=== PATIENT | female | born 2000 | race African-American/Black ===

== ENCOUNTER 2020-01-16 10:07 | Emergency (ER) | payer SELFPAY ==
[2020-01-16 10:12] VITALS: BP 104/64; PULSE 155; RESP 24; TEMP 38.8; O2SAT 99
--- NOTE | 2020-01-16 10:33 | ED.URI ---
HPI - URI/Sore Throat General Chief Complaint: Upper Respiratory Infection <Mirlande Kahn PA-C - Last Filed: 01/16/20 12:18> Stated Complaint: Fever, Lower back pain. <MOOSE Armstrong Last Filed: 01/16/20 12:18> Time Seen by Provider: 01/16/20 10:14 <MOOSE Armstrong Last Filed: 01/16/20 12:18> Source: patient <MOOSE Armstrong Last Filed: 01/16/20 12:18> Mode of arrival: ambulatory <MOOSE Armstrong Last Filed: 01/16/20 12:18> Limitations: no limitations <MOOSE Armstrong Last Filed: 01/16/20 12:18> History of Present Illness HPI Narrative: This is a 19 year old female that presents to the ER for cold symptoms x 3 days. Reports fever, rhinorrhea, and myalgias. Reports she has not felt like eating. She has been taking over the counter medications with little relief. She did not get her Flu vaccine this year. Denies sore throat, otalgia, chest pain or shortness of breath. <MOOSE Armstrong Last Filed: 01/16/20 12:18> Related Data Home Medications: Home Medications Medication Instructions Recorded Confirmed No Home Medications 01/16/20 01/16/20 <MOOSE Armstrong Last Filed: 01/16/20 12:18> Allergies/Adverse Reactions: Allergies Allergy/AdvReac Type Severity Reaction Status Date / Time No Known Allergies Allergy Unverified 01/16/20 10:16 <MOOSE Armstrong Last Filed: 01/16/20 12:18> Review of Systems Review of Systems: Narrative: CONSTITUTIONAL: Reports fever, chills ENT: Reports rhinorrhea. Denies congestion, sore throat, or otalgia. CARDIOVASCULAR: Denies chest pain RESPIRATORY: Denies cough or dyspnea. MUSCULOSKELETAL: Reports myalgia. <MOOSE Armstrong Last Filed: 01/16/20 12:18> All systems reviewed & are unremarkable except as noted in HPI and below <Mirlande Kahn PA-C - Last Filed: 01/16/20 12:18> [facility] Surgical History Surgical History: Surgical History (Updated 01/16/20 @ 10:38 by Mirlande Kahn PA-C) History of tonsillectomy <Mirlande Kahn PA-C - Last Filed: 01/16/20 12:18> Social History Social History: Social History (Updated 01/16/20 @ 10:38 by Mirlande Kahn PA-C) Smoking status: Never smoker Gender identity (if verbalized by the patient): Female <Mirlande Kahn PA-C - Last Filed: 01/16/20 12:18> Exam Narrative: Exam Narrative: GENERAL: Well-appearing, well-nourished, and in no acute distress. HEAD: Normocephalic, atraumatic. EYES: EOMI. ENT: Nares with rhinorrhea, no epistaxis. Mucous membranes moist. Oropharynx without tonsillar hypertrophy exudate or other lesions. Bilateral TMs pearly ballesteros non-bulging NECK: Supple. No adenopathy or masses. CHEST: Clear to auscultation. No respiratory distress. No wheezes rales or rhonchi HEART: Regular rate and rhythm. No murmur heard. Normal peripheral pulses. EXTREMITIES: Normal range of motion. No edema. SKIN: Warm, dry, no rash. NEURO: No focal deficits. Alert and oriented x3. PSYCH: Normal mood and affect <Mirlande Kahn PA-C - Last Filed: 01/16/20 12:18> Course Vital Signs Vital signs: Vital Signs Temperature 38.8 C H 01/16/20 10:12 Pulse Rate 155 H 01/16/20 10:12 Respiratory Rate 24 H 01/16/20 10:12 Blood Pressure 104/64 01/16/20 10:12 Pulse Oximetry 99 01/16/20 10:12 Temperature 37.2 C 01/16/20 12:47 Pulse Rate 100 01/16/20 12:47 Respiratory Rate 25 H 01/16/20 12:47 Blood Pressure 100/61 01/16/20 12:47 Pulse Oximetry 97 01/16/20 12:47 <Mirlande Kahn PA-C - Last Filed: 01/16/20 12:18> Vital Signs Temperature 38.8 C H 01/16/20 10:12 Pulse Rate 155 H 01/16/20 10:12 Respiratory Rate 24 H 01/16/20 10:12 Blood Pressure 104/64 01/16/20 10:12 Pulse Oximetry 99 01/16/20 10:12 Temperature 37.2 C 01/16/20 12:47 Pulse Rate 100 01/16/20 12:47 Respiratory Rate 25 H 01/16/20 12:47 Blood Pressure 100/61 03/0
[2020-01-16] MEDS: SODIUM CHLORIDE 0.9% IV 1,000 ML 999 ML IV CONT ×2 (10:43→11:23)
[2020-01-16 11:23] VITALS: BP 95/55; PULSE 114; RESP 22; TEMP 38.3; O2SAT 100
[2020-01-16 11:54] VITALS: TEMP 38.1
[2020-01-16] MEDS: KETOROLAC 30 MG/ML VIAL (*BKC) IV PUSH (12:14)
[2020-01-16 12:15] VITALS: BP 100/61; PULSE 105; RESP 22; O2SAT 100
[2020-01-16 12:47] VITALS: BP 100/61; PULSE 100; RESP 25; TEMP 37.2; O2SAT 97
== END 2020-01-16 12:49 | disposition home or self-care (01) ==
PROVIDERS: Emergency Provider Emergency Medicine
DX: B34.9 Viral infection, unspecified (principal)
CPT/HCPCS: 87804; 96365; 96375; 99284; J0131; J1885; J7030

== ENCOUNTER 2021-06-22 23:12 | Emergency (ER) | payer SELFPAY ==
[2021-06-22] MEDS: IBUPROFEN 600 MG TABLET PO (23:45)
[2021-06-22 23:56] VITALS: BP 119/80; PULSE 126; RESP 20; TEMP 39.1; O2SAT 100
[2021-06-23 00:26] VITALS: TEMP 38.1
--- NOTE | 2021-06-23 01:52 | ED.FEVER ---
HPI - Fever History of Present Illness HPI Narrative: 20 yo female presnts to the ED c/o fever. She has had a fever for the past 3 days. this is associated with nausea, body aches, urinary frequency. No dysuria, cough, congestion, SOb, sore throat. fever has been controlled with tylenol and motrin Related Data Home Medications Medication Instructions Recorded Confirmed No Home Medications 01/16/20 01/16/20 Allergies Allergy/AdvReac Type Severity Reaction Status Date / Time No Known Allergies Allergy Unverified 01/16/20 10:16 Review of Systems Review of Systems: All systems reviewed & are unremarkable except as noted in HPI and below Cardiovascular: Cardiovascular: Denies chest pain Respiratory: Respiratory: Denies cough and Denies dyspnea Gastrointestinal: Gastrointestinal: Denies abdominal pain, Denies diarrhea, Reports nausea and Denies vomiting Genitourinary: Genitourinary: Denies hematuria, Reports nocturia, Denies dysuria, Denies pelvic pain, Denies flank pain and Denies vaginal discharge Musculoskeletal: Musculoskeletal: Denies back pain and Reports myalgias [facility] Surgical History Surgical History History of tonsillectomy Social History Social History Smoking status: Never smoker Gender identity (if verbalized by the patient): Female Exam Const: General: healthy appearing, no acute distress and alert Orientation/consciousness: patient oriented x3 HENMT: Head: normal to inspection Throat: posterior oropharynx normal Neck: Neck: normal visual inspection and no lymphadenopathy Chest: Chest palpation & inspection: no tenderness Resp: Effort & Inspection: normal respiratory effort Auscultation: clear to auscultation bilaterally, no rales, no rhonchi and no wheezes Cardio: Jugular venous distension: no JVD Rate: tachycardic Rhythm: regular rhythm Heart sounds: no murmurs GI: Inspection: non-distended GI Palp: Yes Soft to palpation, Yes Tenderness to palpation present (GI) (suprpubic), No Guarding due to palpation present (GI) and No Rebound tenderness present Skin: General skin exam: normal color Neuro: General: patient oriented x3 and moves all extremities Speech: normal speech Extrem: General: no edema Psych: Appearance: well kempt Affect: normal affect Course Vital Signs Vital signs: Vital Signs Temperature 39.1 C H 06/22/21 23:56 Pulse Rate 126 H 06/22/21 23:56 Respiratory Rate 20 06/22/21 23:56 Blood Pressure 119/80 06/22/21 23:56 Pulse Oximetry 100 06/22/21 23:56 Temperature 38.1 C H 06/23/21 00:26 Pulse Rate 82 06/23/21 02:14 Respiratory Rate 18 06/23/21 02:14 Blood Pressure 137/74 06/23/21 02:14 Pulse Oximetry 99 06/23/21 02:14 MDM - Fever MDM Narrative Medical decision making narrative: UA consistent with infection. Medical Records Attestation: I reviewed the patient's medical records. Lab Data Attestation: I reviewed the patient's lab results. Labs: Lab Results 06/23/21 Range/Units 02:09 SARS-CoV-2 RNA (RT-PCR) Negative Influenza A Screen Negative Reference Range: Negative Influenza B Screen Negative Reference Range: Negative Strep Screen Presumptive Negative *(Reference Range: Negative)* Discharge Plan Discharge Clinical Impression: Suspected COVID-19 virus infection Patient Disposition: Home, Self-Care Condition: Stable Instructions: COVID-19 (Coronavirus Disease 2019) (ED) Prescriptions: No Action No Home Medications RF: 0 Follow-up/Referrals: UNKNOWN,DOCTOR [Non-Staff] - Sanrdo Ramos DO [Physician] - Stand Alone Forms: Work/School Release IP
[2021-06-23 02:14] VITALS: BP 137/74; PULSE 82; RESP 18; O2SAT 99
[2021-06-24 17:31] LABS: SARS-CoV-2 RNA PCR Negative
== END 2021-06-23 02:15 | disposition home or self-care (01) ==
PROVIDERS: Emergency Provider Emergency Medicine; PCP Emergency Medicine
DX: R50.9 Fever, unspecified (principal); Z20.822 Contact with and (suspected) exposure to COVID-19
CPT/HCPCS: 87081; 87804; 87880; 99283; A9270; C9803; U0003; U0005

== ENCOUNTER 2021-08-21 12:29 | Emergency (ER) | payer OTHER, SELFPAY ==
--- NOTE | ~2021-08-21 | XR_ITS ---
EXAMINATION: XR chest 1V portable DATE: 08/21/2021 14:33 INDICATION: Fever. TECHNIQUE: A single frontal view of the chest was obtained. COMPARISON: None. FINDINGS: The chest demonstrates clear lungs without pneumonia, pleural effusion, or pneumothorax. Th e heart size is normal. IMPRESSION: 1. No acute cardiopulmonary disease. Reviewed, dictated and finalized at location A.
[2021-08-21 12:55] VITALS: BP 122/67; PULSE 109; RESP 14; TEMP 37.6; O2SAT 99
[2021-08-21 14:31] LABS: Basophils Percent Auto 0.1 % (0.2-1.2); Eosinophils Percent Auto 0.1 % (0-4.4); Hematocrit 34.5 % (37.0-47.0); Hemoglobin 11.3 g/dL (12.0-15.0); Immature Granulocyte Absolute 0.03 K/mm3 (0.00-0.031); Immature Granulocyte Percent A 0.3 % (0-0.5); Lymphocytes Absolute Auto 1.53 K/mm3 (0.9-3.2); Lymphocytes Percent Auto 16.2 % (18.3-44.2); Mean Corpuscular HGB Conc 32.8 g/dl (32-36); Mean Corpuscular Hemoglobin 27.8 pg (26-34); Mean Corpuscular Volume 84.8 fl (80-100); Mean Platelet Volume 9.6 fl (7.4-10.4); Monocytes Percent Auto 10.1 % (2.6-8.5); Neutrophils Absolute Auto 6.9 K/mm3 (1.3-6.7); Neutrophils Percent Auto 73.2 % (45.5-73.1); Platelet Count Result 223 k/mm3 (150-375); Red Blood Count 4.07 M/mm3 (4.2-5.4); White Blood Count 9.4 K/mm3 (4.5-10.0)
--- NOTE | 2021-08-21 14:31 | PC.NURSE ---
Xray at bedside.
[2021-08-21 14:47] LABS: INR 1.1; Prothrombin Time 14.3 Seconds (11.1-14.7)
[2021-08-21 14:48] LABS: Partial Thromboplastin Time 24.7 SECONDS (22.3-36.8)
[2021-08-21 14:53] LABS: Alanine Aminotransferase 27 U/L (4-35); Albumin Level 4.1 g/dL (3.5-5.1); Alkaline Phosphatase 134 U/L (38-126); Anion Gap 10 mmol/L (8-16); Aspartate Amino Transferase 25 U/L (14-36); Bilirubin,Total 0.8 mg/dL (0.2-1.3); Blood Urea Nitrogen 13 mg/dL (7-17); CRP 8.6 mg/dL (<1.0); Calcium 8.8 mg/dL (8.4-10.2); Carbon Dioxide 24 mmol/L (22-30); Chloride 106 mmol/L (98-107); Estimated CRCL calculation 101 ml/min; Estimated Glomerular Filt Rate > 60; Glucose 88 mg/dL (65-110); Potassium 3.7 mmol/L (3.4-5.0); Sodium 140 mmol/L (137-145)
[2021-08-21] MEDS: SODIUM CHLORIDE 0.9% IV 1,000 ML 999 ML IV CONT (15:17)
[2021-08-21 15:18] LABS: Add Urine Microscopic? YES; Appearance Urine Cloudy (Clear); Bacteria Urine 1+ /hpf; Bilirubin Urine Negative (Negative); Blood Urine 3+ (Negative); Color Urine Red (Yellow); Glucose Urine UA Negative (Negative); Ketones Urine Negative (Negative); Leukocyte Esterase Ur 2+ LEU/UL (Negative); Mucus Urine Few /lpf; Nitrate Urine Positive (Negative); Protein Urine 3+ mg/dL (Negative); RBC Urine >75 /hpf (0-2); Specific Grav Ur 1.018 (1.001-1.035); WBC Urine >75 /hpf
[2021-08-21] MEDS: ONDANSETRON INJ 4 MG/2 ML VIAL IV PUSH (15:18)
--- NOTE | 2021-08-21 15:19 | ED.FEVER ---
HPI - Fever General Chief Complaint: Fever <Mirlande Kahn PA-C - Last Filed: 08/21/21 17:34> Stated Complaint: fever <Mirlande Kahn PA-C - Last Filed: 08/21/21 17:34> Time Seen by Provider: 08/21/21 14:25 <Mirlande Kahn PA-C - Last Filed: 08/21/21 17:34> Source: patient <Mirlande Kahn PA-C - Last Filed: 08/21/21 17:34> Mode of arrival: ambulatory <Mirlande Kahn PA-C - Last Filed: 08/21/21 17:34> Limitations: no limitations <Mirlande Kahn PA-C - Last Filed: 08/21/21 17:34> History of Present Illness HPI Narrative: This is a 21 year old female that presents to the ER for fever since yesterday. Associated with nausea and vomiting. Denies any other localizing symptoms. Denies cough, congestion, sore throat, abdominal pain, diarrhea, or dysuria. <Mirlande Kahn PA-C - Last Filed: 08/21/21 17:34> Related Data Allergies/Adverse Reactions: Allergies Allergy/AdvReac Type Severity Reaction Status Date / Time No Known Allergies Allergy Unverified 08/21/21 14:14 <Mirlande Kahn PA-C - Last Filed: 08/21/21 17:34> Review of Systems Review of Systems: CONSTITUTIONAL: Reports fever ENT: Denies rhinorrhea, congestion, sore throat RESPIRATORY: Denies cough GASTROINTESTINAL: Reports nausea and vomiting. Denies abdominal pain, or diarrhea. GENITOURINARY: Denies dysuria or hematuria. <Mirlande Kahn PA-C - Last Filed: 08/21/21 17:34> All systems reviewed & are unremarkable except as noted in HPI and below <Mirlande Kahn PA-C - Last Filed: 08/21/21 17:34> [facility] Past Medical History Medical History: Medical History (Updated 08/21/21 @ 17:33 by Mirlande Kahn PA-C) No active medical problems <Mirlande Kahn PA-C - Last Filed: 08/21/21 17:34> Surgical History Surgical History: Surgical History History of tonsillectomy <Mirlande Kahn PA-C - Last Filed: 08/21/21 17:34> Social History Social History: Social History Smoking status: Never smoker Gender identity (if verbalized by the patient): Female <Mirlande Kahn PA-C - Last Filed: 08/21/21 17:34> Exam Narrative: GENERAL: Well-appearing, well-nourished, and in no acute distress. HEAD: Normocephalic, atraumatic. EYES: EOMI. CHEST: Clear to auscultation. No respiratory distress. No wheezes rales or rhonchi HEART: Regular rate and rhythm. No murmur heard. Normal peripheral pulses. ABDOMEN: Soft, nontender, nondistended, normal active bowel sounds. No CVA tenderness EXTREMITIES: Normal range of motion. No edema. SKIN: Warm, dry, no rash. NEURO: No focal deficits. Alert and oriented x3. PSYCH: Normal mood and affect <Mirlande Kahn PA-C - Last Filed: 08/21/21 17:34> Course Vital Signs Vital signs: Vital Signs Temperature 99.7 F H 08/21/21 12:55 Pulse Rate 109 H 08/21/21 12:55 Respiratory Rate 14 08/21/21 12:55 Blood Pressure 122/67 08/21/21 12:55 Pulse Oximetry 99 08/21/21 12:55 Temperature 99.7 F H 08/21/21 12:55 Pulse Rate 109 H 08/21/21 12:55 Respiratory Rate 14 08/21/21 12:55 Blood Pressure 122/67 08/21/21 12:55 Pulse Oximetry 99 08/21/21 12:55 <Mirlande Kahn PA-C - Last Filed: 08/21/21 17:34> MDM - Fever MDM Narrative Medical decision making narrative: Patient presents to the emergency department for fever, nausea and vomiting. Afebrile in the ED and nontoxic-appearing. Her vitals are stable. CBC is without leukocytosis. Metabolic panel without concerning findings. Bedside test is negative. UA with evidence of likely urinary tract infection. Chest x-ray without acute cardiopulmonary abnormality. Patient started on IV antibiotics for urinary tract infection. Hydrated and given dose of antiemetic in the ED with relief. Will be started on oral antibiotics. She is to follow-up with
[2021-08-21 16:37] LABS: Lipase 45 U/L (23-300)
[2021-08-21 17:46] VITALS: BP 110/60; PULSE 100; RESP 16; O2SAT 100
== END 2021-08-21 17:48 | disposition home or self-care (01) ==
PROVIDERS: Physician Assistant; Emergency Provider General Practice
DX: N30.00 Acute cystitis without hematuria (principal)
CPT/HCPCS: 36415; 71045; 80053; 81001; 81025; 83605; 83690; 85025; 85610; 85730; 86140; 87077; 87086; 87088; 87186; 87804; 96365; 96367; 96375; 99284; J0131; J0696; J2405; J7030

== ENCOUNTER 2022-02-26 20:20 | Inpatient (IN) | payer OTHER, SELFPAY ==
[2022-02-26] VITALS (15 sets, daily range): BP systolic 70–101; BP diastolic 53–79; PULSE 101–149; RESP 16–35; TEMP 37.1–37.9; O2SAT 96–100
--- NOTE | ~2022-02-26 | US_ITS ---
EXAMINATION: US retroperitoneal comp DATE: 02/27/2022 14:10 INDICATION: Acute kidney injury. TECHNIQUE: Multiple ultrasound grayscale images of the kidneys were obtained. COMPARISON: None. FINDINGS: The right kidney measures 14.2 x 5.7 x 5.9 cm. The left kidney measures 13.1 x 5.9 x 6.2 cm. The kidn eys demonstrate normal parenchymal echogenicity. There is mild right hydronephrosis. There is a stone at right ureterovesicular junction. IMPRESSION: 1. Stone at right ureterovesicular junction with mild right hydronephrosis. Reviewed, dictated and finalized at location A.
--- NOTE | ~2022-02-26 | US_ITS ---
EXAMINATION: US renal BI DATE: 02/28/2022 08:13 INDICATION: Right hydronephrosis TECHNIQUE: Multiple grayscale and Doppler ultrasound images of the kidneys were obtained. COMPARISON: 02/27/2022 FINDINGS: The right kidney measures 13.5 x 6.3 x 6.7 cm. The left kidney measures 12.3 x 5.8 x 6.0 cm . The kidneys demonstrate normal parenchymal echogenicity. There is no definite persistent hydronephr osis. The bladder is normal. IMPRESSION: 1. No definite persistent hydronephrosis. Reviewed, dictated and finalized at location A.
[2022-02-26 22:04] LABS: Basophils Absolute Auto 0.1 K/mm3 (0.0-0.1); Basophils Percent Auto 0.5 % (0.2-1.2); Eosinophils Percent Auto 0.3 % (0-4.4); Hematocrit 33.1 % (37.0-47.0); Hemoglobin 9.7 g/dL (12.0-15.0); Immature Granulocyte Absolute 0.08 K/mm3 (0.00-0.031); Immature Granulocyte Percent A 0.7 % (0-0.5); Lymphocytes Absolute Auto 0.63 K/mm3 (0.9-3.2); Lymphocytes Percent Auto 5.5 % (18.3-44.2); Mean Corpuscular HGB Conc 29.3 g/dl (32-36); Mean Corpuscular Hemoglobin 26.6 pg (26-34); Mean Corpuscular Volume 90.9 fl (80-100); Mean Platelet Volume 10.4 fl (7.4-10.4); Monocytes Absolute Auto 1.4 K/mm3 (0.1-0.6); Monocytes Percent Auto 11.8 % (2.6-8.5); Neutrophils Absolute Auto 9.4 K/mm3 (1.3-6.7); Neutrophils Percent Auto 81.2 % (45.5-73.1); Platelet Count Result 168 k/mm3 (150-375); Red Blood Count 3.64 M/mm3 (4.2-5.4); Red Cell Distribution Width 14.9 % (11.5-14.5); White Blood Count 11.5 K/mm3 (4.5-10.0)
[2022-02-26 22:17] LABS: Alanine Aminotransferase 44 U/L (4-35); Albumin Level 3.6 g/dL (3.5-5.1); Alkaline Phosphatase 152 U/L (38-126); Anion Gap 11 mmol/L (8-16); Aspartate Amino Transferase 37 U/L (14-36); Bilirubin,Total 2.4 mg/dL (0.2-1.3); Blood Urea Nitrogen 17 mg/dL (7-17); Calcium 8.4 mg/dL (8.4-10.2); Carbon Dioxide 19 mmol/L (22-30); Chloride 109 mmol/L (98-107); Estimated Glomerular Filt Rate 38; Glucose 121 mg/dL (65-110); Hypochromasia 1+ (NORMAL); Lipase 27 U/L (23-300); Platelet Estimate Adequate (Adequate); Potassium 3.9 mmol/L (3.4-5.0); Sodium 139 mmol/L (137-145)
[2022-02-26] MEDS: SODIUM CHLORIDE 0.9% IV 1,000 ML 999 ML IV CONT ×2 (22:23→22:24)
[2022-02-26] MEDS: ONDANSETRON INJ 4 MG/2 ML VIAL 8 MG IV PUSH (22:24)
--- NOTE | 2022-02-26 22:30 | ED.NAVMDI ---
HPI - Nausea/Vomiting/Diarrhea General Chief complaint: Nausea/Vomiting/Diarrhea Stated complaint: vomiting, fever Time Seen by Provider: 02/26/22 21:56 Source: patient Mode of arrival: ambulatory Limitations: no limitations History of Present Illness HPI Narrative: Patient is 21 years old white female presented to the ED with nausea vomiting at least 7 times since last night. Associated with subjective fever. Patient denies any abdominal pain or diarrhea. Patient also denies any sick contact, respiratory symptoms, sore throat, ear aches, headache, coughing, chest pain or back pain. Last menstrual period 1 month ago, patient is sexually active. She denied any vaginal bleeding or discharge. Related Data Home Medications Medication Instructions Recorded Confirmed No Home Medications 02/26/22 02/26/22 Allergies Allergy/AdvReac Type Severity Reaction Status Date / Time No Known Allergies Allergy Unverified 08/21/21 14:14 [facility] Past Medical History Medical History (Updated 02/27/22 @ 00:05 by Ana Angela MD) No active medical problems Surgical History Surgical History History of tonsillectomy Social History Social History Smoking status: Never smoker Gender identity (if verbalized by the patient): Female Course Vital Signs Vital signs: Vital Signs Temperature 37.1 C 02/26/22 20:21 Pulse Rate 124 H 02/26/22 20:21 Respiratory Rate 16 02/26/22 20:21 Blood Pressure 85/53 L 02/26/22 20:21 Pulse Oximetry 97 02/26/22 20:21 Temperature 37.1 C 02/26/22 20:21 Pulse Rate 106 H 02/26/22 22:05 Respiratory Rate 18 02/26/22 22:05 Blood Pressure 70/59 L 02/26/22 22:05 Pulse Oximetry 98 02/26/22 22:05 MDM - Nausea/Vomiting/Diarrhea Lab Data Result diagrams: 02/26/22 21:59 02/26/22 21:59 Labs: Lab Results 02/26/22 02/26/22 Range/Units 21:59 21:59 WBC 11.5 H (4.5-10.0) K/mm3 RBC 3.64 L (4.2-5.4) M/mm3 Hgb 9.7 L (12.0-15.0) g/dL Hct 33.1 L (37.0-47.0) % MCV 90.9 (80-100) fl MCH 26.6 (26-34) pg MCHC 29.3 L (32-36) g/dl RDW 14.9 H (11.5-14.5) % Plt Count 168 (150-375) k/mm3 MPV 10.4 (7.4-10.4) fl Immature Gran % (Auto) 0.7 H (0-0.5) % Neut % (Auto) 81.2 H (45.5-73.1) % Lymph % (Auto) 5.5 L (18.3-44.2) % Fleming % (Auto) 11.8 H (2.6-8.5) % Eos % (Auto) 0.3 (0-4.4) % Baso % (Auto) 0.5 (0.2-1.2) % Lymph # (Auto) 0.63 L (0.9-3.2) K/mm3 Fleming # (Auto) 1.4 H (0.1-0.6) K/mm3 Eos # (Auto) 0.0 (0-0.3) K/mm3 Baso # (Auto) 0.1 (0.0-0.1) K/mm3 Abs Immat Gran (auto) 0.08 H (0.00-0.031) K/mm3 Absolute Neuts (auto) 9.4 H (1.3-6.7) K/mm3 Absolute Nucleated RBC 0.0 (0.0-0.012) K/mm3 Nucleated RBC % 0.0 (0.0-0.2) % Platelet Estimate Adequate (Adequate) Hypochromasia 1+ (NORMAL) Sodium 139 (137-145) mmol/L Potassium 3.9 (3.4-5.0) mmol/L Chloride 109 H (98-107) mmol/L Carbon Dioxide 19 L (22-30) mmol/L Anion Gap 11 (8-16) mmol/L BUN 17 (7-17) mg/dL Creatinine 2.00 H (0.7-1.0) mg/dL Estim Creat Clear Calc Not Reportable Estimated GFR 38 L (59 - ) Glucose 121 H (65-110) mg/dL Calcium 8.4 (8.4-10.2) mg/dL Total Bilirubin 2.4 H (0.2-1.3) mg/dL AST 37 H (14-36) U/L ALT 44 H (4-35) U/L Alkaline Phosphatase 152 H (38-126) U/L Total Protein 7.0 (6.3-8.2) g/dL Albumin 3.6 (3.5-5.1) g/dL Lipase 27 (23-300) U/L Discharge Plan Discharge Clinical Impression: , REYES (acute kidney injury) Additional Instructions: Patient care turned over to Dr. Lazaro at shift change, awaiting labs,, disposition. Patient been resting quietly in the emergency room without any issues or problems. Patient received 3 L of normal saline IV, 8 mg of Zofran IV, work-up showed that the kandis
[2022-02-27] VITALS (24 sets, daily range): BP systolic 84–156; BP diastolic 35–79; PULSE 99–143; RESP 16–32; TEMP 37–38.9; O2SAT 90–100; BMI 37.3
[2022-02-27 00:18] LABS: Appearance Urine Clear (Clear); Bilirubin Urine 1+ (Negative); Blood Urine 3+ (Negative); Color Urine Yellow (Yellow); Glucose Urine UA Negative (Negative); Ketones Urine Negative (Negative); Leukocyte Esterase Ur 3+ LEU/UL (Negative); Nitrate Urine Positive (Negative); Protein Urine 2+ mg/dL (Negative); Specific Grav Ur 1.015 (1.001-1.035); pH Urine >=9.0 (5.0-9.0)
[2022-02-27 00:19] LABS: Bacteria Urine 1+ /hpf; Mucus Urine Rare /lpf; RBC Urine 21-50 /hpf (0-2); Squamous Epithelial Cell Urine Moderate /hpf (Few); WBC Clumps Urine Present /HPF; WBC Urine >75 /hpf
[2022-02-27 00:20] LABS: Add Urine Microscopic? YES
[2022-02-27] MEDS: SODIUM CHLORIDE 0.9% IV 1,000 ML 999 ML IV CONT ×3 (00:26→07:10)
--- NOTE | 2022-02-27 00:59 | PC.NURSE ---
Patient very worried about being . Patient not aware that she could get on the weekends. Patient states, she stopped taking control because it made her gain weight and she was not aware that she could get without control.
[2022-02-27 01:16] LABS: Beta HCG Quantitative 198.87 mIU/ML
--- NOTE | 2022-02-27 01:25 | PM.IMHP ---
H&P: HPI History of Present Illness Date/Time: 02/27/22 01:25 Chief Complaint: Fever Narrative: This is a 21-year-old female with past medical history significant for morbid obesity, patient presents to the emergency room due to nausea vomiting an episode of fever patient has been in her usual state of health she denies any pain or burning with urination, no cough, no sputum production, no shortness of breath, no diarrhea no abdominal pain. Upon presentation to the emergency room patient was found to have a systolic blood pressure gyrus elated in the 80s to 90s a urinalysis was significant for numerous WBCs present. Patient received fluids in the emergency room with improvement of her blood pressure a received her 1st dose of IV antibiotics as well. Patient has been admitted for further evaluation, management and treatment. Review of Systems Review of Systems: Nausea, vomiting, fever. Constitutional: Constitutional: Denies fatigue, Reports fever(s), Denies lethargy, Denies malaise, Denies night sweats and Reports poor appetite Eyes: Eyes: Denies change in vision ENT: Denies dysphagia, Denies vertigo, Denies dizziness, Denies nasal congestion, Denies nasal discharge, Denies nasal obstruction and Denies odynophagia Cardiovascular: Cardiovascular: Denies chest pain, Denies pedal edema, Denies edema, Denies claudication, Denies leg edema, Denies lightheadedness, Denies palpitations, Denies dyspnea on exertion and Denies orthopnea Respiratory: Respiratory: Denies cough and Denies excessive phlegm production Gastrointestinal: Gastrointestinal: Denies abdominal pain, Denies dyspepsia, Denies heartburn, Denies diarrhea, Reports nausea and Reports vomiting Genitourinary: Genitourinary: Denies dysuria Musculoskeletal: Musculoskeletal: Denies arthralgias and Denies joint swelling Integumentary/Breasts: Skin/Breast: Denies rash Neurologic: Denies focal weakness and Denies Sensory deficit (Neuro) Psychiatric: Psychiatric: Reports no additional psychiatric complaints and Reports as per HPI Endocrine: Endocrine: Denies cold intolerance, Denies heat intolerance, Denies polydipsia and Denies palpitations Hematologic/Lymphatic: Hematologic/Lymphatic: Reports no additional hematologic/lymphatic complaints and Reports as per HPI Allergic/Immunologic: Allergic/Immunologic: Reports no additional allergic/immunologic complaints and Reports as per HPI [facility] Past Medical History Medical History (Updated 02/27/22 @ 04:51 by David Colon MD) No active medical problems Surgical History Surgical History History of tonsillectomy Family History Family History (Updated 02/27/22 @ 02:33 by Zaina Aggarwal RN) Father Diabetes mellitus Social History Social History Smoking status: Never smoker Alcohol intake: never Substance use: never Gender identity (if verbalized by the patient): Female Spiritual care concerns: No Meds Home Medications and Allergies Home Medications Medication Instructions Recorded Confirmed Type No Home Medications 02/26/22 02/27/22 History Allergies Allergy/AdvReac Type Severity Reaction Status Date / Time No Known Allergies Allergy Unverified 02/27/22 02:29 Vital Signs Vital Signs - 24 hr 02/26/22 20:21 02/26/22 22:05 02/26/22 22:13 Temperature 98.7 F Pulse Rate 124 H 106 H 118 H Respiratory Rate 16 18 24 H Blood Pressure 85/53 L 70/59 L Pulse Oximetry 97 98 02/26/22 22:15 02/26/22 22:16 02/26/22 22:17 Temperature Pulse Rate 113 H 111 H 113 H Respiratory Rate 28 H 22 H 26 H Blood Pressure 88/59 L 93/54 L Pulse Oximetry 99 100 100 02/26/22 22:30 02/26/22 22:32 02/26/22 22:45 Temperature Pulse Rate 104 H 103 H 101 H Respiratory Rate 21 H 19 21 H Blood Pressure 90/57 L Pulse Oximetry 97 96 98 02/26/22 22:47 02/26/22 23:00 02/14
--- NOTE | 2022-02-27 02:28 | ADMGEN ---
This patient, Hillary Merlos, was admitted to Medical Room 341-01. Patient/family oriented to hospital policies and general routines including ID bracelet, bed and alarms, visiting hours, pain management, procedures, bathroom and other care routines, personal items, smoking policy, room service/diet, and visiting hours. Information on how to activate the Rapid Response Team has been discussed. Patient/Family are encouraged to report perceived risks to care and to ask questions if they do not understand what they are told or what they should do.
[2022-02-27] MEDS: DEXTROSE 5%/0.45% SOD CHL 1,000 ML 85 ML IV CONT (04:12)
[2022-02-27] MEDS: ONDANSETRON INJ 4 MG/2 ML VIAL IV PUSH ×2 (06:14→14:14)
[2022-02-27 08:41] LABS: Basophils Percent Auto 0.3 % (0.2-1.2); Eosinophils Percent Auto 0.2 % (0-4.4); Hematocrit 25.3 % (37.0-47.0); Hemoglobin 7.7 g/dL (12.0-15.0); Immature Granulocyte Absolute 0.03 K/mm3 (0.00-0.031); Immature Granulocyte Percent A 0.5 % (0-0.5); Lymphocytes Absolute Auto 0.22 K/mm3 (0.9-3.2); Lymphocytes Percent Auto 3.5 % (18.3-44.2); Mean Corpuscular HGB Conc 30.4 g/dl (32-36); Mean Corpuscular Hemoglobin 26.4 pg (26-34); Mean Corpuscular Volume 86.6 fl (80-100); Mean Platelet Volume 10.6 fl (7.4-10.4); Monocytes Absolute Auto 0.2 K/mm3 (0.1-0.6); Monocytes Percent Auto 3.3 % (2.6-8.5); Neutrophils Absolute Auto 5.8 K/mm3 (1.3-6.7); Neutrophils Percent Auto 92.2 % (45.5-73.1); Platelet Count Result 144 k/mm3 (150-375); Red Blood Count 2.92 M/mm3 (4.2-5.4); Red Cell Distribution Width 14.9 % (11.5-14.5); White Blood Count 6.3 K/mm3 (4.5-10.0)
[2022-02-27 08:49] LABS: Alanine Aminotransferase 36 U/L (4-35); Albumin Level 2.8 g/dL (3.5-5.1); Alkaline Phosphatase 122 U/L (38-126); Anion Gap 7 mmol/L (8-16); Aspartate Amino Transferase 36 U/L (14-36); Bilirubin,Total 2.1 mg/dL (0.2-1.3); Blood Urea Nitrogen 15 mg/dL (7-17); Calcium 7.3 mg/dL (8.4-10.2); Carbon Dioxide 18 mmol/L (22-30); Chloride 114 mmol/L (98-107); Estimated CRCL calculation 53 ml/min; Estimated Glomerular Filt Rate 43; Glucose 107 mg/dL (65-110); Magnesium 1.5 mg/dL (1.6-2.3); Potassium 3.4 mmol/L (3.4-5.0); Sodium 139 mmol/L (137-145)
[2022-02-27] MEDS: MAGNESIUM SULF 4 GM/WATER100ML 4 GM/100 ML BAG IVPB (10:54)
[2022-02-27] MEDS: POTASSIUM CHLORIDE 20 MEQ PACKET (FOR LIQUID) 40 MEQ PO (10:55)
--- NOTE | 2022-02-27 14:05 | PCCCNOTE ---
On 02/27/22, the student, [Kay Garcia], provided care and completed [facility] documentation on this patient. I have reviewed the student's documentation and agree with the findings.
--- NOTE | 2022-02-27 16:26 | PM.IMPN ---
Progress Note: A&P Additional Plan 21-year-old female with past medical history significant for morbid obesity, patient presents to the emergency room due to nausea vomiting an episode of fever. Found to have REYES with UTI. She is also , with unknown gestational age. 1)REYES with UTI: c/w Ceftriaxone c/w IV Fluids Renal USG shows stone in right ureterovesicular junction with mild right hydronephrosis Will get urology consult supplement mag 2): Will start on vitamin, folic acid Will need outpatient OB follow up for care 3)DVT ppx: Hep SQ 4)Code:Full 5)Dispo:pending improvement Time Spent With Patient Time with patient: 15 - 25 minutes Subjective Date/time seen: 02/27/22 16:26 c/o nausea/vomiting Review of Systems Review of Systems: All systems reviewed & are unremarkable except as noted in HPI and below Constitutional: Constitutional: Reports fatigue and Reports weakness Eyes: Eyes: Reports no additional eye complaints ENT: Reports system reviewed and no additional complaints, except as documented Cardiovascular: Cardiovascular: Reports no additional cardiovascular complaints Respiratory: Respiratory: Reports no additional respiratory complaints Gastrointestinal: Gastrointestinal: Reports no additional gastrointestinal complaints Musculoskeletal: Musculoskeletal: Reports no additional musculoskeletal complaints Exam Const: General: comfortable and no acute distress HENMT: Mouth: Yes moist mucous membranes Eyes: Pupils: Equal, round and reactive pupils present Neck: Neck: supple Resp: Auscultation: clear to auscultation bilaterally Cardio: Rate: regular rate Rhythm: regular rhythm GI: GI Palp: Yes Soft to palpation Auscultation: normal bowel sounds Other: no flank tenderness Neuro: Cognition (Neuro): normal cognition Psych: Mental Status: mental status grossly normal Objective Data Vital Signs Vital Signs: Vital Signs - 24 hr 02/26/22 20:21 02/26/22 22:05 02/26/22 22:13 Temperature 98.7 F Pulse Rate 124 H 106 H 118 H Respiratory Rate 16 18 24 H Blood Pressure 85/53 L 70/59 L Pulse Oximetry 97 98 02/26/22 22:15 02/26/22 22:16 02/26/22 22:17 Temperature Pulse Rate 113 H 111 H 113 H Respiratory Rate 28 H 22 H 26 H Blood Pressure 88/59 L 93/54 L Pulse Oximetry 99 100 100 02/26/22 22:30 02/26/22 22:32 02/26/22 22:45 Temperature Pulse Rate 104 H 103 H 101 H Respiratory Rate 21 H 19 21 H Blood Pressure 90/57 L Pulse Oximetry 97 96 98 02/26/22 22:47 02/26/22 23:00 02/26/22 23:15 Temperature Pulse Rate 111 H 120 H 131 H Respiratory Rate 23 H 26 H 24 H Blood Pressure 95/70 L Pulse Oximetry 100 02/26/22 23:30 02/26/22 23:32 02/26/22 23:46 Temperature 100.2 F H Pulse Rate 129 H 126 H 149 H Respiratory Rate 35 H 21 H 26 H Blood Pressure 101/79 101/79 Pulse Oximetry 99 02/27/22 00:00 02/27/22 00:15 02/27/22 00:32 Temperature Pulse Rate 143 H 141 H 137 H Respiratory Rate 23 H 24 H 32 H Blood Pressure Pulse Oximetry 02/27/22 00:41 02/27/22 00:48 02/27/22 00:55 Temperature 99.2 F Pulse Rate 138 H 135 H Respiratory Rate 28 H 26 H Blood Pressure 101/79 Pulse Oximetry 02/27/22 01:03 02/27/22 01:28 02/27/22 01:30 Temperature Pulse Rate 129 H 132 H Respiratory Rate 25 H 30 H Blood Pressure Pulse Oximetry 98 96 98 02/27/22 01:32 02/27/22 01:45 02/27/22 01:47 Temperature Pulse Rate 128 H 129 H 131 H Respiratory Rate 27 H 28 H 29 H Blood Pressure 98/35 L 84/40 L Pulse Oximetry 90 96 96 02/27/22 02:19 02/27/22 02:27 02/27/22 04:46 Temperature 98.9 F 99.6 F 100.6 F H Pulse Rate 127 H 125 H Respiratory Rate 18 18 Blood Pressure 90/52 L 84/38 L Pulse Oximetry 97 95 02/27/22 06:15 02/27/22 07:07 02/27/22 14:00 Temperature 100.6 F H 98.7 F 102.1 F H Pulse Rate Respiratory Rate 20 Blood Pressure 156/69 H Pulse Oximetry 100
[2022-02-27] MEDS: DEXTROSE 5%/0.45% SOD CHL 1,000 ML 100 ML IV CONT (17:48)
--- NOTE | 2022-02-27 17:48 | WPDURCON ---
Assessment and Plan Assessment and plan (1) Hydronephrosis: Code(s): N13.30 - Unspecified hydronephrosis Status: Acute Assessment and Plan: Abd/pelvic u/s shows scant right hydronephrosis and suggest possible small stone at right UVJ. Given improvement in fever and leukocytosis since admission, and given absence in pain and possible , I will not immediately plan intervention. If we see regression in any of above will plan ureteroscopy, possible stone extraction and stent placement. Urology Consult Note HPI Date Seen: 02/27/22 Requesting Physician: David Colon MD Primary Care Provider: UNKNOWN,DOCTOR Consult Narrative Narrative: Hillary Merlos is a 21 year old female, without prior significant urological history and without history of urolithiasis, who presents to the emergency department late last night with persistent nausea and vomiting over the course of 24-36 hours. She also had subjective fever but did not document her temperature. At the time presentation patient was afebrile but did have a significant leukocytosis. Her urinalysis was markedly contaminated but did which suggest urinary tract infection. Addition to the above a serum test suggest a uncertain gestation. She was admitted for hydration and empirically started on ceftriaxone. Later this afternoon a retroperitoneal ultrasound revealed scant right hydronephrosis and suggested a small stone at her right ureterovesical junction. Throughout all this the patient denies significant flank or abdominal pain, irritable voiding or hematuria. She has been febrile throughout the day but that has diminished and a repeat serum white blood cell count subsequent to admission was dramatically improved. We were asked to see the patient late this afternoon after the ultrasounds showed scant right hydronephrosis Review of Systems Cardiovascular: Cardiovascular: Denies chest pain, Denies lightheadedness, Denies palpitations and Denies dyspnea Respiratory: Respiratory: Denies dyspnea Gastrointestinal: Gastrointestinal: Denies abdominal pain, Denies diarrhea, Reports nausea and Reports vomiting Genitourinary: Genitourinary: Denies hematuria and Denies dysuria Endocrine: Endocrine: Denies palpitations PMFSH Past Medical History Medical History No active medical problems Surgical History Surgical History History of tonsillectomy Family History Family History Father Diabetes mellitus Social History Social History Smoking status: Never smoker Alcohol intake: never Substance use: never Gender identity (if verbalized by the patient): Female Spiritual care concerns: No Meds Home Medications and Allergies Home Medications Medication Instructions Recorded Confirmed Type No Home Medications 02/26/22 02/27/22 History Allergies Allergy/AdvReac Type Severity Reaction Status Date / Time No Known Allergies Allergy Unverified 02/27/22 02:29 Vital Signs Vital Signs - 24 hr 02/26/22 20:21 02/26/22 22:05 02/26/22 22:13 Temperature 98.7 F Pulse Rate 124 H 106 H 118 H Respiratory Rate 16 18 24 H Blood Pressure 85/53 L 70/59 L Pulse Oximetry 97 98 02/26/22 22:15 02/26/22 22:16 02/26/22 22:17 Temperature Pulse Rate 113 H 111 H 113 H Respiratory Rate 28 H 22 H 26 H Blood Pressure 88/59 L 93/54 L Pulse Oximetry 99 100 100 02/26/22 22:30 02/26/22 22:32 02/26/22 22:45 Temperature Pulse Rate 104 H 103 H 101 H Respiratory Rate 21 H 19 21 H Blood Pressure 90/57 L Pulse Oximetry 97 96 98 02/26/22 22:47 02/26/22 23:00 02/26/22 23:15 Temperature Pulse Rate 111 H 120 H 131 H Respiratory Rate 23 H 26 H 24 H Blood Pressure 95/70 L Pulse Ox
[2022-02-27] MEDS: HEPARIN SODIUM 5,000 UNITS/ML VIAL 5000 UNITS SUB-Q (21:13)
[2022-02-28] VITALS (8 sets, daily range): BP systolic 81–105; BP diastolic 47–85; PULSE 101–124; RESP 16–20; TEMP 36.7–37.5; O2SAT 94–97
--- NOTE | 2022-02-28 | ECHO_ITS ---
Patient Info Name: Hillary Merlos Age: 21 years : 2000 Gender: Female Ht: 65 in Wt: 224 lbs BSA: 2.21 m2 HR: 124 bpm BP: 103 / 85 mmHg Heart Rhythm: Tachycardia, Sinus Rhythm Technical Quality: Fair Exam Date: 02/28/2022 11:08 AM Exam Location: [facility] Card Pulmonary Patient Status: Inpatient Admit Date: 02/28/2022 Staff Ordering Physician: Mallorie Smith MD Coater Helper: Hoa Spann RDCS Attending Provider: David Colon MD Exam Type: CA echo doppler color flow Study Info Indications - bacteremia Complete two-dimensional, color flow and Doppler transthoracic echocardiogram is performed. Summary 1. Complete two-dimensional, color flow and Doppler transthoracic echocardiogram is performed. 2. Left ventricular chamber dimension is normal. 3. Left ventricular systolic function is normal, estimated at 55-60%. 4. The left ventricular diastolic function is normal. 5. E/e' 9 is minimally elevated. 6. No pulmonary hypertension, estimated pulmonary arterial systolic pressure is 35 mmHg. 7. There is trace pulmonic regurgitation. Left Ventricle E/e' 9 is minimally elevated. Left ventricular chamber dimension is normal. Left ventricular systolic function is normal, estimated at 55-60%. The left ventricular diastolic function is normal. Right Ventricle Right ventricular systolic function is normal and with normal TAPSE 2.1 cm. Right ventricular chamber dimension is normal. Left Atria Left atrial chamber dimension is normal. Right Atria Right atrial chamber dimension is normal. Aortic Valve The aortic valve is probable trileaflet. There is no aortic valve stenosis. There is no aortic valve regurgitation. No aortic valve vegetation visualized. Pulmonic Valve There is trace pulmonic regurgitation. No pulmonic valve vegetation visualized. Mitral Valve There is no mitral valve stenosis. There is no mitral valve regurgitation. No mitral valve vegetation visualized. Tricuspid Valve There is no tricuspid valve regurgitation. No pulmonary hypertension, estimated pulmonary arterial systolic pressure is 35 mmHg. No tricuspid valve vegetation visualized. Pericardium/Pleural There is no pericardial effusion. Inferior Vena Cava Normal inferior vena cava with >50% collapse upon inspiration consistent with normal right atrial pressure, 5 mmHg. Aorta The aortic root size at the sinus of Valsalva is normal. Left Ventricular Outflow Tract Name Value Normal LVOT 2D LVOT Diameter 2.0 cm LVOT Doppler LVOT Peak Gradient 5 mmHg LVOT Mean Gradient 2 mmHg LVOT VTI 15 cm LVOT VTI/AV VTI Ratio 0.9 LVOT Stroke Volume 50 ml LVOT CO 5.3 l/min LVOT CI 2.5 l/min/m2 Pulmonic Valve Name Value Normal
[2022-02-28] MEDS: DEXTROSE 5%/0.45% SOD CHL 1,000 ML 100 ML IV CONT ×2 (02:16→11:41)
[2022-02-28 06:02] LABS: Basophils Percent Auto 0.1 % (0.2-1.2); Eosinophils Absolute Auto 0.1 K/mm3 (0-0.3); Eosinophils Percent Auto 1.1 % (0-4.4); Hemoglobin 8.4 g/dL (12.0-15.0); Immature Granulocyte Absolute 0.11 K/mm3 (0.00-0.031); Immature Granulocyte Percent A 1.1 % (0-0.5); Lymphocytes Absolute Auto 1.04 K/mm3 (0.9-3.2); Lymphocytes Percent Auto 10.7 % (18.3-44.2); Mean Corpuscular HGB Conc 32.3 g/dl (32-36); Mean Corpuscular Hemoglobin 26.5 pg (26-34); Mean Platelet Volume 10.8 fl (7.4-10.4); Monocytes Absolute Auto 0.6 K/mm3 (0.1-0.6); Monocytes Percent Auto 6.1 % (2.6-8.5); Neutrophils Absolute Auto 7.9 K/mm3 (1.3-6.7); Neutrophils Percent Auto 80.9 % (45.5-73.1); Platelet Count Result 150 k/mm3 (150-375); Red Blood Count 3.17 M/mm3 (4.2-5.4); Red Cell Distribution Width 15.4 % (11.5-14.5); White Blood Count 9.7 K/mm3 (4.5-10.0)
[2022-02-28 06:45] LABS: Iron < 10 ug/dL (37-170)
[2022-02-28 06:48] LABS: Anion Gap 5 mmol/L (8-16); Blood Urea Nitrogen 11 mg/dL (7-17); Calcium 7.8 mg/dL (8.4-10.2); Carbon Dioxide 22 mmol/L (22-30); Chloride 114 mmol/L (98-107); Estimated CRCL calculation 72 ml/min; Estimated Glomerular Filt Rate > 60; Glucose 105 mg/dL (65-110); Magnesium 2.8 mg/dL (1.6-2.3); Potassium 3.1 mmol/L (3.4-5.0); Sodium 141 mmol/L (137-145)
[2022-02-28 06:59] LABS: Percent Iron Saturation < 6 % (20-50)
--- NOTE | 2022-02-28 07:06 | WPDUROPN2 ---
Progress Note: A&P Assessment and Plan (1) Hydronephrosis: Code(s): N13.30 - Unspecified hydronephrosis Status: Acute Assessment and Plan: Repeat renal u/s today to check status of mild right hydronephrosis and possible right UVJ stone Subjective Subjective Date/Time Seen: 02/28/22 07:06 No abdominal pain, n/v overnight. BP stable and afebrile. c/o being hungry/thirsty Review of Systems Cardiovascular: Cardiovascular: Denies chest pain, Denies lightheadedness, Denies palpitations and Denies dyspnea Respiratory: Respiratory: Denies dyspnea Gastrointestinal: Gastrointestinal: Denies diarrhea, Denies nausea and Denies vomiting Genitourinary: Genitourinary: Denies hematuria and Denies dysuria Endocrine: Endocrine: Denies palpitations Exam Const: General: no acute distress Resp: Effort & Inspection: normal respiratory effort GI: Inspection: non-distended GI Palp: No abdominal tenderness and No Guarding due to palpation present (GI) Auscultation: normal bowel sounds Objective Data Vital Signs Vital Signs: Vital Signs - 24 hr 02/27/22 07:07 02/27/22 14:00 02/27/22 14:13 Temperature 98.7 F 102.1 F H 102 F H Pulse Rate Respiratory Rate 20 Blood Pressure 156/69 H Pulse Oximetry 100 02/27/22 15:15 02/27/22 15:16 02/27/22 15:19 Temperature 101.3 F H 101.3 F H 100.1 F H Pulse Rate 99 Respiratory Rate 18 Blood Pressure 93/47 L Pulse Oximetry 98 02/27/22 17:43 02/27/22 21:02 02/28/22 06:08 Temperature 99.1 F 98.6 F 98.0 F Pulse Rate 125 H 124 H Respiratory Rate 16 16 Blood Pressure 96/62 L 103/85 Pulse Oximetry 95 94 Intake/Output Intake/Output: Intake & Output 02/25/22 02/26/22 02/27/22 02/28/22 23:59 23:59 23:59 23:59 Intake Total 1999 4240 1000 Output Total 250 Balance 1999 3990 1000 Meds/Results Medications: Active Medications Generic Name Dose Route Start Last Admin Trade Name Freq PRN Reason Stop Dose Admin Heparin Sodium (Porcine) 5,000 units 02/27/22 21:00 02/27/22 21:13 Heparin Sodium 5,000 Units/Ml Vial SUB-Q 5,000 units Q12HR SHAKILA Administration Dextrose/Sodium Chloride 1,000 mls @ 100 mls/hr 02/27/22 04:00 02/28/22 02:16 Dextrose 5% Sodium Chloride 0.45% IV CONT 100 mls/hr .Q10H SHAKILA Administration Ceftriaxone Sodium/Dextrose 1 gm in 50 mls @ 100 mls/hr 02/27/22 21:00 02/27/22 21:43 Rocephin 1 Gm/D5w 50 Ml IVPB 03/05/22 21:29 Infused Q24H SHAKILA Infusion Ondansetron HCl 4 mg 02/27/22 01:08 02/27/22 14:14 Ondansetron Inj 4 Mg/2 Ml Vial IV PUSH 4 mg Q4H PRN Administration Nausea Perflutren Lipid Microsphere 0 ml 02/27/22 17:18 Perflutren Lipid Microspheres 1.5 Ml Vial Diluted To 10 Ml Total Volume IV PUSH ONCE PRN adequate visualization Protocol Vit/Calcium/Iron/Folic Ac 1 tab 02/28/22 09:00 Multivit/Min/Pren/Fol Ac/Iron Tablet PO DAILY [facility] Radiology Results: ITS Impressions Retroperitoneum Ultrasound 02/27/22 14:50 IMPRESSION: 1. Stone at right ureterovesicular junction with mild right hydronephrosis. Labs Labs: Laboratory Results - last 24 hr 02/27/22 02/27/22 02/28/22 01:31 01:31 05:14 WBC 6.3 9.7 RBC 2.92 L 3.17 L Hgb 7.7 L 8.4 L Hct 25.3 L 26.0 L MCV 86.6 82.0 D MCH 26.4 26.5 MCHC 30.4 L 32.3 RDW 14.9 H 15.4 H Plt Count 144 L 150 MPV 10.6 H 10.8 H Immature Gran % (Auto) 0.5 1.1 H Neut % (Auto) 92.2 H 80.9 H Lymph % (Auto) 3.5 L 10.7 L [place] % (Auto) 3.3 6.1 Eos % (Auto) 0.2 1.1 Baso % (Auto) 0.3 0.1 L Lymph # (Auto) 0.22 L 1.04 [place] # (Auto) 0.2 0.6 Eos # (Auto) 0.0 0.1 Baso # (Auto) 0.0 0.0 Abs Immat Gran (auto) 0.03 0.11 H Absolute Neuts (auto) 5.8 7.9 H Absolute Nucleated RBC 0.0 0.0 Nucleated RBC % 0.0 0.0 Sodium 139 Potassium 3.4 Chloride 114 H Carbon Dioxide 18 L Anion Gap 7 L BUN 15 Creatinin
[2022-02-28] MEDS: HEPARIN SODIUM 5,000 UNITS/ML VIAL 5000 UNITS SUB-Q ×2 (08:37→21:19)
[2022-02-28] MEDS: MULTIVIT/MIN/PREN/FOL AC/IRON TABLET 1 TAB PO (08:40)
--- NOTE | 2022-02-28 11:51 | PC.NURSE ---
pt refused K+ powder and pill form this morning. Educated pt on the importance of taking K+ due to K+ level being 3.1 this morning. Pt does not want to take it and stats pt is too tired.
[2022-02-28 12:35] LABS: IFOB Positive Control Positive; Immunochemical Fecal Occult Bl Negative (N)
--- NOTE | 2022-02-28 17:54 | PM.IMPN ---
Progress Note: A&P Assessment and Plan (1) Urinary tract infection: Code(s): N39.0 - Urinary tract infection, site not specified Status: Acute Assessment and Plan: Patient has been started on Rocephin Cultures in progress 02/28/2022 interval history: patient is a 21-year-old female presented with a UTI and was found to have hydronephrosis with left ureteral kidney stone patient had ultrasound seen by urologist it seems patient has passed the stone, patient with a UTI being treated with ceftriaxone, patient is also found to be possibly 8 week, very tired and fatigue most likely secondary to anemia her hemoglobin is 7.7 patient was given 1 unit of pack RBC patient also has iron deficiency anemia and was given Venofer, patient started on folic acid and vitamin, will continue to monitor and further recommendation to follow. (2) REYES (acute kidney injury): Code(s): N17.9 - Acute kidney failure, unspecified Status: Acute Assessment and Plan: Likely to be pre renal azotemia Receiving IV fluids Repeat BMP in a.m. Continue to monitor (3) Obesity (BMI 30-39.9): Code(s): E66.9 - Obesity, unspecified Status: Acute Assessment and Plan: Lifestyle and diet modification Carb consistent diet (4) : Qualifiers: Weeks of gestation: less than 8 weeks Qualified Code(s): Z3A.01 - Less than 8 weeks gestation of Code(s): Z34.90 - Encounter for supervision of normal , unspecified, unspecified trimester Status: Acute Assessment and Plan: Patient had a positive test Follow-up in outpatient setting. Additional Plan 21-year-old female with past medical history significant for morbid obesity, patient presents to the emergency room due to nausea vomiting an episode of fever. Found to have REYES with UTI. She is also , with unknown gestational age. 1)REYES with UTI: c/w Ceftriaxone c/w IV Fluids Renal USG shows stone in right ureterovesicular junction with mild right hydronephrosis Will get urology consult supplement mag 2): Will start on vitamin, folic acid Will need outpatient OB follow up for care 3)DVT ppx: Hep SQ 4)Code:Full 5)Dispo:pending improvement 02/28/2022 interval history: patient is a 21-year-old female presented with a UTI and was found to have hydronephrosis with left ureteral kidney stone patient had ultrasound seen by urologist it seems patient has passed the stone, patient with a UTI being treated with ceftriaxone, patient is also found to be possibly 8 week, very tired and fatigue most likely secondary to anemia her hemoglobin is 7.7 patient was given 1 unit of pack RBC patient also has iron deficiency anemia and was given Venofer, patient started on folic acid and vitamin, will continue to monitor and further recommendation to follow. Subjective Date/time seen: 02/28/22 17:54 HPI-Narrative: This is a 21-year-old female with past medical history significant for morbid obesity, patient presents to the emergency room due to nausea vomiting an episode of fever patient has been in her usual state of health she denies any pain or burning with urination, no cough, no sputum production, no shortness of breath, no diarrhea no abdominal pain. Upon presentation to the emergency room patient was found to have a systolic blood pressure gyrus elated in the 80s to 90s a urinalysis was significant for numerous WBCs present. Patient received fluids in the emergency room with improvement of her blood pressure a received her 1st dose of IV antibiotics as well. Patient has been admitted for further evaluation, management and treatment. 02/28/2022 interval history: patient is a 21-year-old female presented with a UTI and was found to have hydronephrosis with left ureteral kidney stone patient had ultrasound seen by urologist it seems patient has passed the stone, pa
[2022-02-28] MEDS: SODIUM CHLORIDE 0.9% IV 250 ML 30 ML IV CONT (20:00)
[2022-03-01] MEDS: DEXTROSE 5%/0.45% SOD CHL 1,000 ML 100 ML IV CONT (02:45)
[2022-03-01 05:35] LABS: Hematocrit 32.1 % (37.0-47.0); Hemoglobin 10.2 g/dL (12.0-15.0); Mean Corpuscular HGB Conc 31.8 g/dl (32-36); Mean Corpuscular Hemoglobin 26.6 pg (26-34); Mean Corpuscular Volume 83.6 fl (80-100); Mean Platelet Volume 10.3 fl (7.4-10.4); Platelet Count Result 186 k/mm3 (150-375); Red Blood Count 3.84 M/mm3 (4.2-5.4); Red Cell Distribution Width 15.6 % (11.5-14.5); White Blood Count 9.1 K/mm3 (4.5-10.0)
[2022-03-01 05:45] VITALS: BP 117/67; PULSE 93; RESP 18; TEMP 37; O2SAT 94
[2022-03-01 05:51] LABS: Anion Gap 9 mmol/L (8-16); Blood Urea Nitrogen 10 mg/dL (7-17); Carbon Dioxide 24 mmol/L (22-30); Chloride 108 mmol/L (98-107); Estimated CRCL calculation 92 ml/min; Estimated Glomerular Filt Rate > 60; Glucose 93 mg/dL (65-110); Potassium 2.8 mmol/L (3.4-5.0); Sodium 141 mmol/L (137-145)
[2022-03-01] MEDS: POTASSIUM CHLORIDE 20 MEQ PACKET (FOR LIQUID) 40 MEQ PO (06:03)
[2022-03-01 06:28] VITALS: BP 117/67; PULSE 93; RESP 18; TEMP 37; O2SAT 94
[2022-03-01 08:04] LABS: Magnesium 2.3 mg/dL (1.6-2.3)
[2022-03-01] MEDS: POTASSIUM CHLORIDE INJ 40 MEQ in SODIUM CHLORIDE 0.9% IV 500 ML 130 MEQ IVPB (08:50)
[2022-03-01] MEDS: MULTIVIT/MIN/PREN/FOL AC/IRON TABLET 1 TAB PO (08:51)
[2022-03-01] MEDS: HEPARIN SODIUM 5,000 UNITS/ML VIAL 5000 UNITS SUB-Q (08:51)
[2022-03-01] MEDS: FOLIC ACID 1 MG TABLET PO (13:59)
[2022-03-01 14:00] VITALS: BP 93/52; PULSE 91; RESP 28; TEMP 36.1; O2SAT 95
--- NOTE | 2022-03-01 15:01 | PM.DS ---
DS: Admitting Diagnosis Discharge Date 03/01/2022 Admitting Diagnosis Fever DS: Discharge Diagnosis Discharge Diagnosis (1) Urinary tract infection: Code(s): N39.0 - Urinary tract infection, site not specified Status: Acute Assessment and Plan: Patient has been started on Rocephin Cultures in progress 02/28/2022 interval history: patient is a 21-year-old female presented with a UTI and was found to have hydronephrosis with left ureteral kidney stone patient had ultrasound seen by urologist it seems patient has passed the stone, patient with a UTI being treated with ceftriaxone, patient is also found to be possibly 8 week, very tired and fatigue most likely secondary to anemia her hemoglobin is 7.7 patient was given 1 unit of pack RBC patient also has iron deficiency anemia and was given Venofer, patient started on folic acid and vitamin, will continue to monitor and further recommendation to follow. (2) REYES (acute kidney injury): Code(s): N17.9 - Acute kidney failure, unspecified Status: Acute Assessment and Plan: Likely to be pre renal azotemia Receiving IV fluids Repeat BMP in a.m. Continue to monitor (3) Obesity (BMI 30-39.9): Code(s): E66.9 - Obesity, unspecified Status: Acute Assessment and Plan: Lifestyle and diet modification Carb consistent diet (4) : Qualifiers: Weeks of gestation: less than 8 weeks Qualified Code(s): Z3A.01 - Less than 8 weeks gestation of Code(s): Z34.90 - Encounter for supervision of normal , unspecified, unspecified trimester Status: Acute Assessment and Plan: Patient had a positive test Follow-up in outpatient setting. DS: Summary Hospital Course Reason for hospitalization: Chief Complaint: Fever Narrative: This is a 21-year-old female with past medical history significant for morbid obesity, patient presents to the emergency room due to nausea vomiting an episode of fever patient has been in her usual state of health she denies any pain or burning with urination, no cough, no sputum production, no shortness of breath, no diarrhea no abdominal pain. Upon presentation to the emergency room patient was found to have a systolic blood pressure gyrus elated in the 80s to 90s a urinalysis was significant for numerous WBCs present. Patient received fluids in the emergency room with improvement of her blood pressure a received her 1st dose of IV antibiotics as well. Patient has been admitted for further evaluation, management and treatment. Hospital Course: 02/28/2022 interval history: patient is a 21-year-old female presented with a UTI and was found to have hydronephrosis with left ureteral kidney stone patient had ultrasound seen by urologist it seems patient has passed the stone, patient with a UTI being treated with ceftriaxone, patient is also found to be possibly 8 week, very tired and fatigue most likely secondary to anemia her hemoglobin is 7.7 patient was given 1 unit of pack RBC patient also has iron deficiency anemia and was given Venofer, patient started on folic acid and vitamin, will continue to monitor and further recommendation to follow. today patient is feeling much better urine and blood culture is growing Proteus mirabilis patient was treated with Rocephin, will discharge the patient on cefdinir, patient to follow-up with her primary care and OBGYN as soon as possible patient is instructed if any symptoms redeveloped go to nearest emergency department. Status at Discharge Functional status at discharge: independent ambulation Overall status at discharge: patient is back to baseline Time Spent with Patient Time attestation: Total time spent providing and/or coordinating discharge services: Patient was seen and examined at the time of the discharge Condition at discharge is stable Code status: Full code. Time spent preparing disch
[2022-03-01 15:52] LABS: Potassium 3.6 mmol/L (3.4-5.0)
== END 2022-03-01 16:42 | disposition home or self-care (01) | DRG 832 ==
LOC: ANHED 22:30 → ANH3MED 02-27 01:32
PROVIDERS: Emergency Medicine; Internal Medicine; Physician Assistant; Admitting Provider Internal Medicine; Emergency Provider Emergency Medicine; Visit Provider Family Medicine
DX: O23.01 Infections of kidney in pregnancy, first trimester (principal); N17.9 Acute kidney failure, unspecified; O26.831 Pregnancy related renal disease, first trimester; N13.6 Pyonephrosis; Z3A.01 Less than 8 weeks gestation of pregnancy; O99.211 Obesity complicating pregnancy, first trimester; E66.01 Morbid (severe) obesity due to excess calories
CPT/HCPCS: 36415; 36430; 76770; 76775; 80048; 80053; 81001; 81025; 82274; 82728; 83540; 83550; 83605; 83690; 83735; 84132; 84702; 85025; 85027; 86850; 86900; 86901; 86920; 87040; 87077; 87086; 87088; 87186; 93306; 96361; 96365; 96366; 96374; 96375; 96376; 99285; A9270; G0378; J0131; J0696; J1644; J1756; J2405; J3475; J3480; J7030; J7040; J7050; P9016

== ENCOUNTER 2022-05-08 20:32 | Emergency (ER) | payer OTHER, MEDICAID, SELFPAY ==
[2022-05-08 20:35] VITALS: BP 114/63; PULSE 132; RESP 16; TEMP 36.9; O2SAT 97
--- NOTE | 2022-05-08 21:13 | ED.FEVER ---
HPI - Fever General Chief Complaint: Fever Stated Complaint: fever Time Seen by Provider: 05/08/22 20:43 History of Present Illness HPI Narrative: Patient is a 21-year-old female who is currently 14 weeks here for evaluation of a subjective fever. Patient states that she has had congestion, rhinorrhea, and subjective chills for the past 2 days. Patient has been using Tylenol for her fever, last taken about 2 hours prior to arrival. Denies chest pain, abdominal pain, nausea, vomiting, diarrhea, constipation, weakness or cough. She has been vaccinated against COVID. Denies vaginal bleeding or sudden gush of fluids. She follows with Dr. Dela Cruz and has had two ultrasounds during her . Related Data Allergies Allergy/AdvReac Type Severity Reaction Status Date / Time No Known Allergies Allergy Verified 05/08/22 20:38 Review of Systems Review of Systems: Gen.: Reports chills Eyes: Denies eye pain or visual change ENT: Denies congestion Respiratory: Denies shortness of breath or cough CV: Denies chest pain or palpitations GI: Denies abdominal pain nausea, emesis or diarrhea denies burning, urgency, frequency or hematuria Musculoskeletal: Denies back pain or muscle pain Neuro: Denies numbness, tingling, weakness or focal weakness Skin: Denies rash Except as documented, all other systems reviewed and negative PMFSH Past Medical History Medical History No active medical problems Surgical History Surgical History History of tonsillectomy Family History Family History Father Diabetes mellitus Social History Social History Smoking status: Never smoker Alcohol intake: never Substance use: never Gender identity (if verbalized by the patient): Female Spiritual care concerns: No Exam Narrative: APPEARANCE: Well appearing, no pain in distress, well-nourished. Head: Normocephalic and atraumatic. EYES: PERRLA/EOMI, conjunctivae clear NOSE: No nasal drainage EARS: External ear normal in appearance THROAT: Oropharynx is clear. Mucous membranes are moist. NECK: Supple. No adenopathy, no masses. RESPIRATORY: Airway patent, respirations nonlabored. Clear to auscultation bilaterally, no rales, rhonchi, wheezing. CARDIOVASCULAR: Regular rate and rhythm without murmurs, rubs, or gallops. ABDOMINAL: heart tones detected at 159 bpm. Normoactive bowel sounds. Soft, nontender, nondistended. No rebound tenderness or guarding. MUSCULOSKELETAL: Extremities are warm and well-perfused. Moves all extremities well. No edema. NEURO: Normal speech. No focal neurologic deficits. SKIN: Skin is warm and dry. No rashes. PSYCHIATRIC: Normal affect/mood. Course Vital Signs Vital signs: Vital Signs Temperature 98.5 F 05/08/22 20:35 Pulse Rate 132 H 05/08/22 20:35 Respiratory Rate 16 05/08/22 20:35 Blood Pressure 114/63 05/08/22 20:35 Pulse Oximetry 97 05/08/22 20:35 Temperature 98.5 F 05/08/22 20:35 Pulse Rate 102 H 05/08/22 22:28 Respiratory Rate 16 05/08/22 20:35 Blood Pressure 106/62 05/08/22 22:28 Pulse Oximetry 98 05/08/22 22:28 MDM - Fever MDM Narrative Medical decision making narrative: 21-year-old female here for upper respiratory symptoms for the past 2 days with subjective fever. Patient afebrile in the ED, initially tachycardic which resolved throughout hospital stay, likely physiologic tachycardia in . Her COVID and flu test were negative, heart tones were detected at 159 bpm on Doppler. Patient reassured after heart tones were detected. Advised that this is likely an upper respiratory infection that we did not test for in the emergency department. Her lungs were clear to auscultation, very low suspicion
[2022-05-08 22:18] LABS: Influenza A QL RT-PCR Negative (Negative); Influenza B QL RT-PCR Negative (Negative); SARS-CoV-2 RNA PCR Negative
[2022-05-08 22:28] VITALS: BP 106/62; PULSE 102; O2SAT 98
== END 2022-05-08 22:34 | disposition home or self-care (01) ==
PROVIDERS: Physician Assistant; Emergency Provider Emergency Medicine; PCP Family Medicine
DX: O99.512 Diseases of the respiratory system complicating pregnancy, second trimester (principal); J06.9 Acute upper respiratory infection, unspecified; Z20.822 Contact with and (suspected) exposure to COVID-19; Z3A.14 14 weeks gestation of pregnancy
CPT/HCPCS: 87502; 99283; C9803; U0003; U0005

== ENCOUNTER 2022-05-24 06:38 | Inpatient (IN) | payer OTHER, MEDICAID, SELFPAY ==
[2022-05-24] VITALS (36 sets, daily range): BP systolic 77–125; BP diastolic 39–95; PULSE 107–146; RESP 16–31; TEMP 36.4–39.6; O2SAT 96–100
--- NOTE | ~2022-05-24 | US_ITS ---
EXAMINATION: US abdomen limited DATE: 05/24/2022 10:09 INDICATION: Neck, vomiting and elevated bilirubin TECHNIQUE: Multiple grayscale and Doppler ultrasound images of the abdomen were obtained. COMPARISON: None FINDINGS: The pancreatic head and body are normal in appearance. The pancreatic tail is not visualized. Liver has normal echogenicity and contour, with a smooth surface. No liver lesion identified. No intrahepat ic biliary duct dilation suspected. Portal venous flow was seen in the hepatopetal, normal direction and has normal Doppler waveform. The gallbladder is normal in appearance. There is some hypoechoic sl udge in the dependent fundus of the gallbladder. No shadowing cholelithiasis. The common bile duct me asures 4 mm, which is normal. The right kidney is partially visualized with hydronephrosis at the upp er pole. Visualized portion of the proximal aorta and inferior vena cava are normal. IMPRESSION: 1. Hydronephrosis at the upper pole of the partially visualized right kidney. Consider further evalua tion with CT to assess for potential obstructing stone/lesion. 2. Small amount of sludge in the dependent aspect of the normal-appearing gallbladder. No shadowing c holelithiasis or intra or extra hepatic biliary ductal dilation. Reviewed, dictated and finalized at location A. IMPRESSION: 1. Hydronephrosis at the upper pole of the partially visualized right kidney. C onsider further evaluation with CT to assess for potential obstructing stone/le eduardo. 2. Small amount of sludge in the dependent aspect of the normal-appearing gallb ladder. No shadowing cholelithiasis or intra or extra hepatic biliary ductal di lation.
--- NOTE | ~2022-05-24 | US_ITS ---
EXAMINATION: US OB follow up DATE: 05/25/2022 11:25 INDICATION: Urosepsis during early second trimester . TECHNIQUE: Real-time ultrasound of the pelvis was performed. The interpreting radiologist was not pre sent for the study. COMPARISON: None. FINDINGS: There is a single living fetus in vertex presentation. 11 x 7 x 7 mm anechoic venous taylor within the anterior placenta. heart rate is 137 beats per minute (bpm). The amniotic fluid volume is subj ectively normal. The following biometric data were obtained: BPD: 3.6 cm -> 17 weeks 1 days Head circumference: 13.8 cm -> 17 weeks 1 days Abdominal circumference: 10.6 cm -> 16 weeks 4 days Femur length: 2.4 cm -> 17 weeks 3 days . Head circumference to abdominal circumference ratio: 1.30 (normal range 1.07-1.29). Biometric measure ments are otherwise concordant. Estimated weight: 175 g (+/-) 26 g or 6 oz. (+/-) 1 oz. IMPRESSION: 1. Single living fetus in vertex presentation with heart rate of 137 bpm. 2. Gestational age by ultrasound of 17 weeks 1 day(s) +/- 1 week(s) 1 day(s) with ultrasound estimate d date of delivery (BENJAMIN) of 11/01/2022. Estimated weight is 69th percentile by Hadlock criteria when 11/05/2022 is used as the BENJAMIN. Please correlate with clinical information or earlier ultrasound s for most accurate BENJAMIN. 3. Head circumference to abdominal circumference ratio of 1.30 slightly above the upper range of norm al (normal range 1.07-1.29). 4. Small anechoic venous taylor within the otherwise normal anterior placenta. Reviewed, dictated and finalized at location A. IMPRESSION: 1. Single living fetus in vertex presentation with heart rate of 137 bpm. 2. Gestational age by ultrasound of 17 weeks 1 day(s) +/- 1 week(s) 1 day(s) wi th ultrasound estimated date of delivery (BENJAMIN) of 11/01/2022. Estimated w eight is 69th percentile by Hadlock criteria when 11/05/2022 is used as the BENJAMIN . Please correlate with clinical information or earlier ultrasounds for most ac curate BENJAMIN. 3. Head circumference to abdominal circumference ratio of 1.30 slightly above t he upper range of normal (normal range 1.07-1.29). 4. Small anechoic venous taylor within the otherwise normal anterior placenta.
--- NOTE | ~2022-05-24 | XR_ITS ---
EXAMINATION: XR retrograde pyelo w/stent RT DATE: 05/24/2022 15:08 INDICATION: Right internal ureteral stent placement TECHNIQUE: Fluoroscopic images from a right internal ureteral stent placement are submitted for jeff hollins 14 seconds of fluoroscopy time. 4 fluoroscopic images FINDINGS: There is a right double-J internal ureteral stent projecting in expected position, with proximal [place] loop at the level of the renal pelvis and distal loop not visualized. IMPRESSION: 1. Right internal ureteral stent placement. Please refer to real-time procedural findings for detai ls. Reviewed, dictated and finalized at location A. IMPRESSION: 1. Right internal ureteral stent placement. Please refer to real-time procedu ral findings for details.
--- NOTE | ~2022-05-24 | XR_ITS ---
EXAMINATION: XR chest 1V portable DATE: 05/24/2022 11:13 INDICATION: Tachycardia and leukocytosis during second trimester . TECHNIQUE: frontal view of the chest was obtained. COMPARISON: Chest radiograph dated 08/21/2021 FINDINGS: The lungs remain clear with no focal airspace opacities, pulmonary edema, pleural effusion or pneumot horax. The cardiomediastinal silhouette is normal. Visualized bones and soft tissues are unremarkable . IMPRESSION: 1. Normal chest radiograph. Reviewed, dictated and finalized at location A. IMPRESSION: 1. Normal chest radiograph.
--- NOTE | 2022-05-24 07:14 | PC.NURSE ---
Patient report received from Cat, RN. All questions answered and care of patient assumed.
--- NOTE | 2022-05-24 07:42 | ED.FEVER ---
HPI - Fever General Chief Complaint: Fever Stated Complaint: bodyaches, fever Time Seen by Provider: 05/24/22 07:07 History of Present Illness HPI Narrative: 21-year-old female presents emergency room states she has been having fever for the last couple days. She is got diffuse body aches as well as some mild cough and congestion. She is vaccinated for COVID. She is currently with a due date of November 06, 2022. She has been followed and seen by [facility]. She is ultrasound done during this showed intrauterine . She was in our emergency department 7 to 10 days ago for similar type presentation work-up evaluation at that time was negative including negative for COVID and influenza. She states that she been having vomiting is thrown up several times unable to keep anything down. No one else at home has been sick. Denies any urinary complaints. No vaginal discharge or bleeding. She has had no abdominal pain other than epigastric region associate with some nausea vomiting. She states that secondary to her nausea she has not had anything to eat for the last 2 to 3 days. She denies any chills or fevers. No urinary complaints. No back pain. Related Data Allergies Allergy/AdvReac Type Severity Reaction Status Date / Time No Known Allergies Allergy Verified 05/24/22 06:57 Review of Systems Review of Systems: CONSTITUTIONAL: Having fever and diffuse muscle aches EYES: Denies visual changes, redness, or discharge. ENT: Denies rhinorrhea, congestion, sore throat, or otalgia. CARDIOVASCULAR: Denies chest pain, palpitations, or edema. RESPIRATORY: Denies cough or dyspnea. GASTROINTESTINAL: Denies abdominal pain. Having nausea and vomiting but no diarrhea GENITOURINARY: Denies dysuria or hematuria. SKIN: Denies rash or itching. MUSCULOSKELETAL: Denies back pain, joint pain. NEUROLOGIC: Denies headache, numbness, or weakness. PSYCHIATRIC: Denies anxiety or depression. [facility] Past Medical History Medical History No active medical problems Surgical History Surgical History History of tonsillectomy Family History Family History Father Diabetes mellitus Social History Social History Smoking status: Never smoker Alcohol intake: never Substance use: never Gender identity (if verbalized by the patient): Female Spiritual care concerns: No Exam Narrative: APPEARANCE: Well appearing, no pain or distress, well-nourished. Head normocephalic and atraumatic. EYES: PERRLA/EOMI, conjunctivae very clear. NOSE: Normal with no drainage EARS:TMS clear Deven Lara, with good light reflex. THROAT: Pharynx clear, no exudate. Tongue is dry NECK: Supple. No adenopathy, no masses. RESPIRATORY: Airway patent, respirations nonlabored. Clear to auscultation bilaterally, no rales, rhonchi, wheezing. CARDIOVASCULAR: Regular rate and rhythm without murmurs, rubs, or gallops. Tachycardic ABDOMINAL: Soft, nontender, nondistended, no hepatosplenomegaly Musculoskeletal: Moves all extremities. Strength/ROM intact, No edema, No calf tenderness. NEURO: Alert. Cranial nerves II through XII intact. Normal gait. Good coordination. Nonfocal examination. SKIN:: Warm, dry. Normal Color PSYCHIATRIC: Normal affect/mood, normal interaction Psych: Other: Patient was given initial liter of fluids IV. Took quite some time to get those done and she does not have great IV access to hold put on a pressure bag. Despite this she remains tachycardic heart rate in the 140s. Ultrasound of her gallbladder was performed showing no significant pathology. She does have an elevation of her white blood cell count. A second and third liter of fluids were ordered and a sepsis protocol was initiated. Patient had a IV antibiotics initi
[2022-05-24] MEDS: SODIUM CHLORIDE 0.9% IV 1,000 ML 999 ML IV CONT ×3 (08:34→12:03)
[2022-05-24 08:35] LABS: Basophils Percent Auto 0.2 % (0.2-1.2); Hematocrit 28.9 % (37.0-47.0); Hemoglobin 9.4 g/dL (12.0-15.0); Immature Granulocyte Absolute 0.08 K/mm3 (0.00-0.031); Immature Granulocyte Percent A 0.4 % (0-0.5); Lymphocytes Absolute Auto 0.91 K/mm3 (0.9-3.2); Mean Corpuscular HGB Conc 32.5 g/dl (32-36); Mean Corpuscular Hemoglobin 27.6 pg (26-34); Mean Corpuscular Volume 84.8 fl (80-100); Mean Platelet Volume 9.3 fl (7.4-10.4); Monocytes Absolute Auto 1.2 K/mm3 (0.1-0.6); Monocytes Percent Auto 6.8 % (2.6-8.5); Neutrophils Absolute Auto 15.9 K/mm3 (1.3-6.7); Neutrophils Percent Auto 87.6 % (45.5-73.1); Platelet Count Result 243 k/mm3 (150-375); Red Blood Count 3.41 M/mm3 (4.2-5.4); Red Cell Distribution Width 15.2 % (11.5-14.5); White Blood Count 18.2 K/mm3 (4.5-10.0)
[2022-05-24 08:46] LABS: Alanine Aminotransferase 21 U/L (6-35); Albumin Level 3.5 g/dL (3.5-5.1); Alkaline Phosphatase 158 U/L (38-126); Anion Gap 7 mmol/L (8-16); Aspartate Amino Transferase 18 U/L (14-36); Bilirubin,Total 2.1 mg/dL (0.2-1.3); Blood Urea Nitrogen 10 mg/dL (7-17); Calcium 8.7 mg/dL (8.4-10.2); Carbon Dioxide 21 mmol/L (22-30); Chloride 106 mmol/L (98-107); Estimated Glomerular Filt Rate > 60; Glucose 109 mg/dL (65-110); Potassium 3.5 mmol/L (3.4-5.0); Sodium 134 mmol/L (137-145)
[2022-05-24 09:13] LABS: SARS-CoV-2 RNA PCR Negative
--- NOTE | 2022-05-24 09:48 | PC.NURSE ---
Patient off unit to US.
--- NOTE | 2022-05-24 11:21 | PC.NURSE ---
Patient report given to TANIA Saldivar. All questions answered and care of patient transferred.
[2022-05-24 12:22] LABS: D Dimer 0.99 ug/mL (<0.48)
[2022-05-24 12:39] LABS: Appearance Urine Cloudy (Clear); Bilirubin Urine 2+ (Negative); Blood Urine 3+ (Negative); Glucose Urine UA Trace mg/dL (Negative); Ketones Urine Trace mg/dL (Negative); Leukocyte Esterase Ur 3+ LEU/UL (Negative); Nitrate Urine Positive (Negative); Protein Urine 3+ mg/dL (Negative); Specific Grav Ur 1.015 (1.001-1.035); Urobilinogen Urine >=8.0 mg/dL (<2.0); pH Urine 8.5 (5.0-9.0)
[2022-05-24 12:41] LABS: Add Urine Microscopic? YES; Color Urine Dark Amber (Yellow)
[2022-05-24] MEDS: ACETAMINOPHEN 500 MG TABLET 1000 MG PO (12:46)
[2022-05-24 12:50] LABS: RBC Urine Noted /hpf (0-2)
[2022-05-24 12:51] LABS: Bacteria Urine Noted /hpf; Squamous Epithelial Cell Urine Few /hpf (Few); WBC Urine >75 /hpf (0-3)
--- NOTE | 2022-05-24 14:00 | PM.IMHP ---
H&P: HPI History of Present Illness Date/Time: 05/24/22 13:45 Chief Complaint: Fever and body aches. Narrative: This is a 21-year-old female with history of UTI and proteus mirabalis bacteremia in February 2022 who presented to the ED from home for evaluation of fever and body aches. She has not felt well for several days with symptoms to include body aches, decreased appetite, nausea with a couple of episodes of emesis and now dry heaves, and fever to 103? F. She was febrile, tachycardic, and tachypneic on arrival to the ER. Her urine was positive for 3+ blood, nitrates, leukocyte esterase, white blood cells, and bacteria and a subsequent abdominal ultrasound (performed as she is currently 17 weeks with her 2nd child) and she was found to have hydronephrosis at the upper pole of the partially visualized right kidney as well as a small amount of sludge in the dependent aspect of a normal appearing gallbladder. Due to her sepsis picture and concerns for possible obstructing stone, she was taken to the OR per Dr. Llamas for cystoscopy with right retrograde pyelogram ([id number] right proximal hydroureteronephrosis) and ureteral stent placement. Review of Systems Review of Systems: Twelve systems were reviewed. She has had a mild headache. No sinus congestion or sore throat. No cough. No sick contacts. No chest pain or shortness of breath. She denies hematemesis. No diarrhea. No significant dysuria or hematuria. No back or abdominal pain. Except as documented, all other systems were reviewed and are negative. [facility] Past Medical History Medical History (Updated 05/24/22 @ 22:21 by Alba Bautista PA-C) Anemia Bacterial infection due to Proteus mirabilis (02/2022) Surgical History Surgical History History of section History of tonsillectomy Family History Family History Father Diabetes mellitus Social History Social History Social History: Surrogate decision maker: Yohannes Merlos, mother. Code status: Full code. Smoking status: Never smoker Alcohol intake: never Substance use: never Substance use type: does not use Spiritual care concerns: No Meds Home Medications and Allergies Home Medications Medication Instructions Recorded Confirmed Type prenat.vits,carolynn,jys-hatz-spwtv 1 tablet PO DAILY #90 tabs 03/01/22 05/24/22 Rx (KPN tablet) Allergies Allergy/AdvReac Type Severity Reaction Status Date / Time No Known Allergies Allergy Verified 05/24/22 17:06 Vital Signs Vital Signs - 24 hr 05/24/22 06:54 05/24/22 06:59 05/24/22 07:00 Temperature 99.8 F H Pulse Rate 140 H 141 H 139 H Respiratory Rate 18 27 H 26 H Blood Pressure 104/70 Pulse Oximetry 96 97 97 Oxygen Delivery Room Air 05/24/22 07:15 05/24/22 07:30 05/24/22 07:45 Temperature Pulse Rate 131 H 135 H 134 H Respiratory Rate 31 H 30 H 25 H Blood Pressure Pulse Oximetry 97 99 97 Oxygen Delivery 05/24/22 08:00 05/24/22 08:15 05/24/22 08:35 Temperature Pulse Rate 132 H 135 H Respiratory Rate 22 H 23 H Blood Pressure Pulse Oximetry 98 97 97 Oxygen Delivery 05/24/22 08:45 05/24/22 09:00 05/24/22 09:15 Temperature Pulse Rate 134 H 138 H 133 H Respiratory Rate 24 H 26 H 27 H Blood Pressure Pulse Oximetry 98 98 98 Oxygen Delivery 05/24/22 09:30 05/24/22 10:40 05/24/22 10:42 Temperature Pulse Rate 137 H 141 H Respiratory Rate 27 H 22 H Blood Pressure 121/66 Pulse Oximetry 97 99 100 Oxygen Delivery 05/24/22 10:45 05/24/22 10:46 05/24/22 11:20 Temperature Pulse Rate 140 H 140 H 143 H Respiratory Rate 31 H 31 H 29 H Blood Pressure 111/58 L Pulse Oximetry 100 100 Oxygen Delivery 05/24/22 11:21 05/24/22 12:33 05/24/22 13:35 Temperature
--- NOTE | 2022-05-24 14:34 | WPDANESEPPF ---
Anes - Initial Pre Proc Eval Procedure: Operation Date: 05/24/22 14:30 Proposed Procedures p Cysto, RPG, Stone Ext, Stent Placement - Amanuel Llamas MD Date/Time: 05/24/22 14:34 Surgeon: Amanuel Llamas MD Pre Op Diagnosis: bodyaches, fever Patient Data Age: 21 Gender: F Height: Weight: Last Vital Signs Temp 38.2 C H 05/24/22 13:35 Pulse 133 H 05/24/22 14:01 Resp 27 H 05/24/22 14:01 BP 100/50 L 05/24/22 14:01 Pulse Ox 100 05/24/22 14:01 O2 Del Method Room Air 05/24/22 06:54 Allergies Allergy/AdvReac Type Severity Reaction Status Date / Time No Known Allergies Allergy Verified 05/24/22 06:57 Home Medications Medication Instructions Recorded Confirmed Type cefdinir 300 mg capsule 300 mg PO Q12H #14 caps 03/01/22 Rx ferrous sulfate, dried 159 mg (45 159 mg PO DAILY #30 tabs 03/01/22 Rx mg iron) tablet,extended release (iron ER) folic acid 1 mg tablet 1 mg PO DAILY #100 tabs 03/01/22 Rx prenat.vits,carolynn,dsl-[id number] 1 tablet PO DAILY #90 tabs 03/01/22 Rx (KPN tablet) Laboratory Tests 05/24/22 05/24/22 05/24/22 08:22 08:24 08:24 WBC 18.2 K/mm3 H K/mm3 (4.5-10.0) RBC 3.41 M/mm3 L M/mm3 (4.2-5.4) Hgb 9.4 g/dL L g/dL (12.0-15.0) Hct 28.9 % L % (37.0-47.0) MCV 84.8 fl fl (80-100) MCH 27.6 pg pg (26-34) MCHC 32.5 g/dl g/dl (32-36) RDW 15.2 % H % (11.5-14.5) Plt Count 243 k/mm3 k/mm3 (150-375) MPV 9.3 fl fl (7.4-10.4) Immature Gran % (Auto) 0.4 % % (0-0.5) Neut % (Auto) 87.6 % H % (45.5-73.1) Lymph % (Auto) 5.0 % L % (18.3-44.2) [place] % (Auto) 6.8 % % (2.6-8.5) Eos % (Auto) 0.0 % % (0-4.4) Baso % (Auto) 0.2 % % (0.2-1.2) Lymph # (Auto) 0.91 K/mm3 K/mm3 (0.9-3.2) [place] # (Auto) 1.2 K/mm3 H K/mm3 (0.1-0.6) Eos # (Auto) 0.0 K/mm3 K/mm3 (0-0.3) Baso # (Auto) 0.0 K/mm3 K/mm3 (0.0-0.1) Abs Immat Gran (auto) 0.08 K/mm3 H K/mm3 (0.00-0.031) Absolute Neuts (auto) 15.9 K/mm3 H K/mm3 (1.3-6.7) Absolute Nucleated RBC 0.0 K/mm3 K/mm3 (0.0-0.012) Nucleated RBC % 0.0 % % (0.0-0.2) D-Dimer Sodium Potassium Chloride Carbon Dioxide Anion Gap BUN Creatinine Estim Creat Clear Calc Estimated GFR Glucose Lactic Acid Calcium Total Bilirubin AST ALT Alkaline Phosphatase Total Protein Albumin Urine Color Dark [place] (Yellow) Urine Appearance Cloudy H (Clear) Urine pH 8.5 (5.0-9.0) Ur Specific [place] 1.015 (1.001-1.035) Urine Protein 3+ mg/dL H mg/dL (Negative) Urine Glucose (UA) Trace mg/dL H mg/dL (Negative) Urine Ketones Trace mg/dL mg/dL (Negative) Ur Blood (Man) 3+ H (Negative) Urine Nitrate Positive H (Negative) Urine Bilirubin 2+ H (Negative) Urine Urobilinogen >=8.0 mg/dL mg/dL (<2.0) Leukocyte Esterase Rfl 3+ VINCE/UL H VINCE/UL (Negative) Urine RBC Noted /hpf /hpf (0-2) Urine WBC >75 /hpf H /hpf (0-3) Ur Squamous Epith Cells Few /hpf /hpf (Few) Urine Bacteria Noted /hpf H /hpf SARS-CoV-2 RNA (RT-PCR) Negative 05/24/22 05/24/22 05/24/22 08:24 11:49 11:49 WBC RBC Hgb Hct MCV MCH MCHC RDW Plt Count MPV Immature Gran % (Auto) Neut % (Auto) Lymph % (Auto) [place] % (Auto) Eos
--- NOTE | 2022-05-24 14:36 | WPDURCON ---
Assessment and Plan Assessment and plan (1) Hydronephrosis: Code(s): N13.30 - Unspecified hydronephrosis Status: Acute Assessment and Plan: 21F at 17 weeks here septic, presumed diagnosis is obstructive pyelonephritis - urgent to OR for right ureteral stent; we discussed that this is a presumed diagnosis but without ability to get a CT we should drain that right side - discussed stents and and that this will need to be swapped out periodically after she recovers from her acute illness - all questions answered; this is a complex sick patient but she needs intervention urgently (2) Urinary tract infection: Code(s): N39.0 - Urinary tract infection, site not specified Status: Acute (3) Sepsis: Code(s): A41.9 - Sepsis, unspecified organism Status: Acute (4) : Code(s): Z34.90 - Encounter for supervision of normal , unspecified, unspecified trimester Status: Acute Urology Consult Note HPI Date Seen: 05/24/22 Requesting Physician: Amanuel Llamas MD Primary Care Provider: Tosha Wolff, Consult Narrative Narrative: Hillary Merlos is a 21 year old female at 17 weeks who presented for fever, aches, chills, right abd/flank pain. She is planning to deliver here at [place]. Renal US shows possible right hydronephrosis. Dawn sign also positive apparently. She had a right UVJ stone in February that was never documented to be out. WBC 19, UA obviously infected Vitals clearly septic; tachycardic, tachypneic, febrile, hypotensive Review of Systems Review of Systems: All systems reviewed & are unremarkable except as noted in HPI and below PMFSH Past Medical History Medical History Bacterial infection due to Proteus mirabilis (02/2022) Surgical History Surgical History History of section History of tonsillectomy Family History Family History Father Diabetes mellitus Social History Social History Social History: Surrogate decision maker: Yohannes Merlos, mother. Code status: Full code. Smoking status: Never smoker Alcohol intake: never Substance use: never Spiritual care concerns: No Meds Home Medications and Allergies Home Medications Medication Instructions Recorded Confirmed Type cefdinir 300 mg capsule 300 mg PO Q12H #14 caps 03/01/22 Rx ferrous sulfate, dried 159 mg (45 159 mg PO DAILY #30 tabs 03/01/22 Rx mg iron) tablet,extended release (iron ER) folic acid 1 mg tablet 1 mg PO DAILY #100 tabs 03/01/22 Rx prenat.vits,carolynn,[id number] 1 tablet PO DAILY #90 tabs 03/01/22 Rx (KPN tablet) Allergies Allergy/AdvReac Type Severity Reaction Status Date / Time No Known Allergies Allergy Verified 05/24/22 06:57 Vital Signs Vital Signs - 24 hr 05/24/22 06:54 05/24/22 06:59 05/24/22 07:00 Temperature 37.7 C H Pulse Rate 140 H 141 H 139 H Respiratory Rate 18 27 H 26 H Blood Pressure 104/70 Pulse Oximetry 96 97 97 Oxygen Delivery Room Air 05/24/22 07:15 05/24/22 07:30 05/24/22 07:45 Temperature Pulse Rate 131 H 135 H 134 H Respiratory Rate 31 H 30 H 25 H Blood Pressure Pulse Oximetry 97 99 97 Oxygen Delivery 05/24/22 08:00 05/24/22 08:15 05/24/22 08:35 Temperature Pulse Rate 132 H 135 H Respiratory Rate 22 H 23 H Blood Pressure Pulse Oximetry 98 97 97 Oxygen Delivery 05/24/22 08:45 05/24/22 09:00 05/24/22 09:15 Temperature Pulse Rate 134 H 138 H 133 H Respiratory Rate 24 H 26 H 27 H Blood Pressure Pulse Oximetry 98 98 98 Oxygen Delivery 05/24/22 09:30 05/24/22 10:40 05/24/22 10:42 Temperature Pulse Rate 137 H 141 H Respiratory Rat
[2022-05-24] MEDS: LACTATED RINGERS 1,000 ML 30 ML IV CONT (14:50)
[2022-05-24] MEDS: LIDOCAINE HCL 2% GEL UROJET 10 ML PKG MUCOUS MEM (15:06)
--- NOTE | 2022-05-24 15:33 | W.PM.PROC2 ---
Procedure Note - Detailed Date of Procedure 05/24/22 Pre-op Diagnosis Right hydronephrosis, concern for obstructive pyelonephrosis Post-op Diagnosis Same Procedure Performed Cystoscopy, right retrograde pyelogram, right ureteral stent placement Surgeon Amanuel Llamas MD Findings [id number] right proximal hydronephrosis, no clear purulence from the right collecting system, stent in appropriate position Description of Procedure There was brought back to the operating room. She was prepped, draped, padded per protocol. She was on therapeutic ceftriaxone. Time-out performed. Sedation was utilized. Her lower pelvis and left abdomen were covered with lead. Her bladder is entered with a rigid cystoscope. The bladder was clearly infected. The right ureteral orifice was identified. An open-ended ureteral catheter was advanced to about 5 cm. A gentle retrograde pyelogram was performed outlining the anatomy. There was mild to moderate right proximal hydroureteronephrosis. A Glidewire was advanced up into the renal pelvis under fluoroscopic guidance. Over this a 6 [place] variable length stent was advanced with a good curl noted in the renal pelvis and a good curl was visualized in the bladder. The bladder was drained and she was sent to recovery.
[2022-05-24] MEDS: ACETAMINOPHEN 325 MG TABLET 650 MG PO (16:33)
--- NOTE | 2022-05-24 16:49 | ADMGEN ---
This patient, Hillary Merlos, was admitted to Medical Room 258-. Patient/family oriented to hospital policies and general routines including ID bracelet, bed and alarms, visiting hours, pain management, procedures, bathroom and other care routines, personal items, smoking policy, room service/diet, and visiting hours. Information on how to activate the Rapid Response Team has been discussed. Patient/Family are encouraged to report perceived risks to care and to ask questions if they do not understand what they are told or what they should do.
[2022-05-24] MEDS: LACTATED RINGERS 1,000 ML 500 ML IV CONT ×2 (17:46→19:48)
[2022-05-24] MEDS: SODIUM CHLORIDE 0.9% IV 1,000 ML 100 ML IV CONT (23:10)
[2022-05-25] VITALS (12 sets, daily range): BP systolic 99–112; BP diastolic 53–65; PULSE 92–131; RESP 16–20; TEMP 35.9–37.1; O2SAT 99–100
[2022-05-25 05:49] LABS: Basophils Percent Auto 0.2 % (0.2-1.2); Eosinophils Percent Auto 0.2 % (0-4.4); Hematocrit 24.9 % (37.0-47.0); Hemoglobin 7.9 g/dL (12.0-15.0); Immature Granulocyte Absolute 0.09 K/mm3 (0.00-0.031); Immature Granulocyte Percent A 0.8 % (0-0.5); Lymphocytes Absolute Auto 1.11 K/mm3 (0.9-3.2); Lymphocytes Percent Auto 9.6 % (18.3-44.2); Mean Corpuscular HGB Conc 31.7 g/dl (32-36); Mean Corpuscular Hemoglobin 27.7 pg (26-34); Mean Corpuscular Volume 87.4 fl (80-100); Monocytes Absolute Auto 0.9 K/mm3 (0.1-0.6); Monocytes Percent Auto 7.8 % (2.6-8.5); Neutrophils Absolute Auto 9.5 K/mm3 (1.3-6.7); Neutrophils Percent Auto 81.4 % (45.5-73.1); Platelet Count Result 164 k/mm3 (150-375); Red Blood Count 2.85 M/mm3 (4.2-5.4); Red Cell Distribution Width 15.4 % (11.5-14.5); White Blood Count 11.6 K/mm3 (4.5-10.0)
[2022-05-25 06:00] LABS: Alanine Aminotransferase 15 U/L (6-35); Albumin Level 2.5 g/dL (3.5-5.1); Alkaline Phosphatase 112 U/L (38-126); Anion Gap 5 mmol/L (8-16); Aspartate Amino Transferase 21 U/L (14-36); Bilirubin,Total 1.2 mg/dL (0.2-1.3); Blood Urea Nitrogen 7 mg/dL (7-17); Carbon Dioxide 22 mmol/L (22-30); Chloride 112 mmol/L (98-107); Estimated Glomerular Filt Rate > 60; Glucose 88 mg/dL (65-110); Magnesium 1.7 mg/dL (1.6-2.3); Potassium 3.3 mmol/L (3.4-5.0); Sodium 139 mmol/L (137-145)
[2022-05-25] MEDS: MULTIVIT/MIN/PREN/FOL AC/IRON TABLET 1 TAB PO (09:04)
[2022-05-25] MEDS: POTASSIUM CHLORIDE 20 MEQ TABLET 40 MEQ PO (09:16)
--- NOTE | 2022-05-25 09:27 | WPDCN ---
Assessment and Plan Assessment and plan (1) Sepsis: Code(s): A41.9 - Sepsis, unspecified organism Status: Acute (2) Hydroureteronephrosis: Code(s): N13.30 - Unspecified hydronephrosis Status: Acute (3) : Code(s): Z34.90 - Encounter for supervision of normal , unspecified, unspecified trimester Status: Acute Assessment and Plan: This patient is a 21-year-old multiparous female at 16 weeks gestation with urosepsis and hydroureter that was relieved with stent placement. Her is stable. heart tones were measured yesterday. She denies any cramping or bleeding. To obtain ultrasound of the . To check heart tones later the day. To observe any impact on the . HPI Data of Consult Date/Time: 05/25/22 09:27 Requesting Physician: Amanuel Llamas MD Primary Care Provider: Tosha WolffMD Consult Narrative Narrative: Hillary Merlos is a 21 year old female 2 para 1001 at 16 weeks and 4 days gestation who presented to the emergency department for fever. She was evaluated emergency department found to have a hydroureter. She was septic. Urology was consulted and a stent was placed yesterday. She is much better today. She denies any fever. She denies any nausea vomiting. She is tolerating p.o. taking oral medications. She denies any cramping or vaginal bleeding. She denies any chest pain or shortness of breath. It is too early to feel movement. [facility] Past Medical History Medical History (Updated 05/24/22 @ 22:21 by Alba Bautista PA-C) Anemia Bacterial infection due to Proteus mirabilis (02/2022) Surgical History Surgical History History of section History of tonsillectomy Family History Family History Father Diabetes mellitus Social History Social History Social History: Surrogate decision maker: Yohannes Merlos, mother. Code status: Full code. Smoking status: Never smoker Alcohol intake: never Substance use: never Substance use type: does not use Spiritual care concerns: No Meds Home Medications and Allergies Home Medications Medication Instructions Recorded Confirmed Type prenat.vits,carolynn,[id number] 1 tablet PO DAILY #90 tabs 03/01/22 05/24/22 Rx (KPN tablet) Allergies Allergy/AdvReac Type Severity Reaction Status Date / Time No Known Allergies Allergy Verified 05/24/22 17:06 Vital Signs Vital Signs - 24 hr 05/24/22 09:30 05/24/22 10:40 05/24/22 10:42 Temperature Pulse Rate 137 H 141 H Respiratory Rate 27 H 22 H Blood Pressure 121/66 Pulse Oximetry 97 99 100 Oxygen Delivery 05/24/22 10:45 05/24/22 10:46 05/24/22 11:20 Temperature Pulse Rate 140 H 140 H 143 H Respiratory Rate 31 H 31 H 29 H Blood Pressure 111/58 L Pulse Oximetry 100 100 Oxygen Delivery 05/24/22 11:21 05/24/22 12:33 05/24/22 13:35 Temperature 103.2 F H 100.7 F H Pulse Rate 136 H 140 H Respiratory Rate 27 H 25 H Blood Pressure 94/39 L 107/58 L Pulse Oximetry 100 100 Oxygen Delivery 05/24/22 14:01 05/24/22 15:12 05/24/22 15:25 Temperature 97.6 F Pulse Rate 133 H 113 H 107 H Respiratory Rate 27 H 20 29 H Blood Pressure 100/50 L 89/43 L 102/46 L Pulse Oximetry 100 100 98 Oxygen Delivery Room Air Room Air 05/24/22 15:40 05/24/22 15:55 05/24/22 16:10 Temperature 99.7 F H Pulse Rate 109 H 128 H 136 H Respiratory Rate 26 H 24 H 23 H Blood Pressure 106/60 103/52 L 90/50 L Pulse Oximetry 98 99 100 Oxygen Delivery Room Air Room Air Room Air 05/24/22 16:25 05/24/22 16:55 05/24/22 16:50 Temperature 99.9 F H Pulse Rate 146 H 145 H 144 H Respiratory Rate 22 H 22 H Blood Pressure 125/95 H 108/44 L Pulse Oximetry
--- NOTE | 2022-05-25 10:23 | PM.IMPN ---
Progress Note: A&P Assessment and Plan (1) Sepsis: Code(s): A41.9 - Sepsis, unspecified organism Status: Acute Assessment and Plan: She was tachycardic, tachypneic, and febrile with leukocytosis. Lactic acid level was within normal limits. Blood pressures have been soft but are responsive to IV fluids. Still tachycardic but better overall. Urine culture pending. BCx NGTD. Will continue IV fluids for now. Continue Rocephin. Follow up on culture results. (2) Urinary tract infection: Code(s): N39.0 - Urinary tract infection, site not specified Status: Acute Assessment and Plan: As above. Follow up on results (3) Hydroureteronephrosis: Code(s): N13.30 - Unspecified hydronephrosis Status: Acute Assessment and Plan: [id number] right hydroureteronephrosis noted on cystoscopy/pyelogram now status post right ureteral stent placement 05/24/22. Strain all urine. Check Renal US in 1-2 days to ensure resolution of the hydronephrosis. (4) : Code(s): Z34.90 - Encounter for supervision of normal , unspecified, unspecified trimester Status: Acute Assessment and Plan: female who is [address] Dela Cruz consulted and his input is appreciated. (5) Anemia: Code(s): D64.9 - Anemia, unspecified Status: Acute Assessment and Plan: Hemoglobin has been low since February. She was only mildly anemic last year. Iron studies in February were not consistent with anemia from iron deficiency. She has had proteinuria since 2019 but these UAs have been associated with infection. Could be low TIBC from nephritis. Will repeat transferrin and other values Plan DVT prophylaxis: SCDs Code status: Full Subjective Date/time seen: 05/25/22 10:23 Interval history: 21yo female at 16wks with hx of kidney stone and UTI with bacteremia with proteus in February her for fevers. She was found to have UTI and right hydronephrosis prompting emergent ureteral stent placement. No purulence noted. Patient feels much better. No vaginal bleeding or spotting. Her dysuria has improved. No abdominal pain. Exam Narrative: Tm 103.2 96.7 99/55 110 18 100% ra Gen - NARD sitting up in bed Chest - CTA bilaterally, nml RR CV - tachycardic but regular. Tele showing sinus tachycardia. Abd - Soft, NT/ND, Positive BS Ext - No pedal edema Psych - Nml mood and affect Skin - Warm and dry Objective Data Vital Signs Vital Signs: Vital Signs - 24 hr 05/24/22 10:40 05/24/22 10:42 05/24/22 10:45 Temperature Pulse Rate 141 H 140 H Respiratory Rate 22 H 31 H Blood Pressure 121/66 Pulse Oximetry 99 100 100 Oxygen Delivery 05/24/22 10:46 05/24/22 11:20 05/24/22 11:21 Temperature Pulse Rate 140 H 143 H 136 H Respiratory Rate 31 H 29 H 27 H Blood Pressure 111/58 L 94/39 L Pulse Oximetry 100 100 Oxygen Delivery 05/24/22 12:33 05/24/22 13:35 05/24/22 14:01 Temperature 103.2 F H 100.7 F H Pulse Rate 140 H 133 H Respiratory Rate 25 H 27 H Blood Pressure 107/58 L 100/50 L Pulse Oximetry 100 100 Oxygen Delivery 05/24/22 15:12 05/24/22 15:25 05/24/22 15:40 Temperature 97.6 F Pulse Rate 113 H 107 H 109 H Respiratory Rate 20 29 H 26 H Blood Pressure 89/43 L 102/46 L 106/60 Pulse Oximetry 100 98 98 Oxygen Delivery Room Air Room Air Room Air 05/24/22 15:55 05/24/22 16:10 05/24/22 16:25 Temperature 99.7 F H Pulse Rate 128 H 136 H 146 H Respiratory Rate 24 H 23 H 22 H Blood Pressure 103/52 L 90/50 L 125/95 H Pulse Oximetry 99 100 100 Oxygen Delivery Room Air Room Air Room Air 05/24/22 16:55 05/24/22 16:50 05/24/22 17:21 Temperature 99.9 F H Pulse Rate 145 H 144 H Respiratory Rate 22 H Blood Pressure 108/44 L Pulse Oximetry 100 Oxygen Delivery Room Air 05/24/22 17:20 05/24/22 17:56 05/24/22 19:37 Temperature 102.3 F H 100.1 F H 98 F Pulse Rate 140 H 140 H 12
[2022-05-25] MEDS: SODIUM CHLORIDE 0.9% IV 1,000 ML 70 ML IV CONT (11:22)
--- NOTE | 2022-05-25 12:54 | PCCCNOTE ---
On 05/25/22, the student, [Kay Garcia ], provided care and completed [facility] documentation on this patient. I have reviewed the student's documentation and agree with the findings.
[2022-05-25 16:51] LABS: Potassium Urine Random 25.3 meq/L; Sodium Urine Random 79 meq/L
[2022-05-26] VITALS: BP 100/54; PULSE 103; PULSE 93; RESP 18; TEMP 36.4; O2SAT 98
[2022-05-26] MEDS: SODIUM CHLORIDE 0.9% IV 1,000 ML 70 ML IV CONT (02:32)
[2022-05-26 04:00] VITALS: PULSE 107
[2022-05-26 04:08] VITALS: BP 100/52; PULSE 103; RESP 17; TEMP 36.9; O2SAT 99
[2022-05-26 06:21] LABS: Alanine Aminotransferase 15 U/L (6-35); Albumin Level 2.5 g/dL (3.5-5.1); Alkaline Phosphatase 130 U/L (38-126); Anion Gap 5 mmol/L (8-16); Aspartate Amino Transferase 17 U/L (14-36); Bilirubin,Total 0.5 mg/dL (0.2-1.3); Blood Urea Nitrogen 5 mg/dL (7-17); Calcium 8.2 mg/dL (8.4-10.2); Carbon Dioxide 22 mmol/L (22-30); Chloride 111 mmol/L (98-107); Cholesterol 142 mg/dL (0-200); Estimated Glomerular Filt Rate > 60; Glucose 86 mg/dL (65-110); HDL Direct 22 mg/dL; Potassium 3.2 mmol/L (3.4-5.0); Sodium 138 mmol/L (137-145); Triglycerides 186 mg/dL (<150)
[2022-05-26 06:23] LABS: Basophils Percent Auto 0.1 % (0.2-1.2); Eosinophils Absolute Auto 0.1 K/mm3 (0-0.3); Eosinophils Percent Auto 1.2 % (0-4.4); Hematocrit 24.3 % (37.0-47.0); Hemoglobin 7.8 g/dL (12.0-15.0); Immature Granulocyte Absolute 0.06 K/mm3 (0.00-0.031); Immature Granulocyte Percent A 0.8 % (0-0.5); Lymphocytes Absolute Auto 1.18 K/mm3 (0.9-3.2); Lymphocytes Percent Auto 15.1 % (18.3-44.2); Mean Corpuscular HGB Conc 32.1 g/dl (32-36); Mean Corpuscular Hemoglobin 27.8 pg (26-34); Mean Corpuscular Volume 86.5 fl (80-100); Mean Platelet Volume 9.6 fl (7.4-10.4); Monocytes Absolute Auto 0.5 K/mm3 (0.1-0.6); Monocytes Percent Auto 6.5 % (2.6-8.5); Neutrophils Percent Auto 76.3 % (45.5-73.1); Platelet Count Result 221 k/mm3 (150-375); Red Blood Count 2.81 M/mm3 (4.2-5.4); Red Cell Distribution Width 15.4 % (11.5-14.5); White Blood Count 7.8 K/mm3 (4.5-10.0)
[2022-05-26 06:32] LABS: LDL Cholesterol Direct 65 mg/dL
[2022-05-26 06:59] LABS: Iron 30 ug/dL (37-170)
[2022-05-26 07:10] LABS: Percent Iron Saturation 17 % (20-50)
[2022-05-26 07:24] LABS: Folic Acid 19.5 ng/mL (2.76->20)
[2022-05-26 08:00] VITALS: PULSE 123
--- NOTE | 2022-05-26 08:23 | PM.OBPNVD ---
OB - PN: Subj Subjective Date/time seen: 05/26/22 08:23 no complaints, no cramping, no bleeding OB - PN: Obj Data Labs CBC & Chem 7: 05/26/22 05:59 05/26/22 05:59 Labs: Laboratory Results - last 24 hr 05/25/22 05/26/22 05/26/22 16:36 05:58 05:59 WBC 7.8 RBC 2.81 L Hgb 7.8 L Hct 24.3 L MCV 86.5 MCH 27.8 MCHC 32.1 RDW 15.4 H Plt Count 221 MPV 9.6 Immature Gran % (Auto) 0.8 H Neut % (Auto) 76.3 H Lymph % (Auto) 15.1 L Jerome % (Auto) 6.5 Eos % (Auto) 1.2 Baso % (Auto) 0.1 L Lymph # (Auto) 1.18 Jerome # (Auto) 0.5 Eos # (Auto) 0.1 Baso # (Auto) 0.0 Abs Immat Gran (auto) 0.06 H Absolute Neuts (auto) 6.0 Absolute Nucleated RBC 0.0 Nucleated RBC % 0.0 Sodium Potassium Chloride Carbon Dioxide Anion Gap BUN Creatinine Estim Creat Clear Calc Estimated GFR Glucose Calcium Iron 30 L TIBC 178 L Ferritin 374.00 H Total Bilirubin AST ALT Alkaline Phosphatase Total Protein Albumin Triglycerides Cholesterol LDL Cholesterol Direct HDL Direct Vitamin B12 Folate TSH (Reflex) 1.530 Ur Random Sodium 79 Ur Random Potassium 25.3 05/26/22 05:59 WBC RBC Hgb Hct MCV MCH MCHC RDW Plt Count MPV Immature Gran % (Auto) Neut % (Auto) Lymph % (Auto) Jerome % (Auto) Eos % (Auto) Baso % (Auto) Lymph # (Auto) Jerome # (Auto) Eos # (Auto) Baso # (Auto) Abs Immat Gran (auto) Absolute Neuts (auto) Absolute Nucleated RBC Nucleated RBC % Sodium 138 Potassium 3.2 L Chloride 111 H Carbon Dioxide 22 Anion Gap 5 L BUN 5 L Creatinine 0.60 L Estim Creat Clear Calc Not Reportable Estimated GFR > 60 Glucose 86 Calcium 8.2 L Iron TIBC Ferritin Total Bilirubin 0.5 AST 17 ALT 15 Alkaline Phosphatase 130 H Total Protein 6.0 L Albumin 2.5 L Triglycerides 186 H Cholesterol 142 LDL Cholesterol Direct 65 HDL Direct 22 Vitamin B12 352.0 Folate 19.5 TSH (Reflex) Ur Random Sodium Ur Random Potassium Imaging Radiologist's impression: Impressions Obstetrics Ultrasound 05/25/22 11:39 IMPRESSION: 1. Single living fetus in vertex presentation with heart rate of 137 bpm. 2. Gestational age by ultrasound of 17 weeks 1 day(s) +/- 1 week(s) 1 day(s) with ultrasound estimated date of delivery (BENJAMIN) of 11/01/2022. Estimated weight is 69th percentile by Hadlock criteria when 11/05/2022 is used as the BENJAMIN. Please correlate with clinical information or earlier ultrasounds for most accurate BENJAMIN. 3. Head circumference to abdominal circumference ratio of 1.30 slightly above the upper range of normal (normal range 1.07-1.29). 4. Small anechoic venous taylor within the otherwise normal anterior placenta. OB - PN A/P Assessment and Plan (1) Hydroureteronephrosis: Code(s): N13.30 - Unspecified hydronephrosis Status: Acute (2) Sepsis: Code(s): A41.9 - Sepsis, unspecified organism Status: Acute (3) : Code(s): Z34.90 - Encounter for supervision of normal , unspecified, unspecified trimester Status: Acute Assessment and Plan: Stable , normal ultrasound, patient is to follow-up in the office in the next 2 weeks. Time Spent With Patient Time: Total time spent is greater than 50% in coordination of care (as documented) at patient's floor/unit and/or counseling patient: Exam Const: General: cooperative, healthy appearing, comfortable and no acute distress Resp: Auscultation: no crackles, no rales, no rhonchi and no wheezes Cardio: Rhythm: regular rhythm Heart sounds: no click and no murmurs GI: Inspection: non-distended Auscultation: normal bowel sounds Other: Incisions - CDI Extrem: General: normal to inspection, no pedal edema and no calf tenderness
[2022-05-26] MEDS: MULTIVIT/MIN/PREN/FOL AC/IRON TABLET 1 TAB PO (08:26)
[2022-05-26] MEDS: POTASSIUM CHLORIDE 20 MEQ TABLET 40 MEQ PO (08:26)
[2022-05-26 08:42] VITALS: O2SAT 97
--- NOTE | 2022-05-26 09:15 | PM.IMPN ---
Progress Note: A&P Assessment and Plan (1) Sepsis: Code(s): A41.9 - Sepsis, unspecified organism Status: Acute Assessment and Plan: She was tachycardic, tachypneic, and febrile with leukocytosis. Lactic acid level was within normal limits. Blood pressures were soft but are responsive to IV fluids. Still tachycardic; see below. CXR clear. Urine culture negative. BCx NGTD. COVID negative. Currently on Rocephin. The right hydroureteronephrosis could have caused some of these symptoms but unclear of the cause of the fever. (2) Hydroureteronephrosis: Code(s): N13.30 - Unspecified hydronephrosis Status: Acute Assessment and Plan: [id number] right hydroureteronephrosis noted on cystoscopy/pyelogram now status post right ureteral stent placement 05/24/22. Strain all urine. Check Renal US today to ensure resolution of the hydronephrosis. (3) Urinary tract infection: Code(s): N39.0 - Urinary tract infection, site not specified Status: Acute Assessment and Plan: As above. UTI appears to have been riuled out. (4) Sinus tachycardia: Code(s): R00.0 - Tachycardia, unspecified Status: Acute Assessment and Plan: Patient with persistent tachycardia. Initially thought related to above but it is persistent and appears more chronic and noted for the past few years. Echo in February was normal with EF 55-60%.TSH normal. Check Doppler to exclude DVT. She is rehydrated so unlikely that she is dehydrated. Okay to stop IV fluids. Check EKG (5) : Code(s): Z34.90 - Encounter for supervision of normal , unspecified, unspecified trimester Status: Acute Assessment and Plan: female who is [address] Dela Cruz consulted and his input is appreciated. Ob US showing single living fetus at 17 weeks. (6) Anemia: Code(s): D64.9 - Anemia, unspecified Status: Acute Assessment and Plan: Hemoglobin has been low since February. She was only mildly anemic last year. Iron studies in February were not consistent with anemia from iron deficiency. She has had proteinuria since 2019 but these UAs have been associated with infection. Repeat iron studies consistent with Anemia of chronic disease. Check urine protein/Cr ratio. Repeat UA. Proceed with other workup including Hgb electrophoresis, copper, retic and SCAR. Plan DVT prophylaxis: SCDs Code status: Full Subjective Date/time seen: 05/26/22 09:15 Interval history: 21yo female at 17wks with hx of kidney stone and UTI with bacteremia with proteus in February her for fevers. She was found to have abnormal UA and right hydronephrosis prompting emergent ureteral stent placement. No purulence noted. No issues overnight. Patient requesting discharge. She denies abdominal pain or back pain. No chest pain or shortness of breath. She was not on antibiotics prior to admission. No family history of thalassemia or sickle cell that she is aware of. She does not know her father's history. Exam Narrative: AF 98.4 100/52 123 17 97% ra Gen - NARD sitting up in bed Chest - CTA bilaterally, nml RR CV - tachycardic but regular. Tele showing persistent sinus tachycardia. Abd - Soft, NT/ND, Positive BS Ext - No pedal edema Psych - Nml mood and affect Skin - Warm and dry Objective Data Vital Signs Vital Signs: Vital Signs - 24 hr 05/25/22 12:00 05/25/22 13:46 05/25/22 16:00 Temperature 98.3 F Pulse Rate 110 H 113 H 131 H Respiratory Rate 20 Blood Pressure 105/53 L Pulse Oximetry 100 Oxygen Delivery 05/25/22 17:00 05/25/22 19:46 05/25/22 22:27 Temperature 97.3 F L 98.8 F Pulse Rate 127 H 109 H Respiratory Rate 20 17 Blood Pressure 109/57 L 112/65 Pulse Oximetry 99 100 99 Oxygen Delivery Room Air 05/26/22 00:00 05/26/22 04:08 05/25/22 20:00 Temperature 97.5 F L 98.4 F Pulse Rate 103 H 103 H 106 H Respiratory Rate 18 17
--- NOTE | 2022-05-26 09:28 | ECG_ITS ---
Measurements Intervals [place] Rate: 99 P: 31 [place]: 134 QRS: 70 QRSD: 93 T: 13 QT: 321 QTc: 413 Interpretive Statements SINUS RHYTHM NONSPECIFIC T-WAVE ABNORMALITY- ANTERIOR LEADS BORDERLINE ECG Electronically Signed On 05-26-2022 14:28:52 CDT by Jovan York D.O.
--- NOTE | 2022-05-26 09:37 | WPDUROPN2 ---
Progress Note: A&P Assessment and Plan (1) Hydroureteronephrosis: Code(s): N13.30 - Unspecified hydronephrosis Status: Acute Assessment and Plan: Will plan to schedule her as an outpatient for a stent removal in the office. We will get a DELMAR prior to stent removal to ensure hydro has resolved. (2) Urinary tract infection: Code(s): N39.0 - Urinary tract infection, site not specified Status: Acute Assessment and Plan: Urine Culture was negative. Nitrofurantoin was sent as a precaution. (3) Sinus tachycardia: Code(s): R00.0 - Tachycardia, unspecified Status: Acute Assessment and Plan: Follow up with Dr. Dela Cruz to evaluate for other sources of infection as a urologic source doesn't appear to be the problem. Subjective Subjective Date/Time Seen: 05/26/22 09:37 Cystoscopy with right retrograde pyelogram and right stent placement. The patient's urine culture is negative. WBC has stabilized, creatinine is stable, she is afebrile and denies pain from her stent. Post Op day: 2 Review of Systems Respiratory: Respiratory: Reports no additional respiratory complaints Gastrointestinal: Gastrointestinal: Reports no additional gastrointestinal complaints, Denies abdominal pain, Denies nausea and Denies vomiting Genitourinary: Genitourinary: Denies nocturia, Denies dysuria, Denies flank pain, Denies urinary incontinence, Denies urinary hesitancy and Denies urinary urgency Exam Const: General: cooperative Cardio: Rate: tachycardic GI: GI Palp: Yes Soft to palpation and No Tenderness to palpation present (GI) : General: Yes no CVA tenderness Extrem: Right lower extremity: no edema Left lower extremity: no edema Objective Data Vital Signs Vital Signs: Vital Signs - 24 hr 05/25/22 12:00 05/25/22 13:46 05/25/22 16:00 Temperature 98.3 F Pulse Rate 110 H 113 H 131 H Respiratory Rate 20 Blood Pressure 105/53 L Pulse Oximetry 100 Oxygen Delivery 05/25/22 17:00 05/25/22 19:46 05/25/22 22:27 Temperature 97.3 F L 98.8 F Pulse Rate 127 H 109 H Respiratory Rate 20 17 Blood Pressure 109/57 L 112/65 Pulse Oximetry 99 100 99 Oxygen Delivery Room Air 05/26/22 00:00 05/26/22 04:08 05/25/22 20:00 Temperature 97.5 F L 98.4 F Pulse Rate 103 H 103 H 106 H Respiratory Rate 18 17 Blood Pressure 100/54 L 100/52 L Pulse Oximetry 98 99 Oxygen Delivery 05/26/22 00:00 05/26/22 04:00 05/26/22 08:00 Temperature Pulse Rate 93 107 H 123 H Respiratory Rate Blood Pressure Pulse Oximetry Oxygen Delivery 05/26/22 08:42 Temperature Pulse Rate Respiratory Rate Blood Pressure Pulse Oximetry 97 Oxygen Delivery Room Air Intake/Output Intake/Output: Intake & Output 05/23/22 05/24/22 05/25/22 05/26/22 23:59 23:59 23:59 23:59 Intake Total 5230 3110 1100 Output Total 300 1450 200 Balance 4930 1660 900 Meds/Results Medications: Active Medications Generic Name Dose Route Start Last Admin Trade Name Freq PRN Reason Stop Dose Admin Ceftriaxone Sodium/Dextrose 1 gm in 50 mls @ 100 mls/hr 05/25/22 12:00 05/25/22 12:21 Rocephin 1 Gm/D5w 50 Ml IVPB Infused Q24H SHAKILA Infusion Vit/Calcium/Iron/Folic Ac 1 tab 05/25/22 09:00 05/26/22 08:26 Multivit/Min/Pren/Fol Ac/Iron Tablet PO 1 tab DAILY SHAKILA Administration Radiology Results: ITS Impressions Abdomen Ultrasound 05/24/22 10:27 IMPRESSION: 1. Hydronephrosis at the upper pole of the partially visualized right kidney. Consider further evaluation with CT to assess for potential obstructing stone/lesion. 2. Small amount of sludge in the dependent aspect of the normal-appearing gallbladder. No shadowing cholelithiasis or intra or extra hepatic biliary ductal dilation. ADDENDUM: 05/24/22 1046 ADDENDUM: Of note the sonographic Dawn's was reported as positive by the associate programmer analyst. Chest X-Ray 05/24/22 11:15 JOSIEIO
[2022-05-26 10:05] LABS: Immature Reticulocyte Fraction 20.1 % (3.0-15.9); Reticulocyte Hemoglobin Conten 25.3 pg (28.2-35.7); Reticulocyte Percent 2.21 % (0.7-4.3); Reticulocytes Absolute 0.07 B/L (32.2-175.7)
[2022-05-26 10:21] VITALS: BP 101/55; PULSE 92; RESP 18; TEMP 36.1; O2SAT 100
[2022-05-26 10:26] LABS: Complement C3 147 mg/dL (88-165)
--- NOTE | 2022-05-26 10:31 | PC.NURSE ---
Patient refused to have venous dopplars
[2022-05-26 11:09] LABS: Appearance Urine Cloudy (Clear); Bilirubin Urine Negative (Negative); Blood Urine 2+ (Negative); Color Urine Yellow (Yellow); Glucose Urine UA Negative (Negative); Ketones Urine Trace mg/dL (Negative); Leukocyte Esterase Ur 3+ LEU/UL (Negative); Nitrate Urine Negative (Negative); Protein Urine 1+ mg/dL (Negative); Specific Grav Ur 1.015 (1.001-1.035); pH Urine 7.5 (5.0-9.0)
[2022-05-26 11:16] LABS: Creatinine Urine 42.6 mg/dL; Total Protein Urine Random 47 mg/dL
[2022-05-26 11:21] LABS: Bacteria Urine Trace /hpf; Mucus Urine Rare /lpf; RBC Urine >75 /hpf (0-2); Squamous Epithelial Cell Urine Many /hpf (Few); WBC Clumps Urine Present /HPF; WBC Urine >75 /hpf
[2022-05-26 11:48] LABS: Add Urine Microscopic? YES
--- NOTE | 2022-05-26 11:48 | PM.DS ---
DS: Admitting Diagnosis Discharge Date 05/26/22 Admitting Diagnosis Fever/Right Hydronephrosis, Tachycardia DS: Discharge Diagnosis Discharge Diagnosis Plan Hydronephrosis/Fever DS: Summary Hospital Course Hospital Course: The patient was initially evaluated in the ER on 05/24/22 for a fever that persisted for two days, she was found to be in sinus tachycardia, and have right hydronephrosis on an abdominal ultrasound. She is currently 17 weeks and is a patient of Dr. Dela Cruz's. Her UA appeared to have shown a UTI, however her urine culture from 05/24/22 was negative. She was admitted to Dr. Llamas over the weekend and had a Cystoscopy with stent placed and right retrograde pyelogram on 05/24/22. She was also started on Ceftriaxone. She did much better over the course of her stay, and her fever resolved on it's own. She will be discharged home today to f/u with Dr. Dela Cruz in 2 weeks for further evaluation. She will f/u with our office for a stent removal in a few weeks and a renal US will be completed prior to the stent removal. However, I suspect the hydro was not related to a stone and more likely extrinsic pressure from her enlarging uterus, and not from pyelonephritis as her culture was negative. It is uknown what caused her fever and tachycardia as her COVID test is also negative and she is vaccinated. She will resume home meds and start Nitrofurantoin as a precaution. She will resume activity without heavy lifting and resume a diet as tolerated. Time spent discussing smoking cessation with patient: more than 10 minutes Time Spent with Patient Time attestation: Total time spent providing and/or coordinating discharge services: Time spent: Less than 30 minutes Exam Const: General: comfortable Cardio: Rate: tachycardic GI: GI Palp: Yes Soft to palpation and No Tenderness to palpation present (GI) : General: Yes no CVA tenderness Back/Spine/Pelvis: Back: no CVA tenderness Extrem: Right lower extremity: no edema Left lower extremity: no edema DS: Data Data Completed and Pending Labs on day of discharge: Labs from last 24 hours 05/26/22 05/26/22 05/26/22 10:56 10:56 09:38 WBC RBC Hgb Hct MCV MCH MCHC RDW Plt Count MPV Immature Gran % (Auto) Neut % (Auto) Lymph % (Auto) [place] % (Auto) Eos % (Auto) Baso % (Auto) Lymph # (Auto) [place] # (Auto) Eos # (Auto) Baso # (Auto) Abs Immat Gran (auto) Absolute Neuts (auto) Absolute Nucleated RBC Nucleated RBC % Absolute Retic Percent Retic Immature Retic Fraction Retic Hgb Content Hemoglobin A % Hemoglobin A2 Quant Hemoglobin C % Hemoglobin E % Hemoglobin F Percent Hemoglobin S % Hemoglobinopathy Red Blood Count Hemoglobinopathy Hct Hemoglobinopathy Hgb Hemoglobinopathy MCV Hemoglobinopathy MCH Hemoglobinopathy RDW Hemoglobinopathy Interp Hemoglobin Other Hemoglobin Other 2 Sodium Potassium Chloride Carbon Dioxide Anion Gap BUN Creatinine Estim Creat Clear Calc Estimated GFR Glucose Calcium Copper Iron TIBC % Saturation Carmencita Transferrin Receptr Ferritin Total Bilirubin AST ALT Alkaline Phosphatase Total Protein Albumin Triglycerides Cholesterol LDL Cholesterol Direct HDL Direct Vitamin B12 Folate TSH (Reflex) Urine Color Yellow Urine Appearance Cloudy H Urine pH 7.5 Ur Specific [place] 1.015 Urine Protein 1+ H Urine Glucose (UA) Negative Urine Ketones Trace Ur Blood (Man) 2+ H Urine Nitrate Negative Urine Bilirubin Negative Urine Urobilinogen 1.0 Leukocyte Esterase Rfl 3+ H Urine RBC >75 H Urine WBC >75 H Urine WBC Clumps Present H Ur Squamous Epith Cells Many H Urine Bacteria Trace Urine Mucus Rare U Random Total Protein 47 Ur Random Sodium Ur Taft
--- NOTE | 2022-05-28 07:14 | PC.NURSE ---
Urine cx shows genital lefty. Dr. Ruddy fitzgerald.
[2022-05-29 12:57] LABS: Complement Total CH50 >60 U/mL (31-60)
[2022-05-30 15:10] LABS: Soluble Transferrin Receptor 0.83 mg/L (0.76-1.76)
[2022-06-01 17:54] LABS: Hematocrit 25.8 % (35.0-45.0); Hemoglobin 8.5 g/dL (11.7-15.5); MCH 27.3 pg (27.0-33.0); RDW 14.7 % (11.0-15.0); Red Blood Cell Count 3.11 Mill/uL (3.80-5.10)
--- NOTE | 2022-06-03 11:19 | PC.NURSE ---
C4, C3, CH50, Retic count, DNA, copper results all faxed to Dr. Wolff. Dr. Ruddy fitzgerald.
== END 2022-05-26 11:22 | disposition home or self-care (01) | DRG 818 ==
LOC: ANHED 07:44 → ANHSURGERY 13:52 → ANH2MED 17:12
PROVIDERS: Internal Medicine; Physician Assistant; Admitting Provider Urology; Emergency Provider Emergency Medicine; PCP Family Medicine; Visit Provider Nurse Practitioner Adult Health
PROC: 0T768DZ Dilation of Right Ureter with Intraluminal Device, Via Natural or Artificial Opening Endoscopic (ICD-10-PCS; CPT 52352; principal; 2022-05-24 14:30)
DX: O99.891 Other specified diseases and conditions complicating pregnancy (principal); N13.39 Other hydronephrosis; Z3A.17 17 weeks gestation of pregnancy; Z20.822 Contact with and (suspected) exposure to COVID-19; R50.9 Fever, unspecified; O99.012 Anemia complicating pregnancy, second trimester; D64.9 Anemia, unspecified; R00.0 Tachycardia, unspecified; Z87.442 Personal history of urinary calculi
CPT/HCPCS: 36415; 71045; 74420; 76705; 76816; 80053; 80061; 81001; 82525; 82570; 82607; 82728; 82746; 83021; 83540; 83550; 83605; 83735; 84133; 84156; 84238; 84300; 84443; 85025; 85046; 85380; 86038; 86160; 86162; 86225; 87040; 87086; 87088; 93005; 96361; 96365; 99285; A9270; C1758; C1769; C2617; C9803; G0378; J0131; J0696; J2250; J2704; J3010; J7030; J7120; Q9966; U0003; U0005

== ENCOUNTER 2022-06-15 18:59 | Emergency (ER) | payer OTHER, MEDICAID, SELFPAY ==
[2022-06-15 19:04] VITALS: BP 117/67; PULSE 145; RESP 16; TEMP 36.3; O2SAT 98
[2022-06-15 20:01] LABS: SARS-CoV-2 RNA PCR Negative
[2022-06-15 20:12] VITALS: BP 105/66; PULSE 127; RESP 27; TEMP 37.2; O2SAT 100
--- NOTE | 2022-06-15 20:25 | ED.FEVER ---
HPI - Fever General Chief Complaint: Fever Stated Complaint: bodyaches, fever Time Seen by Provider: 06/15/22 19:25 History of Present Illness HPI Narrative: 21-year-old female presents the emergency room for body aches and a subjective fever of 102.5. Patient states that with her mother and sister recently tested positive for COVID. Patient denies any other symptoms. Related Data Allergies Allergy/AdvReac Type Severity Reaction Status Date / Time No Known Allergies Allergy Verified 06/15/22 20:32 Review of Systems Review of Systems: CONSTITUTIONAL: Reports fever and chills EYES: Denies visual changes, redness, or discharge. ENT: Denies rhinorrhea, congestion, sore throat, or otalgia. CARDIOVASCULAR: Denies chest pain, palpitations, or edema. RESPIRATORY: Denies cough or dyspnea. GASTROINTESTINAL: Denies abdominal pain, nausea, vomiting, or diarrhea. GENITOURINARY: Denies dysuria or hematuria. SKIN: Denies rash or itching. MUSCULOSKELETAL: Denies back pain, joint pain, or myalgia. NEUROLOGIC: Denies headache, numbness, dizziness, or weakness. PSYCHIATRIC: Denies anxiety or depression. [facility] Past Medical History Medical History Anemia Bacterial infection due to Proteus mirabilis (02/2022) Surgical History Surgical History History of section History of tonsillectomy Family History Family History Father Diabetes mellitus Social History Social History Social History: Surrogate decision maker: Yohannes Merlos, mother. Code status: Full code. Smoking status: Never smoker Alcohol intake: never Substance use: never Substance use type: does not use Spiritual care concerns: No Exam Narrative: GENERAL: Well-appearing, well-nourished, no physical limitations, and in no acute distress. HEAD: Normocephalic, atraumatic. EYES: Conjunctivae normal, PERRLA and EOMI. ENT: External nose normal, Nares clear, no rhinorrhea or epistaxis. Mucous membranes moist. Oropharynx without tonsillar hypertrophy exudate or other lesions. External ears normal, bilateral TMs normal bilaterally NECK: Supple. No adenopathy or masses. CHEST: Clear to auscultation. No respiratory distress. No wheezes rales or rhonchi. No tenderness. HEART: Tachycardic and regular rhythm. No murmur heard. Normal peripheral pulses. BACK: No CVA tenderness; No cervical/thoracic/lumbar tenderness, step-offs, bony abnormality; FROM EXTREMITIES: Normal range of motion. No edema. No clubbing or cyanosis SKIN: Warm, dry, no rash. No noted wounds NEURO: No focal deficits. Alert and oriented x3. MAEW. CN's II-XI intact bilaterally, normal gait PSYCH: Cooperative. Normal mood and affect. Course Vital Signs Vital signs: Vital Signs Temperature 36.3 C L 06/15/22 19:04 Pulse Rate 145 H 06/15/22 19:04 Respiratory Rate 16 06/15/22 19:04 Blood Pressure 117/67 06/15/22 19:04 Pulse Oximetry 98 06/15/22 19:04 Oxygen Delivery Room Air 06/15/22 19:04 Temperature 37.2 C 06/15/22 20:12 Pulse Rate 127 H 06/15/22 20:12 Respiratory Rate 27 H 06/15/22 20:12 Blood Pressure 105/66 06/15/22 20:12 Pulse Oximetry 100 06/15/22 20:12 Oxygen Delivery Room Air 06/15/22 19:04 MDM - Fever Lab Data Result diagrams: 06/15/22 20:36 06/15/22 20:36 Labs: Lab Results 06/15/22 06/15/22 06/15/22 Range/Units 19:20 20:25 20:36 WBC 15.6 H (4.5-10.0) K/mm3 RBC 3.40 L (4.2-5.4) M/mm3 Hgb 9.5 L (12.0-15.0) g/dL Hct 30.2 L (37.0-47.0) % MCV 88.8 (80-100) fl MCH 27.9 (26-34) pg MCHC 31.5 L (32-36) g/dl RDW 16.4 H (11.5-14.5) % Plt Count 211 (150-375) k/mm3 MPV 9.6 (7.4-10.4) fl Immature Gran % (Auto) 0.6 H (0-0.5)
[2022-06-15] MEDS: SODIUM CHLORIDE 0.9% IV 1,000 ML 999 ML IV CONT (20:37)
[2022-06-15 20:38] LABS: Appearance Urine Cloudy (Clear); Bilirubin Urine Negative (Negative); Blood Urine 3+ (Negative); Color Urine Yellow (Yellow); Glucose Urine UA Negative (Negative); Ketones Urine Trace mg/dL (Negative); Leukocyte Esterase Ur 3+ LEU/UL (Negative); Nitrate Urine Positive (Negative); Protein Urine 2+ mg/dL (Negative); Specific Grav Ur 1.015 (1.001-1.035)
[2022-06-15 20:40] LABS: Add Urine Microscopic? YES; Bacteria Urine Trace /hpf; Mucus Urine Few /lpf; RBC Urine >75 /hpf (0-2); Squamous Epithelial Cell Urine Few /hpf (Few); WBC Clumps Urine Present /HPF; WBC Urine >75 /hpf
[2022-06-15 21:00] LABS: Basophils Percent Auto 0.2 % (0.2-1.2); Eosinophils Absolute Auto 0.1 K/mm3 (0-0.3); Eosinophils Percent Auto 0.6 % (0-4.4); Hematocrit 30.2 % (37.0-47.0); Hemoglobin 9.5 g/dL (12.0-15.0); Immature Granulocyte Percent A 0.6 % (0-0.5); Lymphocytes Percent Auto 12.2 % (18.3-44.2); Mean Corpuscular HGB Conc 31.5 g/dl (32-36); Mean Corpuscular Hemoglobin 27.9 pg (26-34); Mean Corpuscular Volume 88.8 fl (80-100); Mean Platelet Volume 9.6 fl (7.4-10.4); Monocytes Absolute Auto 1.5 K/mm3 (0.1-0.6); Monocytes Percent Auto 9.9 % (2.6-8.5); Neutrophils Absolute Auto 11.9 K/mm3 (1.3-6.7); Neutrophils Percent Auto 76.5 % (45.5-73.1); Platelet Count Result 211 k/mm3 (150-375); Red Cell Distribution Width 16.4 % (11.5-14.5); White Blood Count 15.6 K/mm3 (4.5-10.0)
[2022-06-15 21:14] LABS: Alanine Aminotransferase 15 U/L (6-35); Albumin Level 3.6 g/dL (3.5-5.1); Alkaline Phosphatase 120 U/L (38-126); Anion Gap 10 mmol/L (8-16); Aspartate Amino Transferase 20 U/L (14-36); Bilirubin,Total 0.9 mg/dL (0.2-1.3); Blood Urea Nitrogen 6 mg/dL (7-17); Calcium 8.9 mg/dL (8.4-10.2); Carbon Dioxide 20 mmol/L (22-30); Chloride 104 mmol/L (98-107); Estimated CRCL calculation 146 ml/min; Estimated Glomerular Filt Rate > 60; Glucose 101 mg/dL (65-110); Potassium 3.7 mmol/L (3.4-5.0); Sodium 134 mmol/L (137-145)
[2022-06-15 21:15] LABS: Lactic Acid Reflex 1.2 mmol/L (0.7-2.0)
[2022-06-15 21:41] VITALS: BP 103/68; PULSE 100; RESP 23; O2SAT 99
== END 2022-06-15 21:44 | disposition home or self-care (01) ==
PROVIDERS: Emergency Provider Nurse Practitioner Family; PCP Family Medicine
DX: O23.40 Unspecified infection of urinary tract in pregnancy, unspecified trimester (principal); Z20.822 Contact with and (suspected) exposure to COVID-19; O99.019 Anemia complicating pregnancy, unspecified trimester; D64.9 Anemia, unspecified; Z3A.00 Weeks of gestation of pregnancy not specified
CPT/HCPCS: 36415; 80053; 81001; 83605; 85025; 87077; 87086; 87186; 96361; 96365; 96375; 99284; C9803; J0131; J0696; J7030; U0003; U0005

== ENCOUNTER 2022-07-18 18:50 | Inpatient (IN) | payer OTHER, SELFPAY ==
[2022-07-18] VITALS (25 sets, daily range): BP systolic 87–104; BP diastolic 40–60; PULSE 120–139; RESP 11–38; TEMP 36.6–39.4; O2SAT 71–100
--- NOTE | ~2022-07-18 | US_ITS ---
EXAMINATION: US OB /maternal detail DATE: 07/19/2022 12:44 INDICATION: Absent care at the late second trimester of TECHNIQUE: Multiple obstetric sonographic images performed. FINDINGS: There is a single living fetus in breech presentation. The placenta is anterior. Normal amniotic flu id volume. Amniotic fluid volume appears subjectively normal. heart rate of 154 beats per minut e. Suboptimal imaging for the anatomy scan likely due to stage of development and patient theodore dy habitus. The following anatomy was identified as normal: Ventricles, choroid plexus, falx and cava septum pellucidum Cerebellum and cisterna magna Nuchal fold Spine Diaphragm Stomach Kidneys Bladder 3 vessel cord and cord insertion Bilateral upper and lower extremities including hands and feet Heart size is normal however visualization is suboptimal and insufficient to assess for cardiac anato my. Hypoechoic tract extending between the region of the nares and the mouth on the single provided nasal labial image potentially representing a cleft lip. The following biometric data were obtained: BPD: 6.3 cm -> 25 weeks 4 days Head circumference: 23.2 cm -> 25 weeks 2 days Abdominal circumference: 20.3 cm -> 25 weeks 0 days Femur length: 4.5 cm -> 25 weeks 0 days These measurements are concordant. Head circumference to abdominal circumference ratio: 1.14 (normal range 1.04-1.22). Estimated weight: 760 g (+/-) 114 g. or 1 lbs. 11 oz. (+/-) 4 oz. IMPRESSION: 1. Single living fetus with breech presentation with heart rate of 154 bpm. 2. Gestational age by ultrasound of 25 weeks 2 day(s) (+/-) 1 week 5 day(s) with ultrasound estimat ed date of delivery (BENJAMIN) of 10/30/2022. Estimated weight is 40th percentile by Hadlock criteri a when 01/02/2022 is used as the BENJAMIN. Please correlate with clinical information or earlier ultrasound s for most accurate BENJAMIN. 3. anatomy scan somewhat limited by stage of and patient body habitus. There is poor visualization of the normal sized heart which is insufficient to assess for cardiac anatomy. Possible cleft lip. Reviewed, dictated and finalized at location A. IMPRESSION: 1. Single living fetus with breech presentation with heart rate of 154 b pm. 2. Gestational age by ultrasound of 25 weeks 2 day(s) (+/-) 1 week 5 day(s) w ith ultrasound estimated date of delivery (BENJAMIN) of 10/30/2022. Estimated weight is 40th percentile by Hadlock criteria when 01/02/2022 is used as the BENJAMIN . Please correlate with clinical information or earlier ultrasounds for most ac curate BENJAMIN. 3. anatomy scan somewhat limited by stage of and patient body h abitus. There is poor visualization of the normal sized heart which is insuffic ient to assess for cardiac anatomy. Possible cleft lip.
--- NOTE | ~2022-07-18 | US_ITS ---
EXAMINATION: US renal BI DATE: 07/19/2022 09:13 INDICATION: right flank pain, UTI TECHNIQUE: Multiple grayscale and Doppler ultrasound images of the kidneys were obtained. COMPARISON: 05/24/2022, 02/28/2022 FINDINGS: The right kidney measures 13.0 x 6.9 x 6.8 cm. The left kidney measures 11.9 x 5.9 x 6.6 cm. The kidn eys demonstrate normal parenchymal echogenicity. Bilateral echogenic shadowing foci. There is mild ri ght upper and mid pole caliectasis. Mild left pelvicaliectasis. The bladder is normal. IMPRESSION: Bilateral nephrolithiasis. Bilateral mild hydronephrosis.. Reviewed, dictated and finalized at location K.
[2022-07-18 20:53] LABS: Appearance Urine Slightly Cloudy (Clear); Bilirubin Urine 1+ (Negative); Blood Urine 3+ (Negative); Color Urine Yellow (Yellow); Glucose Urine UA Negative (Negative); Ketones Urine 3+ mg/dL (Negative); Leukocyte Esterase Ur 3+ LEU/UL (Negative); Nitrate Urine Positive (Negative); Protein Urine 3+ mg/dL (Negative); pH Urine 8.5 (5.0-9.0)
[2022-07-18 20:56] LABS: Influenza A QL RT-PCR Negative (Negative); Influenza B QL RT-PCR Negative (Negative); SARS-CoV-2 RNA PCR Negative
[2022-07-18 21:14] LABS: Add Urine Microscopic? YES
[2022-07-18 21:17] LABS: WBC Urine >75 /hpf (0-3)
[2022-07-18 21:18] LABS: Bacteria Urine 4+ /hpf; Squamous Epithelial Cell Urine Few /hpf (Few)
[2022-07-18] MEDS: SODIUM CHLORIDE 0.9% IV 1,000 ML 999 ML IV CONT ×2 (21:44→23:52)
--- NOTE | 2022-07-18 21:54 | ED.FEVER ---
HPI - Fever General Chief Complaint: Fever Stated Complaint: weakness, fever Time Seen by Provider: 07/18/22 20:55 Source: patient Mode of arrival: ambulatory Limitations: no limitations History of Present Illness HPI Narrative: This is a 22 year old female that presents to the ER for fever over the last couple of days. Associated with feeling generally unwell and some right sided flank pain. Reports several UTIs this for which she has been hospitalized. Denies abdominal pain, vomiting, dysuria or hematuria. Related Data Allergies Allergy/AdvReac Type Severity Reaction Status Date / Time No Known Allergies Allergy Verified 07/18/22 19:19 Review of Systems Review of Systems: CONSTITUTIONAL: Reports fever GASTROINTESTINAL: Denies abdominal pain, nausea, vomiting GENITOURINARY: Denies dysuria or hematuria. All systems reviewed & are unremarkable except as noted in HPI and below PMFSH Past Medical History Medical History Anemia Bacterial infection due to Proteus mirabilis (02/2022) Surgical History Surgical History History of section History of tonsillectomy Family History Family History Father Diabetes mellitus Social History Social History Social History: Surrogate decision maker: Yohannes Merlos, mother. Code status: Full code. Smoking status: Never smoker Alcohol intake: never Substance use: never Substance use type: does not use Spiritual care concerns: No Exam Narrative: GENERAL: Well-appearing, well-nourished, and in no acute distress. HEAD: Normocephalic, atraumatic. EYES: EOMI. CHEST: Clear to auscultation. No respiratory distress. No wheezes rales or rhonchi HEART: Regular rate and rhythm. No murmur heard. Normal peripheral pulses. ABDOMEN: Gravid, nontender, nondistended, normal active bowel sounds. Right sided CVA tenderness EXTREMITIES: Normal range of motion. No edema. SKIN: Warm, dry, no rash. NEURO: No focal deficits. Alert and oriented x3. PSYCH: Normal mood and affect Course Consultations Consultation #1: Spoke with patient's OB about work-up. Patient hydrated in the ED and started on IV antibiotics. Will be admitted for further management. Date: 07/18/22 Vital Signs Vital signs: Vital Signs Temperature 97.8 F 07/18/22 19:15 Pulse Rate 134 H 07/18/22 19:15 Respiratory Rate 20 07/18/22 19:15 Blood Pressure 104/60 07/18/22 19:15 Pulse Oximetry 98 07/18/22 19:15 Oxygen Delivery Room Air 07/18/22 19:15 Temperature 102.9 F H 07/18/22 21:42 Pulse Rate 134 H 07/18/22 19:15 Respiratory Rate 20 07/18/22 19:15 Blood Pressure 104/60 07/18/22 19:15 Pulse Oximetry 98 07/18/22 19:15 Oxygen Delivery Room Air 07/18/22 19:15 MDM - Fever MDM Narrative Medical decision making narrative: Patient presents to the emergency department for fevers, flank pain, and feeling generally unwell. Patient is currently 25 weeks . has been complicated by several UTIs with hospital admissions. She is febrile and tachycardic in the ED. Her lactic acid is not elevated. CBC with leukocytosis to 17. Metabolic panel without concerning findings. UA with evidence of infection. Influenza and COVID screens are negative. Patient does not report report any related problems. She is feeling baby move. heart tones are noted in the 160s. Spoke with patient's OB about work-up. Patient hydrated in the ED and started on IV antibiotics. Will be admitted for further management. Lab Data Attestation: I reviewed the patient's lab results. Result diagrams: 07/18/22 22:10 07/18/22 21:36 Labs: Lab Results 07/18/22 07/18/22 07/18/22 Range/Units 20:13 20:41 21:36
[2022-07-18 21:55] LABS: Lactic Acid Reflex 1.8 mmol/L (0.7-2.0)
[2022-07-18 21:56] LABS: Alanine Aminotransferase 14 U/L (6-35); Albumin Level 3.7 g/dL (3.5-5.1); Alkaline Phosphatase 134 U/L (38-126); Anion Gap 15 mmol/L (8-16); Aspartate Amino Transferase 26 U/L (14-36); Bilirubin,Total 1.3 mg/dL (0.2-1.3); Blood Urea Nitrogen 7 mg/dL (7-17); Calcium 8.7 mg/dL (8.4-10.2); Carbon Dioxide 19 mmol/L (22-30); Chloride 102 mmol/L (98-107); Estimated CRCL calculation 113 ml/min; Estimated Glomerular Filt Rate > 60; Glucose 101 mg/dL (65-110); Potassium 3.7 mmol/L (3.4-5.0); Sodium 136 mmol/L (137-145)
[2022-07-18 22:17] LABS: Basophils Percent Auto 0.2 % (0.2-1.2); Hematocrit 35.4 % (37.0-47.0); Hemoglobin 10.5 g/dL (12.0-15.0); Immature Granulocyte Absolute 0.09 K/mm3 (0.00-0.031); Immature Granulocyte Percent A 0.5 % (0-0.5); Lymphocytes Absolute Auto 1.39 K/mm3 (0.9-3.2); Lymphocytes Percent Auto 8.2 % (18.3-44.2); Mean Corpuscular HGB Conc 29.7 g/dl (32-36); Mean Corpuscular Volume 94.4 fl (80-100); Mean Platelet Volume 9.5 fl (7.4-10.4); Monocytes Absolute Auto 1.5 K/mm3 (0.1-0.6); Monocytes Percent Auto 8.6 % (2.6-8.5); Neutrophils Percent Auto 82.5 % (45.5-73.1); Platelet Count Result 246 k/mm3 (150-375); Red Blood Count 3.75 M/mm3 (4.2-5.4); Red Cell Distribution Width 15.2 % (11.5-14.5)
[2022-07-19] VITALS (26 sets, daily range): BP systolic 93–107; BP diastolic 48–81; PULSE 103–148; RESP 14–33; TEMP 36.5–38.9; O2SAT 97–100; BMI 38.5
--- NOTE | 2022-07-19 | ECG_ITS ---
Measurements Intervals [place] Rate: 130 P: 39 IL: 132 QRS: 37 QRSD: 94 T: 7 QT: 288 QTc: 425 Interpretive Statements SINUS TACHYCARDIA BORDERLINE T WAVE ABNORMALITY- ANT/INF LEADS BASELINE ARTIFACT- I, III, AVL ABNORMAL ECG COMPARED TO ECG 05/26/2022 09:57:33 SINUS TACHYCARDIA NOW PRESENT Electronically Signed On 07-19-2022 7:28:17 CDT by Jovan York D.O.
--- NOTE | 2022-07-19 01:35 | ADMGEN ---
This patient, Hillary Merlos, was admitted to Medical Room 340-01. Patient/family oriented to hospital policies and general routines including ID bracelet, bed and alarms, visiting hours, pain management, procedures, bathroom and other care routines, personal items, smoking policy, room service/diet, and visiting hours. Information on how to activate the Rapid Response Team has been discussed. Patient/Family are encouraged to report perceived risks to care and to ask questions if they do not understand what they are told or what they should do.
--- NOTE | 2022-07-19 04:20 | PM.IMCN ---
Assessment and Plan Assessment and plan (1) Sepsis: Qualifiers: Sepsis acute organ dysfunction status: without acute organ dysfunction Sepsis type: sepsis due to unspecified organism Qualified Code(s): A41.9 - Sepsis, unspecified organism Code(s): A41.9 - Sepsis, unspecified organism Status: Acute (2) Pyelonephritis: Code(s): N12 - Tubulo-interstitial nephritis, not specified as acute or chronic Status: Acute (3) Hydroureteronephrosis: Code(s): N13.30 - Unspecified hydronephrosis Status: Acute (4) 25 weeks gestation of : Code(s): Z3A.25 - 25 weeks gestation of Status: Acute (5) Sinus tachycardia: Code(s): R00.0 - Tachycardia, unspecified Status: Acute (6) Hypokalemia: Code(s): E87.6 - Hypokalemia Status: Acute (7) Hypomagnesemia: Code(s): E83.42 - Hypomagnesemia Status: Acute Plan Given the patient's persistent evidence of sepsis will give an additional 1 L fluid bolus as patient is currently only received a 20 mL per kilos bolus. Will then continue with aggressive IV fluid hydration with normal saline at 150 mL an hour. Will increase the patient's Rocephin from 1 g IV daily to 2 g IV daily and will given additional 1 g dose now. Rocephin should cover for the patient's infection assuming her microbiology remains the same as prior. Will attempt to get the 2nd set of blood cultures once patient is adequately fluid hydrated. Urine cultures are pending. Will check repeat renal ultrasound. If patient has recurrence of hydronephrosis or evidence of stones urology consult will be needed for new ureteral stent placement. Patient has sinus tachycardia with likely multifactorial due to her sepsis and baseline iron deficiency anemia. She does have episodes of tachycardia throughout her but once her infections have resolved in the past her baseline heart rate is still around the 90s. Patient had a normal echocardiogram as outpatient the rules out any significant cardiac pathology contributing to sinus tachycardia. Her hemoglobin is comparable to prior values. I would recommend increasing the patient's oral iron supplementation. 80 mEq p.o. potassium has been ordered. Patient's magnesium was also 1.3 and 4 g magnesium sulfate rider has been ordered. DVT prophylaxis per primary service. HPI Data of Consult Consult date: 07/19/22 Requesting Physician: Muna Dela Cruz MD Primary Care Provider: Tosha Wolff, Consult Narrative Narrative: Hillary Merlos is a 22 year old female who is 25 weeks and has a past medical history of anemia, recurrent urinary tract infections, Proteus mirabilis bacteremia 02/2022, sepsis due to UTI 05/24/2022 with right-sided hydronephrosis requiring right ureteral stent placement who returned to the ER 07/18/2022 due to fever and feeling drowsy. On arrival to the ER the patient's temperature was a 102.9? with a heart rate of 134 and blood pressures of 89 were 40. The patient had received 2 L of IV fluids in the ER 1 g of IV Tylenol and 1 g of Rocephin. One set of blood cultures were drawn as the patient was a difficult stick and lab was unable to obtain the 2nd set. Urine culture was obtained. In the past patient has grown not Proteus mirabilis and E coli in her urine cultures that were pansensitive. When the patient arrived to the medical floor the patient's heart rate was in the 130s to 140s and she was febrile to just under 100?. Her blood pressure had improved to 102/50. Nursing staff notified Dr. Dela Cruz from OB about patient's heart rate in the is hospitalist service has been consulted. The patient reports that her right ureteral stent was removed a couple of weeks ago. She reports that she was feeling well until night when she began having decreased appetite. On Thursday she began having right-sided flank pain. She denied any dysuria or changes
[2022-07-19] MEDS: SODIUM CHLORIDE 0.9% IV 1,000 ML 999 ML IV CONT (04:29)
[2022-07-19 05:12] LABS: Basophils Percent Auto 0.1 % (0.2-1.2); Hematocrit 25.8 % (37.0-47.0); Hemoglobin 8.3 g/dL (12.0-15.0); Immature Granulocyte Absolute 0.08 K/mm3 (0.00-0.031); Immature Granulocyte Percent A 0.6 % (0-0.5); Lymphocytes Absolute Auto 0.87 K/mm3 (0.9-3.2); Lymphocytes Percent Auto 6.3 % (18.3-44.2); Mean Corpuscular HGB Conc 32.2 g/dl (32-36); Mean Corpuscular Hemoglobin 28.3 pg (26-34); Mean Corpuscular Volume 88.1 fl (80-100); Mean Platelet Volume 9.2 fl (7.4-10.4); Monocytes Absolute Auto 1.2 K/mm3 (0.1-0.6); Monocytes Percent Auto 8.7 % (2.6-8.5); Neutrophils Absolute Auto 11.7 K/mm3 (1.3-6.7); Neutrophils Percent Auto 84.3 % (45.5-73.1); Platelet Count Result 210 k/mm3 (150-375); Red Blood Count 2.93 M/mm3 (4.2-5.4); Red Cell Distribution Width 15.2 % (11.5-14.5); White Blood Count 13.9 K/mm3 (4.5-10.0)
[2022-07-19 05:36] LABS: Lactic Acid Reflex 0.7 mmol/L (0.7-2.0)
[2022-07-19] MEDS: SODIUM CHLORIDE 0.9% IV 1,000 ML 150 ML IV CONT ×3 (05:43→23:45)
[2022-07-19 05:46] LABS: Alanine Aminotransferase 9 U/L (6-35); Albumin Level 2.7 g/dL (3.5-5.1); Alkaline Phosphatase 97 U/L (38-126); Anion Gap 8 mmol/L (8-16); Aspartate Amino Transferase 17 U/L (14-36); Bilirubin,Total 1.1 mg/dL (0.2-1.3); Blood Urea Nitrogen 5 mg/dL (7-17); Calcium 7.7 mg/dL (8.4-10.2); Carbon Dioxide 16 mmol/L (22-30); Chloride 111 mmol/L (98-107); Estimated CRCL calculation 130 ml/min; Estimated Glomerular Filt Rate > 60; Glucose 102 mg/dL (65-110); Potassium 2.8 mmol/L (3.4-5.0); Sodium 135 mmol/L (137-145)
--- NOTE | 2022-07-19 05:59 | PC.NURSE ---
NOTIFIED MILES(LAB) OF NEW ORDER TO CHECK MAGNESIUM LEVEL WITH CURRENT BLOOD DRAW.
[2022-07-19 06:18] LABS: Magnesium 1.3 mg/dL (1.6-2.3)
[2022-07-19] MEDS: MAGNESIUM SULF 4 GM/WATER100ML 4 GM/100 ML BAG IVPB (06:39)
[2022-07-19] MEDS: POTASSIUM CHLORIDE 20 MEQ TABLET 80 MEQ PO (06:40)
--- NOTE | 2022-07-19 09:53 | PM.IMHP ---
H&P: HPI History of Present Illness Date/Time: 07/19/22 09:53 Pt admitted to [address] [place] [address] after being seen in the ED for fever and weakness. Chief Complaint: pt is at 25 weeks gestation. Ob course complicated by Obstructive hydroureter and had stent placed on 05/26/22 and has not been seen in OB office since 05/28/22. Pt had a 12 week scan and was positive for trichomonas and declined a test of cure. hx of previous section. plans for repeat section. hx of tonsillectomy. pt currently admitted for Sepsis acute organ dysfunction status:?without acute organ dysfunction??Sepsis type:?sepsis due to unspecified organism? Qualified Code(s):?A41.9 - Sepsis, unspecified organism. 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 She lives at home with her 3-year-old daughter. Her mother is helping her all she is in the hospital. Surrogate decision maker: Yohannes Merlos, mother. Code status: Full code. Smoking status: Never smoker Alcohol intake: never Substance use: never Substance use type: does not use Spiritual care concerns: No Meds Home Medications and Allergies Home Medications Medication Instructions Recorded Confirmed Type prenat.vits,carolynn,mtc-bqip-yylcr 1 tablet PO DAILY #90 tabs 03/01/22 07/19/22 Rx (KPN tablet) Allergies Allergy/AdvReac Type Severity Reaction Status Date / Time No Known Allergies Allergy Verified 07/19/22 01:39 Vital Signs Vital Signs - 24 hr 07/18/22 19:15 07/18/22 21:42 07/18/22 23:51 Temperature 36.6 C 39.4 C H 39.0 C H Pulse Rate 134 H Respiratory Rate 20 Blood Pressure 104/60 Pulse Oximetry 98 Oxygen Delivery Room Air 07/19/22 00:33 07/19/22 01:42 07/19/22 01:45 Temperature 37.7 C H 37.7 C H Pulse Rate 124 H Respiratory Rate 20 Blood Pressure 102/50 L Pulse Oximetry 97 Oxygen Delivery Room Air 07/18/22 20:22 07/18/22 20:23 07/18/22 20:30 Temperature Pulse Rate 133 H 135 H 125 H Respiratory Rate 23 H 27 H 18 Blood Pressure Pulse Oximetry 100 100 Oxygen Delivery 07/18/22 20:45 07/18/22 21:00 07/18/22 21:01 Temperature Pulse Rate 126 H 131 H 129 H Respiratory Rate 19 22 H 23 H Blood Pressure 89/40 L Pulse Oximetry Oxygen Delivery 07/18/22 21:15 07/18/22 21:30 07/18/22 21:45 Temperature Pulse Rate 132 H 134 H 137 H Respiratory Rate 31 H 38 H 11 L Blood Pressure Pulse Oximetry Oxygen Delivery 07/18/22 21:52 07/18/22 22:00 07/18/22 22:01 Temperature Pulse Rate 139 H 137 H 139 H Respiratory Rate 28 H 26 H 30 H Blood Pressure 100/51 L 87/57 L Pulse Oximetry 100 100 Oxygen Delivery 07/18/22 22:15 07/18/22 22:30 07/18/22 22:31 Temperature Pulse Rate 137 H 135 H 132 H Respiratory Rate 18 23 H 19 Blood Pressure 103/52 L Pulse Oximetry 99 97 99 Oxygen Delivery 07/18/22 22:45 07/18/22 23:00 07/18/22 23:01 Temperature P
--- NOTE | 2022-07-19 14:36 | PM.IMPN ---
Progress Note: A&P Assessment and Plan (1) Sepsis: Qualifiers: Sepsis type: sepsis due to unspecified organism Sepsis acute organ dysfunction status: without acute organ dysfunction Qualified Code(s): A41.9 - Sepsis, unspecified organism Code(s): A41.9 - Sepsis, unspecified organism Status: Acute (2) Pyelonephritis: Code(s): N12 - Tubulo-interstitial nephritis, not specified as acute or chronic Status: Acute (3) Hydroureteronephrosis: Code(s): N13.30 - Unspecified hydronephrosis Status: Acute (4) 25 weeks gestation of : Code(s): Z3A.25 - 25 weeks gestation of Status: Acute (5) Sinus tachycardia: Code(s): R00.0 - Tachycardia, unspecified Status: Acute (6) Hypokalemia: Code(s): E87.6 - Hypokalemia Status: Acute (7) Hypomagnesemia: Code(s): E83.42 - Hypomagnesemia Status: Acute Plan Patient presents with s/sx of sepsis felt to be from a urinary source. BCx and UCx pending. She received aggressive IV fluid hydration and now on normal saline at 150 mL an hour. Rocephin started and dose increased from 1 g IV daily to 2 g IV daily. Rocephin should cover for the patient's infection assuming her microbiology remains the same as prior. Renal ultrasound pending. If patient has recurrence of hydronephrosis or evidence of stones, urology consult will be needed for new ureteral stent placement. Patient has sinus tachycardia with likely multifactorial due to her sepsis, metabolic acidosis and baseline iron deficiency anemia. She does have episodes of tachycardia throughout her but baseline heart rate is still around the 90s. Patient had a normal echocardiogram as outpatient the rules out any significant cardiac pathology contributing to sinus tachycardia. Her hemoglobin is comparable to prior values. HR overall is improving. Metabolic acidosis with serum bicrab 19 and AG 15. Renal function normal. Related to ketosis but no lactic ordered. She is also hypokalemic and 80 mEq p.o. potassium was ordered. Patient's magnesium was also 1.3 and 4 g and this was also replaced. Will repeat BMP with Mag level and continue to replace elctrolytes. DVT prophylaxis: SCDs Subjective Date/time seen: 07/19/22 14:36 Interval history: 22yo female with hx of recurrent UTIs, anemia and currently IUP 25 weeks here for sepsis. She feels better now. She denies dysuria or hematuria. Still with fevers. No CP or abd pain. no back pain. No n/v but has poor appetite. Feels tired. Exam Narrative: Tm 102.1 100.1 105/48 113 16 97% Gen - NARD lying flat in bed Chest - lungs clear anteriorly. nm RR CV - tachycardiic, regular. Tele showing sinus tach Abd - Soft, NT, Ext - No pedal edema Neuro - Alert and oriented. Nonfocal exam. Psych - Nml mood and affect Skin - Warm and dry Objective Data Vital Signs Vital Signs: Vital Signs - 24 hr 07/18/22 19:15 07/18/22 21:42 07/18/22 23:51 Temperature 97.8 F 102.9 F H 102.2 F H Pulse Rate 134 H Respiratory Rate 20 Blood Pressure 104/60 Pulse Oximetry 98 Oxygen Delivery Room Air 07/19/22 00:33 07/19/22 01:42 07/19/22 01:45 Temperature 99.8 F H 99.8 F H Pulse Rate 124 H Respiratory Rate 20 Blood Pressure 102/50 L Pulse Oximetry 97 Oxygen Delivery Room Air 07/18/22 20:22 07/18/22 20:23 07/18/22 20:30 Temperature Pulse Rate 133 H 135 H 125 H Respiratory Rate 23 H 27 H 18 Blood Pressure Pulse Oximetry 100 100 Oxygen Delivery 07/18/22 20:45 07/18/22 21:00 07/18/22 21:01 Temperature Pulse Rate 126 H 131 H 129 H Respiratory Rate 19 22 H 23 H Blood Pressure 89/40 L Pulse Oximetry Oxygen Delivery 07/18/22 21:15 07/18/22 21:30 07/18/22 21:45 Temperature Pulse Rate 132 H 134 H 137 H Respiratory Rate 31 H 38 H 11 L Blood Pressure Pulse Oximetry Oxygen Delivery 07/18/22 21:52
[2022-07-19 15:22] LABS: Anion Gap 6 mmol/L (8-16); Blood Urea Nitrogen 5 mg/dL (7-17); Calcium 8.1 mg/dL (8.4-10.2); Carbon Dioxide 20 mmol/L (22-30); Chloride 110 mmol/L (98-107); Estimated CRCL calculation 149 ml/min; Estimated Glomerular Filt Rate > 60; Glucose 95 mg/dL (65-110); Magnesium 2.5 mg/dL (1.6-2.3); Potassium 3.6 mmol/L (3.4-5.0); Sodium 136 mmol/L (137-145)
[2022-07-19] MEDS: cefTRIAXone 2 GM in SODIUM CHLORIDE 0.9% IV 100 ML 200 ML IVPB (21:28)
[2022-07-20] VITALS (10 sets, daily range): BP systolic 103–104; BP diastolic 48–55; PULSE 96–116; RESP 16–18; TEMP 35.8–36.7; O2SAT 97–99
--- NOTE | 2022-07-20 00:38 | PC.NURSE ---
PT REQUESTING ICE WATER AT THIS TIME. OFFERED TEACHING REGARDING POSSIBLE COMPLICATIONS FROM EATING PRIOR TO SURGERY. PATIENT VERBALIZED UNDERSTANDING. ALL FOOD/WATER REMOVED FROM BEDSIDE.
--- NOTE | 2022-07-20 03:15 | PC.NURSE ---
RN at bedside to dopple FHT. FHT 140BPM.
[2022-07-20 05:24] LABS: Basophils Percent Auto 0.2 % (0.2-1.2); Eosinophils Percent Auto 0.3 % (0-4.4); Hematocrit 25.7 % (37.0-47.0); Hemoglobin 8.2 g/dL (12.0-15.0); Immature Granulocyte Absolute 0.07 K/mm3 (0.00-0.031); Immature Granulocyte Percent A 0.6 % (0-0.5); Lymphocytes Absolute Auto 1.48 K/mm3 (0.9-3.2); Lymphocytes Percent Auto 12.7 % (18.3-44.2); Mean Corpuscular HGB Conc 31.9 g/dl (32-36); Mean Corpuscular Hemoglobin 28.3 pg (26-34); Mean Corpuscular Volume 88.6 fl (80-100); Mean Platelet Volume 9.4 fl (7.4-10.4); Monocytes Percent Auto 8.6 % (2.6-8.5); Neutrophils Absolute Auto 9.1 K/mm3 (1.3-6.7); Neutrophils Percent Auto 77.6 % (45.5-73.1); Platelet Count Result 207 k/mm3 (150-375); Red Cell Distribution Width 15.5 % (11.5-14.5); White Blood Count 11.7 K/mm3 (4.5-10.0)
[2022-07-20 05:46] LABS: Alanine Aminotransferase 9 U/L (6-35); Albumin Level 2.6 g/dL (3.5-5.1); Alkaline Phosphatase 110 U/L (38-126); Anion Gap 12 mmol/L (8-16); Aspartate Amino Transferase 13 U/L (14-36); Bilirubin,Total 0.5 mg/dL (0.2-1.3); Blood Urea Nitrogen 4 mg/dL (7-17); Calcium 7.6 mg/dL (8.4-10.2); Carbon Dioxide 18 mmol/L (22-30); Chloride 110 mmol/L (98-107); Estimated CRCL calculation 149 ml/min; Estimated Glomerular Filt Rate > 60; Glucose 86 mg/dL (65-110); Phosphorus 2.3 mg/dL (2.5-4.5); Potassium 3.2 mmol/L (3.4-5.0); Sodium 140 mmol/L (137-145)
[2022-07-20] MEDS: SODIUM CHLORIDE 0.9% IV 1,000 ML 150 ML IV CONT ×2 (09:07→14:04)
--- NOTE | 2022-07-20 09:35 | PM.OBPNVD ---
OB - PN: Subj Subjective Date/time seen: 07/20/22 09:35 Interval history: 22yo female with hx of recurrent UTIs, anemia and currently IUP 25 weeks here for sepsis. She feels better now. She denies dysuria or hematuria. Still with fevers. No CP or abd pain. no back pain. No n/v but has poor appetite. Feels tired. discussed anatomy scan. possible cleft lip. OB - PN: Obj Data Labs CBC & Chem 7: 07/20/22 05:13 07/20/22 05:13 Labs: Laboratory Results - last 24 hr 07/19/22 07/19/22 07/19/22 10:58 15:03 15:03 WBC RBC Hgb Hct MCV MCH MCHC RDW Plt Count MPV Immature Gran % (Auto) Neut % (Auto) Lymph % (Auto) [place] % (Auto) Eos % (Auto) Baso % (Auto) Lymph # (Auto) [place] # (Auto) Eos # (Auto) Baso # (Auto) Abs Immat Gran (auto) Absolute Neuts (auto) Absolute Nucleated RBC Nucleated RBC % Sodium 136 L Potassium 3.6 Chloride 110 H Carbon Dioxide 20 L Anion Gap 6 L BUN 5 L Creatinine 0.60 L Estim Creat Clear Calc 149 Estimated GFR > 60 Glucose 95 Lactic Acid 1.0 Calcium 8.1 L Phosphorus Magnesium 2.5 H Total Bilirubin AST ALT Alkaline Phosphatase Total Protein Albumin Trichomonas Direct ID Cancelled 07/20/22 07/20/22 05:13 05:13 WBC 11.7 H RBC 2.90 L Hgb 8.2 L Hct 25.7 L MCV 88.6 MCH 28.3 MCHC 31.9 L RDW 15.5 H Plt Count 207 MPV 9.4 Immature Gran % (Auto) 0.6 H Neut % (Auto) 77.6 H Lymph % (Auto) 12.7 L [place] % (Auto) 8.6 H Eos % (Auto) 0.3 Baso % (Auto) 0.2 Lymph # (Auto) 1.48 [place] # (Auto) 1.0 H Eos # (Auto) 0.0 Baso # (Auto) 0.0 Abs Immat Gran (auto) 0.07 H Absolute Neuts (auto) 9.1 H Absolute Nucleated RBC 0.0 Nucleated RBC % 0.0 Sodium 140 Potassium 3.2 L Chloride 110 H Carbon Dioxide 18 L Anion Gap 12 BUN 4 L Creatinine 0.60 L Estim Creat Clear Calc 149 Estimated GFR > 60 Glucose 86 Lactic Acid Calcium 7.6 L Phosphorus 2.3 L Magnesium 2.0 Total Bilirubin 0.5 AST 13 L ALT 9 Alkaline Phosphatase 110 Total Protein 6.0 L Albumin 2.6 L Trichomonas Direct ID Imaging Radiologist's impression: Impressions Ultrasound 07/19/22 13:43 IMPRESSION: 1. Single living fetus with breech presentation with heart rate of 154 bpm. 2. Gestational age by ultrasound of 25 weeks 2 day(s) (+/-) 1 week 5 day(s) with ultrasound estimated date of delivery (BENJAMIN) of 10/30/2022. Estimated weight is 40th percentile by Hadlock criteria when 01/02/2022 is used as the BENJAMIN. Please correlate with clinical information or earlier ultrasounds for most accurate BENJAMIN. 3. anatomy scan somewhat limited by stage of and patient body habitus. There is poor visualization of the normal sized heart which is insufficient to assess for cardiac anatomy. Possible cleft lip. Renal Ultrasound 07/19/22 15:07 IMPRESSION: Bilateral nephrolithiasis. Bilateral mild hydronephrosis. OB - PN A/P Assessment and Plan (1) Hypokalemia: Code(s): E87.6 - Hypokalemia Status: Acute (2) 25 weeks gestation of : Code(s): Z3A.25 - 25 weeks gestation of Status: Acute (3) Sepsis: Qualifiers: Sepsis type: sepsis due to unspecified organism Sepsis acute organ dysfunction status: without acute organ dysfunction Qualified Code(s): A41.9 - Sepsis, unspecified organism Code(s): A41.9 - Sepsis, unspecified organism Status: Acute (4) Anemia: Code(s): D64.9 - Anemia, unspecified Status: Acute Plan at 25 weeks possible cleft lip incomplete anatomy f/u in office after discharge sepsis hypokalemia anemia obstetrically stable continue to monitor FHR Q shift dr alexis aware and consulted on this patient Time Spent With Patient Time: Total
--- NOTE | 2022-07-20 10:49 | WPDURCON ---
Assessment and Plan Assessment and plan (1) Sepsis: Qualifiers: Sepsis acute organ dysfunction status: without acute organ dysfunction Sepsis type: sepsis due to unspecified organism Qualified Code(s): A41.9 - Sepsis, unspecified organism Code(s): A41.9 - Sepsis, unspecified organism Status: Acute (2) Pyelonephritis: Code(s): N12 - Tubulo-interstitial nephritis, not specified as acute or chronic Status: Acute (3) Hydronephrosis: Code(s): N13.30 - Unspecified hydronephrosis Status: Acute (4) : Code(s): Z34.90 - Encounter for supervision of normal , unspecified, unspecified trimester Status: Acute (5) Urinary tract infection: Code(s): N39.0 - Urinary tract infection, site not specified Status: Acute Plan ASSESSMENT: Difficult situation, in that patient's history of prior events with mild hydronephrosis, fevers, and UTI have failed to demonstrate a true need for a ureteral stent (i.e. has never been definitively diagnosed with a ureteral stone). Hydronephrosis is common in , and should not require stenting in the absent of pathologic obstruction, like from a stone. Stenting this patient is high risk, particularly given that stents in need exchanged every 6 weeks typically, maybe even more frequently in a patient who has a lithogenic UTI history like this patient. Because she does not overtly have evidence of an obsrtructing stone meriting a stent -- coupled with her history of presenting like this without ureteral stones before -- this patient truly needs a stent due to pathologic obstruction, it will need to be based on a failure to improve with other clinical measures like IV fluids and antibiotics. PLAN: -No acute urologic intervention at this time -- clinical picture at this moment fits best with UTI/Pyelonephritis/Sepsis rather than septic stone, and appears to be responding to fluids and antibiotics -Continue to follow culture data -Continue Ceftriaxone -Discussed the nuances of this difficult case with Dr. Fox, and we have agreed to continue down this route of nonoperative management first given her prior history as well as the risks associated with placing stents if not truly needed -Discussed UTI prevention focusing on good hygiene and adequate hydration -Please reach back out to Urology if patient's clinical course starts to decline Urology Consult Note HPI Date Seen: 07/20/22 Requesting Physician: Muna Dela Cruz MD Primary Care Provider: Tosha Wolff, Consult Narrative Narrative: Hillary Merlos is a 22 year old female who is 25 weeks currently admitted with sepsis with concern for urinary etiology, for whom Urology is consulted for additional recommendations given her complex situation/history. On 02/27/22 Urology (Dr. James) consulted for Fevers with UA appearing infected (Nit +, LE +, + RBC), with a Leukocytosis of 11k; DELMAR showed mild right hydronephrosis with a possible right UVJ stone. No operative intervention performed, patient recovered, and was discharged, though she did have a Proteus and E coli UTI (with Proteus blood culture at that time). On 05/24/22 Urology (Dr. Llamas) consulted again for Fevers with UA appearing infected (Nit +, LE +, + RBC), with a Leukocytosis of 18k; DELMAR showed mild right hydronephrosis -- patient was taken to the OR, and a right ureteral stent was placed and retrograde pyelogram was performed both without any evidence of a stone. Urine and Blood cultures were negative, and patient recovered. 06/15/2022 Urine Culture - Proteus 07/08/2022 - Stent removal in office by Dr. Llamas Now, patient has presented with fevers and UA appearing infected (Nit +, LE +, + RBC), with a Leukocytosis of 17k; DELMAR showed mild bilateral hydronephrosis and nonobstructing stones on the left. Patient is getting IV fluids and is on Ceftriaxone. Admitted to hospitalist. CLEM
--- NOTE | 2022-07-20 13:59 | PC.NURSE ---
RN at bedside to dopple FHT. FHT 140.
--- NOTE | 2022-07-20 16:31 | PM.IMPN ---
Progress Note: A&P Assessment and Plan (1) Sepsis: Qualifiers: Sepsis type: sepsis due to unspecified organism Sepsis acute organ dysfunction status: without acute organ dysfunction Qualified Code(s): A41.9 - Sepsis, unspecified organism Code(s): A41.9 - Sepsis, unspecified organism Status: Acute (2) Pyelonephritis: Code(s): N12 - Tubulo-interstitial nephritis, not specified as acute or chronic Status: Acute (3) Hydroureteronephrosis: Code(s): N13.30 - Unspecified hydronephrosis Status: Acute (4) 25 weeks gestation of : Code(s): Z3A.25 - 25 weeks gestation of Status: Acute (5) Sinus tachycardia: Code(s): R00.0 - Tachycardia, unspecified Status: Acute (6) Hypokalemia: Code(s): E87.6 - Hypokalemia Status: Acute (7) Hypomagnesemia: Code(s): E83.42 - Hypomagnesemia Status: Acute Plan Patient presents with s/sx of sepsis felt to be from a urinary source. She received aggressive IV fluid hydration and now on normal saline at 150 mL an hour. Rocephin started at 2 g IV daily. Renal ultrasound bilateral nephrolithiasis. Results discussed with urology. Her sinus tachycardia related to sepsis, metabolic acidosis and baseline iron deficiency anemia. Patient had a normal echo as outpatient to rule out any significant cardiac pathology contributing to sinus tachycardia. Her hemoglobin is comparable to prior values. HR overall is improving. Metabolic acidosis with serum bicrab 19 and AG 15. Renal function normal. Related to ketosis (but no lactic ordered). lactic ordered the next day was normal. She is also hypokalemic with low magnesium and these were replaced. WBC trending down. BCx NGTD. UCx mixed genital lefty. Stop tele. Back off on IV fluid rate. Resume vitamin. DVT prophylaxis: SCDs Code status: Full Subjective Date/time seen: 07/20/22 16:31 Interval history: 22yo female with hx of recurrent UTIs, anemia and currently IUP 25 weeks here for sepsis. No complaints today. She denies any abdominal pain. No chest pain. No back pain. No dysuria. No hematuria. Eating okay. Exam Narrative: Tm 102.1 97.9 103/49 113 18 99% Gen - NARD lying flat in bed Chest - lungs clear anteriorly. nm RR CV - tachycardiic, regular. Tele showing sinus tach Abd - Soft, NT, Ext - No pedal edema Psych - Nml mood and affect Skin - Warm and dry Objective Data Vital Signs Vital Signs: Vital Signs - 24 hr 07/19/22 18:06 07/19/22 18:35 07/19/22 19:34 Temperature 101.1 F H 100.6 F H 98.5 F Pulse Rate 110 H Respiratory Rate 16 Blood Pressure 100/49 L Pulse Oximetry 98 Oxygen Delivery 07/19/22 20:00 07/19/22 20:00 07/20/22 00:00 Temperature Pulse Rate 103 H 96 Respiratory Rate Blood Pressure Pulse Oximetry Oxygen Delivery Room Air 07/20/22 01:45 07/20/22 04:19 07/20/22 04:00 Temperature 98.1 F 97.9 F Pulse Rate 107 H 102 H Respiratory Rate 18 Blood Pressure 103/49 L Pulse Oximetry 99 Oxygen Delivery 07/20/22 08:00 07/20/22 09:00 07/20/22 12:00 Temperature Pulse Rate 104 H 116 H 113 H Respiratory Rate Blood Pressure Pulse Oximetry Oxygen Delivery Room Air Intake/Output Intake/Output: Intake & Output 07/17/22 07/18/22 07/19/22 07/20/22 23:59 23:59 23:59 23:59 Intake Total 1050 6070 2480 Output Total 400 Balance 1050 5670 2480 Meds/Results Medications: Active Medications Generic Name Dose Route Start Last Admin Trade Name Gilbertq PRN Reason Stop Dose Admin Ceftriaxone Sodium 2 gm/ 100 mls @ 200 mls/hr 07/19/22 21:00 07/19/22 21:58 Sodium Chloride IVPB Infused Q24H SHAKILA Infusion Sodium Chloride 1,000 mls @ 150 mls/hr 07/19/22 04:05 07/20/22 14:04 Normal Saline Iv IV CONT 150 mls/hr .Q6H40M SHAKILA Administration Ondansetron HCl 4 mg 07/18/22 23:19 Ondansetron Inj 4 Mg/
[2022-07-20] MEDS: cefTRIAXone 2 GM in SODIUM CHLORIDE 0.9% IV 100 ML 200 ML IVPB (20:32)
[2022-07-21] MEDS: SODIUM CHLORIDE 0.9% IV 1,000 ML 70 ML IV CONT (00:12)
[2022-07-21 05:17] LABS: Basophils Percent Auto 0.3 % (0.2-1.2); Eosinophils Absolute Auto 0.1 K/mm3 (0-0.3); Eosinophils Percent Auto 1.7 % (0-4.4); Hematocrit 26.9 % (37.0-47.0); Hemoglobin 8.4 g/dL (12.0-15.0); Immature Granulocyte Absolute 0.05 K/mm3 (0.00-0.031); Immature Granulocyte Percent A 0.6 % (0-0.5); Lymphocytes Absolute Auto 1.54 K/mm3 (0.9-3.2); Lymphocytes Percent Auto 19.6 % (18.3-44.2); Mean Corpuscular HGB Conc 31.2 g/dl (32-36); Mean Corpuscular Hemoglobin 28.1 pg (26-34); Mean Platelet Volume 9.4 fl (7.4-10.4); Monocytes Absolute Auto 0.6 K/mm3 (0.1-0.6); Monocytes Percent Auto 7.8 % (2.6-8.5); Neutrophils Absolute Auto 5.5 K/mm3 (1.3-6.7); Platelet Count Result 214 k/mm3 (150-375); Red Blood Count 2.99 M/mm3 (4.2-5.4); Red Cell Distribution Width 15.4 % (11.5-14.5); White Blood Count 7.9 K/mm3 (4.5-10.0)
[2022-07-21 05:37] LABS: Alanine Aminotransferase 10 U/L (6-35); Albumin Level 2.6 g/dL (3.5-5.1); Alkaline Phosphatase 127 U/L (38-126); Anion Gap 7 mmol/L (8-16); Aspartate Amino Transferase 16 U/L (14-36); Bilirubin,Total 0.3 mg/dL (0.2-1.3); Blood Urea Nitrogen 5 mg/dL (7-17); Calcium 8.4 mg/dL (8.4-10.2); Carbon Dioxide 19 mmol/L (22-30); Chloride 112 mmol/L (98-107); Estimated CRCL calculation 149 ml/min; Estimated Glomerular Filt Rate > 60; Glucose 78 mg/dL (65-110); Magnesium 1.7 mg/dL (1.6-2.3); Sodium 138 mmol/L (137-145)
[2022-07-21 05:51] LABS: CRP 14.5 mg/dL (<1.0)
[2022-07-21 06:00] VITALS: BP 93/51; PULSE 95; RESP 18; TEMP 36.6; O2SAT 99
[2022-07-21] MEDS: MULTIVIT/MIN/PREN/FOL AC/IRON TABLET 1 TAB PO (08:05)
[2022-07-21] MEDS: POTASSIUM CHLORIDE 20 MEQ TABLET 40 MEQ PO (08:05)
--- NOTE | 2022-07-21 10:03 | PM.GYNPNOP ---
SECURITY OPERATIONS MANAGER - A/P Assessment and plan (1) 25 weeks gestation of : Code(s): Z3A.25 - 25 weeks gestation of Status: Acute (2) Sepsis: Qualifiers: Sepsis type: sepsis due to unspecified organism Sepsis acute organ dysfunction status: without acute organ dysfunction Qualified Code(s): A41.9 - Sepsis, unspecified organism Code(s): A41.9 - Sepsis, unspecified organism Status: Acute (3) Sinus tachycardia: Code(s): R00.0 - Tachycardia, unspecified Status: Acute (4) Anemia: Code(s): D64.9 - Anemia, unspecified Status: Acute (5) Urinary tract infection: Code(s): N39.0 - Urinary tract infection, site not specified Status: Acute (6) Hydronephrosis: Code(s): N13.30 - Unspecified hydronephrosis Status: Acute Plan tachycardia likely due to and moderate anemia. will do venofer x1 today prior to DC. pt states she has oral iron at home to restart has appt at our office tomorrow will complete anatomy US with us at office, pt aware of cleft lip, support given DC planning per hospitalist, appreciate their good care of this pt. Time Spent With Patient Time: Total time spent is greater than 50% in coordination of care (as documented) at patient's floor/unit and/or counseling patient: Time with patient: less than 15 minutes SECURITY OPERATIONS MANAGER- PN:Subj Post-Op Subjective Date/time seen: 07/21/22 10:03 Interval history: 22yo female with hx of recurrent UTIs, anemia and currently IUP 25 weeks here for sepsis. No complaints today. She denies any abdominal pain. No chest pain. No back pain. No dysuria. No hematuria. Eating okay. Reports she may go home today. Feels FM. Review of Systems Review of Systems: All systems reviewed & are unremarkable except as noted in HPI and below (HPI) Exam Const: General: comfortable and no acute distress Resp: Effort & Inspection: normal respiratory effort GI: GI Palp: Yes Soft to palpation Other: Fundus firm, nontender SECURITY OPERATIONS MANAGER - PN: Obj Data Vital Signs Vital Signs: Vital Signs - 24 hr 07/20/22 12:00 07/20/22 16:00 07/20/22 16:47 Temperature 96.5 F L Pulse Rate 113 H 103 H 99 Respiratory Rate 16 Blood Pressure 103/55 L Pulse Oximetry 97 07/20/22 19:29 07/21/22 06:00 Temperature 97.9 F 97.8 F Pulse Rate 102 H 95 Respiratory Rate 18 18 Blood Pressure 104/48 L 93/51 L Pulse Oximetry 99 99 Intake/Output Intake/Output: Intake & Output 07/18/22 07/19/22 07/20/22 07/21/22 23:59 23:59 23:59 23:59 Intake Total 1050 6070 2580 1000 Output Total 400 Balance 1050 5670 2580 1000 Meds/Results Medications: Active Medications Generic Name Dose Route Start Last Admin Trade Name Freq PRN Reason Stop Dose Admin Acetaminophen 650 mg 07/20/22 16:39 Acetaminophen 325 Mg Tablet PO Q6H PRN Mild Pain (1-3) or Fever Ceftriaxone Sodium 2 gm/ 100 mls @ 200 mls/hr 07/19/22 21:00 07/20/22 21:02 Sodium Chloride IVPB Infused Q24H SHAKILA Infusion Iron Sucrose 200 mg/ Sodium 60 mls @ 120 mls/hr 07/21/22 10:02 Chloride IVPB 07/21/22 10:03 ONCE ONE Ondansetron HCl 4 mg 07/18/22 23:19 Ondansetron Inj 4 Mg/2 Ml Vial IV PUSH Q4H PRN Nausea Vit/Calcium/Iron/Folic Ac 1 tab 07/21/22 09:00 07/21/22 08:05 Multivit/Min/Pren/Fol Ac/Iron Tablet PO 1 tab DAILY SHAKILA Administration Radiology Results: ITS Impressions Ultrasound 07/19/22 13:43 IMPRESSION: 1. Single living fetus with breech presentation with heart rate of 154 bpm. 2. Gestational age by ultrasound of 25 weeks 2 day(s) (+/-) 1 week 5 day(s) with ultrasound estimated date of delivery (BENJAMIN) of 10/30/2022. Estimated weight is 40th percentile by Hadlock criteria when 01/02/2022 is used as the BENJAMIN. Please correlate with clinical information or earlier ultrasounds for most accurate BENJAMIN. 3. anatomy scan somewhat limited by st
[2022-07-21] MEDS: IRON SUCROSE COMPLEX 200 MG in SODIUM CHLORIDE 0.9% IV 50 ML 120 MG IVPB (10:43)
--- NOTE | 2022-07-21 12:27 | PM.IMPN ---
Progress Note: A&P Assessment and Plan (1) Sepsis: Qualifiers: Sepsis type: sepsis due to unspecified organism Sepsis acute organ dysfunction status: without acute organ dysfunction Qualified Code(s): A41.9 - Sepsis, unspecified organism Code(s): A41.9 - Sepsis, unspecified organism Status: Acute (2) Pyelonephritis: Code(s): N12 - Tubulo-interstitial nephritis, not specified as acute or chronic Status: Acute (3) Hydroureteronephrosis: Code(s): N13.30 - Unspecified hydronephrosis Status: Acute (4) 25 weeks gestation of : Code(s): Z3A.25 - 25 weeks gestation of Status: Acute (5) Sinus tachycardia: Code(s): R00.0 - Tachycardia, unspecified Status: Acute (6) Hypokalemia: Code(s): E87.6 - Hypokalemia Status: Acute (7) Hypomagnesemia: Code(s): E83.42 - Hypomagnesemia Status: Acute Plan Patient presents with s/sx of sepsis felt to be from a urinary source. She received aggressive IV fluid hydration. Rocephin started at 2 g IV daily. Renal ultrasound showing bilateral nephrolithiasis and mild hydronephrosis Results discussed with urology. Her sinus tachycardia related to sepsis, metabolic acidosis, IUP and baseline iron deficiency anemia. Patient had a normal echo as outpatient to rule out any significant cardiac pathology contributing to sinus tachycardia. Her hemoglobin is comparable to prior values. HR overall is improving. Metabolic acidosis with serum bicrab 19 and AG 7. Renal function normal. Related to ketosis. Lactic was normal. She is also hypokalemic again and this was replaced. WBC normal now but CRP 14.5. BCx NGTD. UCx mixed genital lefty. Surprising that her cultures are negative. Still concern for infectious process and would continue treatment with abx to complete a course. Okay for discharge from a medical standpoint but would recommend home with oral abx and repeat RFP in 1 week. DVT prophylaxis: SCDs Code status: Full Subjective Date/time seen: 07/21/22 12:27 Interval history: 22yo female with hx of recurrent UTIs, anemia and currently IUP 25 weeks here for sepsis. Patient eating slightly better last night. No nausea or vomiting but just decreased appetite. She does feel full quickly. No abdominal pain. No chest pain. No back pain. Exam Narrative: AF 97.8 93/51 95 18 99% Gen - NARD lying flat in bed Chest -clear to auscultation bilaterally CV -repaired and rhythm. S1-S2. Abd - Soft, NT, Back -no CVA tenderness Ext - No pedal edema Psych - Nml mood and affect Skin - Warm and dry Objective Data Vital Signs Vital Signs: Vital Signs - 24 hr 07/20/22 16:00 07/20/22 16:47 07/20/22 19:29 Temperature 96.5 F L 97.9 F Pulse Rate 103 H 99 102 H Respiratory Rate 16 18 Blood Pressure 103/55 L 104/48 L Pulse Oximetry 97 99 07/21/22 06:00 Temperature 97.8 F Pulse Rate 95 Respiratory Rate 18 Blood Pressure 93/51 L Pulse Oximetry 99 Intake/Output Intake/Output: Intake & Output 07/18/22 07/19/22 07/20/22 07/21/22 23:59 23:59 23:59 23:59 Intake Total 1050 6070 2580 1170 Output Total 400 Balance 1050 5670 2580 1170 Meds/Results Medications: Active Medications Generic Name Dose Route Start Last Admin Trade Name Freq PRN Reason Stop Dose Admin Acetaminophen 650 mg 07/20/22 16:39 Acetaminophen 325 Mg Tablet PO Q6H PRN Mild Pain (1-3) or Fever Ceftriaxone Sodium 2 gm/ 100 mls @ 200 mls/hr 07/19/22 21:00 07/20/22 21:02 Sodium Chloride IVPB Infused Q24H SHAKILA Infusion Ondansetron HCl 4 mg 07/18/22 23:19 Ondansetron Inj 4 Mg/2 Ml Vial IV PUSH Q4H PRN Nausea Vit/Calcium/Iron/Folic Ac 1 tab 07/21/22 09:00 07/21/22 08:05 Multivit/Min/Pren/Fol Ac/Iron Tablet PO 1 tab DAILY SHAKILA Administration Radiology Results: ITS Impressions Ultrasound 07/19/22 13:43 IMPRESSIO
[2022-07-21 14:00] VITALS: BP 98/49; PULSE 90; RESP 12; TEMP 36.6; O2SAT 97
--- NOTE | 2022-07-21 15:12 | WPDUROPN2 ---
Progress Note: A&P Assessment and Plan (1) Hydroureteronephrosis: Code(s): N13.30 - Unspecified hydronephrosis Status: Acute Plan No acute urologic intervention indicated at this time, as patient improving without urologic intervention Urology will sign off at this time, patient cleared for discharge from urologic perspective Subjective Subjective Date/Time Seen: 07/21/22 15:12 Patient AFVSS with normalized WBC (7.9) without urologic intervention; Urine culture and Blood Cultures x2 negative Review of Systems Review of Systems: All systems reviewed & are unremarkable except as noted in HPI and below Exam Narrative: No acute distress Nonlabored breathing Normal Heartrate Objective Data Vital Signs Vital Signs: Vital Signs - 24 hr 07/20/22 16:00 07/20/22 16:47 07/20/22 19:29 Temperature 35.8 C L 36.6 C Pulse Rate 103 H 99 102 H Respiratory Rate 16 18 Blood Pressure 103/55 L 104/48 L Pulse Oximetry 97 99 07/21/22 06:00 07/21/22 14:00 Temperature 36.6 C 36.6 C Pulse Rate 95 90 Respiratory Rate 18 12 Blood Pressure 93/51 L 98/49 L Pulse Oximetry 99 97 Intake/Output Intake/Output: Intake & Output 07/18/22 07/19/22 07/20/22 07/21/22 23:59 23:59 23:59 23:59 Intake Total 1050 6070 2580 1390 Output Total 400 Balance 1050 5670 2580 1390 Meds/Results Medications: Active Medications Generic Name Dose Route Start Last Admin Trade Name Freq PRN Reason Stop Dose Admin Acetaminophen 650 mg 07/20/22 16:39 Acetaminophen 325 Mg Tablet PO Q6H PRN Mild Pain (1-3) or Fever Ceftriaxone Sodium 2 gm/ 100 mls @ 200 mls/hr 07/19/22 21:00 07/20/22 21:02 Sodium Chloride IVPB Infused Q24H SHAKILA Infusion Ondansetron HCl 4 mg 07/18/22 23:19 Ondansetron Inj 4 Mg/2 Ml Vial IV PUSH Q4H PRN Nausea Vit/Calcium/Iron/Folic Ac 1 tab 07/21/22 09:00 07/21/22 08:05 Multivit/Min/Pren/Fol Ac/Iron Tablet PO 1 tab DAILY SHAKILA Administration Radiology Results: ITS Impressions Ultrasound 07/19/22 13:43 IMPRESSION: 1. Single living fetus with breech presentation with heart rate of 154 bpm. 2. Gestational age by ultrasound of 25 weeks 2 day(s) (+/-) 1 week 5 day(s) with ultrasound estimated date of delivery (BENJAMIN) of 10/30/2022. Estimated weight is 40th percentile by Hadlock criteria when 01/02/2022 is used as the BENJAMIN. Please correlate with clinical information or earlier ultrasounds for most accurate BENJAMIN. 3. anatomy scan somewhat limited by stage of and patient body habitus. There is poor visualization of the normal sized heart which is insufficient to assess for cardiac anatomy. Possible cleft lip. Renal Ultrasound 07/19/22 15:07 IMPRESSION: Bilateral nephrolithiasis. Bilateral mild hydronephrosis.. Labs Labs: Laboratory Results - last 24 hr 07/21/22 07/21/22 05:04 05:04 WBC 7.9 RBC 2.99 L Hgb 8.4 L Hct 26.9 L MCV 90.0 MCH 28.1 MCHC 31.2 L RDW 15.4 H Plt Count 214 MPV 9.4 Immature Gran % (Auto) 0.6 H Neut % (Auto) 70.0 Lymph % (Auto) 19.6 [place] % (Auto) 7.8 Eos % (Auto) 1.7 Baso % (Auto) 0.3 Lymph # (Auto) 1.54 [place] # (Auto) 0.6 Eos # (Auto) 0.1 Baso # (Auto) 0.0 Abs Immat Gran (auto) 0.05 H Absolute Neuts (auto) 5.5 Absolute Nucleated RBC 0.0 Nucleated RBC % 0.0 Sodium 138 Potassium 3.0 L Chloride 112 H Carbon Dioxide 19 L Anion Gap 7 L BUN 5 L Creatinine 0.60 L Estim Creat Clear Calc 149 Estimated GFR > 60 Glucose 78 Calcium 8.4 Phosphorus 3.0 Magnesium 1.7 Total Bilirubin 0.3 AST 16 ALT 10 Alkaline Phosphatase 127 H C-Reactive Protein 14.5 H Total Protein 6.0 L Albumin 2.6 L
[2022-07-21] MEDS: cefTRIAXone 2 GM in SODIUM CHLORIDE 0.9% IV 100 ML 200 ML IVPB (20:05)
[2022-07-21 21:37] VITALS: BP 101/44; PULSE 98; RESP 16; TEMP 36.6; O2SAT 100
[2022-07-22 06:00] VITALS: BP 101/51; PULSE 86; RESP 16; TEMP 36.9; O2SAT 97
[2022-07-22 06:23] LABS: Albumin Level 2.8 g/dL (3.5-5.1); Anion Gap 8 mmol/L (8-16); Blood Urea Nitrogen 7 mg/dL (7-17); Calcium 8.7 mg/dL (8.4-10.2); Carbon Dioxide 17 mmol/L (22-30); Chloride 112 mmol/L (98-107); Estimated CRCL calculation 176 ml/min; Estimated Glomerular Filt Rate > 60; Glucose 80 mg/dL (65-110); Phosphorus 4.1 mg/dL (2.5-4.5); Potassium 3.6 mmol/L (3.4-5.0); Sodium 137 mmol/L (137-145)
[2022-07-22 07:37] LABS: Basophils Percent Auto 0.3 % (0.2-1.2); Eosinophils Absolute Auto 0.1 K/mm3 (0-0.3); Eosinophils Percent Auto 1.3 % (0-4.4); Hemoglobin 8.9 g/dL (12.0-15.0); Immature Granulocyte Absolute 0.04 K/mm3 (0.00-0.031); Immature Granulocyte Percent A 0.5 % (0-0.5); Lymphocytes Absolute Auto 1.75 K/mm3 (0.9-3.2); Lymphocytes Percent Auto 23.5 % (18.3-44.2); Mean Corpuscular HGB Conc 31.8 g/dl (32-36); Mean Corpuscular Volume 88.1 fl (80-100); Mean Platelet Volume 9.6 fl (7.4-10.4); Monocytes Absolute Auto 0.5 K/mm3 (0.1-0.6); Monocytes Percent Auto 7.3 % (2.6-8.5); Neutrophils Percent Auto 67.1 % (45.5-73.1); Platelet Count Result 237 k/mm3 (150-375); Red Blood Count 3.18 M/mm3 (4.2-5.4); White Blood Count 7.4 K/mm3 (4.5-10.0)
[2022-07-22] MEDS: MULTIVIT/MIN/PREN/FOL AC/IRON TABLET 1 TAB PO (08:24)
--- NOTE | 2022-07-22 08:39 | PM.IMPN ---
Progress Note: A&P Assessment and Plan (1) Sepsis: Qualifiers: Sepsis acute organ dysfunction status: without acute organ dysfunction Sepsis type: sepsis due to unspecified organism Qualified Code(s): A41.9 - Sepsis, unspecified organism Code(s): A41.9 - Sepsis, unspecified organism Status: Acute (2) Pyelonephritis: Code(s): N12 - Tubulo-interstitial nephritis, not specified as acute or chronic Status: Acute (3) Hydroureteronephrosis: Code(s): N13.30 - Unspecified hydronephrosis Status: Acute (4) 25 weeks gestation of : Code(s): Z3A.25 - 25 weeks gestation of Status: Acute (5) Sinus tachycardia: Code(s): R00.0 - Tachycardia, unspecified Status: Acute (6) Hypokalemia: Code(s): E87.6 - Hypokalemia Status: Acute (7) Hypomagnesemia: Code(s): E83.42 - Hypomagnesemia Status: Acute (8) Metabolic acidosis: Code(s): E87.2 - Acidosis Status: Acute Plan Patient presents with s/sx of sepsis felt to be from a urinary source. She received aggressive IV fluid hydration. Rocephin started at 2 g IV daily. Renal ultrasound showing bilateral nephrolithiasis and mild hydronephrosis. Results discussed with urology. Her sinus tachycardia related to sepsis, metabolic acidosis, IUP and baseline iron deficiency anemia. Patient had a normal echo as outpatient to rule out any significant cardiac pathology contributing to sinus tachycardia. Her hemoglobin is comparable to prior values. HR overall is improving. Metabolic nongap acidosis probably related to recent sepsis and ketosis but consider also related to her . Lactic was normal. WBC normal and CRP trending down. BCx NGTD. UCx mixed genital lefty. Surprising that her cultures are negative. Still concern for infectious process and would continue treatment with abx to complete a course. Okay for discharge from a medical standpoint but would recommend home with oral abx and repeat RFP in 1 week. DVT prophylaxis: SCDs Code status: Full Subjective Date/time seen: 07/22/22 08:39 Interval history: 22yo female with hx of recurrent UTIs, anemia and currently IUP 25 weeks here for sepsis. Patient feels well. She does feel tired although she is sleeping okay. She has been out of bed walking in the room. No shortness of breath. No chest pain. No dysuria or hematuria. No nausea or vomiting. She is eating better. Exam Narrative: AF 98.4 101/51 86 16 97% Gen - NARD lying flat in bed Chest -clear to auscultation bilaterally CV - RRR. S1-S2. Abd - Soft, NT, Ext - No pedal edema Psych - Nml mood and affect Skin - Warm and dry Objective Data Vital Signs Vital Signs: Vital Signs - 24 hr 07/21/22 14:00 07/21/22 21:37 07/22/22 06:00 Temperature 97.8 F 97.9 F 98.4 F Pulse Rate 90 98 86 Respiratory Rate 12 16 16 Blood Pressure 98/49 L 101/44 L 101/51 L Pulse Oximetry 97 100 97 Intake/Output Intake/Output: Intake & Output 07/19/22 07/20/22 07/21/22 07/22/22 23:59 23:59 23:59 23:59 Intake Total 6070 2580 2260 Output Total 400 Balance 5670 2580 2260 Meds/Results Medications: Active Medications Generic Name Dose Route Start Last Admin Trade Name Freq PRN Reason Stop Dose Admin Acetaminophen 650 mg 07/20/22 16:39 Acetaminophen 325 Mg Tablet PO Q6H PRN Mild Pain (1-3) or Fever Ceftriaxone Sodium 2 gm/ 100 mls @ 200 mls/hr 07/19/22 21:00 07/21/22 20:35 Sodium Chloride IVPB Infused Q24H SHAKILA Infusion Ondansetron HCl 4 mg 07/18/22 23:19 Ondansetron Inj 4 Mg/2 Ml Vial IV PUSH Q4H PRN Nausea Vit/Calcium/Iron/Folic Ac 1 tab 07/21/22 09:00 07/22/22 08:24 Multivit/Min/Pren/Fol Ac/Iron Tablet PO 1 tab DAILY SHAKILA Administration Radiology Results: ITS Impressions Ultrasound 07/19/22 13:43 IMPRESSION: 1. Single living fetus with breech
[2022-07-22 09:51] LABS: Vitamin D 25 Hydroxy 17.2 ng/mL
[2022-07-22 10:25] LABS: Potassium Urine Random 13.9 meq/L; Sodium Urine Random 160 meq/L
--- NOTE | 2022-07-22 10:43 | PM.OBPNVD ---
OB - PN: Subj Subjective Date/time seen: 07/22/22 10:43 No complaints today, denies fever , chills, no cramping, no bleeding. eager to leave. Interval history: 22yo female with hx of recurrent UTIs, anemia and currently IUP 25 weeks here for sepsis. Patient feels well. She does feel tired although she is sleeping okay. She has been out of bed walking in the room. No shortness of breath. No chest pain. No dysuria or hematuria. No nausea or vomiting. She is eating better. OB - PN: Obj Data Labs CBC & Chem 7: 07/22/22 07:27 07/22/22 05:18 Labs: Laboratory Results - last 24 hr 07/22/22 07/22/22 07/22/22 05:18 05:18 07:27 WBC 7.4 RBC 3.18 L Hgb 8.9 L Hct 28.0 L MCV 88.1 MCH 28.0 MCHC 31.8 L RDW 15.0 H Plt Count 237 MPV 9.6 Immature Gran % (Auto) 0.5 Neut % (Auto) 67.1 Lymph % (Auto) 23.5 [place] % (Auto) 7.3 Eos % (Auto) 1.3 Baso % (Auto) 0.3 Lymph # (Auto) 1.75 [place] # (Auto) 0.5 Eos # (Auto) 0.1 Baso # (Auto) 0.0 Abs Immat Gran (auto) 0.04 H Absolute Neuts (auto) 5.0 Absolute Nucleated RBC 0.0 Nucleated RBC % 0.0 Sodium 137 Potassium 3.6 Chloride 112 H Carbon Dioxide 17 L Anion Gap 8 BUN 7 Creatinine 0.50 L Estim Creat Clear Calc 176 Estimated GFR > 60 Glucose 80 Uric Acid 4.0 Calcium 8.7 Phosphorus 4.1 Magnesium 2.0 C-Reactive Protein 5.0 H Albumin 2.8 L Vitamin D 25-Hydroxy Ur Random Sodium Ur Random Potassium 07/22/22 07/22/22 07:27 09:37 WBC RBC Hgb Hct MCV MCH MCHC RDW Plt Count MPV Immature Gran % (Auto) Neut % (Auto) Lymph % (Auto) [place] % (Auto) Eos % (Auto) Baso % (Auto) Lymph # (Auto) [place] # (Auto) Eos # (Auto) Baso # (Auto) Abs Immat Gran (auto) Absolute Neuts (auto) Absolute Nucleated RBC Nucleated RBC % Sodium Potassium Chloride Carbon Dioxide Anion Gap BUN Creatinine Estim Creat Clear Calc Estimated GFR Glucose Uric Acid Calcium Phosphorus Magnesium C-Reactive Protein Albumin Vitamin D 25-Hydroxy 17.2 Ur Random Sodium 160 Ur Random Potassium 13.9 OB - PN A/P Assessment and Plan (1) Pyelonephritis: Code(s): N12 - Tubulo-interstitial nephritis, not specified as acute or chronic Status: Acute Assessment and Plan: Resolution of tachycardia, afebrile for more than 48 hours, no pain, patient eager to leave, to continue on oral antibiotics cephalexin b.i.d. for Min 10 days. Then the continue on suppressive therapy has follow-up today in the office. Time Spent With Patient Time: Total time spent is greater than 50% in coordination of care (as documented) at patient's floor/unit and/or counseling patient: Exam Const: General: cooperative, healthy appearing, comfortable and no acute distress; No confusion Orientation/consciousness: oriented to person, oriented to place, oriented to time and No confusion HENMT: Head: normal to inspection Ears: external ears normal General nose exam: Normal external nose present Face and sinus: normal facial exam Eyes: General: appearance normal, both eyes and all related structures Neck: Neck: normal visual inspection, trachea midline and supple Resp: Auscultation: clear to auscultation bilaterally, no crackles, no rales, no rhonchi and no wheezes Cardio: Rate: regular rate Rhythm: regular rhythm Heart sounds: no click, no murmurs and no rubs GI: GI Palp: No abdominal tenderness, No Soft to palpation, No Tenderness to palpation present (GI) and No Palpable mass present Auscultation: normal bowel sounds Skin: General skin exam: normal color and no rashes or lesions noted Neuro: General: oriented to person, oriented to place, oriented to time and No confusion Speech: No Abnormal speech present Extrem: General: normal to inspection, no joint enla
--- NOTE | 2022-07-22 10:51 | PM.DS ---
DS: Admitting Diagnosis Discharge Date July 22, 2022 Admitting Diagnosis pyelonephritis, sepsis, tachycardia DS: Discharge Diagnosis Discharge Diagnosis (1) Pyelonephritis: Code(s): N12 - Tubulo-interstitial nephritis, not specified as acute or chronic Status: Acute (2) Sinus tachycardia: Code(s): R00.0 - Tachycardia, unspecified Status: Acute (3) Sepsis: Qualifiers: Sepsis type: sepsis due to unspecified organism Sepsis acute organ dysfunction status: without acute organ dysfunction Qualified Code(s): A41.9 - Sepsis, unspecified organism Code(s): A41.9 - Sepsis, unspecified organism Status: Acute DS: Summary Hospital Course Hospital Course: this patient is a 22-year-old female who presents emergency department with pyelonephritis. She has history of eye ureteral stents and a stone earlier in this . She is 20+ weeks gestation. She is a multiparous. She was treated with IV antibiotics. She quickly got better. She is febrile on her 1st 24 hours but afebrile thereafter. Her heart rate came down about 24 hours ago and she has been afebrile for more than 48 hours. She had a ultrasound of the fetus and there appears to be cleft lip. She will follow-up with us shortly. Time Spent with Patient Time attestation: Total time spent providing and/or coordinating discharge services: DS: Data Data Completed and Pending Labs on day of discharge: Labs from last 24 hours 07/22/22 07/22/22 07/22/22 09:37 09:37 07:27 WBC RBC Hgb Hct MCV MCH MCHC RDW Plt Count MPV Immature Gran % (Auto) Neut % (Auto) Lymph % (Auto) [place] % (Auto) Eos % (Auto) Baso % (Auto) Lymph # (Auto) [place] # (Auto) Eos # (Auto) Baso # (Auto) Abs Immat Gran (auto) Absolute Neuts (auto) Absolute Nucleated RBC Nucleated RBC % Sodium Potassium Chloride Carbon Dioxide Anion Gap BUN Creatinine Estim Creat Clear Calc Estimated GFR Glucose Uric Acid Calcium Phosphorus Magnesium C-Reactive Protein Albumin Vitamin D 25-Hydroxy 17.2 Ur Random Creatinine Pending Ur Random Sodium 160 Ur Random Potassium 13.9 Ur Random Chloride Pending U Random Chloride/Creat Pending 07/22/22 07/22/22 07/22/22 07:27 05:18 05:18 WBC 7.4 RBC 3.18 L Hgb 8.9 L Hct 28.0 L MCV 88.1 MCH 28.0 MCHC 31.8 L RDW 15.0 H Plt Count 237 MPV 9.6 Immature Gran % (Auto) 0.5 Neut % (Auto) 67.1 Lymph % (Auto) 23.5 [place] % (Auto) 7.3 Eos % (Auto) 1.3 Baso % (Auto) 0.3 Lymph # (Auto) 1.75 [place] # (Auto) 0.5 Eos # (Auto) 0.1 Baso # (Auto) 0.0 Abs Immat Gran (auto) 0.04 H Absolute Neuts (auto) 5.0 Absolute Nucleated RBC 0.0 Nucleated RBC % 0.0 Sodium 137 Potassium 3.6 Chloride 112 H Carbon Dioxide 17 L Anion Gap 8 BUN 7 Creatinine 0.50 L Estim Creat Clear Calc 176 Estimated GFR > 60 Glucose 80 Uric Acid 4.0 Calcium 8.7 Phosphorus 4.1 Magnesium 2.0 C-Reactive Protein 5.0 H Albumin 2.8 L Vitamin D 25-Hydroxy Ur Random Creatinine Ur Random Sodium Ur Random Potassium Ur Random Chloride U Random Chloride/Creat Preliminary micro results at discharge 07/19/22 05:03 Blood Culture - Preliminary Blood 07/18/22 21:36 Blood Culture - Preliminary Blood Discharge Plan Discharge Attending physician on discharge: Muna Dela Cruz Consulting providers: Karyn Banerjee ; Jonnie Arteaga ; Mirlande Kahn Discharging Clinician: Muna Dela Cruz Patient Disposition: Home, Self-Care Activity: pelvic rest Diet: regular Patient Instructions: Antibiotic Form Stand Alone Forms: General Discharge Information Follow-up/Referrals: Muna Dela Cruz MD [Physician] - Discharge Medications: New cephalexin 5
--- NOTE | 2022-07-24 07:23 | PC.NURSE ---
Uric acid-4 Vit D 17.[address] is negative[address] Fox aware
[2022-07-25 17:33] LABS: Chloride Rand Ur 176 mmol/L (32-290); Chloride/Creatinine Rand Ur 303 (38-318); Creatinine Random Urine 58 mg/dL (20-275)
== END 2022-07-22 13:00 | disposition home or self-care (01) | DRG 566 ==
LOC: ANHED 23:27 → ANH3MED 23:30
PROVIDERS: Advanced Practice Midwife; Emergency Medicine; Internal Medicine; Physician Assistant; Admitting Provider Obstetrics & Gynecology; Emergency Provider Emergency Medicine; PCP Family Medicine; Visit Provider Obstetrics & Gynecology
DX: O98.812 Other maternal infectious and parasitic diseases complicating pregnancy, second trimester (principal); A41.9 Sepsis, unspecified organism; N13.6 Pyonephrosis; O23.02 Infections of kidney in pregnancy, second trimester; E83.42 Hypomagnesemia; E87.2 Acidosis; O99.891 Other specified diseases and conditions complicating pregnancy; R00.0 Tachycardia, unspecified; O99.282 Endocrine, nutritional and metabolic diseases complicating pregnancy, second trimester; E87.6 Hypokalemia; Z3A.25 25 weeks gestation of pregnancy; O99.012 Anemia complicating pregnancy, second trimester; D50.9 Iron deficiency anemia, unspecified; Z20.822 Contact with and (suspected) exposure to COVID-19
CPT/HCPCS: 36415; 76775; 76805; 80048; 80053; 80069; 81001; 82306; 82436; 82570; 83605; 83735; 84100; 84133; 84300; 84550; 85025; 86140; 87040; 87086; 87088; 87502; 87661; 93005; 96361; 96365; 96366; 96367; 96375; 99285; A9270; C9803; G0378; G0379; J0131; J0696; J1756; J3475; J7030; U0003; U0005

== ENCOUNTER 2022-08-15 08:59 | Outpatient (RCR) | payer OTHER, SELFPAY ==
[2022-08-14 11:11] LABS: Hematocrit 33.1 % (37.0-47.0); Hemoglobin 10.6 g/dL (12.0-15.0)
[2022-08-14 11:23] LABS: Glucose 1 Hour PP 50gm Dose 134 mg/dL
[2022-08-14 12:03] LABS: HIV 1/2 Ab P24 Ag Result Negative (Negative)
[2022-08-15] MEDS: RHO(D) IMMUNE GLOBULIN 300 MCG/2 ML SYRINGE IM (10:37)
== END 2022-08-15 09:00 | disposition home or self-care (01) ==
LOC: ANHLAB 08:59
PROVIDERS: PCP Family Medicine; Visit Provider Obstetrics & Gynecology
DX: Z11.4 Encounter for screening for human immunodeficiency virus [HIV] (principal); Z29.13 Encounter for prophylactic Rho(D) immune globulin; O36.0190 Maternal care for anti-D [Rh] antibodies, unspecified trimester, not applicable or unspecified; Z3A.00 Weeks of gestation of pregnancy not specified
CPT/HCPCS: 36415; 82947; 85014; 85018; 85461; 86703; 90384; 96372; G0432; J2790

== ENCOUNTER 2022-10-01 07:33 | Observation (INO) | payer OTHER, SELFPAY ==
--- NOTE | ~2022-10-01 | US_ITS ---
EXAMINATION: US renal BI DATE: 10/01/2022 10:50 INDICATION: Right-sided abdominal pain TECHNIQUE: Multiple ultrasound grayscale images of the kidneys were obtained. COMPARISON: 07/19/2022 FINDINGS: The right kidney measures 13.9 x 7.2 x 7.3 cm. The left kidney measures 11.8 x 6.4 x 5.9 cm. The kidn eys demonstrate normal echogenicity. There is moderate right and mild left hydronephrosis. Multiple s hadowing gallstones are seen in the bilateral kidneys. There is mass effect upon the dome of the blad deepa from the incompletely visualized gravid uterus which is not diagnostically evaluated. A single le ft-sided ureteral jet is visualized on color Doppler. Per discussion with the advertising sales consultant this was th e only ureteral jet identified during 5 minutes of observation. IMPRESSION: 1. Bilateral nephrolithiasis with unchanged mild left and increasing moderate right hydronephrosis w ith no right-sided ureteral jets visualized over 5 minutes of imaging. Reviewed, dictated and finalized at location B. [employer] IMPRESSION: 1. Bilateral nephrolithiasis with unchanged mild left and increasing moderate right hydronephrosis with no right-sided ureteral jets visualized over 5 minute s of imaging.
[2022-10-01] MEDS: FAMOTIDINE 20 MG/2 ML VIAL IV PUSH (08:15)
[2022-10-01] MEDS: DEXTROSE 5%/0.45% SOD CHL 1,000 ML 150 ML IV CONT ×2 (08:15→13:30)
[2022-10-01] MEDS: ONDANSETRON INJ 4 MG/2 ML VIAL IV PUSH (08:15)
[2022-10-01 08:29] LABS: Basophils Percent Auto 0.2 % (0.2-1.2); Eosinophils Percent Auto 0.3 % (0-4.4); Hematocrit 29.6 % (37.0-47.0); Hemoglobin 9.3 g/dL (12.0-15.0); Immature Granulocyte Absolute 0.07 K/mm3 (0.00-0.031); Immature Granulocyte Percent A 0.7 % (0-0.5); Lymphocytes Absolute Auto 1.05 K/mm3 (0.9-3.2); Lymphocytes Percent Auto 10.4 % (18.3-44.2); Mean Corpuscular HGB Conc 31.4 g/dl (32-36); Mean Corpuscular Hemoglobin 26.8 pg (26-34); Mean Corpuscular Volume 85.3 fl (80-100); Mean Platelet Volume 8.4 fl (7.4-10.4); Monocytes Absolute Auto 0.6 K/mm3 (0.1-0.6); Monocytes Percent Auto 6.1 % (2.6-8.5); Neutrophils Absolute Auto 8.3 K/mm3 (1.3-6.7); Neutrophils Percent Auto 82.3 % (45.5-73.1); Platelet Count Result 331 k/mm3 (150-375); Red Blood Count 3.47 M/mm3 (4.2-5.4); Red Cell Distribution Width 14.4 % (11.5-14.5); White Blood Count 10.1 K/mm3 (4.5-10.0)
[2022-10-01 08:31] VITALS: BP 101/54; PULSE 104
[2022-10-01 08:40] LABS: Alanine Aminotransferase 26 U/L (6-35); Albumin Level 3.1 g/dL (3.5-5.1); Alkaline Phosphatase 352 U/L (38-126); Anion Gap 12 mmol/L (8-16); Aspartate Amino Transferase 28 U/L (14-36); Bilirubin,Total 1.2 mg/dL (0.2-1.3); Blood Urea Nitrogen 7 mg/dL (7-17); Calcium 8.7 mg/dL (8.4-10.2); Carbon Dioxide 18 mmol/L (22-30); Chloride 106 mmol/L (98-107); Estimated Glomerular Filt Rate > 60; Glucose 82 mg/dL (65-110); Potassium 3.3 mmol/L (3.4-5.0); Sodium 136 mmol/L (137-145)
[2022-10-01 08:45] VITALS: BP 111/60; PULSE 111; RESP 18; TEMP 36.9
--- NOTE | 2022-10-01 08:52 | OBADM ---
This patient, Hillary Merlos, admitted to the OB room [facility] Post [facility] for observation. Patient/family oriented to hospital policies and general routines including ID bracelet, bed and alarms, visiting hours, pain management, procedures, bathroom and other care routines, personal items, smoking policy, room service/diet, and visiting hours. Patient/Family are encouraged to report perceived risks to care and to ask questions if they do not understand what they are told or what they should do.
[2022-10-01 10:03] LABS: Bacteria Urine Trace /hpf; Mucus Urine Rare /lpf; RBC Urine 21-50 /hpf (0-2); Squamous Epithelial Cell Urine Few /hpf (Few); WBC Clumps Urine Present /HPF; WBC Urine >75 /hpf
[2022-10-01 10:06] LABS: Add Urine Microscopic? YES; Appearance Urine Cloudy (Clear); Bilirubin Urine 2+ (Negative); Blood Urine 3+ (Negative); Color Urine Yellow (Yellow); Glucose Urine UA Negative (Negative); Ketones Urine 4+ mg/dL (Negative); Leukocyte Esterase Ur 2+ LEU/UL (Negative); Nitrate Urine Negative (Negative); Protein Urine 2+ mg/dL (Negative); Urobilinogen Urine >=8.0 mg/dL (<2.0)
--- NOTE | 2022-10-01 10:15 | PC.NURSE ---
0753- Spoke with Ulysses Carranza CNM, orders for CBC, CMP, UA. IV access to be placed, D51/2 NS, 500 cc bolus and 150/hr after.
--- NOTE | 2022-10-01 10:16 | PC.NURSE ---
1008- Spoke with Ulysses Carranza CNM, labs reviewed. Orders for renal US, 2 gm IV Rocephin and 1 gm IV tylenol.
[2022-10-01] MEDS: cefTRIAXone 2 GM in SODIUM CHLORIDE 0.9% IV 100 ML 200 ML IVPB (11:12)
[2022-10-01 12:06] VITALS: BP 113/62; PULSE 98; RESP 20; TEMP 36.9
--- NOTE | 2022-10-01 15:33 | WPDURCON ---
Assessment and Plan Assessment and plan (1) Hydroureteronephrosis: Code(s): N13.30 - Unspecified hydronephrosis Status: Acute Assessment and Plan: Right >Left I offered to set her up for a Cystoscopy right stent placement, right retrograde pyelogram today to help relieve her pain although, we discussed that the pain may be d/t extrinsic pressure from the uterus and not an obstructing stone, but without a CT scan it is hard to know. Her creatinine is normal. I also offered to keep her overnight on pain medications and fluids and repeat a DELMAR tomorrow to see if she has improvement and the other option is to go home with pain medications and antibiotics and do a CT scan after delievery to further evaluate her hydronephrosis and flank pain to see if it is from obstructing stones or . She elects to talk with Dr. Dela Cruz and go home today with pain medications to f/u after delivery with a CT scan to further evaluate. She states her previous stent didn't help her pain. Urine Culture is pending, continue antibiotics. (2) Urinary tract infection: Code(s): N39.0 - Urinary tract infection, site not specified Status: Acute (3) Bilateral renal stones: Code(s): N20.0 - Calculus of kidney Status: Acute Assessment and Plan: Will address after delivery as they are not obstructive at this time or causing any emergent problems. Urology Consult Note HPI Date Seen: 10/01/22 Time Seen: 12:00 Requesting Physician: Muna Dela Cruz MD Primary Care Provider: Tosha Wolff, Consult Narrative Reason for consult: Bilateral stones and hydronephrosis. Narrative: Hillary Merlos is a 22 year old female who was admitted by Dr. Dela Cruz to OB for evaluation of severe right flank pain that radiates to the right lower quadrant. This started one week ago and has worsened. She has had nausea and vomiting. She has refrained from eating and drinking for several days. She denies dysuria, hematuria, frequency or urgency. She had a DELMAR on 10/01/22 which shows bilateral nephrolithiasis with unchanged mild left and increasing moderate right hydronephrosis without right sided ureteral jets visualized over 5 minutes. She has a normal creatinine of 1.00, WBC of 10.1 and her UA is suggestive of a possible UTI. She was seen in the hospital for right flank pain on 07/19/22 and had a DELMAR then which showed bilateral stones and bilateral mild hydronephrosis. Dr. Arteaga saw her and discussed options at this time of controlling her pain and sending her home to have a CT scan after she delivers to evaluate further or placing another stent which isn't advised. She had a stent placed prior to this at an outside hospital which was removed in our office by Dr. Llamas on 07/08/22. She is currently 35 weeks . 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
[2022-10-01] MEDS: HYDROcodone/acetaminophen (*CRX) 5-325 MG TABLET 1 TAB PO (15:36)
--- NOTE | 2022-10-01 17:38 | PC.NURSE ---
Mendy Carranza at bedside discussing plan of care with patient. Patient to go home with antibiotics and pain medication and follow up with Dr. Dela Cruz on Thursday, patient to go home on bedrest, no work.
--- NOTE | 2022-10-01 18:19 | PM.IMHP ---
H&P: HPI History of Present Illness Date/Time: 10/01/22 18:19 Chief Complaint: abdominal and back pain pt is a at 35 weeks gestation. Ob course complicated by?Obstructive hydroureter and had stent placed on 05/26/22.? hx of? previous section. plans for repeat section. hx of tonsillectomy. Pt admitted 07/19/22 with sepsis, sinus tachycardia, hypokalemia, anemia and hypomagnesmia Today on admission complaints of abdominal and back pain x 1 week, pt has not eaten or had much to drink in the last 7 days per her report. Currently rates the pain a 10 and has not had any otc pain medication. orders placed and urology consulted, dr. 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 She lives at home with her 3-year-old daughter. Her mother is helping her all she is in the hospital. Surrogate decision maker: Yohannes Merlos, mother. Code status: Full code. Smoking status: Never smoker Alcohol intake: never Substance use: never Substance use type: does not use Spiritual care concerns: No Meds Home Medications and Allergies Home Medications Medication Instructions Recorded Confirmed Type prenat.vits,carolynn,per-fjpo-vnrqi 1 tablet PO DAILY #90 tabs 03/01/22 07/19/22 Rx ([facility]PN tablet) cephalexin 500 mg capsule 500 mg PO Q12H 7 days #14 caps 10/01/22 Rx Allergies Allergy/AdvReac Type Severity Reaction Status Date / Time No Known Allergies Allergy Verified 07/19/22 01:39 Vital Signs Vital Signs - 24 hr 10/01/22 08:31 10/01/22 08:45 10/01/22 12:06 Temperature Pulse Rate 104 H 111 H 98 Respiratory Rate Blood Pressure 101/54 L 111/60 113/62 10/01/22 08:45 10/01/22 12:06 Temperature 36.9 C 36.9 C Pulse Rate Respiratory Rate 18 20 Blood Pressure Exam Const: General: cooperative, healthy appearing and no acute distress Resp: Effort & Inspection: normal respiratory effort and able to speak in complete sentences GI: Other: gravid Skin: General skin exam: normal color Neuro: General: patient oriented x3 Psych: Appearance: grossly normal H&P: Results Labs Labs: Short CBC 10/01/22 Range/Units 07:57 WBC 10.1 H (4.5-10.0) K/mm3 Hgb 9.3 L (12.0-15.0) g/dL Hct 29.6 L (37.0-47.0) % Plt Count 331 (150-375) k/mm3 BMP 10/01/22 07:57 Sodium 136 L Potassium 3.3 L Chloride 106 Carbon Dioxide 18 L BUN 7 Creatinine 1.00 Glucose 82 Calcium 8.7 Liver Function 10/01/22 Range/Units 07:57 Total Bilirubin 1.2 (0.2-1.3) mg/dL AST 28 (14-36) U/L ALT 26 (6-35) U/L Alkaline Phosphatase 352 H (38-126) U/L Albumin 3.1 L (3.5-5.1) g/dL Urine 10/01/22 Range/Units 07:57 Urine Color Yellow (Yellow) Urine Appearance Cloudy H (Clear) Urine pH 7.0 (5.0-9.0) Ur Specific [place] 1.020 (1.001-1.035) Urine Protein 2+ H (Negative) mg/dL Urine Glucose (UA) Negative (Negative) mg/dL Assessment and Plan Assessment and plan (1) Bilateral renal stones: Code(s): N20.0 - Calculus of kid
--- NOTE | 2022-10-03 07:25 | PM.OBTRLD ---
OB - Triage/Final Diagnosis Visit Information Date of evaluation: 10/01/22 Reason for evaluation: other (abdominal pain) Comments/Additional reasons for admission: I have assessed the risk for this patient, Hillary Merlos, and determined that she would benefit from observation care. Evaluation Laboratory results: Laboratory Tests 10/01/22 10/01/22 10/01/22 07:57 07:57 07:57 WBC 10.1 H RBC 3.47 L Hgb 9.3 L Hct 29.6 L MCV 85.3 MCH 26.8 MCHC 31.4 L RDW 14.4 Plt Count 331 MPV 8.4 Immature Gran % (Auto) 0.7 H Neut % (Auto) 82.3 H Lymph % (Auto) 10.4 L [place] % (Auto) 6.1 Eos % (Auto) 0.3 Baso % (Auto) 0.2 Lymph # (Auto) 1.05 [place] # (Auto) 0.6 Eos # (Auto) 0.0 Baso # (Auto) 0.0 Abs Immat Gran (auto) 0.07 H Absolute Neuts (auto) 8.3 H Absolute Nucleated RBC 0.0 Nucleated RBC % 0.0 Sodium 136 L Potassium 3.3 L Chloride 106 Carbon Dioxide 18 L Anion Gap 12 BUN 7 Creatinine 1.00 Estim Creat Clear Calc Not Reportable Estimated GFR > 60 Glucose 82 Calcium 8.7 Total Bilirubin 1.2 AST 28 ALT 26 Alkaline Phosphatase 352 H Total Protein 7.0 Albumin 3.1 L Urine Color Yellow Urine Appearance Cloudy H Urine pH 7.0 Ur Specific [place] 1.020 Urine Protein 2+ H Urine Glucose (UA) Negative Urine Ketones 4+ H Ur Blood (Man) 3+ H Urine Nitrate Negative Urine Bilirubin 2+ H Urine Urobilinogen >=8.0 Leukocyte Esterase Rfl 2+ H Urine RBC 21-50 H Urine WBC >75 H Urine WBC Clumps Present H Ur Squamous Epith Cells Few Urine Bacteria Trace Urine Mucus Rare
== END 2022-10-01 17:40 | disposition home or self-care (01) ==
PROVIDERS: Advanced Practice Midwife; Admitting Provider Obstetrics & Gynecology; PCP Family Medicine; Visit Provider Obstetrics & Gynecology
DX: O26.833 Pregnancy related renal disease, third trimester (principal); N20.0 Calculus of kidney; N13.30 Unspecified hydronephrosis; O23.43 Unspecified infection of urinary tract in pregnancy, third trimester; N39.0 Urinary tract infection, site not specified; Z3A.35 35 weeks gestation of pregnancy
CPT/HCPCS: 36415; 59025; 76775; 80053; 81001; 85025; 87077; 87086; 87088; 87186; 96361; 96365; 96375; A9270; G0378; G0379; J0131; J0696; J2405

== ENCOUNTER 2022-10-03 19:52 | Observation (INO) | payer OTHER, SELFPAY ==
[2022-10-03 20:16] VITALS: BMI 38.9
[2022-10-03 20:19] VITALS: RESP 15; TEMP 36.8
--- NOTE | 2022-10-03 20:39 | PC.NURSE ---
Notified Dr. Dela Cruz of patient arrival to OB unit with complaint of back pain. Patient reports she has been evaluated for back pain on Thursday of this week and was prescribed pain medications. Patient states she has only taken prescribed pain medications once because it only worked for an hour and the pain starts to come back. Patient states pain is not worse since she was first evaluated on Thursday. Patient reports she is still taking her antibiotics. Order to educated patient on non pharmacological pain management and to encourage patient to continue to take antibiotic and pain medications. Patient can be discharged to home and instructed to follow up with Dr. Dela Cruz as scheduled.
--- NOTE | 2022-10-26 19:07 | PM.OBTRLD ---
OB - Triage/Final Diagnosis Visit Information Comments/Additional reasons for admission: I have assessed the risk for this patient, Hillary Merlos, and determined that she would benefit from observation care. Final Diagnosis (1) Back pain affecting : Code(s): O99.891 - Other specified diseases and conditions complicating ; M54.9 - Dorsalgia, unspecified Status: Acute
== END 2022-10-03 21:32 | disposition home or self-care (01) ==
PROVIDERS: Admitting Provider Obstetrics & Gynecology; PCP Family Medicine; Visit Provider Obstetrics & Gynecology
DX: O26.893 Other specified pregnancy related conditions, third trimester (principal); M54.9 Dorsalgia, unspecified; Z3A.35 35 weeks gestation of pregnancy
CPT/HCPCS: 59025; G0378; G0379

== ENCOUNTER 2022-10-28 09:08 | Outpatient (CLI) | payer OTHER, SELFPAY ==
[2022-10-28 10:22] LABS: Hematocrit 28.1 % (37.0-47.0); Hemoglobin 8.8 g/dL (12.0-15.0); Mean Corpuscular HGB Conc 31.3 g/dl (32-36); Mean Corpuscular Hemoglobin 25.7 pg (26-34); Mean Corpuscular Volume 82.2 fl (80-100); Mean Platelet Volume 8.4 fl (7.4-10.4); Platelet Count Result 393 k/mm3 (150-375); Red Blood Count 3.42 M/mm3 (4.2-5.4); Red Cell Distribution Width 15.4 % (11.5-14.5); White Blood Count 13.3 K/mm3 (4.5-10.0)
[2022-10-28 16:00] LABS: Rapid Plasma Reagin Non-Reactive (NonReactive)
== END 2022-10-28 09:09 | disposition home or self-care (01) ==
LOC: ANHLAB 09:10
PROVIDERS: PCP Family Medicine; Visit Provider Obstetrics & Gynecology
DX: O34.219 Maternal care for unspecified type scar from previous cesarean delivery (principal)
CPT/HCPCS: 36415; 85027; 86592; 86850; 86900; 86901

== ENCOUNTER 2022-10-29 05:23 | Inpatient (IN) | payer OTHER, SELFPAY ==
[2022-10-29] VITALS (64 sets, daily range): BP systolic 70–124; BP diastolic 37–109; PULSE 69–128; RESP 16–18; TEMP 36.1–37.5; O2SAT 82–100; BMI 35.2
--- NOTE | 2022-10-29 06:21 | LDADM ---
This patient, Hillary Merlos, was admitted to Labor/Delivery/Recovery 120 on 10/29/22 at 05:23. Plans for labor, pain management and were discussed with patient. Patient/family oriented to hospital policies and general routines including ID bracelet, bed and alarms, visiting hours, pain management, procedures, bathroom and other care routines, personal items, smoking policy, room service/diet and guest tray routines, infant security routines, and visiting hours. Patient/Family are encouraged to report perceived risks to care and to ask questions if they do not understand what they are told or what they should do. See OBIX for further documentation.
[2022-10-29] MEDS: LACTATED RINGERS 1,000 ML 125 ML IV CONT (06:47)
--- NOTE | 2022-10-29 07:06 | WPDANESEPPF ---
Anes - Initial Pre Proc Eval Procedure: Operation Date: 10/29/22 07:30 Proposed Procedures p Repeat Section - Muna Dela Cruz MD Date/Time: 10/29/22 07:06 Surgeon: Muna Dela Cruz MD Pre Op Diagnosis: repeat c/s Patient Data Age: 22 Gender: F Height: 1.65 m Weight: 96 kg Last Vital Signs Pulse 111 H 10/29/22 05:49 BP 107/69 10/29/22 05:49 O2 Del Method Room Air 10/29/22 06:19 Allergies Allergy/AdvReac Type Severity Reaction Status Date / Time No Known Allergies Allergy Verified 07/19/22 01:39 Home Medications Medication Instructions Recorded Confirmed Type prenat.vits,carolynn,[id number] 1 tablet PO DAILY #90 tabs 03/01/22 10/29/22 Rx (KPN tablet) prenat.vits,carolynn,[id number]-[id number] 1 tablet PO DAILY 10/02/22 10/02/22 History Patient hx anesthesia problems: none Family hx anesthesia problems: none Results Review: All pre-operative results and documents have been reviewed as part of the pre-operative evaluation. 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 She lives at home with her 3-year-old daughter. Her mother is helping her all she is in the hospital. Surrogate decision maker: Yohannesdennis Merlos, mother. Code status: Full code. Smoking status: Never smoker Alcohol intake: never Substance use: never Substance use type: does not use Lack of Transportation: No Lack of Food: Never True Current Housing: I Have Housing Concerned About Future Housing: No Difficulty Paying Gas/Electric Bills: No Difficulty Paying for Meds: No Currently Unemployed: No Education: High School Diploma/GED Difficulty w/ Childcare or Family Care: No Spiritual care concerns: No Anes - Eval Final PreProcedure Day of Procedure 10/29/22 07:06 Patient weight: obese Heart: regular rate and rhythm Lungs: clear to auscultation Airway: Mallampati scale class II Neurological: alert and oriented Last oral intake: >/= 8 hours ASA classification: III Emergent: no Anesthetic plan: proceed Anesthesia type and monitoring: regional spinal and standard monitoring Results Review: All pre-operative results and documents have been reviewed as part of the pre-operative evaluation. Informed Consent: The patient's anesthetic plan and its attendant risks and benefits were discussed with the patient/family/POA. Questions were solicited and answers provided to the satisfaction of the patient/family/POA.
--- NOTE | 2022-10-29 07:17 | WPDHPUPDATE1 ---
History and Physical Update Update Date/Time: 10/29/22 07:17 History and Physical has been reviewed, including an updated exam of the patient. There are NO changes in the patient's condition. Risks, benefits, and alternatives have been discussed and questions answered. Patient agrees to proceed with procedure.
--- NOTE | 2022-10-29 07:17 | PM.IMHP ---
H&P: HPI History of Present Illness Date/Time: 10/29/22 07:17 Chief Complaint: Term Narrative: this patient is a 22-year-old multiparous female at 39 weeks gestation and history of delivery. We have agreed to perform repeat delivery. She understands that there is risk. She understands injuries can occur that result in hospitalization, more surgery, and severe illness. She understands there is risk of hemorrhage and infection. Review of Systems Review of Systems: All systems reviewed & are unremarkable except as noted in HPI and below Constitutional: Constitutional: Denies chills, Denies fatigue, Denies fever(s) and Denies weakness Eyes: Eyes: Denies blurry vision, Denies change in vision, Denies loss of peripheral vision, Denies loss of vision, Denies other visual disturbances and Denies eye pain ENT: Denies vertigo, Denies dizziness, Denies hearing loss, Denies mouth pain, Denies nasal obstruction, Denies neck mass and Denies neck pain Cardiovascular: Cardiovascular: Denies chest pain, Denies diaphoresis, Denies syncope, Denies leg edema and Denies dyspnea Respiratory: Respiratory: Denies chest congestion, Denies cough, Denies hemoptysis, Denies dyspnea and Denies wheezing Gastrointestinal: Gastrointestinal: Denies abdominal pain, Denies constipation, Denies diarrhea, Denies nausea and Denies vomiting Genitourinary: Genitourinary: Denies hematuria, Denies change in libido, Denies nocturia, Denies genital lesions, Denies flank pain and Denies urinary urgency Musculoskeletal: Musculoskeletal: Denies abnormal gait, Denies back pain, Denies myalgias, Denies arthralgias, Denies joint swelling, Denies muscle weakness and Denies neck pain Integumentary/Breasts: Skin/Breast: Denies swelling, Denies breast pain, Denies breast mass, Denies dry skin, Denies nipple discharge, Denies unusual bruising and Denies jaundice Neurologic: Denies Neuro-related abnormal movements, Denies Abnormal speech present, Denies abnormal gait, Denies behavioral changes, Denies confusion, Denies vertigo, Denies dizziness, Denies syncope, Denies loss of vision, Denies memory loss, Denies convulsions and Denies weakness Psychiatric: Psychiatric: Denies abnormal sleep pattern, Denies behavioral changes, Denies change in libido, Denies confusion, Denies depression, Denies anhedonia and Denies memory loss Endocrine: Endocrine: Reports no additional endocrine complaints, Denies change in libido and Denies fatigue Hematologic/Lymphatic: Hematologic/Lymphatic: Reports no additional hematologic/lymphatic complaints Allergic/Immunologic: Allergic/Immunologic: Reports no additional allergic/immunologic complaints and Denies wheezing PMFSH Past Medical History Medical History Anemia Bacterial infection due to Proteus mirabilis (02/2022) Normal echocardiogram (02/2022) Performed due to bacteremia 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 She lives at home with her 3-year-old daughter. Her mother is helping her all she is in the hospital. Surrogate decision maker: Yohannes Merlos, mother. Code status: Full code. Smoking status: Never smoker Alcohol intake: never Substance use: never Substance use type: does not use Lack of Transportation: No Lack of
[2022-10-29] MEDS: LACTATED RINGERS 250 ML 999 ML IVPB (07:22)
[2022-10-29] MEDS: ceFAZolin 2 GM/D5W 50 ML 2 GM/50 ML BAG IVPB (07:26)
[2022-10-29] MEDS: KETOROLAC 30 MG/ML VIAL (*BKC) IV PUSH (08:05)
--- NOTE | 2022-10-29 08:41 | W.PM.PROC2 ---
Procedure Note - Detailed Date of Procedure 10/29/22 Pre-op Diagnosis repeat c/s Post-op Diagnosis Same Procedure Performed Low-transverse section Surgeon Muna Dela Cruz MD Anesthesia Spinal Findings Normal gestational maternal anatomy, average size infant, normal Apgars. Description of Procedure The patient was taken the operating room. She was prepped and draped in dorsal supine position with a leftward tilt. This was done after spinal anesthetic was applied. A low-transverse skin incision was made and carried down till of the fascia with the knife. The fascial incision was made with the knife. The fascial incision was extended laterally with Castillo scissors. The fascia was tented upward superiorly and inferiorly the rectus muscles were dissected off bluntly. The rectus muscles were the midline. The preperitoneal fat and peritoneum were dissected open bluntly at the superior aspect of the rectus muscles. The peritoneal incision was extended superior and inferior with good position of bladder. The uterine incision was made with a scalpel down to the level of the amniotic cavity. The amniotic cavity was entered bluntly. The was delivered. The cord was clamped and cut and the infant was handed off to waiting pediatric staff. Cord bloods were obtained. The placenta was removed manually. The uterus was exteriorized. The uterus was cleared of all clots, debris and membranes. The uterus was closed in 0 Vicryl running lock fashion. An imbricating over a was placed along the incision line as well. The uterus was returned to the abdomen. The gutters were cleared of all clots and debris. The fascia was closed with 0 Vicryl running fashion. The subcutaneous tissue was irrigated pinpoint bleeders were cauterized. The skin was closed with subcuticular absorbable per. The skin incision line was covered with glue. The patient tolerated the procedure well. She has taken recovery room in stable condition. Sponge lap and needle counts were correct x2. Pathology Yes Complications No immediate complications Condition Stable Disposition PACU
[2022-10-29] MEDS: miSOPROStol 200 MCG TABLET 1000 MCG RECTAL (09:25)
[2022-10-29] MEDS: METHYLERGONOVINE MALEATE 0.2 MG/ML VIAL IM (09:25)
--- NOTE | 2022-10-29 10:58 | OBPPTRN ---
Patient transferred to post room #285 via stretcher. Support person present. Oriented to unit, room, information board, rooming in, admission packet and security measures. Patient verbalizes understanding.
[2022-10-29 12:09] LABS: Hematocrit 23.8 % (37.0-47.0); Hemoglobin 7.6 g/dL (12.0-15.0)
[2022-10-29] MEDS: TUBING, BLOOD PLUM PUMP TUBING 1 EACH XX ×2 (13:05→17:08)
[2022-10-29] MEDS: SODIUM CHLORIDE 0.9% IV 250 ML 30 ML IV CONT (13:05)
--- NOTE | 2022-10-29 15:53 | PC.NURSE ---
[id number] Introductions were made, then consulted with patient to assess needs related to . Mother led the conversation with her?plans to breastfeed her and has no history of successful . Resources provided for inpatient and outpatient services using a resource guide and mom/baby guide. Mother voiced understanding of information and requests assistance. RN assisted with unwrapping, moving 's position, checking the diaper, demonstrating massage touch after mother verbalized she would receive tips and techniques for waking her . Encouraged understanding of the benefits of skin to skin (unwrapping and placing vertically on her chest), responsive feeding and how to watch for early feeding signs, frequency of feeding on demand about every 8-12 times in 24 hours (every 2-3 hours), milk production, duration of feeding, signs of adequate intake/output and how to record on the feeding sheet. Infant is sleepy and reluctant. Mother states baby breastfed great downstairs for 30 minutes . Reviewed it can take sometimes 20 minutes to stimulate for waking infant to breastfeed. Mother cried because her infant cried. Mother states I don't want to hear my baby cry . Discussed infants cry for various reasons and they have limited vocabulary reminding mother to be assertive and encouraging to wake and breastfeed for adequate intake/output, practice, and for a good milk production. Infant was sleeping and reluctant and was placed skin to skin on mother. Mother demonstrated stimulating infant. [id number] Purposefully rounded to assist with . Mother voiced acceptance of assistance and learning the skill of hand expression. Large drops of colostrum were expressed and spoon-fed to infant. became slightly more assertive with feeding cues. Reviewed positioning and ear, shoulder, hip alignment, supporting the breast, asymmetrical latch (off-center), and leading with the chin with a big, open, wide gape. Infant latched optimally to the right breast in football position. Education given to mother of how to visualize suck/swallow ratios and drinking at the breast. Infant was able to maintain latch without discomfort to mother for 4 minutes, then self detached. Infant was stimulated at the breast to encourage drinking. Nipple care reviewed with optimal latch and good positioning. Infant was placed skin to skin. Reviewed good handwashing when or touching the breast/nipples to prevent infection. [id number] remained skin to skin and mother was touching infant. After stimulating infant and feeding cues visualized Mother was assisted with latching infant to the left breast with mother supporting breast with sandwich hold in the football position. was stimulated and encouraged to effectively breastfeed. Infant is reluctant to stay latched. For 8 minutes infant practiced with more non-nutritive sucking than nutritive sucking. Swallowing was rare even though thick drops of colostrum were successfully hand expressed out earlier. Discussed the risks and benefits of pumping to improve stimulation as it relates to infant's efforts and mother's medical history, R C/S and blood loss. [id number] RN entered the room and mother states you will be mad at me because I gave my baby a pacifier . Reviewed risks and benefits of pacifiers so mother can make an informed decision. Breast pump provided due to mother's requests related to that is the way I fed my other baby . Instructions given on cleaning, care, usage, that there should be no pain, pumping schedule for milk production, collection, and storage of human milk. Mother is encouraged to record pumping schedule on the feeding sheet. Mother decided she did not want to initiate pumping at this time. Mother was instructed to call for her Primary nurse when she is ready to pump. Reviewed milk production and pumping every 3 hours (8 -12 times in 24 hours
[2022-10-29] MEDS: HYDROcodone/acetaminophen (*CRX) 5-325 MG TABLET 1 TAB PO ×2 (16:59→19:58)
[2022-10-29] MEDS: MULTIVIT/MIN/PREN/FOL AC/IRON TABLET 1 TAB PO (16:59)
[2022-10-29] MEDS: DOCUSATE SODIUM 100 MG CAPSULE PO (16:59)
[2022-10-29] MEDS: POLYSACCHARIDE IRON COMPLEX 150 MG CAPSULE PO (16:59)
[2022-10-29] MEDS: SODIUM CHLORIDE 0.9% IV 250 ML 30 ML (17:08)
[2022-10-29] MEDS: IBUPROFEN 600 MG TABLET PO (19:58)
[2022-10-29] MEDS: DEXTROSE 5%/0.45% SOD CHL 1,000 ML 125 ML IV CONT (20:20)
[2022-10-30 03:05] VITALS: BP 107/68; PULSE 91; RESP 16; TEMP 36.1
[2022-10-30] MEDS: HYDROcodone/acetaminophen (*CRX) 5-325 MG TABLET 1 TAB PO ×3 (04:45→22:00)
[2022-10-30] MEDS: IBUPROFEN 600 MG TABLET PO ×3 (04:45→22:00)
[2022-10-30 08:02] LABS: Basophils Percent Auto 0.2 % (0.2-1.2); Eosinophils Absolute Auto 0.1 K/mm3 (0-0.3); Eosinophils Percent Auto 0.4 % (0-4.4); Hematocrit 29.5 % (37.0-47.0); Hemoglobin 9.6 g/dL (12.0-15.0); Immature Granulocyte Absolute 0.17 K/mm3 (0.00-0.031); Immature Granulocyte Percent A 1.4 % (0-0.5); Lymphocytes Absolute Auto 1.47 K/mm3 (0.9-3.2); Lymphocytes Percent Auto 11.9 % (18.3-44.2); Mean Corpuscular HGB Conc 32.5 g/dl (32-36); Mean Corpuscular Hemoglobin 27.2 pg (26-34); Mean Corpuscular Volume 83.6 fl (80-100); Mean Platelet Volume 8.3 fl (7.4-10.4); Monocytes Absolute Auto 0.6 K/mm3 (0.1-0.6); Monocytes Percent Auto 4.9 % (2.6-8.5); Neutrophils Percent Auto 81.2 % (45.5-73.1); Platelet Count Result 318 k/mm3 (150-375); Red Blood Count 3.53 M/mm3 (4.2-5.4); Red Cell Distribution Width 15.6 % (11.5-14.5); White Blood Count 12.4 K/mm3 (4.5-10.0)
--- NOTE | 2022-10-30 08:33 | PM.OBPNVD ---
OB - PN: Subj Subjective Date/time seen: 10/30/22 08:33 Patient comments: no complaints, pain well controlled, incisional pain, tolerating diet and flatus present OB - PN: Obj Data Labs 10/30/22 03:57 Labs: Laboratory Results - last 24 hr 10/28/22 10/29/22 10/30/22 09:54 11:57 03:57 WBC 12.4 H RBC 3.53 L Hgb 7.6 L 9.6 L Hct 23.8 L 29.5 L MCV 83.6 MCH 27.2 D MCHC 32.5 RDW 15.6 H Plt Count 318 MPV 8.3 Immature Gran % (Auto) 1.4 H Neut % (Auto) 81.2 H Lymph % (Auto) 11.9 L [place] % (Auto) 4.9 Eos % (Auto) 0.4 Baso % (Auto) 0.2 Lymph # (Auto) 1.47 [place] # (Auto) 0.6 Eos # (Auto) 0.1 Baso # (Auto) 0.0 Abs Immat Gran (auto) 0.17 H Absolute Neuts (auto) 10.0 H Absolute Nucleated RBC 0.0 Nucleated RBC % 0.0 Crossmatch See Detail OB - PN A/P Plan day: 2 Plan: routine care Comments: POD#2 LTCS - no problems, Time Spent With Patient Time: Total time spent is greater than 50% in coordination of care (as documented) at patient's floor/unit and/or counseling patient: Exam Const: General: comfortable, no acute distress and alert Resp: Effort & Inspection: normal respiratory effort Auscultation: no crackles, no rales and no rhonchi Cardio: Rate: regular rate Heart sounds: no click, no murmurs and no rubs GI: Inspection: non-distended GI Palp: No Tenderness to palpation present (GI) Auscultation: normal bowel sounds Other: Incision - CDI Extrem: General: normal to inspection, no pedal edema and no calf tenderness
[2022-10-30 08:35] VITALS: BP 105/64; PULSE 97; RESP 16; TEMP 37.1; O2SAT 99
[2022-10-30] MEDS: DOCUSATE SODIUM 100 MG CAPSULE PO ×2 (09:08→16:00)
[2022-10-30] MEDS: POLYSACCHARIDE IRON COMPLEX 150 MG CAPSULE PO ×2 (09:08→15:59)
[2022-10-30] MEDS: MULTIVIT/MIN/PREN/FOL AC/IRON TABLET 1 TAB PO (09:08)
--- NOTE | 2022-10-30 10:26 | WPDANLDPN2 ---
Anes-Prog Note L&D Date/Time: 10/30/22 10:26 Comfortable throughout: section Neuraxial method: spinal Epidural/Spinal procedure site: clean & non-tender Neuro status: Neuro function grossly intact. Cardiovascular status: normal Respiratory status: normal Airway patency: baseline Mental status: baseline Post-Op hydration status: normal Vital Signs: Last Vital Signs Temp 37.1 C 10/30/22 08:35 Pulse 97 10/30/22 08:35 Resp 16 10/30/22 08:35 BP 105/64 10/30/22 08:35 Pulse Ox 99 10/30/22 08:35 O2 Del Method Room Air 10/29/22 15:20 Pain score (VAS): 2/10 I/O: Intake & Output 10/29/22 10/30/22 10/30/22 23:59 07:59 15:59 Intake Total 830 1000 Output Total 1450 1200 350 Balance -620 -200 -350 Post-procedural complaints: none Patient feedback: Patient satisfied with anesthetic care.
--- NOTE | 2022-10-30 10:26 | WPDANLDNPN2 ---
Anes-Prog Note L&D-Neuraxial Date/Time: 10/30/22 10:26 Neuraxial medications: intrathecal PF morphine Opiod-related complaints: none Patient feedback: Patient satisfied with post-operative pain management.
[2022-10-30] MEDS: RHO(D) IMMUNE GLOBULIN 300 MCG/2 ML SYRINGE IM (14:43)
[2022-10-30 14:50] VITALS: BP 120/84; PULSE 108; RESP 18; TEMP 36.7; O2SAT 98
[2022-10-30 19:00] VITALS: BP 103/64; PULSE 99; RESP 16; TEMP 36.6
[2022-10-30] MEDS: SIMETHICONE 80 MG TAB.CHEW PO ×2 (19:00→22:00)
--- NOTE | 2022-10-31 07:45 | P.DS_ITS ---
DS: Admitting Diagnosis Discharge Date 10/31/22 Admitting Diagnosis term , prev. LTCS OB - DS: Summary OB Procedures : None OB Procedures Intrapartum: OB Procedures: : None Peripartum Data Procedures: Procedures Operation Date: 10/29/22 07:30 Actual Procedure Side Surgeon p Repeat Section Not Applicable Muna Dela Cruz MD Time Spent with Patient Time attestation: Total time spent providing and/or coordinating discharge services: DS: Data Data Completed and Pending Labs on day of discharge: Labs from last 24 hours 10/30/22 10/30/22 03:57 03:57 WBC 12.4 H RBC 3.53 L Hgb 9.6 L Hct 29.5 L MCV 83.6 MCH 27.2 D MCHC 32.5 RDW 15.6 H Plt Count 318 MPV 8.3 Immature Gran % (Auto) 1.4 H Neut % (Auto) 81.2 H Lymph % (Auto) 11.9 L [place] % (Auto) 4.9 Eos % (Auto) 0.4 Baso % (Auto) 0.2 Lymph # (Auto) 1.47 [place] # (Auto) 0.6 Eos # (Auto) 0.1 Baso # (Auto) 0.0 Abs Immat Gran (auto) 0.17 H Absolute Neuts (auto) 10.0 H Absolute Nucleated RBC 0.0 Nucleated RBC % 0.0 Blood Type B Negative Antibody Screen Negative Screen Negative Baby's Blood Type O pos Baby's YANELI Negative Doses of RhIg Required 1 Discharge Plan Discharge Discharging Clinician: Muna Dela Cruz Patient Disposition: Home, Self-Care Activity: pelvic rest Diet: regular Patient Instructions: Antibiotic Form Stand Alone Forms: General Discharge Information Follow-up/Referrals: Muna Dela Cruz MD [Physician] - Discharge Medications: New hydrocodone-acetaminophen 5-325 mg tablet 1 tablet PO Q4H PRN (Reason: pain) Qty: 25 0RF Continued KPN Tablet 1 tablet PO DAILY Qty: 90 0RF prenat.vits,carolynn,ryp-lojp-grmyl Tablet 1 tablet PO DAILY Date of admission: 10/29/22 05:23 Primary Care Provider: [facility] Admitting Provider: Muna Dela Cruz Attending physician on admission: Muna Dela Cruz Condition: Stable
--- NOTE | 2022-10-31 07:45 | PM.OBPNVD ---
OB - PN: Subj Subjective Date/time seen: 10/31/22 07:45 Patient comments: no complaints, pain well controlled, incisional pain, tolerating diet and flatus present OB - PN: Obj Data Labs 10/30/22 03:57 Labs: Laboratory Results - last 24 hr 10/30/22 10/30/22 03:57 03:57 WBC 12.4 H RBC 3.53 L Hgb 9.6 L Hct 29.5 L MCV 83.6 MCH 27.2 D MCHC 32.5 RDW 15.6 H Plt Count 318 MPV 8.3 Immature Gran % (Auto) 1.4 H Neut % (Auto) 81.2 H Lymph % (Auto) 11.9 L [place] % (Auto) 4.9 Eos % (Auto) 0.4 Baso % (Auto) 0.2 Lymph # (Auto) 1.47 [place] # (Auto) 0.6 Eos # (Auto) 0.1 Baso # (Auto) 0.0 Abs Immat Gran (auto) 0.17 H Absolute Neuts (auto) 10.0 H Absolute Nucleated RBC 0.0 Nucleated RBC % 0.0 Blood Type B Negative Antibody Screen Negative Screen Negative Baby's Blood Type O pos Baby's YANELI Negative Doses of RhIg Required 1 OB - PN A/P Plan day: 2 Plan: routine care Comments: POD#2 LTCS - no problems, Time Spent With Patient Time: Total time spent is greater than 50% in coordination of care (as documented) at patient's floor/unit and/or counseling patient: Exam Const: General: comfortable, no acute distress and alert Resp: Effort & Inspection: normal respiratory effort Auscultation: no crackles, no rales and no rhonchi Cardio: Rate: regular rate Heart sounds: no click, no murmurs and no rubs GI: Inspection: non-distended GI Palp: No Tenderness to palpation present (GI) Auscultation: normal bowel sounds Other: Incision - CDI Extrem: General: normal to inspection, no pedal edema and no calf tenderness
[2022-10-31] MEDS: IBUPROFEN 600 MG TABLET PO (08:22)
[2022-10-31] MEDS: HYDROcodone/acetaminophen (*CRX) 5-325 MG TABLET 1 TAB PO (08:23)
[2022-10-31] MEDS: SIMETHICONE 80 MG TAB.CHEW PO (08:24)
[2022-10-31] MEDS: POLYSACCHARIDE IRON COMPLEX 150 MG CAPSULE PO (08:24)
[2022-10-31] MEDS: MULTIVIT/MIN/PREN/FOL AC/IRON TABLET 1 TAB PO (08:24)
[2022-10-31] MEDS: DOCUSATE SODIUM 100 MG CAPSULE PO (08:24)
[2022-10-31 08:45] VITALS: BP 112/73; PULSE 92; RESP 18; TEMP 36.3; O2SAT 98
--- NOTE | 2022-10-31 13:16 | PC.NURSE ---
dressing removed, pt tolerated well. Incision dry and intact
--- NOTE | 2022-10-31 13:53 | PC.NURSE ---
[id number] Mother led the conversation with her experience and plan to feed her so far and her ability to pump and supplement to feed . Reminded parents to use good handwashing technique to prevent infection. Mother is feeding appropriately for growth of infant and understands stimulating to eat if needed. Infant has had appropriate bottle feedings in the last 24 hours meets the outcomes for weight, output and jaundice at this time. Mother is requesting a pump through insurance to take home since she is pumping and feeding only. Mother is unsure if she received a pump with her last child (3 years old) and reviewed that insurance would cover a pump if she did not receive a pump in the last 5 year and that by signing the [facility] medical form she states understanding that she may receive a bill if she has. Mother states she is confident to continue feeding her infant at home or when to call for assistance and denies any additional assistance or education at this time. Reinforced understanding of milk production, transition of milk, signs of adequate intake, prevention/relief of engorgement, responsive after visualizing feeding cues, community resources, medication information reviewed per [facility] and when to call a provider using the resource of the mom and baby guide. Mother voiced understanding of the education shared.
[2022-11-03 13:21] VITALS: BP 107/60; PULSE 101; RESP 20; TEMP 37.1; O2SAT 99
== END 2022-10-31 14:23 | disposition home or self-care (01) | DRG 540 ==
LOC: ANHLDR 05:35 → ANHOB2 11:01
PROVIDERS: Admitting Provider Obstetrics & Gynecology; PCP Family Medicine; Visit Provider Obstetrics & Gynecology
PROC: 10D00Z1 Extraction of Products of Conception, Low, Open Approach (ICD-10-PCS; CPT 59514; principal; 2022-10-29 07:30)
DX: O34.211 Maternal care for low transverse scar from previous cesarean delivery (principal); D64.9 Anemia, unspecified; Z37.0 Single live birth; O69.81X0 Labor and delivery complicated by cord around neck, without compression, not applicable or unspecified; Z3A.39 39 weeks gestation of pregnancy; O99.02 Anemia complicating childbirth
CPT/HCPCS: 36415; 36430; 85014; 85018; 85025; 85461; 86850; 86900; 86901; 86923; 90384; A9270; J0131; J0690; J1885; J2210; J2274; J2370; J2405; J2590; J2790; J7050; J7120; P9016

== ENCOUNTER 2022-11-16 12:26 | Emergency (ER) | payer OTHER, SELFPAY ==
[2022-11-16 12:29] VITALS: BP 119/67; PULSE 129; RESP 22; TEMP 36.8; O2SAT 98
[2022-11-16 13:06] LABS: Basophils Percent Auto 0.3 % (0.2-1.2); Eosinophils Percent Auto 0.1 % (0-4.4); Hematocrit 29.9 % (37.0-47.0); Hemoglobin 9.3 g/dL (12.0-15.0); Immature Granulocyte Absolute 0.09 K/mm3 (0.00-0.031); Immature Granulocyte Percent A 0.7 % (0-0.5); Lymphocytes Absolute Auto 1.09 K/mm3 (0.9-3.2); Lymphocytes Percent Auto 8.1 % (18.3-44.2); Mean Corpuscular HGB Conc 31.1 g/dl (32-36); Mean Corpuscular Hemoglobin 25.8 pg (26-34); Mean Corpuscular Volume 82.8 fl (80-100); Mean Platelet Volume 9.2 fl (7.4-10.4); Monocytes Absolute Auto 0.8 K/mm3 (0.1-0.6); Monocytes Percent Auto 5.7 % (2.6-8.5); Neutrophils Absolute Auto 11.4 K/mm3 (1.3-6.7); Neutrophils Percent Auto 85.1 % (45.5-73.1); Platelet Count Result 373 k/mm3 (150-375); Red Blood Count 3.61 M/mm3 (4.2-5.4); Red Cell Distribution Width 15.2 % (11.5-14.5); White Blood Count 13.4 K/mm3 (4.5-10.0)
--- NOTE | 2022-11-16 13:28 | ED.NAVMDI ---
HPI - Nausea/Vomiting/Diarrhea General Chief complaint: Nausea/Vomiting/Diarrhea Stated complaint: body weakness, nausea/vomiting Time Seen by Provider: 11/16/22 13:15 History of Present Illness HPI Narrative: 22-year-old female presents to the emergency room for evaluation of gradual onset of nausea vomiting and diarrhea for 1 week. States has been experiencing nonbilious nonbloody emesis similar intermittently. Patient denies any abdominal pain or back pain. Denies fevers. Denies dysuria. Related Data Home Medications Medication Instructions Recorded Confirmed prenat.vits,carolynn,[id number] 1 tablet PO DAILY 10/02/22 10/02/22 Allergies Allergy/AdvReac Type Severity Reaction Status Date / Time No Known Allergies Allergy Verified 07/19/22 01:39 Review of Systems Review of Systems: CONSTITUTIONAL: Denies fever, chills, or sweats. EYES: Denies visual changes, redness, or discharge. ENT: Denies rhinorrhea, congestion, sore throat, or otalgia. CARDIOVASCULAR: Denies chest pain, palpitations, or edema. RESPIRATORY: Denies cough or dyspnea. GASTROINTESTINAL: Reports nausea, vomiting, and diarrhea. GENITOURINARY: Denies dysuria or hematuria. SKIN: Denies rash or itching. MUSCULOSKELETAL: Denies back pain, joint pain, or myalgia. NEUROLOGIC: Denies headache, numbness, dizziness, or weakness. PSYCHIATRIC: Denies anxiety or depression. 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 She lives at home with her 3-year-old daughter. Her mother is helping her all she is in the hospital. Surrogate decision maker: Yohannes Merlos, mother. Code status: Full code. Smoking status: Never smoker Alcohol intake: never Substance use: never Substance use type: does not use Lack of Transportation: No Lack of Food: Never True Current Housing: I Have Housing Concerned About Future Housing: No Difficulty Paying Gas/Electric Bills: No Difficulty Paying for Meds: No Currently Unemployed: No Education: High School Diploma/GED Difficulty w/ Childcare or Family Care: No Spiritual care concerns: No Exam Narrative: GENERAL: ill-appearing, well-nourished, no physical limitations, and in no acute distress. HEAD: Normocephalic, atraumatic. EYES: Conjunctivae normal, PERRLA and EOMI. CHEST: Clear to auscultation. No respiratory distress. No wheezes rales or rhonchi. HEART: Regular rate and rhythm. No murmur heard. Normal peripheral pulses. ABDOMEN: Soft, nontender, nondistended, normal active bowel sounds. BACK: No CVA tenderness EXTREMITIES: Normal range of motion. No edema. No clubbing or cyanosis SKIN: Warm, dry, no rash. No noted wounds NEURO: No focal deficits. Alert and oriented x3. MAEW. CN's II-XI intact bilaterally, normal gait PSYCH: Cooperative. Normal mood and affect. Course Vital Signs Vital signs: Vital Signs Temperature 36.8 C 11/16/22 12:29 Pulse Rate 129 H 11/16/22 12:29 Respiratory Rate 22 H 11/16/22 12:29 Blood Pressure 119/67 11/16/22 12:29 Pulse Oximetry 98 11/16/22 12:29 Oxygen Delivery Room Air 11/16/22 12:29 Temperature 36
[2022-11-16 13:43] LABS: Alanine Aminotransferase 17 U/L (6-35); Albumin Level 3.7 g/dL (3.5-5.1); Alkaline Phosphatase 260 U/L (38-126); Anion Gap 10 mmol/L (8-16); Aspartate Amino Transferase 26 U/L (14-36); Bilirubin,Total 1.2 mg/dL (0.2-1.3); Blood Urea Nitrogen 15 mg/dL (7-17); Calcium 8.6 mg/dL (8.4-10.2); Carbon Dioxide 21 mmol/L (22-30); Chloride 102 mmol/L (98-107); Estimated CRCL calculation 60 ml/min; Estimated Glomerular Filt Rate 52; Glucose 100 mg/dL (65-110); Lipase 60 U/L (23-300); Potassium 3.6 mmol/L (3.4-5.0); Sodium 133 mmol/L (137-145)
[2022-11-16] MEDS: SODIUM CHLORIDE 0.9% IV 1,000 ML 999 ML IV CONT ×2 (13:47→16:11)
[2022-11-16] MEDS: ONDANSETRON INJ 4 MG/2 ML VIAL IV PUSH (13:47)
[2022-11-16 15:31] LABS: Add Urine Microscopic? YES; Appearance Urine Cloudy (Clear); Bilirubin Urine 1+ (Negative); Blood Urine 2+ (Negative); Color Urine Yellow (Yellow); Glucose Urine UA Negative (Negative); Ketones Urine Negative (Negative); Leukocyte Esterase Ur 3+ LEU/UL (Negative); Nitrate Urine Positive (Negative); Protein Urine 2+ mg/dL (Negative); Specific Grav Ur <= 1.005 (1.001-1.035); pH Urine 8.5 (5.0-9.0)
[2022-11-16 15:48] LABS: Bacteria Urine 1+ /hpf; Calcium Phosphate Crystals Ur Present /hpf; Mucus Urine Rare /lpf; Squamous Epithelial Cell Urine Many /hpf (Few); WBC Clumps Urine Present /HPF; WBC Urine >75 /hpf
[2022-11-16 16:38] LABS: Lactic Acid Reflex 1.2 mmol/L (0.7-2.0)
== END 2022-11-16 15:27 | disposition home or self-care (01) ==
PROVIDERS: Emergency Medicine; Emergency Provider Nurse Practitioner Family; PCP Family Medicine
DX: N39.0 Urinary tract infection, site not specified (principal); K52.9 Noninfective gastroenteritis and colitis, unspecified; Z87.440 Personal history of urinary (tract) infections; D64.9 Anemia, unspecified
CPT/HCPCS: 36415; 80053; 81001; 81025; 83605; 83690; 85025; 87077; 87086; 87186; 96361; 96365; 96375; 99284; J0696; J2405; J7030

== ENCOUNTER 2022-11-25 13:21 | Emergency (ER) | payer OTHER, SELFPAY ==
[2022-11-25] VITALS (41 sets, daily range): BP systolic 88–113; BP diastolic 50–69; PULSE 89–116; RESP 13–31; TEMP 36.4–37.6; O2SAT 91–100
--- NOTE | ~2022-11-25 | CT_ITS ---
EXAMINATION: CT abdomen pelvis wo con DATE: 11/25/2022 16:22 INDICATION: Flank pain TECHNIQUE: Computed tomography (CT) of the abdomen and pelvis was performed without intravenous contr ast. Automated exposure control and iterative reconstruction technique were employed. The dose-length product was 831.42 mGy-cm. COMPARISON: None FINDINGS: Lung bases are clear. Heart size is normal. No pericardial or pleural effusion. Liver, spleen, pancre as and bilateral adrenal glands are normal. Small hyperdense likely contracted sludge-filled gallblad deepa at the gallbladder fossa. There are multiple bilateral staghorn calculi. Severe right hydronephro sis with enlargement of the kidney which is in place is difficult to distinguish from a heterogeneous complex perinephric fluid collection. There appears be a potential communication between the dilated calyces at the lower pole of the right kidney and the surrounding fluid collection. There is adjacen t retroperitoneal fat stranding between the kidney and the right psoas muscle with loss of the interv ening fat plane between the renal pelvis and posterior medial aspect of the upper pole of the right k idney and the inferior vena cava and anterior margin of the right psoas muscle. 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 Adjacent likely reactive aortocaval and para-aortic retroperitoneal lymphadenopathy. Bowels including the appendix are unremarkable. Ant everted uterus, bilateral adnexa and bladder are unremarkable. There is a small amount of ascites in the cul-de-sac. Mild spondylosis and a few Schmorl's nodes in the lumbar and lower thoracic spine. IMPRESSION: 1. Prominent bilateral staghorn calculi with likely secondary severe primarily calyceal hydroureteron ephrosis and xanthogranulomatous pyelonephritis of the right kidney. Recommend urologic consultation. 2. Likely reactive abdominal retroperitoneal lymphadenopathy. 3. Small amount of ascites in the cul-de-sac. Reviewed, dictated and finalized at location A. CASTING MACHINE OPERATOR IMPRESSION: 1. Prominent bilateral staghorn calculi with likely secondary severe primarily calyceal hydroureteronephrosis and xanthogranulomatous pyelonephritis of the ri ght kidney. Recommend urologic consultation. 2. Likely reactive abdominal retroperitoneal lymphadenopathy. 3. Small amount of ascites in the cul-de-sac.
--- NOTE | 2022-11-25 14:35 | PC.NURSE ---
Patient states she has been having back pain and weakness since her spinal in October when she had her baby.
--- NOTE | 2022-11-25 14:59 | ED.GENADULT ---
HPI - General Adult General Chief complaint: Back Pain/Injury Stated complaint: fatigue Time Seen by Provider: 11/25/22 13:30 History of Present Illness HPI narrative: 22-year-old female presents the emergency room for evaluation of right lower back pain. States pain has been experiencing intermittent pain since her epidural on October 29 following childbirth. Denies any alleviating or aggravating factors. Denies any changes to her bowel or bladder habits. Denies any urinary or bowel incontinence. Denies fevers. Patient was seen here 10 days ago for urinary tract infection. Patient is also complaining of increased generalized weakness. On chart review, patient has an extensive history of urinary tract infections. Also states that while she was she required renal stent. Patient most recently had a renal ultrasound in September showing bilateral nephrolithiasis with moderate hydronephrosis. Patient states she has been noncompliant with urology follow-up. Related Data Home Medications Medication Instructions Recorded Confirmed prenat.vits,carolynn,[id number] 1 tablet PO DAILY 10/02/22 10/02/22 Allergies Allergy/AdvReac Type Severity Reaction Status Date / Time No Known Allergies Allergy Verified 11/25/22 16:53 Review of Systems Review of Systems: CONSTITUTIONAL: Denies fever, chills, or sweats. EYES: Denies visual changes, redness, or discharge. ENT: Denies rhinorrhea, congestion, sore throat, or otalgia. CARDIOVASCULAR: Denies chest pain, palpitations, or edema. RESPIRATORY: Denies cough or dyspnea. GASTROINTESTINAL: Denies abdominal pain, nausea, vomiting, or diarrhea. GENITOURINARY: Denies dysuria or hematuria. SKIN: Denies rash or itching. MUSCULOSKELETAL: Reports lower back pain NEUROLOGIC: Denies headache, numbness, dizziness, or weakness. PSYCHIATRIC: Denies anxiety or depression. 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 She lives at home with her 3-year-old daughter. Her mother is helping her all she is in the hospital. Surrogate decision maker: Yohannes Merlos, mother. Code status: Full code. Smoking status: Never smoker Alcohol intake: never Substance use: never Substance use type: does not use Lack of Transportation: No Lack of Food: Never True Current Housing: I Have Housing Concerned About Future Housing: No Difficulty Paying Gas/Electric Bills: No Difficulty Paying for Meds: No Currently Unemployed: No Education: High School Diploma/GED Difficulty w/ Childcare or Family Care: No Spiritual care concerns: No Exam Narrative: GENERAL: Ill-appearing, well-nourished, no physical limitations, and in no acute distress. HEAD: Normocephalic, atraumatic. EYES: Conjunctivae normal, PERRLA and EOMI. CHEST: Clear to auscultation. No respiratory distress. No wheezes rales or rhonchi. HEART: Regular rate and rhythm. No murmur heard. Normal peripheral pulses. ABDOMEN: Soft, nontender, nondistended, normal active bowel sounds. BACK: No midline cervical/thoracic/lumbar tenderness, step-offs, bony abnormality; FROM. Mild tenderness t
[2022-11-25 15:25] LABS: Hematocrit 22.4 % (37.0-47.0); Mean Corpuscular HGB Conc 29.5 g/dl (32-36); Mean Corpuscular Volume 84.8 fl (80-100); Mean Platelet Volume 8.9 fl (7.4-10.4); Platelet Count Result 486 k/mm3 (150-375); Red Blood Count 2.64 M/mm3 (4.2-5.4); Red Cell Distribution Width 16.8 % (11.5-14.5); White Blood Count 18.2 K/mm3 (4.5-10.0)
[2022-11-25 15:59] LABS: Bacteria Urine 1+ /hpf; RBC Urine 21-50 /hpf (0-2); Squamous Epithelial Cell Urine Many /hpf (Few); WBC Urine >75 /hpf
[2022-11-25 16:00] LABS: Appearance Urine Cloudy (Clear); Color Urine Yellow (Yellow)
[2022-11-25 16:01] LABS: pH Urine 6.5 (5.0-9.0)
[2022-11-25 16:02] LABS: Blood Urine 3+ (Negative); Glucose Urine UA Negative (Negative); Ketones Urine Negative (Negative); Protein Urine 2+ mg/dL (Negative); Specific Grav Ur 1.015 (1.001-1.035)
[2022-11-25 16:03] LABS: Add Urine Microscopic? YES; Bilirubin Urine 1+ (Negative); Leukocyte Esterase Ur 3+ LEU/UL (Negative); Nitrate Urine Negative (Negative)
[2022-11-25 16:09] LABS: Hemoglobin 6.6 g/dL (12.0-15.0)
[2022-11-25 16:12] LABS: Band Neutrophils Percent 1 % (0-6); Eosinophils Absolute Manual 0.18 K/mm3 (0.02-0.5); Eosinophils Percent Manual 1 % (0-4); Lymphocytes Absolute Manual 3.27 K/mm3 (1.1-4.5); Monocytes Absolute Manual 0.54 K/mm3 (0.1-0.90); Monocytes Percent Manual 3 % (3-9); Neutrophils Absolute Manual 14.19 K/mm3 (1.7-7.2); Neutrophils Percent Manual 77 % (46-73); Platelet Estimate Increased (Adequate); Schistocytes None Seen (NORMAL); Total Cells Counted 100
[2022-11-25 16:13] LABS: Anisocytosis 2+ (NORMAL); Hypochromasia 1+ (NORMAL)
[2022-11-25 17:01] LABS: Alanine Aminotransferase 67 U/L (6-35); Albumin Level 3.3 g/dL (3.5-5.1); Alkaline Phosphatase 661 U/L (38-126); Anion Gap 5 mmol/L (8-16); Aspartate Amino Transferase 90 U/L (14-36); Bilirubin,Total 0.7 mg/dL (0.2-1.3); Blood Urea Nitrogen 9 mg/dL (7-17); Calcium 8.7 mg/dL (8.4-10.2); Carbon Dioxide 25 mmol/L (22-30); Chloride 104 mmol/L (98-107); Estimated CRCL calculation 100 ml/min; Estimated Glomerular Filt Rate > 60; Glucose 82 mg/dL (65-110); Sodium 134 mmol/L (137-145)
[2022-11-25 17:06] LABS: Potassium 3.7 mmol/L (3.4-5.0)
[2022-11-25 17:22] LABS: Influenza A QL RT-PCR Negative (Negative); Influenza B QL RT-PCR Negative (Negative); SARS-CoV-2 RNA PCR Negative
[2022-11-25 17:49] LABS: Lactic Acid Reflex 0.7 mmol/L (0.7-2.0)
[2022-11-25 18:24] LABS: Iron 22 ug/dL (37-170)
[2022-11-25 18:33] LABS: Percent Iron Saturation 13 % (20-50)
[2022-11-25] MEDS: SODIUM CHLORIDE 0.9% IV 250 ML 30 ML IV CONT (19:35)
[2022-11-25] MEDS: TUBING, BLOOD PLUM PUMP TUBING 1 EACH XX (19:36)
--- NOTE | 2022-11-25 21:27 | PC.NURSE ---
attempted to give report to Maia at [facility] states call back in thirty minutes.
[2022-11-26 00:35] VITALS: BP 89/53; PULSE 98; RESP 23; TEMP 37.6; O2SAT 98
== END 2022-11-26 00:39 | disposition short-term general hospital (02) ==
PROVIDERS: Emergency Provider Nurse Practitioner Family; PCP Family Medicine
DX: O86.21 Infection of kidney following delivery (principal); N13.6 Pyonephrosis; N20.0 Calculus of kidney; O99.03 Anemia complicating the puerperium; D64.9 Anemia, unspecified; Z87.442 Personal history of urinary calculi; Z20.822 Contact with and (suspected) exposure to COVID-19
CPT/HCPCS: 36415; 36430; 74176; 80053; 81001; 82728; 83540; 83550; 83605; 85025; 86644; 86850; 86900; 86901; 86923; 87040; 87086; 87636; 96361; 96365; 96367; 99285; J3370; J7050; P9016

== ENCOUNTER 2023-09-10 12:16 | Emergency (ER) | payer OTHER, SELFPAY ==
[2023-09-10 12:17] VITALS: PULSE 113; RESP 16; TEMP 36.4; O2SAT 97
[2023-09-10 12:47] VITALS: BP 105/81; PULSE 108; RESP 19; O2SAT 96
[2023-09-10 13:01] VITALS: BP 111/83; PULSE 97; RESP 22; O2SAT 98
[2023-09-10 14:06] LABS: Basophils Percent Auto 0.1 % (0.2-1.2); Eosinophils Percent Auto 0.4 % (0-4.4); Hematocrit 43.6 % (37.0-47.0); Immature Granulocyte Absolute 0.02 K/mm3 (0.00-0.031); Immature Granulocyte Percent A 0.3 % (0-0.5); Lymphocytes Percent Auto 11.4 % (18.3-44.2); Mean Corpuscular HGB Conc 32.1 g/dl (32-36); Mean Corpuscular Hemoglobin 27.5 pg (26-34); Mean Corpuscular Volume 85.5 fl (80-100); Mean Platelet Volume 10.4 fl (7.4-10.4); Monocytes Absolute Auto 0.4 K/mm3 (0.1-0.6); Monocytes Percent Auto 4.8 % (2.6-8.5); Neutrophils Absolute Auto 6.6 K/mm3 (1.3-6.7); Platelet Count Result 224 k/mm3 (150-375); Red Cell Distribution Width 12.7 % (11.5-14.5); White Blood Count 7.9 K/mm3 (4.5-10.0)
[2023-09-10 14:10] LABS: Appearance Urine Turbid (Clear); Bacteria Urine 2+ /hpf; Bilirubin Urine Negative (Negative); Blood Urine 3+ (Negative); Color Urine Yellow (Yellow); Glucose Urine UA Negative (Negative); Ketones Urine Negative (Negative); Leukocyte Esterase Ur 3+ LEU/UL (Negative); Nitrate Urine Negative (Negative); Non Pathogenic Casts 0-2; Protein Urine 1+ mg/dL (Negative); Specific Grav Ur 1.023 (1.001-1.035); Squamous Epithelial Cell Urine Many /hpf (Few); Urobilinogen Urine 0.2 mg/dL (<2.0); WBC Urine >100 /hpf
[2023-09-10 14:12] LABS: Add Urine Microscopic? YES
[2023-09-10 14:17] LABS: Alanine Aminotransferase 39 U/L (6-35); Albumin Level 4.5 g/dL (3.5-5.1); Alkaline Phosphatase 145 U/L (38-126); Anion Gap 9 mmol/L (8-16); Aspartate Amino Transferase 28 U/L (14-36); Bilirubin,Total 0.8 mg/dL (0.2-1.3); Blood Urea Nitrogen 20 mg/dL (7-17); Calcium 9.1 mg/dL (8.4-10.2); Carbon Dioxide 22 mmol/L (22-30); Chloride 105 mmol/L (98-107); Estimated CRCL calculation 101 ml/min; Estimated Glomerular Filt Rate > 60; Glucose 98 mg/dL (65-110); Lipase 51 U/L (23-300); Potassium 3.9 mmol/L (3.4-5.0); Sodium 136 mmol/L (137-145)
--- NOTE | 2023-09-10 14:23 | ED.GENADULT ---
HPI - General Adult General Chief complaint: Nausea/Vomiting/Diarrhea Stated complaint: n/v/d Time Seen by Provider: 09/10/23 12:22 History of Present Illness HPI narrative: 23-year-old female present emergency department for evaluation of nausea vomiting and diarrhea that started last night. Patient denies any associate abdominal pain. Patient last attempted p.o. this morning with water and had emesis. Patient denies any vaginal bleeding but no discharge. Patient denies any pain with urination. Patient denies any recent fevers. 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 She lives at home with her 3-year-old daughter. Her mother is helping her all she is in the hospital. Surrogate decision maker: Yohannes Merlos, mother. Code status: Full code. Smoking status: Never smoker Alcohol intake: never Substance use: never Substance use type: does not use Lack of Transportation: No Lack of Food: Never True Current Housing: I Have Housing Concerned About Future Housing: No Difficulty Paying Gas/Electric Bills: No Difficulty Paying for Meds: No Currently Unemployed: No Education: High School Diploma/GED Difficulty w/ Childcare or Family Care: No Spiritual care concerns: No Exam Narrative: APPEARANCE: Well appearing, no pain, no distress, well-nourished. HEAD: normocephalic, atraumatic. EYES: PERRLA/EOMI, conjunctivae clear. NOSE: Normal no drainage NECK: Supple. No adenopathy, no masses. RESPIRATORY: Airway patent, respirations nonlabored. Clear to auscultation bilaterally, no rales, rhonchi, wheezing. CARDIOVASCULAR: Regular rate and rhythm without murmurs rubs or gallops. ABDOMINAL: Soft, nontender, nondistended, normal bowel sounds MUSCULOSKELETAL: Moves all extremities. Strength/ROM intact, No edema, No calf tenderness. NEURO: Alert. Cranial nerves II through XII intact. Grossly intact SKIN: Warm, dry. Normal Color Course Course Emergency Course: 23-year-old female presented ED for evaluation of nausea and vomiting. Patient was treated with IV fluids and IV Zofran in the emergency department. Patient is afebrile with no leukocytosis and hemoglobin of 14. Normal CMP. UA is concerning for an infection. Urine culture was ordered and patient was started on IV Rocephin in the ED. patient states she does feel improved. Patient denies any abdominal pain with this. Patient is afebrile and has no leukocytosis and a stable hemoglobin. Patient's creatinine is at his baseline. UA did show some hematuria but had significant high white blood cells. Patient was updated with results of the work-up. Patient was comfortable to plan for discharge and close follow-up. Vital Signs Vital si
[2023-09-10] MEDS: SODIUM CHLORIDE 0.9% IV 1,000 ML 999 ML IV CONT (14:49)
[2023-09-10] MEDS: ONDANSETRON INJ 4 MG/2 ML VIAL IV PUSH (14:49)
[2023-09-10 15:16] VITALS: BP 105/62; PULSE 92; RESP 17; O2SAT 100
[2023-09-10 16:05] VITALS: BP 103/61; PULSE 90; RESP 22; O2SAT 100
[2023-09-10 16:50] VITALS: BP 111/83; PULSE 96; RESP 16; O2SAT 96
== END 2023-09-10 16:50 | disposition home or self-care (01) ==
PROVIDERS: Emergency Provider Emergency Medicine; PCP Family Medicine
DX: N39.0 Urinary tract infection, site not specified (principal); R11.2 Nausea with vomiting, unspecified
CPT/HCPCS: 36415; 80053; 81001; 81025; 83690; 85025; 87086; 87088; 96365; 96375; 99284; J0696; J2405; J7030

== ENCOUNTER 2025-03-28 10:42 | Emergency (ER) | payer OTHER, SELFPAY ==
--- OUTSIDE RECORDS SUMMARY | 2025-03-28 10:59 | XMS_ITS | Encounter Summary ---
Author Organization [facility] Address [address] [place] [address] Care Team Providers Care Salesperson Driver Name Role Phone Tosha Wolff MD Primary Care Provider [phone] Encounter Details Date Type Department Care Team (Late st Contact Info) Description 09/28/2024 Telephone [facility] - Urology [address] [place] [phone] Woody Donald MD [address] [place] [address] Social History Tobacco Use Types Packs/Day Years Used Date Smoking Tobacco: Never Alcohol Use Standard Drinks/Week Comments No 0 (1 standard drink = 0.6 oz pur e alcohol) AUDIT-C Answer Date Recorded Q1: How often do you have a drink containing alcohol? Never 08/08/2024 Q2: How many drinks containi ng alcohol do you have on a typical day when you are drinking? Patient does not drink Q3: How often do you have si x or more drinks on one occasion? Never 08/08/2024 Overall Financial Resource Strain (CARDIA) Answe r Date Recorded How hard is it for you to pa y for the very basics like food, housing, medical care, and heating? Not very hard 11/26/2022 [facility] [place] of Occupat ional Health - Occupational Stress Questionnaire Answer Date Recorded Do you feel stress - tense, restless, nervous, or anxious, or unable to sleep at night because your mind is troubled all the time - these days? Only a little 11/26/2022 Hunger Vital Sign Answer Date Recorded Within the past 12 months, y ou worried that your food would run out before you got the money to buy more. Never true 11/26/19 23 Within the past 12 months, t he food you bought just didn't last and you didn't have money to get more. Never true 11/26/2022 PRAPARE - Transportation Answer Date Re corded In the past 12 months, has l ack of transportation kept you from medical appointments or from getting medications? No 11/16 In the past 12 months, has l ack of transportation kept you from meetings, work, or from getting things needed for daily living? No 11/26/2022 Housing Stability Vital Sign Answer Brian e Recorded In the last 12 months, was t here a time when you were not able to pay the mortgage or rent on time? No 11/26/2022 In the last 12 months, how many places have you lived? 1 11/26/2022 In the last 12 months, was t here a time when you did not have a steady place to sleep or slept in a group home (including now)? No 11/26/2022 Comments No Sex and Gender Information Value Date Recorded Sex Assigned at Female 12/23/2023 10:10 AM FAMILY READINESS SUPPORT ASSISTANT Legal Sex Female 5:39 AM FAMILY READINESS SUPPORT ASSISTANT Gender Identity Female 12/23/2023 10:10 AM FAMILY READINESS SUPPORT ASSISTANT Sexual Orientation Not on file documented as of this encounter Functional Status * Is person deaf or have serious hearing difficulty? Answer Date of Assessment Author No 04/25/2024 11:45 AM Keren Dean RN * Is person blind or have serious difficulty seeing? Answer Date of Assessment Author No 04/25/2024 11:45 AM Keren Dean RN * Does person have serious difficulty walking/climbing stairs? Answer Date of Assessment Author No 04/25/2024 11:45 AM Keren Dean RN * Does person have difficulty dressing/bathing? Answer Date of Assessment Author No 04/25/2024 11:45 AM Keren Dean RN * Does person have difficulty doing errands alone? Answer Date of Assessment Author No 04/25/2024 11:45 AM Keren Dean RN documented as of this encounter Mental Status * Does person have difficulty concentrating/remembering/making decisions? Answer Entry Date Author No 04/25/2024 11:45 AM Keren Dean RN documented in this encounter Plan of Treatment Upcoming Encounters Date Type Department Care Team (Late st Contact Info) Description 12/06/2025 3:30 PM FAMILY READINESS SUPPORT ASSISTANT Office Visit [facility] - Urology [address] [place] [address] Woody Donald MD [address] [place] [phone] documented as of this encounter Visit Diagnoses Not on filedocumented in this encounter Care Teams Salesperson Driver Relationship Specialty Start Date End Date Tosha Wolff MD [address] [place] [address] [place] [phone] PCP - General Family Medicine 12/24/22 10/26/24 documented as of this encounter
--- OUTSIDE RECORDS SUMMARY | 2025-03-28 10:59 | XMS_ITS | Encounter Summary ---
Author Organization [facility] Address [address] [place] [address] Care Team Providers Care Mail Sorting Supervisor Name Role Phone Tosha Wolff MD Primary Care Provider [phone] Encounter Details Date Type Department Care Team (Late st Contact Info) Description 09/28/2024 Telephone [facility] - Urology [address] [place] [phone] Woody Donald MD [address] [place] [address] Social History Tobacco Use Types [...] care, and heating? Not very hard 11/26/2022 [facility] [place] of Occupat ional Health - Occupational Stress [...] place to sleep or slept in a intermediate (including now)? No 11/26/2022 Comments No Sex and Gender Information Value Date Recorded Sex Assigned at Female 12/23/2023 10:10 AM COLLAR BASTER Legal Sex Female 5:39 AM COLLAR BASTER Gender Identity Female 12/23/2023 10:10 AM COLLAR BASTER Sexual Orientation Not on file documented as [...] st Contact Info) Description 12/06/2025 3:30 PM COLLAR BASTER Office Visit [facility] - Urology [address] [place] [address] Woody Donald MD [address] [place] [phone] documented as of this encounter Visit Diagnoses Not on filedocumented in this encounter Care Teams Mail Sorting Supervisor Relationship Specialty Start Date End Date Tosha Wolff MD [address] [place] [address] [place] [address] PCP - General Family Medicine 12/24/22 10/26/24 documented as of this encounter
--- OUTSIDE RECORDS SUMMARY | 2025-03-28 10:59 | XMS_ITS | Encounter Summary ---
Author Organization [facility] Address [address] [facility] [place] [address] Care Team Providers Care Swatch Cutter Name Role Phone Tosha Wolff MD Primary Care Provider [phone] Encounter Details Date Type Department Care Team (Late st Contact Info) Description 09/28/2024 Telephone [facility] - Urology [address] [place] [phone] Woody Donald MD [address] [place] [address] Social History Tobacco Use Types [...] care, and heating? Not very hard 11/26/2022 [facility] [place] of Occupat ional Health - Occupational Stress [...] Sex Assigned at Female 12/23/2023 10:10 AM SEARCH ADVERTISING STRATEGIST Legal Sex Female 5:39 AM SEARCH ADVERTISING STRATEGIST Gender Identity Female 12/23/2023 10:10 AM SEARCH ADVERTISING STRATEGIST Sexual Orientation Not on file documented as [...] Assessment Author No 04/25/2024 11:45 AM Keren Dean, RN documented as of this encounter Mental Status * Does person have difficulty concentrating/remembering/making decisions? Answer Entry Date Author No 04/25/2024 11:45 AM Keren Dean RN documented in this encounter Miscellaneous Notes * Telephone Encounter - Kristina Heller - 09/28/2024 1:44 PM CST Current Provider: Dr Donald Reason for Call: Called pt to get her scheduled per Yaima for 10/19 At 2 pm with Odilon at [facility], forpost op Patient Call Back Number: [phone] CH ADVERTISING STRATEGIST documented in this encounter Plan of Treatment Upcoming Encounters Date Type Department Care Team (Late st Contact Info) Description 12/06/2025 3:30 PM SEARCH ADVERTISING STRATEGIST Office Visit [facility] - Urology [address] [place] [address] Woody Donald MD [address] [place] [phone] documented as of this encounter Visit Diagnoses Not on filedocumented in this encounter Care Teams Swatch Cutter Relationship Specialty Start Date End Date Tosha Wolff MD [address] [place] [address] [place] [address] PCP - General Family Medicine 12/24/22 10/26/24 documented as of this encounter
--- OUTSIDE RECORDS SUMMARY | 2025-03-28 10:59 | XMS_ITS | Clinical Summary ---
Author Organization [facility] Address [address] [place] [address] Care Team Providers Care Service Sprinkler Helper Name Role Phone Unavailable Primary Care Provider Unavailabl e Source Comments [facility],non-owned Affiliates and Associated Physician Practices is amultiple site organization consisting of ambulatory clinics and hospital sitesin [place], [place] and [place]. This disclosure is being madepursuant to the Care Everywhere program and may not contain all information available regarding this patient. Last updated 18.[facility] Allergies No known active allergies Medications * Be aware that medications may not be up to date on this document. Alwaysverify current medications with the patient. 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 (FLUCELVAX TRIVALENT; 6MO+), 0.5 ML (CCIIV3) 09/16/2013,10/08/2012 INFLUENZA VACCINE, QUADR. (F LUZONE; FLULAVAL; FLUARIX; AFLURIA QUADRIVALENT; 6MO+), 0.5 ML (IIV4) 01/05/2015 MENINGOCOCCAL ACWY (MCV4P) VAC IM 04/23/2016 MENINGOCOCCAL ACWY MENVEO 11/29/2010 MMR 09/21/2003 MMR/VARICELLA 07/31/2000 Pneumococcal Pcv13 Conj 02/12/2001,11/27/2000 TDAP (7yrs+) 03/25/2019,11/19/2010 VARICELLA 12/24/2006 Family History Medical History Relation Name Comments Diabetes; unknown type Father Relation Name Status Comments Father Social History Tobacco Use Types Packs/Day Years Used Date Smoking Tobacco: Never Alcohol Use Standard Drinks/Week Comments No 0 (1 standard drink = 0.6 oz pur e alcohol) AUDIT-C Answer Date Recorded Q1: How often do you have a drink containing alcohol? Never 11/03/2024 Q2: How many drinks containi ng alcohol do you have on a typical day when you are drinking? Patient does not drink Q3: How often do you have si x or more drinks on one occasion? Never 11/03/2024 Overall Financial Resource Strain (CARDIA) Answe r Date Recorded How hard is it for you to pa y for the very basics like food, housing, medical care, and heating? Not very hard 11/26/2022 [facility] Occupat ional Health - Occupational Stress [...] place to sleep or slept in a long-term (including now)? No 11/26/2022 Comments No Sex and Gender Information Value Date Recorded Sex Assigned at Female 12/23/2023 10:10 AM QUALITY ASSURANCE ENGINEER Legal Sex Female 5:39 AM QUALITY ASSURANCE ENGINEER Gender Identity Female 12/23/2023 10:10 AM QUALITY ASSURANCE ENGINEER Sexual Orientation Not on file Last Filed Vital Signs Vital Sign Reading Time Taken Comments Blood Pressure 104/70 12/02/2024 11:44 AM QUALITY ASSURANCE ENGINEER Pulse 86 12/02/2024 11:44 AM QUALITY ASSURANCE ENGINEER Temperature 36.8 C (98.2 F) 12/02/2024 11:44 AM QUALITY ASSURANCE ENGINEER Respiratory Rate 16 11/04/2024 8:31 AM QUALITY ASSURANCE ENGINEER Oxygen Saturation 97% 12/02/2024 11: 44 AM QUALITY ASSURANCE ENGINEER Inhaled Oxygen Concentration - - Weight 116.4 kg (256 lb 9.6 oz) 025 11:44 AM QUALITY ASSURANCE ENGINEER Height 165.1 cm (5' 5 ) 12/02/2024 11:4 4 AM QUALITY ASSURANCE ENGINEER Body Mass Index 42.7 12/02/2024 11:44 AM QUALITY ASSURANCE ENGINEER Plan of Treatment Upcoming Encounters Date Type Department Care Team (Late st Contact Info) Description 12/06/2025 3:30 PM QUALITY ASSURANCE ENGINEER Office Visit [facility] - Urology [address] [place] [address] Woody Donald MD [address] [place] [address] Health Maintenance Due Date Last Done Comments PAP SMEAR 1999 COVID-19 VACCINE (1 - 2024-25 season) 2024 DEPRESSION SCREENING 11/16/2024 INFLUENZA VACCINE (Season Ended) 2025 01/05/2015, 09/16/2013, 10/08/2012 CHLAMYDIA/GONORRHEA SCREENING 10/05/2025 10/05/2024, 10/13/2022 DTAP/TDAP/TD VACCINES (8 - Td or Tdap) 03/25/2029 03/25/2019, 11/19/2010, 09/21/2003, Additional history exists ZOSTER VACCINE (1 of 2) 2049 HEPATITIS B VACCINE Completed 04/16/2000, 1999, 1999, Additional history exists HIB VACCINE Completed 11/27/2000, 04/2000, 1999, Additional history exists PNEUMOCOCCAL VACCINE Completed 02/12/2001, 11/27/19 HPV VACCINE Completed 05/20/2011, 02/2011, 11/29/2010 MENINGOCOCCAL GROUPS A/C/Y/W VACCINE Completed 04/23/2016, 11/29/2010 HEPATITIS C SCREENING Completed 11/27/2022 HIV SCREENING Completed 10/05/2024, 11/27/2022 MENINGOCOCCAL (Group B) VACCINE SHARED DECISION-MAKING Aged Out No longer eligible based on patient's age to complete this topic Medical Devices Implanted Type Area Black Pickler Device Identifier Shelf Expiration Date Model / Serial / Lot Stent Uret 6fr 24cm Sft Tria Implanted:Qty: 1 on 08/08/2024 by Woody Donald MD at [facility] Left: [employer] [employer] 10/28/2026 [id number] / / [id number] Explanted Type Area Black Pickler Device Identifier Shelf Expiration Date Model / Serial / Lot Stent Uret 6fr 24cm Sft Tria Implanted:Qty: 1 on 04/25/2024 by Woody Donald MD at [facility] Explanted:Qty: 1 on 08/08/2024 at [facility] Left: [employer] [place] [employer] [id number] 12/01/2026 [id number] 20 / / [id number] Procedures Procedure Name Priority Date/Time Associated Diagnosis Comments HEPATITIS SCREEN ACUTE AM Draw 11/27/2022 4:08 AM QUALITY ASSURANCE ENGINEER HIV-1 HIV-2 ANTIBODY + HIV P24 AG PANEL AM Draw 11/27/2022 4:08 AM QUALITY ASSURANCE ENGINEER from Last 3 Months or Most Recently Relevant to Health Maintenance Results * HIV-1 HIV-2 ANTIBODY + HIV P24 AG PANEL (11/27/2022 4:08 AM QUALITY ASSURANCE ENGINEER) HIV1/2 Ab + P24 Ag Non Reactive Non Reactive 11/27/2022 5:53 AM QUALITY ASSURANCE ENGINEER [facility] Blood BLOOD SPECIMEN / Unknown Lab Venipuncture / Unknown 11/27/2022 4:08 AM QUALITY ASSURANCE ENGINEER 11/27/2022 4:57 AM QUALITY ASSURANCE ENGINEER Narrative [facility] - 11/27/2022 5:53 AM QUALITY ASSURANCE ENGINEER No Laboratory evidence of HIV infection. Ronnie Inman DO LAB - CHEMISTRY ORDERABLES Fi nal Result Performing Organization Address [facility] de Phone Number [facility] [address] [place], [place] [id number] * HEPATITIS SCREEN ACUTE (11/27/2022 4:08 AM QUALITY ASSURANCE ENGINEER) HAV Antibody IgM Non Reactive Non Reactive 11/27/2022 5:57 AM QUALITY ASSURANCE ENGINEER [facility] HBsAg Non Reactive Non Reactive 11/27/2022 5:57 AM QUALITY ASSURANCE ENGINEER [facility] HBc Antibody IgM Non Reactive Non Reactive 11/27/2022 5:57 AM QUALITY ASSURANCE ENGINEER [facility] HCV Antibody Screen Non Reactive Non Reactive 11/27/2022 5:57 AM QUALITY ASSURANCE ENGINEER [facility] Blood BLOOD SPECIMEN / Unknown Lab Venipuncture / Unknown 11/27/2022 4:08 AM QUALITY ASSURANCE ENGINEER 11/27/2022 4:57 AM QUALITY ASSURANCE ENGINEER Narrative [facility] - 11/27/2022 5:57 AM QUALITY ASSURANCE ENGINEER Non Reactive - Antibodies to Hepatitis C virus (HCV) were not detected, result does not exclude early acute HCV infection. Ronnie Inman DO LAB - CHEMISTRY ORDERABLES Fi nal Result Performing Organization Address [facility] de Phone Number [facility] [address] [place] [phone] from Last 3 Months or Most Recently Relevant to Health Maintenance Insurance [facility] [employer] Advance Directives * Full Code (Latest Code Status on File) Date Activated Date Inactivated Comments 11/03/2024 2:11 PM 11/04/2024 2:35 PM * Full Code Date Activated Date Inactivated Comments 11/26/2022 3:26 AM 12/04/2022 3:41 PM
[2025-03-28 11:09] VITALS: BP 131/92; PULSE 91; RESP 20; TEMP 36.4; O2SAT 98
[2025-03-28] MEDS: ONDANSETRON HCL ODT 4 MG TABLET PO (12:26)
--- NOTE | 2025-03-28 12:33 | ED_ITS ---
HPI - Nausea/Vomiting/Diarrhea General Chief complaint: Nausea/Vomiting/Diarrhea Stated complaint: nausea, fatigue couple day Time Seen by Provider: 03/28/25 12:00 History of Present Illness HPI Narrative: Patient is a 24-year-old female who presents ER with nausea vomiting. Ongoing for 2 days. No urinary symptoms. No diarrhea. Does have a family member who was recently sick with GI illness but does not think she was around her. Patient is 5 days late on her menstrual cycle. Negative test at home. No chest pain or shortness of breath. No syncope. Related Data Home Medications ?Medication ?Instructions ?Recorded ?Confirmed ?Last Taken ?Type prenat.vits,carolynn,kme-frqp-tglkr 1 tablet PO DAILY 10/02/22 10/02/22 10/28/22 08:00 History Allergies Allergy/AdvReac Type Severity Reaction Status Date / Time No Known Allergies Allergy Verified 03/28/25 11:11 Review of Systems 2 Review of Systems: All systems reviewed & are unremarkable except as noted in HPI and below Constitutional: Constitutional: Reports no additional constitutional complaints ENT: Reports system reviewed and no additional complaints, except as documented Cardiovascular: Cardiovascular: Reports no additional cardiovascular complaints Respiratory: Respiratory: Reports no additional respiratory complaints Gastrointestinal: Gastrointestinal: Reports no additional gastrointestinal complaints PMFSH Past Medical History Medical History (Updated 03/28/25 @ 13:46 by Julio Cesar Michael MD) 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 02/2022, 05/2022 and 07/2022 Normal echocardiogram (02/2022) Performed due to bacteremia Anemia Bacterial infection due to Proteus mirabilis (02/2022) Surgical History Surgical History (Updated 03/28/25 @ 12:35 by Julio Cesar Michael MD) History of nephrectomy S/P cystoscopy with ureteral stent placement (05/24/22) History of section History of tonsillectomy Family History Family History Father Diabetes mellitus Social History Social History Social History: She used to work at [employer] but has not been able to hold down a job given her multiple hospitalizations for sepsis and UTI since the start of this . She lives at home with her 3-year-old daughter. Her mother is helping her all she is in the hospital. Surrogate decision maker: Yohannes Merlos, mother. Code status: Full code. Smoking status: Never smoker Alcohol intake: never Substance use: never Substance use type: does not use Lack of Transportation: No Lack of Food: Never True Current Housing: I Have Housing Concerned About Future Housing: No Difficulty Paying Gas/Electric Bills: No Difficulty Paying for Meds: No Currently Unemployed: No Education: High School Diploma/GED Difficulty w/ Childcare or Family Care: No Spiritual care concerns: No Exam 2 Narrative: GENERAL: Well-appearing, obese, and in no acute distress. HEAD: Normocephalic, atraumatic. ENT: Mucous membranes moist. CHEST: Clear to auscultation. No respiratory distress. HEART: Regular rate and rhythm. Normal peripheral pulses. ABDOMEN: Soft, nontender, nondistended. EXTREMITIES: Normal range of motion. No edema. SKIN: Warm, dry, no rash. NEURO: Alert and oriented x3. PSYCH: Normal mood and affect. Course Course Emergency Course: Resting comfortably. Informed of results. Nausea improved. Discharged. Vital Signs Vital signs: Vital Signs Temperature 97.5 F L 03/28/25 11:09 Pulse Rate 91 03/28/25 11:09 Respiratory Rate 20 03/28/25 11:09 Blood Pressure 131/92 H 03/28/25 11:09 Pulse Oximetry 98 03/28/25 11:09 Oxygen Delivery Room Air 03/28/25 11:09 Temperature 97.5 F L 03/28/25 11:09 Pulse Rate 91 03/28/25 11:09 Respiratory Rate 20 03/28/25 11:09 Blood Pressure 131/92 H 03/28/25 11:09 Pulse Oximetry 98 03/28/25 11:09 Oxygen Delivery Room Air 03/28/25 11:09 MDM - Nausea/Vomiting/Diarrhea Lab Data 03/28/25 12:47 03/28/25 12:47 Labs: Lab Results 03/28/25 03/28/25 03/28/25 Range/Units 12:39 12:47 12:48 WBC 7.3 (4.5-10.0) K/mm3 RBC 4.95 (4.2-5.4) M/mm3 Hgb 12.9 (12.0-15.0) g/dL Hct 41.9 (37.0-47.0) % MCV 84.6 (80-100) fl MCH 26.1 (26-34) pg MCHC 30.8 L (32-36) g/dl RDW 14.5 (11.5-14.5) % Plt Count 231 (150-375) k/mm3 MPV 10.4 (7.4-10.4) fl Immature Gran % (Auto) 0.3 (0-0.5) % Neut % (Auto) 59.3 (45.5-73.1) % Lymph % (Auto) 33.4 (18.3-44.2) % [place] % (Auto) 4.9 (2.6-8.5) % Eos % (Auto) 1.8 (0-4.4) % Baso % (Auto) 0.3 (0.2-1.2) % Lymph # (Auto) 2.45 (0.9-3.2) K/mm3 [place] # (Auto) 0.4 (0.1-0.6) K/mm3 Eos # (Auto) 0.1 (0-0.3) K/mm3 Baso # (Auto) 0.0 (0.0-0.1) K/mm3 Abs Immat Gran (auto) 0.02 (0.00-0.031) K/mm3 Absolute Neuts (auto) 4.4 (1.3-6.7) K/mm3 Absolute Nucleated RBC 0.000 (0.0-0.012) K/mm3 Nucleated RBC % 0.0 (0.0-0.2) % Sodium 141 (137-145) mmol/L Potassium 4.4 (3.4-5.0) mmol/L Chloride 109 H (98-107) mmol/L Carbon Dioxide 21 L (22-30) mmol/L Anion Gap 11 (4-12) mmol/L BUN 27 H (7-17) mg/dL Creatinine 1.02 H (0.7-1.0) mg/dL Estim Creat Clear Calc 93 ml/min Estimated GFR > 60 (59 - ) Glucose 93 (65-110) mg/dL Calcium 10.2 (8.4-10.2) mg/dL Total Bilirubin 0.3 (0.2-1.3) mg/dL AST 26 (14-36) U/L ALT 23 (6-35) U/L Alkaline Phosphatase 111 (38-126) U/L Total Protein 8.0 (6.3-8.2) g/dL Albumin 4.7 (3.5-5.1) g/dL Lipase 206 (23-300) U/L Urine Color Yellow (Yellow) Urine Appearance Clear (Clear) Urine pH 6.5 (5.0-9.0) Ur Specific [place] 1.012 (1.001-1.035) Urine Protein Negative (Negative) mg/dL Urine Glucose (UA) Negative (Negative) mg/dL Urine Ketones Negative (Negative) mg/dL Ur Blood (Man) 1+ H (Negative) Urine Nitrate Negative (Negative) Urine Bilirubin Negative (Negative) Urine Urobilinogen 0.2 (<2.0) mg/dL Leukocyte Esterase Rfl 1+ H (Negative) VINCE/UL Urine RBC 3-5 H (0-2) /hpf Urine WBC 11-20 H (0-3) /hpf Ur Squamous Epith Cells Few (Few) /hpf Urine Bacteria 2+ H /hpf Urine Casts 0-2 POC Urine HCG, Qual Negative (Negative) Discharge Plan Discharge Clinical Impression: UTI (urinary tract infection), Nausea Patient Disposition: Home Condition: Stable Instructions: Urinary Tract Infection in Women (ED), Acute Nausea and Vomiting (ED) Additional Instructions: You should return to the emergency department if you develop severe nausea and vomiting and are unable to keep liquids down, if you develop severe back/flank or stomach pain, or if your symptoms are not clearly improving at home. Patient Language: Polish Prescriptions: New ondansetron 4 mg tablet,disintegrating 4 mg PO Q6H PRN (Reason: nausea and vomiting) Qty: 10 0RF cephalexin 500 mg capsule 500 mg PO Q12H Qty: 10 0RF No Action KPN Tablet 1 tablet PO DAILY Qty: 90 0RF cephalexin 500 mg capsule 500 mg PO Q8H 7 Days Qty: 21 0RF ondansetron 4 mg tablet,disintegrating 4 mg PO Q8H PRN (Reason: nausea and vomiting) Qty: 20 0RF prenat.vits,carolynn,[id number] Tablet 1 tablet PO DAILY hydrocodone-acetaminophen 5-325 mg tablet 1 tablet PO Q4H PRN (Reason: pain) Qty: 25 0RF ondansetron 4 mg tablet,disintegrating 4 mg PO Q8H Qty: 14 0RF cephalexin 500 mg tablet 500 mg PO Q8H 7 Days Qty: 21 0RF Follow-up/Referrals: New,Tosha Galindo MD [Non-Staff] - 1 Week
[2025-03-28 12:41] LABS: BEDSIDEPREGUCG Negative (Negative)
[2025-03-28 12:53] LABS: Basophils Percent Auto 0.3 % (0.2-1.2); Eosinophils Absolute Auto 0.1 K/mm3 (0-0.3); Eosinophils Percent Auto 1.8 % (0-4.4); Hematocrit 41.9 % (37.0-47.0); Hemoglobin 12.9 g/dL (12.0-15.0); Immature Granulocyte Absolute 0.02 K/mm3 (0.00-0.031); Immature Granulocyte Percent A 0.3 % (0-0.5); Lymphocytes Absolute Auto 2.45 K/mm3 (0.9-3.2); Lymphocytes Percent Auto 33.4 % (18.3-44.2); Mean Corpuscular HGB Conc 30.8 g/dl (32-36); Mean Corpuscular Hemoglobin 26.1 pg (26-34); Mean Corpuscular Volume 84.6 fl (80-100); Mean Platelet Volume 10.4 fl (7.4-10.4); Monocytes Absolute Auto 0.4 K/mm3 (0.1-0.6); Monocytes Percent Auto 4.9 % (2.6-8.5); Neutrophils Absolute Auto 4.4 K/mm3 (1.3-6.7); Neutrophils Percent Auto 59.3 % (45.5-73.1); Platelet Count Result 231 k/mm3 (150-375); Red Blood Count 4.95 M/mm3 (4.2-5.4); Red Cell Distribution Width 14.5 % (11.5-14.5); White Blood Count 7.3 K/mm3 (4.5-10.0)
[2025-03-28 13:02] LABS: Alanine Aminotransferase 23 U/L (6-35); Albumin Level 4.7 g/dL (3.5-5.1); Alkaline Phosphatase 111 U/L (38-126); Anion Gap 11 mmol/L (4-12); Aspartate Amino Transferase 26 U/L (14-36); Bilirubin,Total 0.3 mg/dL (0.2-1.3); Blood Urea Nitrogen 27 mg/dL (7-17); Calcium 10.2 mg/dL (8.4-10.2); Carbon Dioxide 21 mmol/L (22-30); Chloride 109 mmol/L (98-107); Estimated CRCL calculation 93 ml/min; Estimated Glomerular Filt Rate > 60; Glucose 93 mg/dL (65-110); Lipase 206 U/L (23-300); Potassium 4.4 mmol/L (3.4-5.0); Sodium 141 mmol/L (137-145)
[2025-03-28 13:07] LABS: Add Urine Microscopic? YES; Appearance Urine Clear (Clear); Bacteria Urine 2+ /hpf; Bilirubin Urine Negative (Negative); Blood Urine 1+ (Negative); Color Urine Yellow (Yellow); Glucose Urine UA Negative (Negative); Ketones Urine Negative (Negative); Leukocyte Esterase Ur 1+ LEU/UL (Negative); Nitrate Urine Negative (Negative); Non Pathogenic Casts 0-2; Protein Urine Negative (Negative); Specific Grav Ur 1.012 (1.001-1.035); Squamous Epithelial Cell Urine Few /hpf (Few); Urobilinogen Urine 0.2 mg/dL (<2.0); pH Urine 6.5 (5.0-9.0)
--- OUTSIDE RECORDS SUMMARY | 2025-03-28 13:28 | XMS_ITS | Data Portability ---
Author Organization [facility] Address [address] [place] [address] Assessment Encounter Date Assessment Date Assessment LastModified by Organization Details LastModified Time 07/07/2023 07/07/2023 Annual gynecological exam performed. Patient will come back in a year unless there are new symptoms. [email or web address] Not available 07/07/2023 17:01:15 10/05/2024 10/05/2024 Annual gynecological exam performed. Patient will come back in a year unless there are new symptoms. [email or web address] Not available 10/05/2024 16:55:11 Plan of Treatment Reminders Order Date Submit Date Provider Last Modified By Organization Details Last Modified Time Details Appointments None recorded. Lab hbcab (hepatitis B core Ab) igm, serum 2023 [facility] (Lab), [address] [place], [address], 4 15:49:12 HBsAg (hepatitis B surface Ag), serum 2023 [facility] (Lab), [address] [place], [address], 4 15:49:11 hepatitis C virus Ab, serum 2023 [facility] (Lab), [address] [place], [address], 4 15:49:11 HIV 1+2 AB + HIV 1 p24 Ag, qualitative immunoassay , serum 2023 024 [facility] (Lab), [address], [place], [address], 4 15:49:11 RPR (rapid plasma reagin), serum 2023 024 [facility] (Lab), [address], [place], [address], 4 15:49:12 Referral None recorded. Procedures None recorded. Surgeries None recorded. Imaging non-stress test 2021 022 [facility], [address], [address], [place], [address], 3 14:29:00 Medication Orders None recorded. Patient TargetsNo targets recorded. Patient InstructionsNo instructions recorded. Reason for Referral None Reported. Results Created Date Observation Date Name Description Value Unit Range Abnormal Flag Note LastModifiedBy Organization Detail LastModifiedTime 10/13/20 22 10/13/2022 CULTU RE: GROUP B STREP SCREE N, REFLE X SUSCE PTIBI LITY result report SEE RESULT S BELOW Test: Cultu re: Group B Strep , Refle x Susce ptibi lity ([facility] ) Speci men Sourc e: Vagin a/Rec cristobal Speci men Type: Vagin al/Re ctal Speci men Date: 10/13 2:05 PM Resul t Date: 2021 9:15 PM Resul t Statu s: Edite d Resul t - FINAL Abnor mal: No Resul ting Lab: [facility] [address] [address] Tel: CULTU RE ----- ----- ----- --- No Group B strep isola tommy at 2 days (randy ctive broth enhan cemen t) Not Available [facility] (Lab) [address], [place], [address], 10/16/2022 22:18:25 10/05/20 24 10/05/2024 CT/GC AND TRICH OMONA S VAGIN OPAL (RRNA ), URINE chlamydia trachomatis, PCR Negati ve negati ve Not Available [facility] (Lab) [address], [place], [address], 10/06/2024 15:26:19 10/05/20 24 10/05/2024 CT/GC AND TRICH OMONA S VAGIN OPAL (RRNA ), URINE neisseria gonorrhoeae, PCR Negati ve negati ve Not Available [facility] (Lab) [address] [facility], [place], [address], 10/06/2024 15:26:19 10/05/20 24 10/05/2024 CT/GC AND TRICH OMONA S VAGIN OPAL (RRNA ), URINE trichomonas vaginalis ribosomal RNA (rrna) Positi ve negati ve abnormal Not Available [facility] (Lab) [address], [place], [address], 10/06/2024 15:26:19 10/05/20 24 10/05/2024 HEPAT ITIS C ANTIB ANTHONY SCREE N, REFLE X TO CONFI RMATI ON hepatitis C antibody Non-re active non-re active Antib odies to HCV Not Detec tommy, does not exclu de the possi bilit y of expos ure to HCV. Not Available [facility] (Lab) [address], [place], [address], 10/06/2024 15:49:11 10/05/20 24 10/05/2024 HEPAT ITIS B SURFA CE ANTIG EN hepatitis B surface antigen Non-re active non-re active This assay was perfo rmed using [employer] ratio n reage nts and test kits. Value s obtai mel with other assay metho ds or kits canno t be used inter hanks eably . Not Available [facility] (Lab) [address], [place], [address], 10/06/2024 15:49:11 10/05/20 24 10/05/2024 HIV 1/2 ANTIG EN/AN TIBOD Y, REFLE X CONFI RMATI ON HIV antigen/anti body Nonrea ctive nonrea ctive HIV-1 antig en and HIV-1 /HIV- 2 antib odies were not detec tommy. No labor atory evide nce of HIV infec tion. Not Available [facility] (Lab) [address], [place], [address], 10/06/2024 15:49:11 10/05/20 24 10/05/2024 HEPAT ITIS B CORE, IGM hepatitis B core IgM antibody Non-re active non-re active IgM anti- HBc not detec tommy. Does not exclu de the possi bilit y of expos ure to or infec tion with HBV. Not Available [facility] (Lab) [address], [place], [address], 10/06/2024 15:49:12 10/05/20 24 10/05/2024 RPR SCREE N, REFLE X TITER /CONF IRMAT ION RPR screen Nonrea ctive nonrea ctive Not Available [facility] (Lab) [address], [place], [address], 10/06/2024 15:49:12 12/12/19 25 12/12/2024 CT/GC AND TRICH OMONA S VAGIN OPAL (RRNA ), URINE chlamydia trachomatis, PCR Negati ve negati ve Not Available [facility] (Lab) [address], [place], [address], 12/13/2024 14:47:04 12/12/19 25 12/12/2024 CT/GC AND TRICH OMONA S VAGIN OPAL (RRNA ), URINE neisseria gonorrhoeae, PCR Negati ve negati ve Not Available [facility] (Lab) [address], [place], [address], 12/13/2024 14:47:04 12/12/19 25 12/12/2024 CT/GC AND TRICH OMONA S VAGIN OPAL (RRNA ), URINE trichomonas vaginalis ribosomal RNA (rrna) Negati ve negati ve Not Available [facility] (Lab) [address], [place], [address], 12/13/2024 14:47:04 10/01/20 22 10/01/2022 US, kidne y No observ ation record ed. [email or web address] [facility] [address], [place], [address], 10/02/2022 11:54:07 10/01/20 22 10/01/2022 US, obste tric, follo w-up No observ ation record ed. [email or web address] [facility] [address], [place], [address], 10/02/2022 10:37:18 10/07/20 22 10/07/2022 US, obste tric, follo w-up No observ ation record ed. [email or web address] [facility] [address], [place], [address], 10/07/2022 13:54:08 10/07/20 22 10/07/2022 US, obste tric, follo w-up No observ ation record ed. [email or web address] [facility] [address], [place], [address], 10/07/2022 21:27:29 10/13/20 22 10/13/2022 non-s tress test No observ ation record ed. [email or web address] [facility] [address], [place], [address], 10/13/2022 12:35:43 10/20/20 22 10/20/2022 non-s tress test No observ ation record ed. [email or web address] [facility] [address], [place], [address], 10/20/2022 11:01:28 10/20/20 22 10/20/2022 US, obste tric, bioph ysica l profi le + non-s tress test No observ ation record ed. [email or web address] [facility] [address], [place], [address], 10/20/2022 13:17:49 10/20/20 22 10/20/2022 US, obste tric, bioph ysica l profi le + non-s tress test No observ ation record ed. [email or web address] [address] [address], [place], [address], 10/20/2022 20:30:39 10/27/20 22 10/27/2022 US, obste tric, follo w-up No observ ation record ed. [email or web address] [address], [place], [address], 10/28/2022 10:01:10 10/27/20 22 03/26/2023 non-s tress test No observ ation record ed. [email or web address] [facility] [address], [place], [address], 03/26/2023 14:29:00 10/27/20 22 10/27/2022 US, obste tric, bioph ysica l profi le No observ ation record ed. [email or web address] [facility] [address], [place], [address], 10/27/2022 21:05:47 Result Notes None recorded. Problems Name Problem SNOMED Code Status Onset Date Resolution Date Notes Provider Name and Address Organization Details Recorded Time Pregnanc y 80093909 Completed 202103/02/2023 Ela begum [facility] 3 17:01:57 delivery - delivere d 658011999 Completed To repeat [facility] Ela begum [facility] 3 17:01:[address] 777940496 Completed Sepsis, Admitted , Stent 05/25 [facility] 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 at [facility] - to repeat here on 07/22 Israel Dela Cruz MD [address], [place], [address], [place] [facility] 2 17:51:37 Pyelonep hritis 05487780 Completed suppress charlene therapy Rxed, hospital ized, severely ill [facility] 3 17:01:53 RhD negative 069095904 Completed Rhogam given 08/15/22 [facility] 3 17:01:53 Problem Notes None recorded. Procedures Surgical History Date Name Laterality Status Provider Name and Address Organization Details Recorded Time 4 procedure on kidney completed CRISTINO Tanner [facility] 12/12/2024 15:57:50 3 Date of Last Pap Smear completed Awa Scott [facility] 07/07/2023 17:02:28 2 SECTION (SURG) completed Chandni Figueroa [facility] 10/29/2022 10:55:41 9 section completed Awa Scott [facility] 04/02/2022 18:18:35 2 tonsilectomy/a denoids completed Awa Scott [facility] 04/02/2022 18:18:20 Imaging Results Imaging Date Name Status LastModified by [facility] Details LastModified Time 10/01/2022 US, kidney completed [email or web address], [place], [address], 10/02/2022 11:54:07 10/01/2022 US, obstetric, follow-up completed [email or web address] [facility] [address], [place], [address], 10/02/2022 10:37:18 10/07/2022 US, obstetric, follow-up completed [email or web address] [facility] [address], [place], [address], 10/07/2022 13:54:08 10/07/2022 US, obstetric, follow-up completed [email or web address] [address] [address], [place], [address], 10/07/2022 21:27:29 10/13/2022 non-stress test completed [email or web address] [place] [address], [place], [address], 10/13/2022 12:35:43 10/20/2022 non-stress test completed [email or web address] [address], [place], [address], 10/20/2022 11:01:28 10/20/2022 US, obstetric, biophysical profile + non-stress test completed [email or web address] [facility] [address], [place], [address], 10/20/2022 13:17:49 10/20/2022 US, obstetric, biophysical profile + non-stress test completed [email or web address] [address], [place], [address], 10/20/2022 20:30:39 10/27/2022 US, obstetric, follow-up completed [email or web address] [address], [place], [address], 10/28/2022 10:01:10 03/26/2023 [email or web address] [place] [address] [address], [place], [address], 03/26/2023 14:29:00 10/27/2022 US, obstetric, biophysical profile completed [email or web address] [facility] [address], [place], [address], 10/27/2022 21:05:47 Procedure Notes None recorded. Medical Equipment None Reported. Allergies No known drug allergies Medications Name Sig Start Date Stop Date Status Note LastModified by Organization Details LastModified Time slow fe 45mg tablets TAKE 1 TABLET BY MOUTH DAILY 07/07 completed Not Available Not Available Not Available amoxicillin 500 mg capsule TAKE 1 CAPSULE BY MOUTH TWICE DAILY FOR 7 DAYS 10/05 completed Not Available Not Available Not Available oxybutynin chloride ER 10 mg tablet,exte nded release 24 hr TAKE 1 TABLET BY MOUTH DAILY NEEDED FOR BLADDER SPASMS 10/05 completed Not Available Not Available Not Available sulfamethox azole 400 mg-trimetho prim 80 mg tablet TAKE 1 TABLET BY MOUTH EVERY 12 HOURS FOR 3 DAYS 10/05 completed Not Available Not Available Not Available hydrocodone 5 mg-acetamin ophen 325 mg tablet TAKE 1 TABLET BY MOUTH EVERY 4 HOURS NEEDED 07/07 completed Not Available Not Available Not Available metronidazo le 500 mg tablet Take 1 tablet twice a day by oral route as directed for 7 days. 12/12 completed Not Available Not Available Not Available ciprofloxac in 500 mg tablet TAKE 1 TABLET BY MOUTH TWICE DAILY 07/07 completed Not Available Not Available Not Available amoxicillin 875 mg tablet TAKE 1 TABLET BY MOUTH EVERY 12 HOURS FOR 10 DAYS 10/05 completed Not Available Not Available Not Available tamsulosin 0.4 mg capsule TAKE 1 CAPSULE BY MOUTH EVERY DAY NEEDED FOR STENT RELATED PAIN AT THE SAME TIME EVERY DAY AFTER A MEAL 10/05 completed Not Available Not Available Not Available cephalexin 500 mg capsule TAKE 1 CAPSULE BY MOUTH EVERY 8 HOURS FOR 7 DAYS 07/07 completed Not Available Not Available Not Available folic acid 1 mg tablet TAKE 1 TABLET BY MOUTH DAILY 04/02 completed Not Available Not Available Not Available ondansetron 4 mg disintegrat ing tablet DISSOLVE 1 TABLET ON THE TONGUE EVERY 8 HOURS 07/07 completed Not Available Not Available Not Available cefdinir 300 mg capsule TAKE 1 CAPSULE BY MOUTH EVERY 12 HOURS 04/02 completed Not Available Not Available Not Available amoxicillin 875 mg-potassiu m clavulanate 125 mg tablet TAKE 1 TABLET BY MOUTH ONCE FOR 1 DOSE 07/07 completed Not Available Not Available Not Available oxycodone 5 mg tablet TAKE 1 TABLET BY MOUTH EVERY 6 HOURS NEEDED FOR PAIN 10/05 completed Not Available Not Available Not Available nitrofurant oin monohydrate /macrocryst als 100 mg capsule Take 1 capsule every day by oral route. 07/07 completed Not Available Not Available Not Available 07/07 completed Not Available Not Available Not Available Slow Fe 142 mg (45 mg iron) tablet,exte nded release Take 1 tablet by oral route. 07/07 completed Not Available Not Available Not Available Vitals Date Recorded Body height Body mass index (BMI) Systolic blood pressure Diastolic blood pressure Provider Name and Address Organization Details Last Updated DateTime 10/27/2022 167.64 cm 34.4 kg/m2 115 mm[Hg] 76 mm[Hg] Carolyne Poly [facility] 10/27/2022 11:37:26 Date Recorded Body weight Provider Name an d Address Organization Details Last Updated DateTime 10/27/2022 80484.01719 g Israel Dela Cruz MD [address], [place], [address], [facility] 10/27/2022 12:15:55 Date Recorded Body height Body mass index (BMI) Body weight Systolic blood pressure Diastolic blood pressure Provider Name and Address Organization Details Last Updated DateTime 07/07/2023 167.64 cm 37 kg/m2 860577.6 5 g 118 mm[Hg] 78 mm[Hg] Awa Scott [facility] 17:01:34 Date Recorded Body height Body mass index (BMI) Body weight Systolic blood pressure Diastolic blood pressure Provider Name and Address Organization Details Last Updated DateTime 10/05/2024 167.64 cm 41.3 kg/m2 348136.6 5 g 116 mm[Hg] 77 mm[Hg] Shaye Mascorro [facility] 4 16:57:05 Date Recorded Body height Body mass index (BMI) Body weight Systolic blood pressure Diastolic blood pressure Provider Name and Address Organization Details Last Updated DateTime 12/12/2024 167.64 cm 42 kg/m2 810094.0 2 g 113 mm[Hg] 80 mm[Hg] CRISTINO Tanner [facility] 5 15:52:33 Social History Question Answer Notes LastModified by Organizat ion Details LastModified Time Tobacco Smoking Status Never Smoker Dayna Palmer kel, [facility] 04/24/2022 10:32:10 Do You Have An Advance Directive? No [email or web address] Information n ot available 04/02/2022 If You Are , What Was Your Level Of Alcohol Consumption Prior To ? Occasional [email or web address] Information not available 04/24/2022 Are You Blind Or Do You Have Difficulty Seeing? No [email or web address] Information n ot available 04/02/2022 What Is Your Level Of Caffeine Consumption? Moderate [email or web address] Information not available 04/02/2022 How Much Tobacco Do You Chew? None Information not available 04/02/2022 In The 14 Days Before Symptom Onset, Have You Had Close Contact With A Laboratory-confirm ed COVID-19 While That Case Was Ill? No [email or web address] Information n ot available 04/02/2022 In The 14 Days Before Symptom Onset, Have You Had Close Contact With A Person Who Is Under Investigation For COVID-19 While That Person Was Ill? No [email or web address] Information not available 04/02/2022 Have You Been To An Area Known To Be High Risk For COVID-19? No [email or web address] Information not available 04/02/2022 Are You Deaf Or Do You Have Serious Difficulty Hearing? No [email or web address] Information not available 04/02/2022 What Type Of Diet Are You Following? REGULAR [email or web address] Information n ot available 04/02/2022 What Is The Highest Grade Or Level Of School You Have Completed Or The Highest Degree You Have Received? [id number] [email or web address] Information not available 04/02/2022 Are There Any Guns Present In Your Home? No [email or web address] Information not available 04/02/2022 Have You Ever Been Counseled For Unhealthy Alcohol Use? No [email or web address] Information not available 04/24/2022 Do You Use Protection During Sex? No [email or web address] Information not available 04/02/2022 Do You Use Your Seat Belt Or Car Seat Routinely? Yes Information not available 04/02/2022 Do You Have Smoke And Carbon Monoxide Detectors In Your Home? Yes [email or web address] Information not available 04/02/2022 How Much Tobacco Do You Smoke? No [email or web address] Information not available 04/02/2022 Do You Use Sunscreen Routinely? No [email or web address] Information not available 04/02/2022 Has Tobacco Cessation Counseling Been Provided? No [email or web address] Information not available 04/24/2022 Have You Used IV Drugs? No Information not available 04/02/2022 Sex: Unknown Functional Status Question Answer Note LastModified by Organizat ion Details LastModified Time Do you use any illicit or recreational drugs? No [email or web address] Information not available 04/02/2022 Do you or have you ever used any other forms of tobacco or nicotine? No [email or web address] Information not available 04/24/2022 What is your level of alcohol consumption? None [email or web address] Information not available 04/24/2022 Do you have difficulty walking or climbing stairs? No [email or web address] Information not available 04/24/2022 Are you able to walk? [email or web address] Information not available 04/02/2022 Are you able to care for yourself? Yes [email or web address] Information not available 04/24/2022 What is your occupation? [employer] [email or web address] Information not available 04/02/2022 Do you have difficulty dressing or bathing? No [email or web address] Information not available 04/24/2022 What is your exercise level? Occasional [email or web address] Information not available 04/02/2022 Mental Status Question Answer Note LastModified by Organization D etails LastModified Time Do you feel stressed (tense, restless, nervous, or anxious, or unable to sleep at night)? [id number] [email or web address] Information not available 04/02/2022 Family History Relationship Description Onset Age of this Age Resolved Age Notes LastModified by Organization Details LastModified Time Father Diabetes mellitus Not available 04/02 18:18:57 Medical History Condition Response Allergies (Food, seasonal, environmental ) N Other N Breast Cancer N Drug/Latex Allergies/Reactions N Blood Transfusion N Dermatologic Disorders N Lung Disease N Defects or Inherited Disease N Breast Problem N Gestational Diabetes N Hematologic disorders N Anesthesia Complications N History of STI N Deep Vein Thrombosis N Polycystic ovary syndrome N Anxiety Disorder N Autoimmune disease N Arthritis N Infertility N Polyps N Acid Reflux (GERD) N History of abnormal pap N Cancer N Stroke N Varicosities N Neurologic/Epilepsy N Endometriosis N High Cholesterol N Headaches N Fibromyalgia N Kidney Disease N Heart Problems N Kidney or Bladder Problems N Thyroid Problems N GI Problems N Eating Disorder N Anemia N Art (IVF or FET) N Psychiatric Illness N Ovarian Cancer N Diabetes N Pulmonary (TB, Asthma) N Hepatitis/Liver Disease N No Past Medical History Y Eczema N Urinary Tract Infection N Abuse/Domestic Violence N Asthma N Trauma/Violence N Depression/ depression N Heart Disease N Pre-Eclampsia N Hypertension N Osteoporosis N Thrombophilias N Gynecological History Statement/Question Response Flow Moderate Date of Last Mammogram Date of LMP 11/24/2024 N On BCP's at Conception? N STIs/STDs N Was last menstrual period normal Y HPV Vaccine N Duration of Flow (days) 5 Current Control Method Abstinence Age at First Child 19 Are cycles usually normal Y Frequency of Cycle (Q days) 27 Sexually Active? Y Menses Monthly Y Date of DEXA bone scan Age of first menstrual cycle 11 Date of Last Pap Smear 07/07/2023 Sexual Problems? N LMP Definite Desired Control Method Condoms N Obstetrics History GPAL:G 2 P 2 0 0 2 Type Value Full Term 2 Living 2 Total 2 Past Encounters Encounter ID Performer Location Encounter Start Date Encounter Closed Date Diagnosis/Indication Diagnosis SNOMED-CT Code Diagnosis ICD10 Code Diagnosis Note [id number] Israel Dela Cruz MD [facility] [address] [address] 04/02/2022 17:00:55 04/02/2022 17:28:28 [id number] Frances Carranza CNM [facility] [address],[place] [address] 04/02/2022 17:01:35 04/02/2022 18:35:40 Gynecologic examination 65777552 Z01.419 Amenorrhea 83359885 N91. 2 [id number] MD Chantal Greer [address],[place] [address] 04/24/2022 10:31:42 04/24/2022 11:09:53 screening 251910887 Z36.82 [id number] MD Chantal Greer [address],[place] [address] 04/24/2022 10:32:00 04/24/2022 12:04:04 Routine care 734247499 Z34.81 [id number] Israel Dela Cruz MD [facility] [address],[place] [address] 05/22/2022 11:18:21 05/22/2022 12:21:04 Routine care 886112580 Z34.81 [id number] Israel Dela Curz MD [facility] [address],[place] [address] 05/28/2022 14:43:35 05/28/2022 16:02:09 Routine care 620692540 Z34.81 Pyelonephritis 10634706 N12 [id number] Israel Dela Cruz MD [facility] [address],[place] [address] 07/22/2022 14:25:56 07/22/2022 15:39:14 screening 670217428 Z36.2 [id number] Israel Dela Cruz MD [facility] [address],[place] [address] 07/25/2022 09:58:13 07/25/2022 11:05:46 Pyelonephritis 32490079 N12 [id number] Israel Dela Cruz MD [facility] [address],[place] [address] 08/14/2022 15:16:01 08/14/2022 16:42:52 screening 695911081 Z36.2 [id number] MD Chantal Greer [address],[place] [address] 08/14/2022 15:16:26 08/15/2022 14:48:03 Anemia 059165136 D64.9 Routine an tenatal care 453101535 Z34.81 [id number] MD Chantal Greer [address],[place] [address] 08/27/2022 17:27:48 08/27/2022 18:07:35 section following previous section 238263801 O34.219 [id number] MD Chantal Greer [address],[place] [address] 09/11/2022 14:49:42 09/11/2022 16:11:10 Maternal obesity complicating , childbirth and the puerperium, antepartum 0071804924 07 O99.213 Z3A.32 [id number] MD Chantal Greer [address],[place] [address] 09/11/2022 14:50:01 09/11/2022 16:13:21 Routine care 539984144 Z34.81 [id number] MD Chantal Greer [address],[place] [address] 09/25/2022 14:59:32 09/25/2022 15:57:38 Routine care 919131767 Z34.81 [id number] MD Chantal Greer [address],[place] [address] 10/07/2022 09:27:00 10/07/2022 10:24:07 Abdominal pain in 458705667 O99.891 Z3A.35 [id number] MD Chantal Greer [address],[place] [address] 10/07/2022 09:27:33 10/07/2022 11:25:15 Routine care 630482896 Z34.81 Pain in pelvis 32796287 R10.2 [id number] MD Chantal Greer [address],[place] [address] 10/13/2022 11:04:59 10/13/2022 12:58:39 Routine care 649314744 Z34.81 [id number] MD Chantal Greer [address],[place] [address] 10/13/2022 12:06:59 10/13/2022 14:02:30 Reduced movement 230697728 O36.8199 [id number] MD Chantal Greer [address],[place] [address] 10/20/2022 10:22:31 10/20/2022 14:15:22 Maternal obesity complicating , childbirth and the puerperium, antepartum 6391665945 07 O99.213 Z3A.32 [id number] MD Chantal Greer [address],[place] [address] 10/20/2022 10:22:47 10/20/2022 14:14:24 Maternal obesity complicating , childbirth and the puerperium, antepartum 5489235701 07 O99.213 Z3A.37 [id number] MD Chantal Greer [address],[place] [address] 10/20/2022 10:23:48 10/21/2022 14:47:51 Routine care [id number] Z34.81 [id number] MD Chantal Greer [address],[place] [address] 10/27/2022 10:03:06 10/27/2022 11:34:53 Maternal obesity complicating , childbirth and the puerperium, antepartum [id number] 07 O99.213 Z3A.37 [id number] MD Chantal Greer [address],[place] [address] 10/27/2022 10:03:22 10/27/2022 11:34:40 Maternal obesity complicating , childbirth and the puerperium, antepartum [id number] 07 O99.213 Z3A.37 [id number] Israel Dela Cruz MD [facility] [address],[place] [address] 10/27/2022 10:03:41 10/27/2022 12:24:24 Routine care [id number] Z34.81 [id number] Israel Dela Cruz MD [place] [address],[place] [address] 10/29/2022 10:54:00 10/29/2022 10:54:56 [id number] FRANCISCO Bedoya [place] [address],[place] [address] 07/07/2023 16:44:56 07/07/2023 17:22:30 Gynecologic examination [id number] Z01.419 Take Calcium with Vitamin D daily if not receiving in daily diet. It is strongly advised to have an annual flu shot and up can obtain at most pharmacies . If you have not had a TDap shot in the last 10 years you should obtain one as well. Discussed with patient & provided with informatio n regarding Gardisil vaccine to prevent the 4 strains for HPV that cause cervical cancer if under age 26. Encourage safe sexual practices, to use condoms and limit partners if not already in a monogamous relationsh ip. Do monthly self breast exams. Have mammogram yearly or every other year depending on family history. BRCA testing is now available for patients with strong genetic history of female cancer. If interested contact the office. Engage in daily exercise of low impact aerobic exercise 45-60 minutes 4-5 times weekly. Avoid tobacco and illicit drugs as well as using moderation with alcohol intake less than 1-2 8 oz beverages daily. This lifestyle behavior pattern will lead to less health conditions and longer life span. If BMI greater than 25 weight watchers or dietary consult advised. Patient received above instructio ns, and questions have been answered. If you have any questions please call or respond to this email. Patient was made aware of the patient portal and may obtain a paper copy of today's plan if desired. WWEBC - condomsall BC options reviewed. r/b/a discussed. interested in OCP vs Mirena IUD - she will let us know what she decides. If desires Mirena IUD, she is aware she needs to call the office when her next period starts for insertion. no hx of abnormal papslast pap 03/2022 - nilmnext pap due 2024gc/ct/ trich urine testing sentencour aged annual exam with PCPnext WWE due in 1 year Patient to update office if she desires OCP rx sent or Mirena IUD insertion (counseled on both methods) Discussed all control options in great detail. Pt would like to start ocp. She is aware of the risks and benefits. She does not have any medical condition that is contraindi cated with the use of estrogen containing control. She is aware it is not effective for control the first month. She is also aware of the importance of taking at the same time every day. Encouraged use of condoms as the pill does not protect against STD's. She has been counseled on all of the r/b/a of placement of an intrauteri ne device that include but are not limited to uterine perforatio n, injury to cervix, vagina, bladder, and bowel.Risk s of bleeding due to injury or increased irregular bleeding due to progestin effect of the device. Risks of infection would be increased within the first 21 days of placement with concommita nt cervicitis . She understand s that the device will need to be removed in this instance due to increased risk of Pelvic inflammato ry disease. Patient is aware she is at higher risk for STD and if contracted she could lose her fertility. Pt is aware that if occurs that she should contact office immediatel y to rule out ectopic which could be life threatenin g. IUD will also need to be removed and this could cause miscarriag e. Patient also informed that in the event her strings are absent or embedded at the time of removal she may need to have the IUD surgically removed. Contracept ion care management [id number] Z30.9 Venereal d isease screening 976024268 Z11.3 [id number] FRANCISCO Bedoya [place] [address],[place] [address] 10/05/2024 16:41:29 10/06/2024 12:23:12 Gynecologic examination 05510761 Z01.419 WWEBC - condomspap due 2024gc/ct/ trich urine testing sentHIV/He p B&C/Syphil is testing ordered per pt requestRTC in 1 yr or sooner if needed It is strongly advised to have an annual flu shot and up can obtain at most pharmacies . If you have not had a TDap shot in the last 10 years you should obtain one as well. Discussed with patient & provided with informatio n regarding the HPV vaccine if applicable . Encourage safe sexual practices, to use condoms and limit partners if not already in a monogamous relationsh ip. Do monthly self breast exams. BRCA testing is now available for patients with strong genetic history of female cancer. If interested contact the office. Engage in regular exercise. Avoid tobacco and illicit drugs. This lifestyle behavior pattern will lead to less health conditions and longer life span. If BMI greater than 25 dietary consult advised. Patient received above instructio ns, and questions have been answered. Venereal d isease screening 421294278 Z11.3 Sexually t ransmitted infectious disease 6337910 A64 [id number] FRANCISCO Bedoya [place] [address],[place] [address] 12/12/2024 15:45:12 12/12/2024 16:10:05 Infection by Trichomonas [id number] A59.9 FRANK urine sentsafe sexual practices discussedq uestions answeredRT C for WWE or sooner if needed Time spent in visit is a total of 15 mins with at least 50% of visit consisting of counseling and review of plan of care. Venereal d isease screening 435834956 Z11.3 Health Concerns Section Related Observation LastModified by Organization Detai ls LastModified Time None Recorded Concern Status LastModified by Organization Details LastModified Time None Recorded Advance Directives Directive N: Payers Encounter Date Sequence Insurance Name Policy Number Policy Sylvester Covered Member ID Sylvester Member ID Guarantor Name 10/27/2022 1 [facility] (MEDICAID HMO) [id number] Samira Llamas Merlos [id number] [facility] 10/29/2022 1 [facility] (MEDICAID HMO) [id number] 0003 Samira Morelosman [id number] Hillary Merlos 07/07/2023 1 [facility] (MEDICAID HMO) [id number] 0003 Samira Merlos [id number] Hillary Merlos 10/05/2024 1 [facility] [id number] 1 Hillary Merlos [id number] Hillary Merlos 12/12/2024 1 [facility] [id number] 1 Hillary Merlos [id number] Hillary Merlos Notes Date Note Type Note Provider Name and Address Organization Details Recorded Time 07/07/2023 text/html Annual GYNReport ed bypatient.Menstrua l cycle:Normal menses Urinary symptoms:No hematuria; No incontinence Vulva:No genital lesion Vagina:Normal vaginal discharge Breast:No breast pain; No breast lump; No nipple discharge Current Contraception:Cond oms Sexual complaints:No sexual complaints; No pain during intercourse; Normal libido Menopausal Symptoms:No menopausal symptoms; Normal vaginal lubrication Psychological symptoms:No depression; No anxiety; No PMDD Preventive measures:Encourage self breast examination; Encourage regular exercise; Encourage no tobacco use; Encourage regular mammograms starting age 40 FRANCISCO Bedoya [address], [place], [address], [facility] 07/07/2023 17:20:54 10/05/2024 text/html Annual GYNReport ed bypatient.Menstrua l cycle:Normal menses Urinary symptoms:No hematuria; No incontinence Vulva:No genital lesion Vagina:Normal vaginal discharge Breast:No breast pain; No breast lump; No nipple discharge Current Contraception:Sati sfied with current contraception; Condoms Sexual complaints:No sexual complaints; No pain during intercourse; Normal libido Menopausal Symptoms:No menopausal symptoms; Normal vaginal lubrication Psychological symptoms:No depression; No anxiety; No PMDD Preventive measures:Encourage self breast examination; Encourage regular exercise; Encourage no tobacco use; Encourage regular mammograms starting age 40Notes:24yo wwelast pap 03/2022 : nilmno h/o abnormal papswould like STI testing today, no sx's FRANCISCO Bedoya [address], [place], [address], [facility] 10/06/2024 09:20:27 12/12/2024 text/html 24yopresents for FRANK(+) trichomonas 4complete d medication, no symptomsno longer with partner FRANCISCO Bedoya [address], [place], [address], [facility] 12/12/2024 16:05:44 OBGyn Episode Ob Episode Information Episode Created Date Number of Fetuses Patient Bloodtype Patient rh Status Prepregnancy Weight lbs Domestic Partner Domestic Partner Phone Father Name Assembler Handbags Status 04/24/20 1 B Negative 222 CLOSED Fetus Data First Name Last Name Admitted to NICU Weight (g) Sex Living Outcome Pediatric Complications Fetus ID Race Codes Race Delivery Type 2579.80 45 M true Full Term [id number] Repeat Problems Problem Notes Problem Name Start Date End Date Resolution Snomed Code Not e delivery - delivered [id number] To repeat LTCS RhD negative 153280145 Rhogam given 08/15/22 Pyelonephritis [id number] suppr essive therapy Rxed, hospitalized, severely ill Obstructive hydroureter 346088 004 Sepsis, Admitted, Stent 05/25 Giuseppe Calculation Initial Giuseppe Date Initial Exam Date Initial Exam Provider Initial Ultrasound Date Last Menstrual Period Date Ultra Sound Weeks Gestation 11/05/2022 04/24/2022 04/02/2022 9 Eighteen To Twenty Week Giuseppe Update Ultra Sound Date Fundal Height At Umbil Quickening Date Ultra Sound Latest Weeks Gestation Final Giuseppe Confirmed By Final Giuseppe Confirmed Date Final Giuseppe Date Ultra Sound Latest Days Gestation 0 [email or web address] 04/24/2022 11/05/20 22 0 Pre- Flowsheet Flowsheet Date 04/24/2022 Emerson Score Blood Edema Fundus Height Fundus Units Glucose Ketones Leukocytes Nitrite Labor Signs Protein Cervic Dilation Cervic Effacement Cervic Station 12 Type Weight in lbs Pre/Post Dialysis Refused Weight 225.678948033383 BP Diastolic BP Location Tested BP Systolic BP Type 85 R arm 125 sitting Fetus Heart Rate Present A 159 Fetus Movement Comments This patient is a 21-year-ol d 2 para 1001 at 12 weeks gestation who presents for care. She had a delivery in her previous . She would like to repeat . We have agreed to do it 1 week before her due date. Otherwise her previous was uncomplicated. She is unvaccinated For COVID. She was given recommendations on flu vaccines a Tdap. She has no complaints today. We will begin routine care. Flowsheet Date 05/22/2022 Emerson Score Blood Edema Fundus Height Fundus Units Glucose Ketones Leukocytes Nitrite Labor Signs Protein Cervic Dilation Cervic Effacement Cervic Station 16 Type Weight in lbs Pre/Post Dialysis Refused Weight 220.848470601212 BP Diastolic BP Location Tested BP Systolic BP Type 73 R arm 107 sitting Fetus Heart Rate Present A 145 Fetus Movement Comments no complaints, no problems, Flowsheet Date 05/28/2022 Emerson Score Blood Edema Fundus Height Fundus Units Glucose Ketones Leukocytes Nitrite Labor Signs Protein Cervic Dilation Cervic Effacement Cervic Station 17 Type Weight in lbs Pre/Post Dialysis Refused Weight 220.043195800185 BP Diastolic BP Location Tested BP Systolic BP Type 72 R arm 107 sitting Fetus Heart Rate Present A 145 Fetus Movement Comments no complaints today, had hipolito lo with obstruction, had stent placed, looks good today Flowsheet Date 07/22/2022 Emerson Score Blood Edema Fundus Height Fundus Units Glucose Ketones Leukocytes Nitrite Labor Signs Protein Cervic Dilation Cervic Effacement Cervic Station Type Weight in lbs Pre/Post Dialysis Refused BP Diastolic BP Location Tested BP Systolic BP Type Fetus Heart Rate Present Fetus Movement Comments Flowsheet Date 07/25/2022 Emerson Score Blood Edema Fundus Height Fundus Units Glucose Ketones Leukocytes Nitrite Labor Signs Protein Cervic Dilation Cervic Effacement Cervic Station 25 Type Weight in lbs Pre/Post Dialysis Refused Weight 228.174774880504 BP Diastolic BP Location Tested BP Systolic BP Type 68 R arm 102 sitting Fetus Heart Rate Present A 145 Fetus Movement Comments Flowsheet Date 08/14/2022 Emerson Score Blood Edema Fundus Height Fundus Units Glucose Ketones Leukocytes Nitrite Labor Signs Protein Cervic Dilation Cervic Effacement Cervic Station Type Weight in lbs Pre/Post Dialysis Refused BP Diastolic BP Location Tested BP Systolic BP Type Fetus Heart Rate Present Fetus Movement Comments Flowsheet Date 08/14/2022 Emerson Score Blood Edema Fundus Height Fundus Units Glucose Ketones Leukocytes Nitrite Labor Signs Protein Cervic Dilation Cervic Effacement Cervic Station 28 Type Weight in lbs Pre/Post Dialysis Refused Weight 235.881432111927 BP Diastolic BP Location Tested BP Systolic BP Type 80 R arm 130 sitting Fetus Heart Rate Present A 144 Fetus Movement Comments pt. c/o bilateral ankle home a, discussed Rh status and labs Flowsheet Date 08/27/2022 Emerosn Score Blood Edema Fundus Height Fundus Units Glucose Ketones Leukocytes Nitrite Labor Signs Protein Cervic Dilation Cervic Effacement Cervic Station 32 Type Weight in lbs Pre/Post Dialysis Refused Weight 232.66839191450 BP Diastolic BP Location Tested BP Systolic BP Type 79 R arm 101 sitting Fetus Heart Rate Present A 145 Fetus Movement A Yes Comments no complaints, discussed carolina lynn, to schedule surgery, she will growth ultrasounds, starting Flowsheet Date 09/11/2022 Emerson Score Blood Edema Fundus Height Fundus Units Glucose Ketones Leukocytes Nitrite Labor Signs Protein Cervic Dilation Cervic Effacement Cervic Station Type Weight in lbs Pre/Post Dialysis Refused BP Diastolic BP Location Tested BP Systolic BP Type Fetus Heart Rate Present Fetus Movement Comments Flowsheet Date 09/11/2022 Emerson Score Blood Edema Fundus Height Fundus Units Glucose Ketones Leukocytes Nitrite Labor Signs Protein Cervic Dilation Cervic Effacement Cervic Station 32 Type Weight in lbs Pre/Post Dialysis Refused Weight 236.703176519642 BP Diastolic BP Location Tested BP Systolic BP Type 71 R arm 115 sitting Fetus Heart Rate Present A 145 Fetus Movement Comments normal growth ultrasound tod ay, good movement, no contractions, no vaginal bleeding. Flowsheet Date 09/25/2022 Emerson Score Blood Edema Fundus Height Fundus Units Glucose Ketones Leukocytes Nitrite Labor Signs Protein Cervic Dilation Cervic Effacement Cervic Station 34 Type Weight in lbs Pre/Post Dialysis Refused Weight 228.768391822661 BP Diastolic BP Location Tested BP Systolic BP Type 77 R arm 116 sitting Fetus Heart Rate Present A 134 Fetus Movement Comments normal growth and normal mov ement Flowsheet Date 10/07/2022 Emerson Score Blood Edema Fundus Height Fundus Units Glucose Ketones Leukocytes Nitrite Labor Signs Protein Cervic Dilation Cervic Effacement Cervic Station Type Weight in lbs Pre/Post Dialysis Refused BP Diastolic BP Location Tested BP Systolic BP Type Fetus Heart Rate Present Fetus Movement Comments Flowsheet Date 10/07/2022 Emerson Score Blood Edema Fundus Height Fundus Units Glucose Ketones Leukocytes Nitrite Labor Signs Protein Cervic Dilation Cervic Effacement Cervic Station none 35 none trace Type Weight in lbs Pre/Post Dialysis Refused Weight 224.522725014912 BP Diastolic BP Location Tested BP Systolic BP Type 63 101 Fetus Heart Rate Present A 145 Fetus Movement A Yes Comments pelvic pain - severe - narcs Flowsheet Date 10/13/2022 Emerson Score Blood Edema Fundus Height Fundus Units Glucose Ketones Leukocytes Nitrite Labor Signs Protein Cervic Dilation Cervic Effacement Cervic Station 36 Type Weight in lbs Pre/Post Dialysis Refused Weight 217.614471562673 BP Diastolic BP Location Tested BP Systolic BP Type 72 R arm 109 sitting Fetus Heart Rate Present A 145 Fetus Movement A Yes Comments decreased fm Flowsheet Date 10/13/2022 Emerson Score Blood Edema Fundus Height Fundus Units Glucose Ketones Leukocytes Nitrite Labor Signs Protein Cervic Dilation Cervic Effacement Cervic Station Type Weight in lbs Pre/Post Dialysis Refused BP Diastolic BP Location Tested BP Systolic BP Type Fetus Heart Rate Present Fetus Movement Comments Flowsheet Date 10/20/2022 Emerson Score Blood Edema Fundus Height Fundus Units Glucose Ketones Leukocytes Nitrite Labor Signs Protein Cervic Dilation Cervic Effacement Cervic Station Type Weight in lbs Pre/Post Dialysis Refused BP Diastolic BP Location Tested BP Systolic BP Type Fetus Heart Rate Present Fetus Movement Comments Flowsheet Date 10/20/2022 Emerson Score Blood Edema Fundus Height Fundus Units Glucose Ketones Leukocytes Nitrite Labor Signs Protein Cervic Dilation Cervic Effacement Cervic Station Type Weight in lbs Pre/Post Dialysis Refused BP Diastolic BP Location Tested BP Systolic BP Type Fetus Heart Rate Present Fetus Movement Comments Flowsheet Date 10/20/2022 Emerson Score Blood Edema Fundus Height Fundus Units Glucose Ketones Leukocytes Nitrite Labor Signs Protein Cervic Dilation Cervic Effacement Cervic Station Type Weight in lbs Pre/Post Dialysis Refused Weight 212.76441736325 BP Diastolic BP Location Tested BP Systolic BP Type 75 R arm 110 sitting Fetus Heart Rate Present Fetus Movement Comments Reassuring testing , next week, blood pressure stable, good movement Flowsheet Date 10/27/2022 Emerson Score Blood Edema Fundus Height Fundus Units Glucose Ketones Leukocytes Nitrite Labor Signs Protein Cervic Dilation Cervic Effacement Cervic Station Type Weight in lbs Pre/Post Dialysis Refused BP Diastolic BP Location Tested BP Systolic BP Type Fetus Heart Rate Present Fetus Movement Comments Flowsheet Date 10/27/2022 Emerson Score Blood Edema Fundus Height Fundus Units Glucose Ketones Leukocytes Nitrite Labor Signs Protein Cervic Dilation Cervic Effacement Cervic Station Type Weight in lbs Pre/Post Dialysis Refused BP Diastolic BP Location Tested BP Systolic BP Type Fetus Heart Rate Present Fetus Movement Comments Flowsheet Date 10/27/2022 Emerson Score Blood Edema Fundus Height Fundus Units Glucose Ketones Leukocytes Nitrite Labor Signs Protein Cervic Dilation Cervic Effacement Cervic Station 39 Type Weight in lbs Pre/Post Dialysis Refused Weight 213.905728725864 BP Diastolic BP Location Tested BP Systolic BP Type 76 R arm 115 sitting Fetus Heart Rate Present A 145 Fetus Movement Comments Reactive NST, c/s in 2 days Flowsheet Date 10/29/2022 Emerson Score Blood Edema Fundus Height Fundus Units Glucose Ketones Leukocytes Nitrite Labor Signs Protein Cervic Dilation Cervic Effacement Cervic Station Type Weight in lbs Pre/Post Dialysis Refused BP Diastolic BP Location Tested BP Systolic BP Type Fetus Heart Rate Present Fetus Movement Comments Menstrual History Last Menstrual Date Menses Monthly On Bcp Conception Prior Menses Frequency Hcg Plus Date Menarche Onset Age Genetic Screening And Infection History Question Response Note Mental Retardation/Autism false Patient's Age Will Be 35 Years Or Older At Estim ated Date of Delivery false Thalassemia (Algerian, Upper Sorbian, Mediterranean, Or Background): MCV < 80 false Neural Tube Defect (Meningomyelocele, Spina Bifi da, Or Anencephaly) false Congenital Heart Defect false Down Syndrome false Elroy-Sachs (eg, Rastafari, Cajun, Telugu-Pershing) f alse Mitesh Disease false Sickle Cell Disease Or Trait () false Hemophilia Or Other Blood Disorders false Muscular Dystrophy false Cystic Fibrosis false Modoc's Chorea false Intellectual Disability/Autism false If Yes, Was Person Tested For Fragile X? false Other Inherited Genetic Or Chromosomal Disorder false Maternal Metabolic Disorder (eg, Type 1 Diabetes , PKU) false Patient Or Baby's Father Had A Child With Defects Not Listed Above false Recurrent Loss, Or A Stillbirth false Medications (including Suppl ements, Vitamins, Herbs, OTC Drugs), Illicit/Recreational Drugs, Alcohol false If Yes, Agent(s) And Strength/Dosage false Any Other Genetic History false Live With Someone With TB Or Exposed To TB false Patient Or Partner Has History Of Genital Herpes false Rash Or Viral Illness Since Last Menstrual Perio d false History Of STD, Gonorrhea, Chlamydia, HPV, Syphi lis false Other Infection History false History of HIV false History of Hepatitis false Prior GBS-infected child false Hemoglobinopathy Or Carrier false Other Structural Defect false Recent Travel History Outside of Country false Delivery Information Delivery Date Delivery Type Labor Anesthesia Weeks Gestation Incision Type Labor Labor Length Hrs Delivered By Post Complications Tubal Sterilization Discharge Date Comments 2 None Regional-Sp inal 39 Low Transvers e false Israel Dela Cruz MD Discharge Information Feeding Method Contraceptive Method Maternal HG B and HCT Levels Ob Episode Information Episode Created Date Number of Fetuses Patient Bloodtype Patient rh Status Prepregnancy Weight lbs Domestic Partner Domestic Partner Phone Father Name Assembler Handbags Status 04/02/20 22 1 CLOSED Fetus Data First Name Last Name Admitted to NICU Weight (g) Sex Living Outcome Pediatric Complications Fetus ID Race Codes Race Delivery Type 3231.84 3 F Full Term [id number] Primary Giuseppe Calculation Initial Giuseppe Date Initial Exam Date Initial Exam Provider Initial Ultrasound Date Last Menstrual Period Date Ultra Sound Weeks Gestation 0 Eighteen To Twenty Week Giuseppe Update Ultra Sound Date Fundal Height At Umbil Quickening Date Ultra Sound Latest Weeks Gestation Final Giuseppe Confirmed By Final Giuseppe Confirmed Date Final Giuseppe Date Ultra Sound Latest Days Gestation 0 0 Menstrual History Last Menstrual Date Menses Monthly On Bcp Conception Prior Menses Frequency Hcg Plus Date Menarche Onset Age Delivery Information Delivery Date Delivery Type Labor Anesthesia Weeks Gestation Incision Type Labor Labor Length Hrs Delivered By Post Complications Tubal Sterilization Discharge Date Comments 9 40.2 Discharge Information Feeding Method Contraceptive Method Maternal HG B and HCT Levels
--- OUTSIDE RECORDS SUMMARY | 2025-03-28 13:28 | XMS_ITS | Encounter Summary ---
Author Organization [facility] Address [address] [place] [address] Care Team Providers Care Motion Picture Camera Operator Name Role Phone oTsha Wolff MD Primary Care Provider [phone] Encounter Details Date Type Department Care Team (Late st Contact Info) Description 09/28/2024 Telephone [facility] - Urology [address] [place] [id number] Woody Donald MD [address] [place] [address] Social History Tobacco Use Types [...] care, and heating? Not very hard 11/26/2022 [facility] [place] [facility] - Occupational Stress [...] place to sleep or slept in a m[facility]p (including now)? No 11/26/2022 Comments No Sex and Gender Information Value Date Recorded Sex Assigned at Female 12/23/2023 10:10 AM ASSISTANT STORE MANAGER TRAINEE Legal Sex Female 5:39 AM ASSISTANT STORE MANAGER TRAINEE Gender Identity Female 12/23/2023 10:10 AM ASSISTANT STORE MANAGER TRAINEE Sexual Orientation Not on file documented as [...] st Contact Info) Description 12/06/2025 3:30 PM ASSISTANT STORE MANAGER TRAINEE Office Visit [facility] - Urology [address] [place] [address] Woody Donald MD [address] [place] [id number] documented as of this encounter Visit Diagnoses Not on filedocumented in this encounter Care Teams Motion Picture Camera Operator Relationship Specialty Start Date End Date Tosha Wolff MD [address] [place] [address] [place] [address] PCP - General Family Medicine 12/24/22 10/26/24 documented as of this encounter
--- OUTSIDE RECORDS SUMMARY | 2025-03-28 13:28 | XMS_ITS | Clinical Summary ---
Author Organization [facility] [employer] Address [address] [place] [address] Care Team Providers Care Maintenance Superintendent Name Role Phone Unavailable Primary Care Provider Unavailabl e Source Comments [facility] [employer],non-owned Affiliates and Associated Physician Practices is amultiple site organization consisting of ambulatory clinics and hospital sitesin [place], [place], [place] and [place]. This disclosure is being madepursuant to the Care Everywhere program and may not contain all information available regarding this patient. Last updated 18.[employer] Allergies No known active allergies Medications * [...] care, and heating? Not very hard 11/26/2022 [facility] [place] [facility] Occupat ional Health - Occupational Stress [...] place to sleep or slept in a usp (including now)? No 11/26/2022 Comments No Sex and Gender Information Value Date Recorded Sex Assigned at Female 12/23/2023 10:10 AM HOT MILL ROLLER Legal Sex Female 5:39 AM HOT MILL ROLLER Gender Identity Female 12/23/2023 10:10 AM HOT MILL ROLLER Sexual Orientation Not on file Last Filed Vital Signs Vital Sign Reading Time Taken Comments Blood Pressure 104/70 12/02/2024 11:44 AM HOT MILL ROLLER Pulse 86 12/02/2024 11:44 AM HOT MILL ROLLER Temperature 36.8 C (98.2 F) 12/02/2024 11:44 AM HOT MILL ROLLER Respiratory Rate 16 11/04/2024 8:31 AM HOT MILL ROLLER Oxygen Saturation 97% 12/02/2024 11: 44 AM HOT MILL ROLLER Inhaled Oxygen Concentration - - Weight 116.4 kg (256 lb 9.6 oz) 025 11:44 AM HOT MILL ROLLER Height 165.1 cm (5' 5 ) 12/02/2024 11:4 4 AM HOT MILL ROLLER Body Mass Index 42.7 12/02/2024 11:44 AM HOT MILL ROLLER Plan of Treatment Upcoming Encounters Date Type Department Care Team (Late st Contact Info) Description 12/06/2025 3:30 PM HOT MILL ROLLER [facility] [address] [place] [address] Woody Donald MD [address] [place] [address] Health Maintenance Due Date Last [...] this topic Medical Devices Implanted Type Area Technical Services Coordinator Device Identifier Shelf Expiration Date Model / Serial / Lot Stent Uret 6fr 24cm Sft Tria Implanted:Qty: 1 on 08/08/2024 by Woody Donald MD at [facility] Left: [employer] 10/28/2026 [id number] / / [id number] Explanted Type Area Technical Services Coordinator Device Identifier Shelf Expiration Date Model / Serial / Lot Stent Uret 6fr 24cm Sft Tria Implanted:Qty: 1 on 04/25/2024 by Woody Donald MD at [facility] Explanted:Qty: 1 on 08/08/2024 at [facility] Left: [employer] [place] [employer] [id number] 12/01/2026 [id number] 20 / / [id number] Procedures Procedure Name Priority Date/Time Associated Diagnosis Comments HEPATITIS SCREEN ACUTE AM Draw 11/27/2022 4:08 AM HOT MILL ROLLER HIV-1 HIV-2 ANTIBODY + HIV P24 AG PANEL AM Draw 11/27/2022 4:08 AM HOT MILL ROLLER from Last 3 Months or Most Recently Relevant to Health Maintenance Results * HIV-1 HIV-2 ANTIBODY + HIV P24 AG PANEL (11/27/2022 4:08 AM HOT MILL ROLLER) HIV1/2 Ab + P24 Ag Non Reactive Non Reactive 11/27/2022 5:53 AM HOT MILL ROLLER [facility] Blood BLOOD SPECIMEN / Unknown Lab Venipuncture / Unknown 11/27/2022 4:08 AM HOT MILL ROLLER 11/27/2022 4:57 AM HOT MILL ROLLER Narrative [facility] - 11/27/2022 5:53 AM HOT MILL ROLLER No Laboratory evidence of HIV infection. Ronnie Inman DO LAB - CHEMISTRY ORDERABLES Fi nal Result Performing Organization Address [facility] de Phone Number [facility] [address] [place], [place] [phone] * HEPATITIS SCREEN ACUTE (11/27/2022 4:08 AM HOT MILL ROLLER) HAV Antibody IgM Non Reactive Non Reactive 11/27/2022 5:57 AM HOT MILL ROLLER [facility] HBsAg Non Reactive Non Reactive 11/27/2022 5:57 AM HOT MILL ROLLER [facility] HBc Antibody IgM Non Reactive Non Reactive 11/27/2022 5:57 AM HOT MILL ROLLER [facility] HCV Antibody Screen Non Reactive Non Reactive 11/27/2022 5:57 AM HOT MILL ROLLER [facility] Blood BLOOD SPECIMEN / Unknown Lab Venipuncture / Unknown 11/27/2022 4:08 AM HOT MILL ROLLER 11/27/2022 4:57 AM HOT MILL ROLLER Narrative [facility] - 11/27/2022 5:57 AM HOT MILL ROLLER Non Reactive - Antibodies to Hepatitis C virus (HCV) were not detected, result does not exclude early acute HCV infection. Ronnie Inman DO LAB - CHEMISTRY ORDERABLES Fi nal Result Performing Organization Address [facility] de Phone Number [facility] [address] [place] [phone] from Last 3 Months or Most Recently Relevant to Health Maintenance Insurance [facility] [employer] Advance Directives * Full Code (Latest Code Status on File) Date Activated Date Inactivated Comments 11/03/2024 2:11 PM 11/04/2024 2:35 PM * Full Code Date Activated Date Inactivated Comments 11/26/2022 3:26 AM 12/04/2022 3:41 PM
--- OUTSIDE RECORDS SUMMARY | 2025-03-28 13:29 | XMS_ITS | Clinical Summary ---
Author Organization [facility] Address [address] [place] [address] Care Team Providers Care C[facility]os Name Role Phone Tosha Wolff MD Primary Care Provider + Allergies No known active allergies Social History Tobacco Use Types Packs/Day Years Used Date Smoking Tobacco: Never Assessed Personal Safety Answer Date Recorded Getting School Help Needed Not on file 11/22 Comments Unknown Sex and Gender Information Value Date Recorded Sex Assigned at Not on file Legal Sex Female 6:32 PM CELLAR PUMPER Gender Identity Not on file Sexual Orientation Not on file Last Filed Vital Signs Vital Sign Reading Time Taken Comments Blood Pressure 110/70 12/11/2022 2:30 AM CELLAR PUMPER Pulse 87 12/11/2022 2:30 AM CELLAR PUMPER Temperature 36.5 C (97.7 F) 12/11/2022 1:56 AM CELLAR PUMPER Respiratory Rate 15 12/10/2022 10:25 PM CELLAR PUMPER Oxygen Saturation 100% 12/11/2022 2:30 AM CELLAR PUMPER Inhaled Oxygen Concentration - - Weight 99.8 kg (220 lb) 12/10/2022 10:25 PM CELLAR PUMPER Height - - Body Mass Index - - Plan of Treatment Health Maintenance Due Date Last Done Comments Cervical Cancer Screening 1999 Depression Screening 1999 Hepatitis C Screening 1999 Regular Well Visit/Exam 18-64 2017 Influenza Vaccine (Season Ended) 2025 01/05/2015, 09/16/2013, 10/08/2012, Additional history exists DTaP/Tdap/Td Vaccine (8 - Td or Tdap) 03/25/2029 03/25/2019, 11/19/2010, 09/21/2003, Additional history exists Hepatitis B Screening Completed 04/16/2000 , 1999, 1999, Additional history exists Pneumococcal vaccine <65 Completed 02/12/2001, 11/16 Varicella Vaccines Completed 12/24/2006, 07/31/2000 HPV Vaccines Completed 05/20/2011, 02/2011, 11/29/2010 Insurance [facility] Care Teams Cognos Relationship Specialty Start Date End Date Tosha Wolff MD [address] [place], [place] [phone] PCP - General Family Medicine 12/11/22
--- OUTSIDE RECORDS SUMMARY | 2025-03-28 13:29 | XMS_ITS | Referral Summary ---
Author Organization [facility] Address [address] [place] [address] Care Team Providers Care Hospice Massage Therapist Name Role Phone Tosha Wolff MD Primary Care Provider + Allergies No known active allergies Social History Tobacco Use Types Packs/Day Years Used Date Smoking Tobacco: Never Assessed Personal Safety Answer Date Recorded Getting School Help Needed Not on file 11/22 Comments Unknown Sex and Gender Information Value Date Recorded Sex Assigned at Not on file Legal Sex Female 6:32 PM DIRECTOR DECISION SUPPORT Gender Identity Not on file Sexual Orientation Not on file Last Filed Vital Signs Vital Sign Reading Time Taken Comments Blood Pressure 110/70 12/11/2022 2:30 AM DIRECTOR DECISION SUPPORT Pulse 87 12/11/2022 2:30 AM DIRECTOR DECISION SUPPORT Temperature 36.5 C (97.7 F) 12/11/2022 1:56 AM DIRECTOR DECISION SUPPORT Respiratory Rate 15 12/10/2022 10:25 PM DIRECTOR DECISION SUPPORT Oxygen Saturation 100% 12/11/2022 2:30 AM DIRECTOR DECISION SUPPORT Inhaled Oxygen Concentration - - Weight 99.8 kg (220 lb) 12/10/2022 10:25 PM DIRECTOR DECISION SUPPORT Height - - Body Mass Index - - Plan of Treatment Not on file Insurance [facility] Care Teams Hospice Massage Therapist Relationship Specialty Start Date End Date Tosha Wolff MD [address] [place] [address] [place] [phone] PCP - General Family Medicine 12/11/22
--- OUTSIDE RECORDS SUMMARY | 2025-03-28 13:29 | XMS_ITS | Data Portability ---
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 who recently del. per primary c/s. Bottle feeding and has returned to work. Doing well with her depo. Had 1 week of bleeding. Declines flu shot. Annual exam with normal findings. Abdominal incision intact and well healed. Pt. to RTC in Nov. for second depo. Not available 08/24/2019 11:22:17 09/07/2019 09/07/2019 Hillary is a 19 y.o. alert female here with baby and partner. Positive bonding observed. Infant looks well cared for. No depo problems except early bleeding with first injection. Pt. to get her depo today and RTC in 12 weeks. Declined flu shot. Not available 09/07/2019 12:04:33 Plan of Treatment Reminders Order Date Submit Date Provider Last Modified By Organization Details Last Modified Time Details Appointments None recorded. Lab test, urine 2018 019 In-Office Order, Internal Use Only DO Not Attach Compendium DO Not Attach Compendium, Do Not Delete/merge, [id number] 9 14:21:38 urinalysis , dipstick 2018 019 TRACY In-Office Order, Internal Use Only DO Not Attach Compendium DO Not Attach Compendium, Do Not Delete/merge, [id number] 9 17:42:38 Referral None recorded. Procedures None recorded. Surgeries None recorded. Imaging None recorded. Medication Orders Depo-Prove ra 150 mg/mL intramuscu lar suspension 2018 019 [email or web address] Not available 9 13:07:43 Depo-Prove ra 150 mg/mL intramuscu lar suspension 2018 019 INTERFACE [employer] #[id number], [address] [place], [place], [id number], 9 11:17:53 Depo-Prove ra 150 mg/mL intramuscu lar suspension 2018 Not available 14:21:38 Depo-Prove ra 150 mg/mL intramuscu lar suspension 2018 INTERFACE [employer] #[id number], [address], [id number], 9 14:52:40 Patient Targets Encounter Date Encounter Id Patient Goals Patient Target Last Modified By Organization Details Last Modified Time Continued prevention Not available 08/24/2019 11:23:06 Continued prevention Not available 09/07/2019 12:04:41 Patient Instructions Encounter Date Encounter Id Patient Instructions Last Modified By Organization Details Last Modified Time 08/24/2019 [id number] Pt. informed of recommended cervical screening at age 21. Not available 08/24/2019 11:23:24 09/07/2019 [id number] Pt. informed of influenza vaccine Not available 09/07/2019 12:05:02 Reason for Referral None Reported. Results Created Date Observation Date Name Description Value Unit Range Abnormal Flag Note LastModifiedBy Organization Detail LastModifiedTime 05/09/20 19 05/12/2019 cultu re, urine urine culture, routine Final report Not Available [facility] (Lab) [address] [place], [address], 05/12/2019 16:11:56 05/09/20 19 05/12/2019 cultu re, urine result 1 MUG Mixed uroge nital lefty 25,00 0-50, 000 colon y formi ng units per mL Not Available [facility] (Lab) [address] [place], [address], 05/12/2019 16:11:56 05/09/20 19 05/09/2019 urina lysis , dipst ick Leukocytes Small Not Available In-Offi ce Order Internal Use Only DO Not Attach Compendium DO Not Attach Compendium, Do Not Delete/merge, 05/09/2019 10:25:41 05/09/20 19 05/09/2019 urina lysis , dipst ick Nitrite negati ve Not Available In-Office Order Internal Use Only DO Not Attach Compendium DO Not Attach Compendium, Do Not Delete/merge, 05/09/2019 10:25:41 05/09/2005/09/2019 urina lysis , dipst ick Urobilinogen .2 Not Available In-Of fice Order Internal Use Only DO Not Attach Compendium DO Not Attach Compendium, Do Not Delete/merge, 05/09/2019 10:25:41 05/09/2005/09/2019 urina lysis , dipst ick Protein Negati ve Not Available In-Office Order Internal Use Only DO Not Attach Compendium DO Not Attach Compendium, Do Not Delete/merge, 05/09/2019 10:25:41 05/09/2005/09/2019 urina lysis , dipst ick pH 8.0 Not Available In-Office Order Internal Use Only DO Not Attach Compendium DO Not Attach Compendium, Do Not Delete/merge, 05/09/2019 10:25:41 05/09/2005/09/2019 urina lysis , dipst ick Blood Small Not Available In-Office Order Internal Use Only DO Not Attach Compendium DO Not Attach Compendium, Do Not Delete/merge, 05/09/2019 10:25:41 05/09/2005/09/2019 urina lysis , dipst ick Specific [place] 1.020 Not Available In-Off ice Order Internal Use Only DO Not Attach Compendium DO Not Attach Compendium, Do Not Delete/merge, [id number] 05/09/2019 10:25:41 05/09/2005/09/2019 urina lysis , dipst ick Ketone Negati ve Not Available In-Office Order Internal Use Only DO Not Attach Compendium DO Not Attach Compendium, Do Not Delete/merge, 05/09/2019 10:25:41 05/09/2005/09/2019 urina lysis , dipst ick Bilirubin Negati ve Not Available In-Office Order Internal Use Only DO Not Attach Compendium DO Not Attach Compendium, Do Not Delete/merge, 05/09/2019 10:25:41 05/09/2005/09/2019 urina lysis , dipst ick Glucose Negati ve Not Available In-Office Order Internal Use Only DO Not Attach Compendium DO Not Attach Compendium, Do Not Delete/merge, 05/09/2019 10:25:41 05/09/2005/09/2019 urina lysis , dipst ick Appearance Cloudy Not Available In-Offi ce Order Internal Use Only DO Not Attach Compendium DO Not Attach Compendium, Do Not Delete/merge, 05/09/2019 10:25:41 05/09/2005/09/2019 urina lysis , dipst ick Color Dark Yellow Not Available In-Office Order Internal Use Only DO Not Attach Compendium DO Not Attach Compendium, Do Not Delete/merge, 05/09/2019 10:25:41 05/17/2005/17/2019 type + scree n, serum ABO/Rh typing B Rh Negati ve Not Available [facility] (Lab) [address] [place], [address], 05/17/2019 21:52:47 05/17/2005/17/2019 type + scree n, serum id-mts antbdy screen NEGATI VE Not Available [facility] (Lab) [address], [place], [address], 05/17/2019 21:52:47 05/17/2005/18/2019 rubel la igg Ab scree n, serum rubella antibodies, IgG 1.06 index immune >0.99 Non-i mmune <0.90 Equiv ocal 0.90 - 0.99 Immun e >0.99 Not Available [facility] (Lab) [address], [place], [address], 05/18/2019 08:12:12 05/31/2005/31/2019 urina lysis , dipst ick Leukocytes Negati ve Not Available In-Office Order Internal Use Only DO Not Attach Compendium DO Not Attach Compendium, Do Not Delete/merge, 05/17/2019 10:44:54 05/31/20 19 05/31/2019 urina lysis , dipst ick Nitrite negati ve Not Available In-Office Order Internal Use Only DO Not Attach Compendium DO Not Attach Compendium, Do Not Delete/merge, 05/17/2019 10:44:54 05/31/2005/31/2019 urina lysis , dipst ick Urobilinogen .2 Not Available In-Of fice Order Internal Use Only DO Not Attach Compendium DO Not Attach Compendium, Do Not Delete/merge, 05/17/2019 10:44:54 05/31/2005/31/2019 urina lysis , dipst ick Protein Negati ve Not Available In-Office Order Internal Use Only DO Not Attach Compendium DO Not Attach Compendium, Do Not Delete/merge, 05/17/2019 10:44:54 05/31/2005/31/2019 urina lysis , dipst ick pH 6.5 Not Available In-Office Order Internal Use Only DO Not Attach Compendium DO Not Attach Compendium, Do Not Delete/merge, 05/17/2019 10:44:54 05/31/2005/31/2019 urina lysis , dipst ick Blood Negati ve Not Available In-Office Order Internal Use Only DO Not Attach Compendium DO Not Attach Compendium, Do Not Delete/merge, 05/17/2019 10:44:54 05/31/2005/31/2019 urina lysis , dipst ick Specific [place] 1.025 Not Available In-Off ice Order Internal Use Only DO Not Attach Compendium DO Not Attach Compendium, Do Not Delete/merge, [id number] 05/17/2019 10:44:54 05/31/2005/31/2019 urina lysis , dipst ick Ketone Negati ve Not Available In-Office Order Internal Use Only DO Not Attach Compendium DO Not Attach Compendium, Do Not Delete/merge, 05/17/2019 10:44:54 05/31/2005/31/2019 urina lysis , dipst ick Bilirubin Negati ve Not Available In-Office Order Internal Use Only DO Not Attach Compendium DO Not Attach Compendium, Do Not Delete/merge, 05/17/2019 10:44:54 05/31/2005/31/2019 urina lysis , dipst ick Glucose Negati ve Not Available In-Office Order Internal Use Only DO Not Attach Compendium DO Not Attach Compendium, Do Not Delete/merge, 05/17/2019 10:44:54 05/31/2005/31/2019 urina lysis , dipst ick Leukocytes Small Not Available In-Offi ce Order Internal Use Only DO Not Attach Compendium DO Not Attach Compendium, Do Not Delete/merge, 05/24/2019 11:40:13 05/31/2005/31/2019 urina lysis , dipst ick Nitrite negati ve Not Available In-Office Order Internal Use Only DO Not Attach Compendium DO Not Attach Compendium, Do Not Delete/merge, 05/24/2019 11:40:13 05/31/2005/31/2019 urina lysis , dipst ick Urobilinogen .2 Not Available In-Of fice Order Internal Use Only DO Not Attach Compendium DO Not Attach Compendium, Do Not Delete/merge, 05/24/2019 11:40:13 05/31/2005/31/2019 urina lysis , dipst ick Protein Negati ve Not Available In-Office Order Internal Use Only DO Not Attach Compendium DO Not Attach Compendium, Do Not Delete/merge, 05/24/2019 11:40:13 05/31/2005/31/2019 urina lysis , dipst ick pH 7.0 Not Available In-Office Order Internal Use Only DO Not Attach Compendium DO Not Attach Compendium, Do Not Delete/merge, 05/24/2019 11:40:13 05/31/2005/31/2019 urina lysis , dipst ick Blood Non-He molyze d: Trace Not Available In-Office Order Internal Use Only DO Not Attach Compendium DO Not Attach Compendium, Do Not Delete/merge, 05/24/2019 11:40:13 05/31/2005/31/2019 urina lysis , dipst ick Specific [place] 1.020 Not Available In-Off ice Order Internal Use Only DO Not Attach Compendium DO Not Attach Compendium, Do Not Delete/merge, 05/24/2019 11:40:13 05/31/2005/31/2019 urina lysis , dipst ick Ketone Negati ve Not Available In-Office Order Internal Use Only DO Not Attach Compendium DO Not Attach Compendium, Do Not Delete/merge, 05/24/2019 11:40:13 05/31/2005/31/2019 urina lysis , dipst ick Bilirubin Negati ve Not Available In-Office Order Internal Use Only DO Not Attach Compendium DO Not Attach Compendium, Do Not Delete/merge, 05/24/2019 11:40:13 05/31/2005/31/2019 urina lysis , dipst ick Glucose Negati ve Not Available In-Office Order Internal Use Only DO Not Attach Compendium DO Not Attach Compendium, Do Not Delete/merge, 05/24/2019 11:40:13 05/31/2005/31/2019 urina lysis , dipst ick Leukocytes Small Not Available In-Offi ce Order Internal Use Only DO Not Attach Compendium DO Not Attach Compendium, Do Not Delete/merge, 05/30/2019 10:38:03 05/31/2005/31/2019 urina lysis , dipst ick Nitrite negati ve Not Available In-Office Order Internal Use Only DO Not Attach Compendium DO Not Attach Compendium, Do Not Delete/merge, 05/30/2019 10:38:03 05/31/20 19 05/31/2019 urina lysis , dipst ick Urobilinogen .2 Not Available In-Of fice Order Internal Use Only DO Not Attach Compendium DO Not Attach Compendium, Do Not Delete/merge, 05/30/2019 10:38:03 05/31/20 19 05/31/2019 urina lysis , dipst ick Protein Negati ve Not Available In-Office Order Internal Use Only DO Not Attach Compendium DO Not Attach Compendium, Do Not Delete/merge, 05/30/2019 10:38:03 05/31/20 19 05/31/2019 urina lysis , dipst ick pH 7.0 Not Available In-Office Order Internal Use Only DO Not Attach Compendium DO Not Attach Compendium, Do Not Delete/merge, 05/30/2019 10:38:05/31/20 19 05/31/2019 urina lysis , dipst ick Blood Small Not Available In-Office Order Internal Use Only DO Not Attach Compendium DO Not Attach Compendium, Do Not Delete/merge, 05/30/2019 10:38:03 05/31/20 19 05/31/2019 urina lysis , dipst ick Specific [place] 1.015 Not Available In-Off ice Order Internal Use Only DO Not Attach Compendium DO Not Attach Compendium, Do Not Delete/merge, 05/30/2019 10:38:03 05/31/20 19 05/31/2019 urina lysis , dipst ick Ketone Negati ve Not Available In-Office Order Internal Use Only DO Not Attach Compendium DO Not Attach Compendium, Do Not Delete/merge, 05/30/2019 10:38:03 05/31/20 19 05/31/2019 urina lysis , dipst ick Bilirubin Negati ve Not Available In-Office Order Internal Use Only DO Not Attach Compendium DO Not Attach Compendium, Do Not Delete/merge, 05/30/2019 10:38:03 05/31/20 19 05/31/2019 urina lysis , dipst ick Glucose Negati ve Not Available In-Office Order Internal Use Only DO Not Attach Compendium DO Not Attach Compendium, Do Not Delete/merge, [id number] 05/30/2019 10:38:03 06/22/20 19 06/22/2019 pregn ana m test, urine HCG negati ve Not Available In-Office Order Internal Use Only DO Not Attach Compendium DO Not Attach Compendium, Do Not Delete/merge, [id number] 06/22/2019 16:08:51 05/25/20 19 05/25/2019 US, obste tric, limit ed EXAMIN ATION: Late OB Pregna ncy Ultras ound Limite d ACCESS ION: [id number] EXAM DATE/T KAMILA: 019 7:37 AM REASON FOR EXAM: [id number] 008: Uterin e size for dates discre pancy Uterin e size date discre pancy pregna nt. COMPAR CESILIA: Prior OB ultras ounds every 2018 and March 16, 2019. TECHNI QUE: Ultras ound examin ation of the pelvis was perfor med utiliz ing transa bdomin al approa ch to assess graysc shivani appear ance, color dopple r flow, and spectr al wavefo rm charac terist ics. FINDIN GS: Mean BPD: 9.61cm . 39 week 1 day Mean HC of 34.9 cm. 40 week 4 day Mean AC of 35.44 cm. 39 week 2 day Mean FL of 7.91 cm. 40 week 3 day Approx imate gestat ional age by LMP: 39 week 1 day . Approx imate gestat ional age by ultras ound: 41 week 1 day BENJAMIN= by chely t ultras ound measur ements , May 17, 2019 Number of fetus( es): 1 HC/AC: Not valid FL/AC% : 22.3% FL/BPD %: Not valid% CI: Not valid Estima jeremias weight : 3869 g +/- 966 g presen tation : Vertex Placen ta locati on: Guest Services Attendant ior heart rate: 133 Amniot ic fluid: Subjec tively adequa te Remain deepa of the survey not perfor med on this limite d exam. ===== IMPRES MADIE: ===== 1. Single live intrau terine gestat ion of approx imate gestat ional age of 41 week 1 day and with approx imate heart rate of 133 beats per minute . 2. Guest Services Attendant ior placen ta. Margin s of the placen ta are not comple tely define d. 3. survey not perfor med on this limite d exam. READ BY: TYRELL QUINTANILLA Date: 2018 08:14 [facility] (Rad) [address] [place], [address], 05/25/2019 15:43:36 06/04/20 19 06/04/2019 XR, chest , 2 view No observ ation record ed. [address] [place], [address], 06/04/2019 14:02:16 06/04/20 19 06/04/2019 CT, abdom en + pelvi s, w/ contr ast No observ ation record ed. [address] [place], [address], 06/05/2019 18:42:55 Result Notes None recorded. 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 Persiste nt culture results and.poor pt. complian ce. Pt. placed on [facility] antibiot ic regime 5-10-19 with macrobid . 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 JACQUELINE Pack SI 14:47:18 Administ ration of diphther ia, pertussi s, and tetanus vaccine Completed 2018 Sherita begum [place] - [facility] 9 14:47:18 Group B Streptoc occus carrier [id number] 03 Completed 2018 JACQUELINE Pack - [facility] 9 14:47:18 Splenome jessica 50879876 Active Hailey Nguyen CPNP-PC Attn: Rosio leelee,[address] [place], [address], [facility] - [facility] 6 10:46:57 Obese 812284529 Active Hailey Nguyen CPNP-PC Attn: Roiso g,[address] [place], [address], [place] [facility] 6 11:08:53 Visual impairme nt 832600263 Active Hailey Nguyen, CPNP-PC Attn: Accountin g,[address] [place], [address], [place] [facility] 6 11:08:53 Acne 24021775 Active Hailey Nguyen, CPNP-PC Attn: Accountin g,[address] [place], [address], [place] [facility] 6 11:08:53 Keratosi s pilaris 6542131 Active JERARDO Watters Attn: Rosio mckoy,[address], [place], [address], [facility] - [facility] 6 11:08:53 Problem Notes None recorded. Procedures Surgical History Date Name Laterality Status Provider Name and Address Organization Details Recorded Time 06/22/20 19 Depo Injection completed Sherita Petty [place] - [facility] 06/23/20 19 14:21:00 11/16/19 10 Appendectomy completed Awa Vernon [place] - [facility] 12/11/2014 16:16:32 11/16/19 10 Tonsillectomy completed Awa Vernon [place] - [facility] 12/11/2014 16:16:32 Imaging Results Imaging Date Name Status LastModified by Organiz ation Details LastModified Time 05/25/2019 US, obstetric, limited completed [facility] (Rad) [address] [place], [address], 05/25/2019 15:43:36 06/04/2019 XR, chest, [address] view completed [address] [place], [address], 06/04/2019 14:02:16 06/04/2019 CT, abdomen + pelvis, w/ contrast completed [address] [place], [address], 06/05/2019 18:42:55 Procedure Notes None recorded. Medical Equipment None Reported. Allergies No known drug allergies Medications Name Sig Start Date Stop Date Status Note LastModified by Organization Details LastModified Time ampicillin 500 mg capsule Take 1 capsule every 6 hours by oral route for 10 days. 05/09 completed Not Available Not Available Not Available ciprofloxac in 500 mg tablet Take 1 tablet every 12 hours by oral route for 7 days. 05/09 completed Not Available Not Available Not Available Macrobid 100 mg capsule Take 1 capsule twice a day by oral route for 30 days. 05/09 completed Not Available Not Available Not Available Zofran 4 mg tablet one tab po q8 hrs prn nausea 2018 active Not Available Not Available Not Avai lable Depo-Bridge Gang Worker a 150 mg/mL intramuscul ar suspension Inject 1 mL every 3 months by intramusc ular route for 90 days. 2018 active Not Available Not Available Not Avai lable ferrous sulfate 325 mg (65 mg iron) tablet Take 1 tablet every day by oral route. 2018 active Not Available Not Available Not Avai lable 27 mg iron-1 mg tablet Take 1 tablet every day by oral route for 60 days. 2018 active Not Available Not Available Not Avai lable RhoGAM Ultra-Filte red PLUS 1,500 unit (300 mcg) intramuscul ar syringe Inject 300 microgram s every day by intramusc ular route. 05/09 completed Not Available Not Available Not Available Vitals Date Recorded Body height Body mass index (BMI) Body mass index (BMI) [Percentile] Per age and sex Systolic blood pressure Diastolic blood pressure Provider Name and Address Organization Details Last Updated DateTime 9 165.1 cm 39.3 kg/m2 98 % 114 mm[Hg] 76 mm[Hg] Shantelle Lozada MA [facility] 9 10:37:48 Date Recorded Body weight Provider Name an d Address Organization Details Last Updated DateTime 05/30/2019 [id number] leelee [facility] 05/30/20 19 14:26:44 Date Recorded Body height Body mass index (BMI) Body mass index (BMI) [Percentile] Per age and sex Respiratory rate Systolic blood pressure Diastolic blood pressure Provider Name and Address Organization Details Last Updated DateTime 9 165.1 cm 35.7 kg/m2 97 % 18 /min 100 mm[Hg] 72 mm[Hg] Lauren Villavicencio MA [facility] 9 14:27:45 Date Recorded Body weight Provider Name an d Address Organization Details Last Updated DateTime 06/08/2019 [id number] [facility] 06/08/20 19 14:47:27 Date Recorded Body height Body mass index (BMI) [Percentile] Per age and sex Body mass index (BMI) Body weight Systolic blood pressure Diastolic blood pressure Provider Name and Address Organization Details Last Updated DateTime 9 165.1 cm 96 % 33.8 kg/m2 52573.2 5 g 110 mm[Hg] 60 mm[Hg] Shantelle Lozada MA [facility] 9 16:07:45 Date Recorded Body height Body mass index (BMI) Body mass index (BMI) [Percentile] Per age and sex Body weight Systolic blood pressure Diastolic blood pressure Provider Name and Address Organization Details Last Updated DateTime 9 165.1 cm 36.1 kg/m2 97 % 28542.5 4 g 110 mm[Hg] 60 mm[Hg] Miryam Allen [facility] 9 11:00:22 Date Recorded Body height Body mass index (BMI) [Percentile] Per age and sex Body mass index (BMI) Body weight Systolic blood pressure Diastolic blood pressure Provider Name and Address Organization Details Last Updated DateTime 9 165.1 cm 97 % 36.3 kg/m2 49184.1 4 g 110 mm[Hg] 60 mm[Hg] Miryamtl RileyAlejandro [facility] 9 11:11:33 Social History Question Answer Notes LastModified by Organizat ion Details LastModified Time Tobacco Smoking Status Never Smoker Awa Vernon MA [facility], [facility] 12/11/2014 16:16:32 Do You Have An Advance Directive? No Information not available 05/17/2019 If You Are , What Was Your Level Of Alcohol Consumption Prior To ? None Information not available 06/08/2019 Animal Exposure? No Informat ion not available 12/11/2014 Do You Wear A Helmet When Biking? Yes Information not available 12/11/2014 Plan No Information no t available 05/17/2019 Is Blood Transfusion Acceptable In An Emergency? Yes Information not available 05/17/2019 What Is Your Level Of Caffeine Consumption? None Information not available 06/08/2019 Live With Cats/exposure To Cat Litter No Information not available 05/17/2019 How Much Tobacco Do You Chew? None Information not available 05/17/2019 What Type Of Diet Are You Following? REGULAR Information not available 12/11/2014 Which Illicit Or Recreational Drugs Have You Used? Denied Information not available 05/17/2019 Education 12 Information not available 05/17/2019 Have There Been Any Changes To Your Family Or Social Situation? No Information not available 06/08/2019 Are There Any Guns Present In Your Home? No Information not available 12/11/2014 What Is Your Home Situation? Mother Mom (Yohannes), Mom's Boyfriend (Santy), 13 Yo Sister, 10 Yo Brother aparsley Information not available 01/05/2015 Illicit Drugs Pre- T Denied Information not available 06/08/2019 Do You Use Insect Repellent Routinely? No Information not available 12/11/2014 Live Alone Or With Others? With Others Father Of Child Information not available 05/17/2019 Parent Involvement? Dad Not Invloved Information not available 12/11/2014 Riding In Car Front Seat? Yes Information not available 12/11/2014 Marital Status Single Informatio n not available 06/08/2019 What Was The Date Of Your Most Recent Tobacco Screening? 06/08/2019 Information not available 06/09/2019 How Many Children Do You Have? 1 Information not available 06/08/2019 What Is Your Parents' Marital Status? Unmarried Information not available 12/11/2014 Performs Monthly Self-breast Exam? No Sometimes Information not available 05/17/2019 Pool Exposure Yes Information not available 12/11/2014 Do You Use Protection During Sex? No Information not available 05/17/2019 What Is Your Relationship Status? Single Information not available 05/17/2019 What Is The Name Of Your School? [employer] Information not available 04/23/2016 Seat Belts Used Routinely Yes Information not available 05/17/2019 Are You Sexually Active? Yes Information not available 05/17/2019 Do You Have Smoke And Carbon Monoxide Detectors In Your Home? Yes Information not available 12/11/2014 Are You Passively Exposed To Smoke? No Information not available 06/08/2019 How Much Tobacco Do You Smoke? No Information not available 06/08/2019 Smoking Pre- No Information not available 06/08/2019 General Stress Level Low Information not available 05/17/2019 Do You Use Sunscreen Routinely? No Information not available 06/08/2019 Has Tobacco Cessation Counseling Been Provided? No Information not available 06/08/2019 Year In School 12 Informatio n not available 04/23/2016 Sex: Unknown Functional Status Question Answer Note LastModified by Organization D etails LastModified Time What is your level of alcohol consumption? None Information not available 05/17/2019 Are you currently employed? 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 Moderate Information not available 12/11/2014 Mental Status Question Answer Note LastModified by Organization D etails LastModified Time Are you or have you been involved with bullying? No Information not available 12/11/2014 Family History Relationship Description Onset Age of this Age Resolved Age Notes LastModified by Organization Details LastModified Time Father Diabetes mellitus [email or web address] Not available 2015 10:47:10 Medical History Condition Response Other N High Blood Pressure N Breast Cancer N Thyroid Problems N Kidney or Bladder Problems N GI Problems N Depression N Blood Clots N Lung Disease N Acne N Breast Problem N Eating Disorder N Anemia N Anesthesia Complications N Headaches/Migraines N Anxiety Disorder N Diabetes N Ovarian Cancer N Muscle, Joint, or Bone Problems N Blood Transfusions N Seizures/Epilepsy N Polyps N Infertility N Acid Reflux (GERD) N Cancer N Abuse/Domestic Violence N Asthma N Endometriosis N High Cholesterol N Hepatitis N Liver Disease N Heart Disease N Pre-Eclampsia N Osteoporosis N Gynecological History Statement/Question Response Flow Moderate Frequency of Cycle (Q days) 28 Sexually Active? Y Menses Monthly N STIs/STDs N HPV Vaccine N Sexual Problems? 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 Menarche 13 LMP Approximate Obstetrics History GPAL:G 1 P 2 0 0 1 Type Value Full Term 2 Living 1 Total 1 Immunizations Vaccine Type Date Status Note Provider Nam e and Address Organization Details Recorded Time meningococcal MCV4P 6 completed Not Available [facility] 12/03/2019 02:29:57 Influenza, split virus, quadrivalent, PF 5 completed Not Available [facility] 12/03/2019 02:50:25 Tdap 9 completed Not Available [facility] 12/03/2019 02:42:32 DTaP,IPV,Hib,HepB 9 completed Awa [place] null, [place] - [facility] 12/12/2014 11:45:19 DTaP,IPV,Hib,HepB 0 [place] Awa [place] [facility] 12/12/2014 11:45:51 DTaP-Hib 1 completed Awa [place] [facility] 12/12/2014 11:46:20 DTaP-Hib 0 [place]wa [place] [facility] 12/12/2014 11:46:20 DTaP-IPV 3 completed Awa [place] [facility] 12/12/2014 11:48:49 Hep B, adolescent or pediatric 0 completed [place]wa [place] [facility] 12/12/2014 11:49:56 Hep B, adolescent or pediatric 9 completed Awa [place] [facility] 12/12/2014 11:49:56 MMRV 0 completed [place]wa [place] [facility] 12/12/2014 11:51:45 MMR 3 completed [place]wa [place] [facility] 12/12/2014 11:52:23 varicella 7 completed Awa [place] [facility] 12/12/2014 11:52:45 Tdap 1 [place] THU [place] [facility] 12/12/2014 11:53:07 Pneumococcal conjugate PCV 13 1 completed THU Cab[place], [place] - [facility] 12/12/2014 11:53:44 Pneumococcal conjugate PCV 13 1 [place]U [place] [facility] 12/12/2014 11:53:44 Hep A, ped/adol, 2 dose 2 completed THU [place] [facility] 12/12/2014 12:23:32 Hep A, ped/adol, 2 dose 1 [place]U [place] [facility] 12/12/2014 12:23:32 meningococcal MCV4, unspecified formulation 1 completed THU [place] [facility] 12/12/2014 12:23:49 HPV, quadrivalent 1 [place] THU [place] [facility] 12/12/2014 12:24:31 HPV, quadrivalent 1 [place] THU [place] [facility] 12/12/2014 12:24:31 HPV, quadrivalent 1 completed THU [place] [facility] 12/12/2014 12:24:31 Influenza, MDCK, trivalent, PF 3 completed THU [place] [facility] 12/12/2014 12:25:12 Influenza, MDCK, trivalent, PF 2 completed THU [place] [facility] 12/12/2014 12:25:12 Past Encounters Encounter ID Performer Location Encounter Start Date Encounter Closed Date Diagnosis/Indication Diagnosis SNOMED-CT Code Diagnosis ICD10 Code Diagnosis Note [id number] DO Tono Almazan (Peds) [address] [place] [address] 12/11/2014 15:36:27 12/11/2014 17:02:37 Infectious mononucleosis [id number] Reviewed Jonnie labs that are more indicative of prior EBV infection (and Group A strep culture negative). Mother wants to know specific infection. Will retest IGM and test for CMV IgG and IgM. May continue viscous lidocaine as directed by ER and Tylenol for pain. Need to increase po fluid intake and drink fluid with electrolyt es (Pedialyte or Gatoraid) if not eating at all. Go to ER if not able to drink enough to void q 8 hours on average. Note given restrictin g from all physical activity until cleared by physician (plan splenic ultrasound to clear at 4-6 weeks). Go to ER for severe abdominal pain. [id number] DO Tono Almazan (Peds) [address] [place] [address] 01/05/2015 11:05:37 01/05/2015 14:00:01 Infectious mononucleosis [id number] Symptoms resolved. Administra tion of influenza vaccine 80510268 Splenomegaly 96224812 St ill possible enlarged spleen on exam. Will have abdominal ultrasound before allowing return to physical activity. Patient to go for ultrasound today (per [facility] radiology can complete). I Will call mother with results. [id number] JERARDO Watters [facility] (Peds) [address] [place] [address] 04/23/2016 10:13:03 04/23/2016 15:59:49 Well child 092793229 Z00.129 Obese 844542162 E66.9 Discussed risk for diabetes- nutrition and physical activity Visual impairment 712063 003 H54.7 Wears glasses Acne 84539397 L70.9 Washes face only once daily with Dove Keratosis pilaris 002002 5 L85.8 [id number] [facility] [address] [place] [address] 12/03/2018 14:26:23 12/03/2018 17:01:07 [id number] Z33.1 [id number] [facility] [address] [place] [address] 12/24/2018 15:12:17 12/24/2018 16:11:28 Normal 36751824 Z34.92 Blood in urine 13990117 R31.9 [id number] Sherita Petty MD [facility] ([facility]) [address] [place] [address] 01/14/2019 10:31:47 01/14/2019 12:50:47 Urinary tract infectious disease 38703894 N39.0 Normal 7122442 2 Z34.92 [id number] Sherita Petty MD [facility] ([facility]) [address] [place] [address] 02/04/2019 10:50:37 02/04/2019 12:02:18 Unintentional weight loss 286044301 R63.4 Normal 4289206 2 Z34.92 [id number] Sherita Petty MD [facility] ([facility]) [address] [place] [address] 02/25/2019 10:44:34 02/25/2019 17:31:22 Normal 61180372 Z33.1 Cloudy urine 5776534 R82 .90 14377374 Z33.1 [id number] Surinder Mittal MD [facility] ([facility]) [address] [place] [address] 03/11/2019 12:10:00 03/11/2019 17:03:40 Normal 70154499 Z34.83 [id number] Sherita Petty MD [facility] ([facility]) [address] [place] [address] 03/25/2019 12:16:47 03/28/2019 13:21:38 Bacteria in urine on examination 275411245 R82.71 37188826 Z33.1 Administra tion of diphtheria, pertussis, and tetanus vaccine 324585206 Z23 [id number] Sherita Petty MD [facility] ([facility]) [address] [place] [address] 04/14/2019 16:40:19 04/15/2019 10:06:16 Normal 31382115 Z33.1 Edema of l ower extremity 905681100 R60.0 Contraception care 77709 5005 Z30.40 [id number] Sherita Petty MD [facility] ([facility]) [address] [place] [address] 04/28/2019 12:04:44 04/28/2019 14:47:23 Normal 26783074 Z33.1 [id number] Sherita Petty MD [facility] ([facility]) [address] [place] [address] 05/09/2019 10:15:14 05/09/2019 11:14:48 Normal 68095385 Z33.1 Bacteria i n urine on examination 495846327 R82.[address] reptococcus carrier 8251362903 103 Z22.341 [id number] Sherita Petty MD [address] [address] 05/17/2019 10:19:04 05/18/2019 14:14:01 Normal 10838475 Z34.03 Uterine si ze for dates discrepancy 803744640 O26.488 [id number] Sherita Petty MD [address] [address] 05/24/2019 11:01:22 05/31/2019 16:20:44 Normal 45240744 Z34.03 [id number] Sherita Petty MD [address] [address] 05/30/2019 09:55:07 05/30/2019 14:28:10 Normal 27212770 Z34.03 [id number] Sherita Petty MD [address] [address] 06/08/2019 14:06:07 06/08/2019 15:18:42 Postoperative visit 229426533 Z09 No signs of infection. RTC in 4 weeks for PP visit Contraception care 62533 5005 Z30.40 RTC in 2 weeks for depo provera. [id number] Sherita Petty MD [address] [address] 06/22/2019 15:51:28 06/23/2019 14:22:13 Contraception care 411681569 Z30.40 RTC in 3 weeks for PP care. Return to work with lifting restrictio ns. [id number] MD Nahomi Lazar [facility] ([facility]) [address] [place] [address] 08/24/2019 10:33:28 08/24/2019 15:38:24 Gynecologic examination 50512189 Z01.419 Contraception care 70208 5005 Z30.40 [id number] [facility] [address] [place] [address] 09/07/2019 10:59:27 09/07/2019 13:34:06 Contraception care 215614727 Z30.40 Health Concerns Section Related Observation LastModified by Organization Detai ls LastModified Time None Recorded Concern Status LastModified by Organization Details LastModified Time None Recorded Advance Directives Directive N: Payers Encounter Date Sequence Insurance Name Policy Number Policy Sylvester Covered Member ID Sylvester Member ID Guarantor Name 05/30/2019 1 [facility] (MEDICAID HMO) [facility] Merlos [id number] Yohannes Merlos 06/08/2019 1 [facility] (MEDICAID HMO) [facility] Merlos [id number] Yohannes Merlos 06/22/2019 1 [facility] (MEDICAID HMO) [facility] Mer[facility] [id number] Yohannes Merlos 08/24/2019 1 [facility] (MEDICAID HMO) [facility] Merlos [id number] Yohannes Merlos 09/07/2019 1 [facility] (MEDICAID O) [facility] Merlos [id number] Yohannes Merlos Notes Date Note Type Note Provider Name and Address Organization Details Recorded Time 05/30/2019 text/html 39w OB visit JACQUELINE Pack 05/30/2019 14:27:51 06/08/2019 text/html 18 y.o. 1 week s /p primary C/section. PP course complicated by endometritis and anemia. Discharged to home on antibioitics. No longer taking pain medications. Exclusively bottle feeding. Interested in depo provera for contraception. Continues to have some bleeding, but not heavy like a period. JACQUELINE Pack 06/08/2019 15:18:31 06/22/2019 text/html 18 y.o. here for depo provera. Ready to return to work. S/P 1 C/section 3 weeks ago. No complaints. JACQUELINE Pack 06/23/2019 14:22:04 08/24/2019 text/html RTC for annual exam. Missed visit. Del. primary c/s 3 months ago, baby girl. Bottle feeding with no problems. Did start depo and has return appointment. Shira begum [place] - [facility] 08/24/2019 11:23:51 09/07/2019 text/html RTC for depo. Didnt get depo earlier this month. Had a couple of days of bleeding after getting first depo but no problems now. JACQUELINE [place] - [facility] 09/07/2019 12:05:25 OBGyn Episode Ob Episode Information Episode Created Date Number of Fetuses Patient Bloodtype Patient rh Status Prepregnancy Weight lbs Domestic Partner Domestic Partner Phone Father Name Terra Cotta Roofer Status 12/03/19 18 1 B Negative Jose Miguel Diez CLOSED Fetus Data First Name Last Name Admitted to NICU Weight (g) Sex Living Outcome Pediatric Complications Fetus ID Race Codes Race Delivery Type Radha montelongo true [phone] 3 F Full Term [id number] [id number] Afric an Ameri can Problems Problem Notes Dating by 12/03/18 HB ant ibody ordered not antigen (HB antibody results, indicated immunity. HBsAG ordered 04/28/19 negative. Problem Name Start Date End Date Resolution Snomed Code Not e Ultrasound scan abnormal [id number] Repeat evaluati on of the three-vessel cord, four-chamber heart, outflow tracts appear grossly normal. Bacteria in urine on examination 12/24/2018 [id number] Cipro [id number]> Urine culture positive for Staphylococcus saprophyticus after treatment. Persistent culture results and.poor pt. compliance. Pt. placed on maintenance antibiotic regime 03-25-19 with macrobid. Group B Streptococcus carrier 04/28/2019 [id number] Administration of diphtheria, pertussis, and tetanus vaccine 03/25/2019 989298464 Blood group B Rh(D) negative 12/03/2018 259713985 Rhogam given Anemia 532594214 Rx: Fe roque ly Urinary tract infectious disease 74446654 prviously positive for Proteus mirabilis, now positive for Staphylococcus saprophyticus, Rx: Macrobid05/09 Urine culture negative Benjamin Calculation Initial Benjamin Date Initial Exam Date Initial Exam Provider Initial Ultrasound Date Last Menstrual Period Date Ultra Sound Weeks Gestation 05/30/2019 12/03/2018 12/31/2018 08/23/2018 18 Eighteen To Twenty Week Benjamin Update Ultra Sound Date Fundal Height At Umbil Quickening Date Ultra Sound Latest Weeks Gestation Final Benjamin Confirmed By Final Benjamin Confirmed Date Final Benjamin Date Ultra Sound Latest Days Gestation 0 05/30/20 19 0 Pre- Flowsheet Flowsheet Date 12/03/2018 Emerson Score Blood Edema Fundus Height Fundus Units Glucose Ketones Leukocytes Nitrite Labor Signs Protein Cervic Dilation Cervic Effacement Cervic Station Type Weight in lbs Pre/Post Dialysis Refused Weight 199.059974158861 BP Diastolic BP Location Tested BP Systolic BP Type 64 110 sitting Fetus Heart Rate Present Fetus Movement Comments Flowsheet Date 12/24/2018 Emerson Score Blood Edema Fundus Height Fundus Units Glucose Ketones Leukocytes Nitrite Labor Signs Protein Cervic Dilation Cervic Effacement Cervic Station trace none none large none neg 0cm 0% -4 Type Weight in lbs Pre/Post Dialysis Refused Weight 206.828758826578 BP Diastolic BP Location Tested BP Systolic BP Type 66 110 Fetus Heart Rate Present A 140's Fetus Movement A Yes Comments RTC with partner for NOB nasreen ointment. Discussed panel results. Still taking medication for UTI. Flowsheet Date 01/14/2019 Emerson Score Blood Edema Fundus Height Fundus Units Glucose Ketones Leukocytes Nitrite Labor Signs Protein Cervic Dilation Cervic Effacement Cervic Station neg 19 none negative none neg Type Weight in lbs Pre/Post Dialysis Refused Weight 214.610729162867 BP Diastolic BP Location Tested BP Systolic BP Type 70 110 Fetus Heart Rate Present A 130's-140's Fetus Movement A No Comments RTC for visits. Den ies problems. 8 pounds weight gain. Finished medication for UTI. Flowsheet Date 01/21/2019 Emerson Score Blood Edema Fundus Height Fundus Units Glucose Ketones Leukocytes Nitrite Labor Signs Protein Cervic Dilation Cervic Effacement Cervic Station Type Weight in lbs Pre/Post Dialysis Refused BP Diastolic BP Location Tested BP Systolic BP Type Fetus Heart Rate Present Fetus Movement Comments Pt seen on L+D at [facility] compla int of nausea and emesis and back pain. FHT 150s. abd soft nontender, cva nontender. urine with ketones and wbc. repeat culture sent. advise oral hydration. rx zofran sent to pharmacy. KIM Flowsheet Date 02/04/2019 Emerson Score Blood Edema Fundus Height Fundus Units Glucose Ketones Leukocytes Nitrite Labor Signs Protein Cervic Dilation Cervic Effacement Cervic Station neg none 22 none negative none neg Type Weight in lbs Pre/Post Dialysis Refused Weight 212.68623658361 BP Diastolic BP Location Tested BP Systolic BP Type 60 116 Fetus Heart Rate Present A 150's Fetus Movement A Yes Comments Now feeling fluttering. Seen in ED for nausea and fever. Says temp. was 104 at home but lower when she got to the ED. Had finished first medication for UTI but was given a new one by ED. Currently still taking ED medication. No c/o painful urination. Not sure why she is losing weight, does work and do a lot of walking. Flowsheet Date 02/25/2019 Emerson Score Blood Edema Fundus Height Fundus Units Glucose Ketones Leukocytes Nitrite Labor Signs Protein Cervic Dilation Cervic Effacement Cervic Station trace trace 26 none negative none neg Type Weight in lbs Pre/Post Dialysis Refused Weight 217.948967852809 BP Diastolic BP Location Tested BP Systolic BP Type 70 110 sitting Fetus Heart Rate Present A 140's-150's Fetus Movement A Yes Comments RTC for visit. Noti daisha ankle swelling this moroning. On her feet a lot for work. No c/o SOB. Had a 3D u/s that she paid for herself. Flowsheet Date 03/11/2019 Emerson Score Blood Edema Fundus Height Fundus Units Glucose Ketones Leukocytes Nitrite Labor Signs Protein Cervic Dilation Cervic Effacement Cervic Station trace none 28 cm none negative neg Type Weight in lbs Pre/Post Dialysis Refused Weight 220.771852977931 BP Diastolic BP Location Tested BP Systolic BP Type 56 110 sitting Fetus Heart Rate Present A 130's Fetus Movement A Yes Comments The pt has no issues or conc erns. The pt was informed her GTT had returned nml (111), but she was found to be anemic. She wants to know what is anemia. Explained the amount of her blood in circulation is less than nml. Informed pt that Fe was the tx for this condition. Explained that it can make someone constipated. The pt states that she already constipated from the PNV. Informed the pt that if she becomes more constipated that she should inform us b/c we could add stool softeners. The pt is mainly here to get Rhogam. I could not find an Ab screen in [place]. A T/S was ordered after her injection today. The pt is willing to get 3rd trimester HIV and RPR as well. The pt was informed that her urine is no longer positive for Proteus mirabilis/penneri, but she is now positive for Staphylococcus saprophyticus. Discussed a wks course of Macrobid. The pt s initial u/s was unable to completely visualize the heart, ventricular outflow tracts, and a 3VC. She had a 3-D u/s but never had another official u/s. The pt wonders what the status of her JEREMIAS cazares is. [facility] is out of the office today. Informed pt that I will look into it. Discussed vaccines in . The pt is willing to get TDAP at the next visit. Flowsheet Date 03/25/2019 Emerson Score Blood Edema Fundus Height Fundus Units Glucose Ketones Leukocytes Nitrite Labor Signs Protein Cervic Dilation Cervic Effacement Cervic Station trace 30 none negative none neg Type Weight in lbs Pre/Post Dialysis Refused Weight 222.36197746318 BP Diastolic BP Location Tested BP Systolic BP Type 60 102 sitting Fetus Heart Rate Present A 140's-150's Fetus Movement A Yes Comments RTC for care. Crystal rned about getting vaccines while has been told that vaccines are dangerous in . Continues taking iron pills. Hasn't completed antibiotics as of yet. Flowsheet Date 04/14/2019 Emerson Score Blood Edema Fundus Height Fundus Units Glucose Ketones Leukocytes Nitrite Labor Signs Protein Cervic Dilation Cervic Effacement Cervic Station trace trace 33 none negative none neg Type Weight in lbs Pre/Post Dialysis Refused Weight 226.048993193692 BP Diastolic BP Location Tested BP Systolic BP Type 60 104 Fetus Heart Rate Present A 140's Fetus Movement A Yes Comments RTC for visit. Repo rts being on her feet 40 hrs/wk and not interested in starting maternity leave as of now. Continues to take antibiotic for urine. Denies urination problems. Flowsheet Date 04/28/2019 Emerson Score Blood Edema Fundus Height Fundus Units Glucose Ketones Leukocytes Nitrite Labor Signs Protein Cervic Dilation Cervic Effacement Cervic Station trace none 36 none negative none neg 0cm 0% -4 Type Weight in lbs Pre/Post Dialysis Refused Weight 230.768628575243 BP Diastolic BP Location Tested BP Systolic BP Type 60 110 sitting Fetus Heart Rate Present A 150's Fetus Movement A Yes Comments RTC for appointment . Denies s/s of PTL. Has been taking antibiotics with no problems. Desires to have a nexplanon after delivery. Wants to change to [facility] for continued care. Urine cloudy with hemolyzed blood. Flowsheet Date 05/09/2019 Emerson Score Blood Edema Fundus Height Fundus Units Glucose Ketones Leukocytes Nitrite Labor Signs Protein Cervic Dilation Cervic Effacement Cervic Station 1+ none 40 none negative none neg Type Weight in lbs Pre/Post Dialysis Refused Weight 230.597848442714 BP Diastolic BP Location Tested BP Systolic BP Type 72 126 sitting Fetus Heart Rate Present A 140's-150's Fetus Movement A Yes Comments RTC for visit. Diss appointed that baby hasnt dropped. No s/s of labor. Continues taking antibiotics. Discussed GBS being positive . Flowsheet Date 05/17/2019 Emerson Score Blood Edema Fundus Height Fundus Units Glucose Ketones Leukocytes Nitrite Labor Signs Protein Cervic Dilation Cervic Effacement Cervic Station neg none 41 cm none negative Uterine Contract ions neg Type Weight in lbs Pre/Post Dialysis Refused Weight 234.388936065453 BP Diastolic BP Location Tested BP Systolic BP Type 58 98 sitting Fetus Heart Rate Present A 165 Present Fetus Movement A Yes Comments Reviewed . + FM, No bleeding, No LOF, Rare cramping at night. Cervix closed. Fundus>>dates...schedule US for growth. Has gained 35 lbs during the .Will order rubella and antibody screen labs. Plans to work up until her due date. RTC in 1 week. Flowsheet Date 05/24/2019 Emerson Score Blood Edema Fundus Height Fundus Units Glucose Ketones Leukocytes Nitrite Labor Signs Protein Cervic Dilation Cervic Effacement Cervic Station neg 1+ 42 cm none negative Other (see comments ) neg 1cm 20% Type Weight in lbs Pre/Post Dialysis Refused Weight 235.684776739987 BP Diastolic BP Location Tested BP Systolic BP Type 68 108 sitting Fetus Heart Rate Present A 153 Present Fetus Movement A Yes Comments +FM, rare mild contractions. No bleeding, Ho DOMINGUEZ, bilateral leg swelling. US scheduled for tomorrow for growth.Cervix tight 1/thick/. RTC in 1 week. Labor precautions. May consider induction next week. Flowsheet Date 05/30/2019 Emerson Score Blood Edema Fundus Height Fundus Units Glucose Ketones Leukocytes Nitrite Labor Signs Protein Cervic Dilation Cervic Effacement Cervic Station neg none 42 cm none negative Other (see comments ) neg 1cm 20% -3 Type Weight in lbs Pre/Post Dialysis Refused Weight 236.930276880991 BP Diastolic BP Location Tested BP Systolic BP Type 76 114 sitting Fetus Heart Rate Present A 143 Present Fetus Movement A Yes Comments + FM, No LOF, No bleeding, I rregular mild contractions. No DOMINGUEZ. Stopped working yesterday.US with [facility] [id number]. Wants to be induced. Discussed unfavorable cervix. Will start induction with cervidil tonight at 1800. Reviewed possibility of multiple days for induction. Flowsheet Date 06/08/2019 Emerson Score Blood Edema Fundus Height Fundus Units Glucose Ketones Leukocytes Nitrite Labor Signs Protein Cervic Dilation Cervic Effacement Cervic Station Type Weight in lbs Pre/Post Dialysis Refused With clothes 214.87769586402 BP Diastolic BP Location Tested BP Systolic BP Type 72 100 sitting Fetus Heart Rate Present Fetus Movement Comments Incision check Menstrual History Last Menstrual Date Menses Monthly On Bcp Conception Prior Menses Frequency Hcg Plus Date Menarche Onset Age 1008/23/2018 true false 28 8 12 Genetic Screening And Infection History Question Response Note Patient's Age Will Be 35 Yea rs Or Older At Estimated Date of Delivery false Thalassemia (Moroccan, Persian, Mediterranean, Or Background): MCV < 80 false Neural Tube Defect (Meningom yelocele, Spina Bifida, Or Anencephaly) false Congenital Heart Defect false Down Syndrome false Elroy-Sachs (eg, Anabaptism, Cajun, Emirati-Cochise) f alse Mitesh Disease false Sickle Cell Disease Or Trait () false Hemophilia Or Other Blood Disorders false Muscular Dystrophy false Cystic Fibrosis false Lizzy's Chorea false Mental Retardation/Autism false If Yes, Was Person Tested For Fragile X? false Other Inherited Genetic Or Chromosomal Disorder false Maternal Metabolic Disorder (eg, Type 1 Diabetes , PKU) false Patient Or Baby's Father Had A Child With Defects Not Listed Above false Recurrent Loss, Or A Stillbirth false Medications (including Suppl ements, Vitamins, Herbs, OTC Drugs), Illicit/Recreational Drugs, Alcohol true antbiotic If Yes, Agent(s) And Strength/Dosage false Any [...] of Hepatitis false Prior GBS-infected child false Delivery Information Delivery Date Delivery Type Labor Anesthesia Weeks Gestation Incision Type Labor Labor Length Hrs Delivered By Post Complications Tubal Sterilization Discharge Date Comments 9 Induce d [facility]-Ep idural 40.[address] Petty Infection false 06/05/2019 Chorioam n ioitisEnd ometritis PP hemorrhag e (QBL 1100) Discharge Information Feeding Method Contraceptive Method Maternal HG B and HCT Levels Bottle unsure 9.0
--- OUTSIDE RECORDS SUMMARY | 2025-03-28 13:29 | XMS_ITS | Encounter Summary ---
Author Organization [facility] Address [address] [place] [address] Care Team Providers Care Ammunition Assembly I Laborer Name Role Phone Tosha Wolff MD Primary Care Provider [phone] Encounter Details Date Type Department Care Team (Late st Contact Info) Description 09/28/2024 Telephone [facility] - [facility] [address] [place] [phone] Woody Donald MD [address] [place] [address] Social History Tobacco Use Types [...] care, and heating? Not very hard 11/26/2022 [facility] [place] of Occupat ional Health - Occupational Stress [...] place to sleep or slept in a skilled nursing (including now)? No 11/26/2022 Comments No Sex and Gender Information Value Date Recorded Sex Assigned at Female 12/23/2023 10:10 AM EDITOR Legal Sex Female 5:39 AM EDITOR Gender Identity Female 12/23/2023 10:10 AM EDITOR Sexual Orientation Not on file documented as [...] st Contact Info) Description 12/06/2025 3:30 PM EDITOR Office Visit [facility] - Urology [address] [place] [address] Woody Donald MD [address] [place] [phone] documented as of this encounter Visit Diagnoses Not on filedocumented in this encounter Care Teams Ammunition Assembly I Laborer Relationship Specialty Start Date End Date Tosha Wolff MD [address] [place] [address] [place] [phone] PCP - General Family Medicine 12/24/22 10/26/24 documented as of this encounter
--- OUTSIDE RECORDS SUMMARY | 2025-03-28 13:29 | XMS_ITS | Encounter Summary ---
Author Organization [facility] Address [address] [facility] [place] [address] Care Team Providers Care Corporate Executive Chef Name Role Phone Tosha Wolff MD Primary Care Provider [phone] Encounter Details Date Type Department Care Team (Late st Contact Info) Description 09/28/2024 Telephone [facility] - [facility] [address] [place] [phone] Woody Donald MD [address] [place] [address] Social History Tobacco Use Types [...] care, and heating? Not very hard 11/26/2022 [facility] [place] of Occupat ional Health - Occupational Stress [...] Sex Assigned at Female 12/23/2023 10:10 AM VICE PRESIDENT BUSINESS DEVELOPMENT Legal Sex Female 5:39 AM VICE PRESIDENT BUSINESS DEVELOPMENT Gender Identity Female 12/23/2023 10:10 AM VICE PRESIDENT BUSINESS DEVELOPMENT Sexual Orientation Not on file documented as [...] CC1, forpost op Patient Call Back Number: [phone] PRESIDENT BUSINESS DEVELOPMENT documented in this encounter Plan of Treatment Upcoming Encounters Date Type Department Care Team (Late st Contact Info) Description 12/06/2025 3:30 PM VICE PRESIDENT BUSINESS DEVELOPMENT Office Visit [facility] - Urology [address] [place] [address] Woody Donald MD [address] [place] [phone] documented as of this encounter Visit Diagnoses Not on filedocumented in this encounter Care Teams Corporate Executive Chef Relationship Specialty Start Date End Date Tosha Wolff MD [address] [place] [address] [place] [phone] PCP - General Family Medicine 12/24/22 10/26/24 documented as of this encounter
== END 2025-03-28 14:00 | disposition home or self-care (01) ==
PROVIDERS: Emergency Provider Emergency Medicine
DX: N39.0 Urinary tract infection, site not specified (principal); R11.0 Nausea
CPT/HCPCS: 36415; 80053; 81001; 81025; 83690; 85025; 87086; 87186; 99283; A9270